=== PATIENT | female | born 1975 | race Caucasian/White ===

== ENCOUNTER 2016-09-08 18:29 | Emergency (ER) | payer OTHER ==
[2016-09-08] MEDS ORDERED: SODIUM CHLORIDE 0.9% 1,000 ML IV ONE (18:48)
[2016-09-08] MEDS ORDERED: NALOXONE 0.4 MG/ML 1 ML VIAL IV STA (18:48)
--- NOTE | 2016-09-08 19:02 | ED ---
Altered Mental Status HPI <Canelo Lincoln - Last Filed: 09/08/16 20:25> - General Source: EMS, RN notes reviewed Mode of arrival: EMS Limitations: no limitations <Luana Gloria - Last Filed: 09/08/16 20:42> - General Chief Complaint: Altered Mental Status Stated Complaint: Fever Time Seen by Provider: 09/08/16 18:33 - History of Present Illness Initial Comments: Patient is a 41-year-old female coming to emergency Department via EMS with chief complaint altered mental status. Patient's boyfriend reports that yesterday she threw up around 5:00 in the morning. She states that since then she's been more confused and off balance. The report that she's had a fever off and on. He states that she just been acting abnormally. They report that they're currently on methadone and received her methadone at 9:00 this morning. They state that she is receiving 90 mg doses at this time. Patient denies any history of IV drug use, or other drug use at this time. Patient's boyfriend states that today she lost her balance and fell and hit her head on the kitchen floor. Patient states that she is in no pain at this time. She denies any abdominal pain, chest pain, shortness of breath. (Luana Gloria) - Related Data Home Medications Medication Instructions Recorded Confirmed Citalopram Hydrobromide [CeleXA] 40 mg PO DAILY 09/08/16 09/08/16 Methadone HCl [Methadone Intensol] 85 mg PO DAILY 09/08/16 09/08/16 Allergies Allergy/AdvReac Type Severity Reaction Status Date / Time No Known Allergies Allergy Verified 09/08/16 19:15 Review of Systems ROS Other: All systems not noted in ROS Statement are negative. <Canelo Lincoln - Last Filed: 09/08/16 20:25> ROS Other: All systems not noted in ROS Statement are negative. <Luana Gloria - Last Filed: 09/08/16 20:42> ROS Statement: Those systems with pertinent positive or pertinent negative responses have been documented in the HPI. Past Medical History Past Medical History: No Reported History Additional Past Medical History / Comment(s): heroin use, uti History of Any Multi-Drug Resistant Organisms: None Reported Past Surgical History: Section, Cholecystectomy Additional Past Surgical History / Comment(s): 2 sections Past Psychological History: No Psychological Hx Reported Smoking Status: Former smoker Past Alcohol Use History: None Reported Past Drug Use History: Heroin, IV Drug Use Additional Drug Use History / Comment(s): last time used 12-19-2013 <Luana Gloria - Last Filed: 09/08/16 20:42> General Exam <Canelo Lincoln - Last Filed: 09/08/16 20:25> Limitations: no limitations General appearance: alert, in no apparent distress Head exam: Present: atraumatic, normocephalic, normal inspection Eye exam: Present: normal appearance, PERRL, EOMI. Absent: scleral icterus, conjunctival injection, periorbital swelling ENT exam: Present: normal exam, mucous membranes moist Neck exam: Present: normal inspection. Absent: tenderness, meningismus, lymphadenopathy Respiratory exam: Present: normal lung sounds bilaterally. Absent: respiratory distress, wheezes, rales, rhonchi, stridor Cardiovascular Exam: Present: regular rate, normal rhythm, normal heart sounds. Absent: systolic murmur, diastolic murmur, rubs, gallop, clicks GI/Abdominal exam: Present: soft, normal bowel sounds. Absent: distended, tenderness, guarding, rebound, rigid Extremities exam: Present: normal inspection, full ROM, normal capillary refill , other (Patient has swollen bilateral hands.). Absent: tenderness, pedal edema , joint swelling, calf tenderness Back exam: Present: normal inspection Neurological exam: Present: alert, oriented X3, CN II-XII intact, abnormal gait. Absent: normal gait Psychiatric exam: Present: normal affect, normal mood Skin exam: Present: warm, dry, intact, normal color. Absent: rash <Luana Gloria - Last Filed: 09/08/16 20:42> - General Exam Comments Initial Comments: 41-year-old female. Patient is alert and oriented 3. (Luana Gloria) Medical Decision Making - Lab Data Result diagrams: 09/08/16 18:55 09/08/16 18:55 <Canelo Lincoln - Last Filed: 09/08/16 20:25> - Lab Data Result diagrams: 09/08/16 18:55 09/08/16 18:55 - Radiology Data Radiology results: report reviewed <Luana Gloria - Last Filed: 09/08/16 20:42> - Medical Decision Making The patient was seen and examined. All diagnostics were reviewed. She did wake up significantly with Narcan. She refuses taking anything other than her normal methadone dose. She was questioned multiple times and still refuses that she took any other narcotics or hair when. She states that she gets drug tested twice a week when she picks up her methadone. She is offered admission to the hospital but refuses. She is alert and oriented and lucid upon discussion. She was instructed to communicate with [facility] in regard to decreasing her methadone dose. She denies any recent increases in the dose. It is felt as though her symptoms are likely related to her narcotic overdose she is counseled regarding this in detail and leaves in no distress. The case is discussed with the PA and I agree with the findings as documented. (Canelo Lincoln) Patient is 41-year-old female presenting to emergency Department with altered mental status. Patient given IV fluids. All labs are reviewed and were negative. EKG was normal. Chest x-ray CT brain and hand. She does have some swelling over her with this could be attributed to discussed taking Benadryl keeping the hand elevated. Patient was evaluated by Dr. Garcia. Patient is alert and oriented after 0. 2,000,000 g of Narcan. Patient refuses to state that she's taken any opiates. That does test positive in her urine as well as methadone. Patient was questioned multiple times and continues to refuse. Patient reports that she wants to go home at this time. Patient was offered admission but declines. Patient states that she will follow-up with [facility]. Patient presents the treatment plan will comply. Return parameters were discussed. (Luana Gloria) - Lab Data Lab Results 09/08/16 09/08/16 09/08/16 Range/Units 18:55 18:55 18:55 WBC 5.6 (3.8-10.6) k/uL RBC 3.78 L (3.80-5.40) m/uL Hgb 11.5 (11.4-16.0) gm/dL Hct 33.9 L (34.0-46.0) % MCV 89.6 (80.0-100.0) fL MCH 30.5 (25.0-35.0) pg MCHC 34.1 (31.0-37.0) g/dL RDW 14.2 (11.5-15.5) % Plt Count 177 (150-450) k/uL Neutrophils % 50 % Lymphocytes % 41 % Monocytes % 4 % Eosinophils % 2 % Basophils % 1 % Neutrophils # 2.8 (1.3-7.7) k/uL Lymphocytes # 2.3 (1.0-4.8) k/uL Monocytes # 0.3 (0-1.0) k/uL Eosinophils # 0.1 (0-0.7) k/uL Basophils # 0.1 (0-0.2) k/uL PT (9.0-12.0) sec INR (<1.1) APTT (22.0-30.0) sec Sodium 141 (137-145) mmol/L Potassium 3.6 (3.5-5.1) mmol/L Chloride 106 (98-107) mmol/L Carbon Dioxide 26 (22-30) mmol/L Anion Gap 9 mmol/L BUN 9 (7-17) mg/dL Creatinine 0.89 (0.52-1.04) mg/dL Est GFR (MDRD) Af Amer >60 (>60 ml/min/1.73 sqM) Est GFR (MDRD) Non-Af >60 (>60 ml/min/1.73 sqM) Glucose 105 H (74-99) mg/dL POC Glucose (mg/dL) (75-99) mg/dL POC Glu Contact Lens Curve Grinder ID Plasma Lactic Acid Adolph (0.7-2.0) mmol/L Calcium 8.9 (8.4-10.2) mg/dL Total Bilirubin 0.5 (0.2-1.3) mg/dL AST 20 (14-36) U/L ALT 23 (9-52) U/L Alkaline Phosphatase 91 (38-126) U/L Ammonia (<30) umol/L Total Creatine Kinase 61 (30-135) U/L CK-MB (CK-2) 0.4 (0.0-2.4) ng/mL CK-MB (CK-2) Rel Index 0.7 Total Protein 7.1 (6.3-8.2) g/dL Albumin 3.7 (3.5-5.0) g/dL Urine Color Urine Appearance (Clear) Urine pH (5.0-8.0) Ur Specific [place] (1.001-1.035) Urine Protein (Negative) Urine Glucose (UA) (Negative) Urine Ketones (Negative) Urine Blood (Negative) Urine Nitrite (Negative) Urine Bilirubin (Negative) Urine Urobilinogen (<2.0) mg/dL Ur Leukocyte Esterase (Negative) Urine Opiates Screen (NotDetected) Ur Oxycodone Screen (NotDetected) Urine Methadone Screen (NotDetected) Ur Propoxyphene Screen (NotDetected) Ur Barbiturates Screen (NotDetected) U Tricyclic Antidepress (NotDetected) Ur Phencyclidine Scrn (NotDetected) Ur Amphetamines Screen (NotDetected) U Methamphetamines Scrn (NotDetected) U Benzodiazepines Scrn (NotDetected) Urine Cocaine Screen (NotDetected) U Marijuana (THC) Screen (NotDetected) 09/08/16 09/08/16 09/08/16 Range/Units 18:55 18:55 19:09 WBC (3.8-10.6) k/uL RBC (3.80-5.40) m/uL Hgb (11.4-16.0) gm/dL Hct (34.0-46.0) % MCV (80.0-100.0) fL MCH (25.0-35.0) pg MCHC (31.0-37.0) g/dL RDW (11.5-15.5) % Plt Count (150-450) k/uL Neutrophils % % Lymphocytes % % Monocytes % % Eosinophils % % Basophils % % Neutrophils # (1.3-7.7) k/uL Lymphocytes # (1.0-4.8) k/uL Monocytes # (0-1.0) k/uL Eosinophils # (0-0.7) k/uL Basophils # (0-0.2) k/uL PT 10.3 (9.0-12.0) sec INR 1.0 (<1.1) APTT 24.8 (22.0-30.0) sec Sodium (137-145) mmol/L Potassium (3.5-5.1) mmol/L Chloride (98-107) mmol/L Carbon Dioxide (22-30) mmol/L Anion Gap mmol/L BUN (7-17) mg/dL Creatinine (0.52-1.04) mg/dL Est GFR (MDRD) Af Amer (>60 ml/min/1.73 sqM) Est GFR (MDRD) Non-Af (>60 ml/min/1.73 sqM) Glucose (74-99) mg/dL POC Glucose (mg/dL) 115 H (75-99) mg/dL POC Glu Contact Lens Curve Grinder ID Abigail Gutierrez Plasma Lactic Acid Adolph 1.1 (0.7-2.0) mmol/L Calcium (8.4-10.2) mg/dL Total Bilirubin (0.2-1.3) mg/dL AST (14-36) U/L ALT (9-52) U/L Alkaline Phosphatase (38-126) U/L Ammonia 12 (<30) umol/L Total Creatine Kinase (30-135) U/L CK-MB (CK-2) (0.0-2.4) ng/mL CK-MB (CK-2) Rel Index Total Protein (6.3-8.2) g/dL Albumin (3.5-5.0) g/dL Urine Color Urine Appearance (Clear) Urine pH (5.0-8.0) Ur Specific [place] (1.001-1.035) Urine Protein (Negative) Urine Glucose (UA) (Negative) Urine Ketones (Negative) Urine Blood (Negative) Urine Nitrite (Negative) Urine Bilirubin (Negative) Urine Urobilinogen (<2.0) mg/dL Ur Leukocyte Esterase (Negative) Urine Opiates Screen (NotDetected) Ur Oxycodone Screen (NotDetected) Urine Methadone Screen (NotDetected) Ur Propoxyphene Screen (NotDetected) Ur Barbiturates Screen (NotDetected) U Tricyclic Antidepress (NotDetected) Ur Phencyclidine Scrn (NotDetected) Ur Amphetamines Screen (NotDetected) U Methamphetamines Scrn (NotDetected) U Benzodiazepines Scrn (NotDetected) Urine Cocaine Screen (NotDetected) U Marijuana (THC) Screen (NotDetected) 09/08/16 Range/Units 19:21 WBC (3.8-10.6) k/uL RBC (3.80-5.40) m/uL Hgb (11.4-16.0) gm/dL Hct (34.0-46.0) % MCV (80.0-100.0) fL MCH (25.0-35.0) pg MCHC (31.0-37.0) g/dL RDW (11.5-15.5) % Plt Count (150-450) k/uL Neutrophils % % Lymphocytes % % Monocytes % % Eosinophils % % Basophils % % Neutrophils # (1.3-7.7) k/uL Lymphocytes # (1.0-4.8) k/uL Monocytes # (0-1.0) k/uL Eosinophils # (0-0.7) k/uL Basophils # (0-0.2) k/uL PT (9.0-12.0) sec INR (<1.1) APTT (22.0-30.0) sec Sodium (137-145) mmol/L Potassium (3.5-5.1) mmol/L Chloride (98-107) mmol/L Carbon Dioxide (22-30) mmol/L Anion Gap mmol/L BUN (7-17) mg/dL Creatinine (0.52-1.04) mg/dL Est GFR (MDRD) Af Amer (>60 ml/min/1.73 sqM) Est GFR (MDRD) Non-Af (>60 ml/min/1.73 sqM) Glucose (74-99) mg/dL POC Glucose (mg/dL) (75-99) mg/dL POC Glu Contact Lens Curve Grinder ID Plasma Lactic Acid Adolph (0.7-2.0) mmol/L Calcium (8.4-10.2) mg/dL Total Bilirubin (0.2-1.3) mg/dL AST (14-36) U/L ALT (9-52) U/L Alkaline Phosphatase (38-126) U/L Ammonia (<30) umol/L Total Creatine Kinase (30-135) U/L CK-MB (CK-2) (0.0-2.4) ng/mL CK-MB (CK-2) Rel Index Total Protein (6.3-8.2) g/dL Albumin (3.5-5.0) g/dL Urine Color Yellow Urine Appearance Clear (Clear) Urine pH 5.5 (5.0-8.0) Ur Specific [place] 1.022 (1.001-1.035) Urine Protein Negative (Negative) Urine Glucose (UA) Negative (Negative) Urine Ketones Trace H (Negative) Urine Blood Negative (Negative) Urine Nitrite Negative (Negative) Urine Bilirubin Negative (Negative) Urine Urobilinogen <2.0 (<2.0) mg/dL Ur Leukocyte Esterase Negative (Negative) Urine Opiates Screen Detected H (NotDetected) Ur Oxycodone Screen Not Detected (NotDetected) Urine Methadone Screen Detected H (NotDetected) Ur Propoxyphene Screen Not Detected (NotDetected) Ur Barbiturates Screen Not Detected (NotDetected) U Tricyclic Antidepress Not Detected (NotDetected) Ur Phencyclidine Scrn Not Detected (NotDetected) Ur Amphetamines Screen Detected H (NotDetected) U Methamphetamines Scrn Not Detected (NotDetected) U Benzodiazepines Scrn Not Detected (NotDetected) Urine Cocaine Screen Not Detected (NotDetected) U Marijuana (THC) Screen Not Detected (NotDetected) 09/08/16 19:17 EKG shows normal sinus rhythm. Ventricular rate of 94 bpm. MD interval 140 ms. QRS duration 82 ms. QT is QTC 360/450 ms. No evidence of ST elevation or T-wave inversion. No evidence of atrial or ventricular arrhythmias. (Luana Gloria) - Radiology Data No acute intracranial hemorrhage, mass effect or midline shift seen. Correlate for maxillary sinusitis. Patient did not cooperate with the exam. Chest x-ray shows no acute cardiopulmonary process. Hand x-ray No fracture dislocation. Soft tissue swelling. (Luana Gloria) Disposition <Canelo Lincoln - Last Filed: 09/08/16 20:25> Time of Disposition: 20:28 <Luana Gloria - Last Filed: 09/08/16 20:42> Clinical Impression: Altered mental state, Opiate abuse, episodic, Methadone use Disposition: HOME SELF-CARE Condition: Good Instructions: Narcotic Abuse (ED), Altered Mental Status (ED) Additional Instructions: Patient advised follow-up with [facility]. Return to the emergency department if any alarming signs or symptoms occur. Referrals: Gregoria Almanza MD [Primary Care Provider] - 1-2 days
[2016-09-08 19:10] LABS: Glucose,Whole Blood 115 mg/dL (75-99)
[2016-09-08 19:17] LABS: Basophils # (A) 0.1 k/uL (0-0.2); Basophils % (A) 1 %; CH 30.7; CHCM 34.4; Eosinophils # (A) 0.1 k/uL (0-0.7); Eosinophils % (A) 2 %; HCT 33.9 % (34.0-46.0); HDW 3.08; HGB 11.5 gm/dL (11.4-16.0); Luc # (Auto) 0.09; Luc % (Auto) 2; Lymphocytes # (A) 2.3 k/uL (1.0-4.8); Lymphocytes % (A) 41 %; MCH 30.5 pg (25.0-35.0); MCHC 34.1 g/dL (31.0-37.0); MCV 89.6 fL (80.0-100.0); Mean Platelet Volume 7.1; Monocytes # (A) 0.3 k/uL (0-1.0); Monocytes % (A) 4 %; Neutrophils # (A) 2.8 k/uL (1.3-7.7); Neutrophils % (A) 50 %; RBC 3.78 m/uL (3.80-5.40); RDW 14.2 % (11.5-15.5); WBC 5.6 k/uL (3.8-10.6); WBC (Perox) 5.79
[2016-09-08 19:22] LABS: ALT 23 U/L (9-52); AST 20 U/L (14-36); Alkaline Phosphatase 91 U/L (38-126); Anion Gap 9 mmol/L; Blood Urea Nitrogen 9 mg/dL (7-17); Calcium 8.9 mg/dL (8.4-10.2); Carbon Dioxide 26 mmol/L (22-30); Chloride 106 mmol/L (98-107); Glucose 105 mg/dL (74-99); Non-African American GFR(MDRD) >60 (>60 ml/min/1.73 sqM); Potassium 3.6 mmol/L (3.5-5.1); Sodium 141 mmol/L (137-145); Total Bilirubin 0.5 mg/dL (0.2-1.3); Total Protein 7.1 g/dL (6.3-8.2)
[2016-09-08 19:36] LABS: Appearance,Urine Clear (Clear); Bilirubin,Urine Negative (Negative); Glucose,Urine (UA) Negative (Negative); Ketones,Urine Trace (Negative); Leukocyte Esterase,Urine Negative (Negative); Nitrite,Urine Negative (Negative); PH, Urine 5.5 (5.0-8.0); Protein,Urine Negative (Negative); Specific Gravity,Urine 1.022 (1.001-1.035); UA Billing (MACRO vs. MICRO) CHEM; Urobilinogen,Urine <2.0 mg/dL (<2.0)
[2016-09-08 19:40] LABS: Partial Thromboplastin Time 24.8 sec (22.0-30.0); Prothrombin Time 10.3 sec (9.0-12.0)
[2016-09-08 19:47] LABS: Creatine Kinase MB 0.4 ng/mL (0.0-2.4)
--- NOTE | 2016-09-08 19:55 | CT ---
EXAMINATION TYPE: CT brain wo con DATE OF EXAM: 09/08/2016 7:45 PM COMPARISON: NONE HISTORY: Patient altered mental status. Patient agitated during scan and would not hold still. CT DLP: 1619.3 mGycm Automated exposure control for dose reduction was used. FINDINGS: There is no acute intracranial hemorrhage, mass effect, or midline shift identified. The ventricles and sulci are within normal limits in size. Exam is somewhat limited by patient's lack of cooperation . The globes are intact and the visualized sinuses are remarkable for inflammatory change in the bila teral maxillary sinuses, there are air-fluid levels left greater than right. IMPRESSION: No acute intracranial hemorrhage, mass effect, or midline shift is seen. Correlate for maxillary sinu sitis. Patient did not cooperate with the exam.
--- NOTE | 2016-09-08 19:55 | XR ---
EXAMINATION TYPE: XR chest 2V DATE OF EXAM: 09/08/2016 7:52 PM COMPARISON: NONE HISTORY: Altered mental status TECHNIQUE: Frontal and lateral views of the chest are obtained. FINDINGS: There is no focal air space opacity, pleural effusion, or pneumothorax seen. The cardiac silhouette size is within normal limits. The osseous structures are intact. IMPRESSION: No acute cardiopulmonary process.
--- NOTE | 2016-09-08 19:56 | XR ---
Right hand HISTORY: Pain 3 views the right hand Bone mineralization, joint spaces and alignment are maintained. Soft tissue swelling noted. IMPRESSION: No fracture or dislocation. There is soft tissue swelling.
[2016-09-08 20:11] VITALS: RESP 18
[2016-09-08 20:47] VITALS: BP 107/58; PULSE 88; TEMP 98.6
== END 2016-09-08 20:47 | disposition home or self-care (01) ==
LOC: EC 18:29
DX: R41.82 Altered mental status, unspecified (principal); F11.10 Opioid abuse, uncomplicated; F11.90 Opioid use, unspecified, uncomplicated; Z87.891 Personal history of nicotine dependence; Z79.899 Other long term (current) drug therapy
CPT/HCPCS: 36415; 93005; 80053; 82140; 82550; 82553; 83605; 85025; 85610; 85730; 81003; 80306; 71020; 73130; 70450; 99285; 96374; 96361; J2310

== ENCOUNTER → 2017-10-31 | Outpatient (CLI) | payer OTHER ==
--- NOTE | 2017-10-31 09:22 | CT ---
EXAMINATION TYPE: CT abdomen pelvis w con DATE OF EXAM: 10/31/2017 COMPARISON: NONE HISTORY: LUQ pain CT DLP: 1115.1 mGycm CONTRAST: CT scan of the abdomen and pelvis is performed with Oral Contrast and with IV Contrast, patient injec mony with 100 mL of Isovue 300. FINDINGS: LUNG BASES-: No visible nodule. No infiltrate. LIVER/GB: The gallbladder surgically absent. Hepatic steatosis noted. No space occupying hepatic l esion. Biliary tree is of normal caliber. PANCREAS: No inflammation. No distinct mass. SPLEEN: No splenic enlargement. No lesion seen. ADRENALS: No nodule. No thickening. KIDNEYS/BLADDER: No hydronephrosis. Several nonobstructing calculi left kidney measuring up to 4 mm. No right-sided nephrolithiasis appreciated. No distinct renal mass. Urinary bladder grossly unremar kable. BOWEL: Normal appendix. Normal bowel caliber. No inflammation. GENITAL ORGANS: Heterogeneity of the uterus may reflect underlying leiomyomatous change. No adnexal masses are identified this time. LYMPH NODES: No greater than 1cm abdominal or pelvic lymph nodes are appreciated. AORTA: No significant abnormality. OSSEOUS STRUCTURES: Severe degenerative change L5-S1 with grade 1 anterolisthesis.. OTHER: No significant additional abnormality is seen. IMPRESSION: 1. Nonobstructing left-sided nephrolithiasis. 2. Hepatic steatosis. 3. Heterogeneity of the uterus may reflect underlying leiomyomatous change.
== END | disposition home or self-care (01) ==
LOC: RADCTMAIN 06:55
PROVIDERS: ATTEND Surgery
DX: N20.0 Calculus of kidney (principal); K76.0 Fatty (change of) liver, not elsewhere classified
CPT/HCPCS: 74177; Q9967

== ENCOUNTER → 2020-02-17 | Outpatient (CLI) | payer OTHER ==
--- NOTE | 2020-02-17 13:36 | MM ---
Reason for exam: screening (asymptomatic). Baseline mammogram. Physical Findings: Nurse did not find any significant physical abnormalities on exam. MG Screening Mammo w CAD Bilateral CC and MLO view(s) were taken. The breast tissue is heterogeneously dense. This may lower the sensitivity of mammography. There is no discrete abnormality. These results were verbally communicated with the patient and result sheet given to the patient on 02/17/20. ASSESSMENT: Negative, BI-RAD 1 RECOMMENDATION: Routine screening mammogram of both breasts in 1 year.
== END | disposition home or self-care (01) ==
LOC: RADMAMWWP 12:46
PROVIDERS: ATTEND Internal Medicine
DX: Z12.31 Encounter for screening mammogram for malignant neoplasm of breast (principal); Z80.3 Family history of malignant neoplasm of breast
CPT/HCPCS: 77067

== ENCOUNTER → 2021-02-16 | Outpatient (CLI) | payer OTHER ==
--- NOTE | 2021-02-17 07:23 | MR ---
EXAMINATION TYPE: MR brain wo con DATE OF EXAM: 02/16/2021 COMPARISON: CT brain September 08, 2016 HISTORY: Hyperprolactinemia TECHNIQUE: Multiplanar, multisequence imaging of the brain and brainstem is performed without IV cont rast. FINDINGS: Diffusion weighted images demonstrate no evidence of a recent infarct or other diffusion abnormality. There is no extraaxial fluid collection or significant white matter signal abnormality. The ventricu lar system and cisternal spaces are normal in size and appearance. The brain volume is age appropria te. Midline structures demonstrate normal morphology. The pituitary gland is stable and within normal li mits in size. Suprasellar cistern is maintained. Optic chiasm is not effaced. The craniocervical junc tion remains within normal limits. Normal vascular flow voids are present. [id number] mucosal t hickening in left maxillary sinus with dependent fluid. Remainder of the paranasal sinuses are clear. Artifact distortion at level of the globes is noted. IMPRESSION: Normal size pituitary gland. Acute on chronic left maxillary sinus disease.
== END | disposition home or self-care (01) ==
LOC: RADMRIMAIN 16:09
PROVIDERS: ATTEND Obstetrics & Gynecology
DX: E22.1 Hyperprolactinemia (principal); J32.0 Chronic maxillary sinusitis
CPT/HCPCS: 70551

== ENCOUNTER 2021-10-21 10:35 | Observation (INO) | payer OTHER ==
[2021-10-21] MEDS ORDERED: SODIUM CHLORIDE 0.9% 1,000 ML IV STA ×2 (11:22→12:37)
--- NOTE | 2021-10-21 11:26 | ED ---
General Adult HPI - General Chief complaint: Altered Mental Status Stated complaint: Altered Mental Status Time Seen by Provider: 10/21/21 11:12 Source: patient, RN notes reviewed Mode of arrival: EMS Limitations: no limitations - History of Present Illness Initial comments: Patient is a pleasant 46-year-old female presenting to the emergency department with family with concerns for possible overdose. Patient states she took 2 somas. Patient does have a history of overdosing with Soma 3 times in the past year. states patient is presenting similar to that. Patient states she feels a little bit drowsy otherwise has no complaints. Patient denies suicidal or homicidal thoughts. No headache. Patient does not feel confused. - Related Data Home Medications Medication Instructions Recorded Confirmed Methadone HCl [Methadone Intensol] 1 dose PO DIRECTED 09/08/16 06/08/21 Previous Rx's Medication Instructions Recorded Ibuprofen [Motrin] 600 mg PO Q8HR PRN #30 tab 06/08/21 Tamsulosin [Flomax] 0.4 mg PO DAILY #7 cap 06/08/21 Allergies Allergy/AdvReac Type Severity Reaction Status Date / Time No Known Allergies Allergy Verified 10/21/21 10:43 Review of Systems ROS Statement: Those systems with pertinent positive or pertinent negative responses have been documented in the HPI. ROS Other: All systems not noted in ROS Statement are negative. Constitutional: Denies: fever Eyes: Denies: eye pain ENT: Denies: ear pain Respiratory: Denies: cough Cardiovascular: Denies: chest pain Endocrine: Denies: fatigue Gastrointestinal: Denies: abdominal pain Genitourinary: Denies: dysuria Musculoskeletal: Denies: back pain Skin: Denies: rash Neurological: Denies: weakness Psychiatric: Denies: homicidal thoughts, suicidal thoughts Past Medical History Past Medical History: No Reported History Additional Past Medical History / Comment(s): heroin use, uti History of Any Multi-Drug Resistant Organisms: None Reported Past Surgical History: Section, Cholecystectomy Additional Past Surgical History / Comment(s): 2 sections Past Psychological History: No Psychological Hx Reported Smoking Status: Vaper Past Alcohol Use History: None Reported Past Drug Use History: Heroin, IV Drug Use General Exam Limitations: no limitations General appearance: alert, other (Patient is slow to respond to questioning.) Head exam: Present: atraumatic Eye exam: Present: normal appearance, PERRL, EOMI, nystagmus ENT exam: Present: normal oropharynx Neck exam: Present: normal inspection Respiratory exam: Present: normal lung sounds bilaterally Cardiovascular Exam: Present: regular rate, normal rhythm GI/Abdominal exam: Present: soft. Absent: tenderness Extremities exam: Present: normal inspection Neurological exam: Present: alert, CN II-XII intact. Absent: motor sensory deficit Expanded Neurological exam: Present: other (Patient unable to cooperate to do finger-nose testing) Patient oriented to: Absent: time Motor strength exam: RUE: 5, LUE: 5, RLE: 5, LLE: 5 Eye Response: (4) open spontaneously Motor Response: (6) obeys commands Verbal Response: (4) confused conversation Psychiatric exam: Present: normal affect, normal mood Skin exam: Present: normal color Course Vital Signs 10/21/21 10:43 Temperature 98.4 F Pulse Rate 68 Respiratory 16 Rate Blood Pressure 99/66 O2 Sat by Pulse 98 Oximetry EKG Findings - EKG Comments: EKG Findings:: Sinus tachycardia 103. CT 152. QRS 77. QT 320. QTC 379. Normal axis. Normal QRS. Artifact is present. No acute ST change. Medical Decision Making - Medical Decision Making Patient reexamined and not quite as restless at this time. Patient is drowsy. Patient and family updated on results and plan. [facility] [place] physician group has been paged for admission covering hospital observation call - Lab Data Result diagrams: 10/21/21 11:39 10/21/21 11:39 Lab Results 10/21/21 10/21/21 10/21/21 Range/Units 11:39 11:39 11:39 WBC 6.5 (3.8-10.6) k/uL RBC 4.07 (3.80-5.40) m/uL Hgb 12.1 (11.4-16.0) gm/dL Hct 36.7 (34.0-46.0) % MCV 90.3 (80.0-100.0) fL MCH 29.8 (25.0-35.0) pg MCHC 33.0 (31.0-37.0) g/dL RDW 14.1 (11.5-15.5) % Plt Count 218 (150-450) k/uL MPV 7.8 Neutrophils % 46 % Lymphocytes % 44 % Monocytes % 4 % Eosinophils % 4 % Basophils % 1 % Neutrophils # 3.0 (1.3-7.7) k/uL Lymphocytes # 2.9 (1.0-4.8) k/uL Monocytes # 0.3 (0-1.0) k/uL Eosinophils # 0.2 (0-0.7) k/uL Basophils # 0.1 (0-0.2) k/uL PT 10.0 (9.0-12.0) sec INR 0.9 (<1.2) APTT 25.6 (22.0-30.0) sec Sodium 140 (137-145) mmol/L Potassium 4.0 (3.5-5.1) mmol/L Chloride 106 (98-107) mmol/L Carbon Dioxide 26 (22-30) mmol/L Anion Gap 8 mmol/L BUN 10 (7-17) mg/dL Creatinine 1.01 (0.52-1.04) mg/dL Est GFR (CKD-EPI)AfAm 78 (>60 ml/min/1.73 sqM) Est GFR (CKD-EPI)NonAf 68 (>60 ml/min/1.73 sqM) Glucose 79 (74-99) mg/dL Calcium 9.0 (8.4-10.2) mg/dL Total Bilirubin 0.3 (0.2-1.3) mg/dL AST 25 (14-36) U/L ALT 15 (4-34) U/L Alkaline Phosphatase 84 (38-126) U/L Total Protein 7.4 (6.3-8.2) g/dL Albumin 4.2 (3.5-5.0) g/dL Urine Color Urine Appearance (Clear) Urine pH (5.0-8.0) Ur Specific [place] (1.001-1.035) Urine Protein (Negative) Urine Glucose (UA) (Negative) Urine Ketones (Negative) Urine Blood (Negative) Urine Nitrite (Negative) Urine Bilirubin (Negative) Urine Urobilinogen (<2.0) mg/dL Ur Leukocyte Esterase (Negative) Urine RBC (0-5) /hpf Urine WBC (0-5) /hpf Ur Squamous Epith Cells (0-4) /hpf Hyaline Casts (0-2) /lpf Urine Mucus (None) /hpf Salicylates <1.0 mg/dL Urine Opiates Screen (NotDetected) Ur Oxycodone Screen (NotDetected) Urine Methadone Screen (NotDetected) Ur Propoxyphene Screen (NotDetected) Acetaminophen <10.0 ug/mL Ur Barbiturates Screen (NotDetected) U Tricyclic Antidepress (NotDetected) Ur Phencyclidine Scrn (NotDetected) Ur Amphetamines Screen (NotDetected) U Methamphetamines Scrn (NotDetected) U Benzodiazepines Scrn (NotDetected) Urine Cocaine Screen (NotDetected) U Marijuana (THC) Screen (NotDetected) Serum Alcohol <10 mg/dL 10/21/21 Range/Units 12:42 WBC (3.8-10.6) k/uL RBC (3.80-5.40) m/uL Hgb (11.4-16.0) gm/dL Hct (34.0-46.0) % MCV (80.0-100.0) fL MCH (25.0-35.0) pg MCHC (31.0-37.0) g/dL RDW (11.5-15.5) % Plt Count (150-450) k/uL MPV Neutrophils % % Lymphocytes % % Monocytes % % Eosinophils % % Basophils % % Neutrophils # (1.3-7.7) k/uL Lymphocytes # (1.0-4.8) k/uL Monocytes # (0-1.0) k/uL Eosinophils # (0-0.7) k/uL Basophils # (0-0.2) k/uL PT (9.0-12.0) sec INR (<1.2) APTT (22.0-30.0) sec Sodium (137-145) mmol/L Potassium (3.5-5.1) mmol/L Chloride (98-107) mmol/L Carbon Dioxide (22-30) mmol/L Anion Gap mmol/L BUN (7-17) mg/dL Creatinine (0.52-1.04) mg/dL Est GFR (CKD-EPI)AfAm (>60 ml/min/1.73 sqM) Est GFR (CKD-EPI)NonAf (>60 ml/min/1.73 sqM) Glucose (74-99) mg/dL Calcium (8.4-10.2) mg/dL Total Bilirubin (0.2-1.3) mg/dL AST (14-36) U/L ALT (4-34) U/L Alkaline Phosphatase (38-126) U/L Total Protein (6.3-8.2) g/dL Albumin (3.5-5.0) g/dL Urine Color Yellow Urine Appearance Cloudy H (Clear) Urine pH 5.5 (5.0-8.0) Ur Specific [place] 1.032 (1.001-1.035) Urine Protein Negative (Negative) Urine Glucose (UA) Negative (Negative) Urine Ketones Trace H (Negative) Urine Blood Negative (Negative) Urine Nitrite Negative (Negative) Urine Bilirubin Negative (Negative) Urine Urobilinogen 2.0 (<2.0) mg/dL Ur Leukocyte Esterase Trace H (Negative) Urine RBC 1 (0-5) /hpf Urine WBC 2 (0-5) /hpf Ur Squamous Epith Cells 4 (0-4) /hpf Hyaline Casts 1 (0-2) /lpf Urine Mucus Occasional H (None) /hpf Salicylates mg/dL Urine Opiates Screen Not Detected (NotDetected) Ur Oxycodone Screen Not Detected (NotDetected) Urine Methadone Screen Detected H (NotDetected) Ur Propoxyphene Screen Not Detected (NotDetected) Acetaminophen ug/mL Ur Barbiturates Screen Not Detected (NotDetected) U Tricyclic Antidepress Not Detected (NotDetected) Ur Phencyclidine Scrn Not Detected (NotDetected) Ur Amphetamines Screen Not Detected (NotDetected) U Methamphetamines Scrn Not Detected (NotDetected) U Benzodiazepines Scrn Not Detected (NotDetected) Urine Cocaine Screen Not Detected (NotDetected) U Marijuana (THC) Screen Not Detected (NotDetected) Serum Alcohol mg/dL Disposition Clinical Impression: Carisoprodol adverse reaction Disposition: ADMITTED IP TO THIS HOSP Is patient prescribed a controlled substance at d/c from ED?: No Referrals: Gregoria Almanza MD [Primary Care Provider] - 1-2 days Time of Disposition: 13:01
[2021-10-21 11:55] LABS: Basophils # (A) 0.1 k/uL (0-0.2); Basophils % (A) 1 %; Eosinophils # (A) 0.2 k/uL (0-0.7); Eosinophils % (A) 4 %; HCT 36.7 % (34.0-46.0); HGB 12.1 gm/dL (11.4-16.0); Lymphocytes # (A) 2.9 k/uL (1.0-4.8); Lymphocytes % (A) 44 %; MCH 29.8 pg (25.0-35.0); MCV 90.3 fL (80.0-100.0); Mean Platelet Volume 7.8; Monocytes # (A) 0.3 k/uL (0-1.0); Monocytes % (A) 4 %; Neutrophils % (A) 46 %; Platelet Count 218 k/uL (150-450); RBC 4.07 m/uL (3.80-5.40); RDW 14.1 % (11.5-15.5); WBC 6.5 k/uL (3.8-10.6)
[2021-10-21 11:59] LABS: ALT 15 U/L (4-34); AST 25 U/L (14-36); Acetaminophen <10.0 ug/mL; African American GFR (CKD) 78 (>60 ml/min/1.73 sqM); Albumin 4.2 g/dL (3.5-5.0); Alcohol <10 mg/dL; Alkaline Phosphatase 84 U/L (38-126); Anion Gap 8 mmol/L; Blood Urea Nitrogen 10 mg/dL (7-17); Carbon Dioxide 26 mmol/L (22-30); Chloride 106 mmol/L (98-107); Glucose 79 mg/dL (74-99); Non-African American GFR(CKD) 68 (>60 ml/min/1.73 sqM); Salicylate <1.0 mg/dL; Sodium 140 mmol/L (137-145); Total Bilirubin 0.3 mg/dL (0.2-1.3); Total Protein 7.4 g/dL (6.3-8.2)
[2021-10-21 12:14] LABS: INR 0.9 (<1.2); Partial Thromboplastin Time 25.6 sec (22.0-30.0)
--- NOTE | 2021-10-21 12:34 | CT ---
EXAMINATION TYPE: CT brain wo con DATE OF EXAM: 10/21/2021 COMPARISON: 09/08/2016 INDICATION: altered mental status DLP: 1099.4 mGycm, Automated exposure control for dose reduction was used. CONTRAST: None CT of the brain is performed utilizing 3 mm thick sections through the posterior fossa and 3 mm thick sections through the remaining calvarium. Study is performed within 24 hours of arrival to the hosp [facility]. No abnormal hyperdensity is present to suggest an acute intracranial hemorrhage. No mass lesion is evident. No acute infarcts are evident. Ventricles and sulci are appropriate for the patient age. Paranasal sinuses and mastoid air cells within the [id number] are clear. IMPRESSIONS: 1. No acute intracranial process. MRI is available if additional evaluation would be of benefit.
--- NOTE | 2021-10-21 12:35 | XR ---
EXAMINATION TYPE: XR chest 2V DATE OF EXAM: 10/21/2021 COMPARISON: 09/08/2016 INDICATION: Altered mental status TECHNIQUE: Frontal and lateral views of the chest are obtained. FINDINGS: The heart size is normal. The pulmonary vasculature is normal. The lungs are clear. IMPRESSION: 1. No acute pulmonary process.
[2021-10-21 13:03] LABS: Appearance,Urine Cloudy (Clear); Bilirubin,Urine Negative (Negative); Blood,Urine Negative (Negative); Color,Urine Yellow; Glucose,Urine (UA) Negative (Negative); Hyaline Casts,Urine 1 /lpf (0-2); Ketones,Urine Trace (Negative); Leukocyte Esterase,Urine Trace (Negative); Mucus,Urine Occasional /hpf; Nitrite,Urine Negative (Negative); PH, Urine 5.5 (5.0-8.0); Protein,Urine Negative (Negative); RBC,Urine 1 /hpf (0-5); Specific Gravity,Urine 1.032 (1.001-1.035); Squamous Epithelial Cell,Urine 4 /hpf (0-4); WBC,Urine 2 /hpf (0-5)
[2021-10-21 13:23] LABS: Amphetamine Screen,Urine Not Detected (NotDetected); Barbiturate Screen,Urine Not Detected (NotDetected); Benzodiazepines Screen,Urine Not Detected (NotDetected); Cocaine Screen,Urine Not Detected (NotDetected); Methadone Screen, Urine Detected (NotDetected); Opiate Screen,Urine Not Detected (NotDetected); Oxycodone Screen, Urine Not Detected (NotDetected); Phencyclidine Screen,Urine Not Detected (NotDetected); Tricyclic Antidepressant,Urine Not Detected (NotDetected); Urn Cannabinoid Scrn Not Detected (NotDetected)
[2021-10-21] MEDS ORDERED: NALOXONE 0.4 MG/ML 1 ML VIAL IV PRN (13:33)
[2021-10-21] MEDS: METHADONE 10 MG TAB PO SCH (16:52)
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
[2021-10-21 20:44] VITALS: RESP 16
[2021-10-22 04:54] VITALS: BP 104/68; PULSE 65; TEMP 97.9
[2021-10-22] MEDS: METHADONE 10 MG TAB PO SCH (07:37)
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
== END 2021-10-22 14:38 | disposition home or self-care (01) ==
LOC: EC 10:35 → 6NMEDSUR 13:35 → 5NMEDONC 17:44
PROVIDERS: ADMIT Internal Medicine; ATTEND Internal Medicine
DX: T42.8X2A Poisoning by antiparkinsonism drugs and other central muscle-tone depressants, intentional self-harm, initial encounter (principal); G89.29 Other chronic pain; R25.2 Cramp and spasm; R00.0 Tachycardia, unspecified; F11.21 Opioid dependence, in remission; Z71.9 Counseling, unspecified; Z71.51 Drug abuse counseling and surveillance of drug abuser; Z63.4 Disappearance and death of family member; Z87.828 Personal history of other (healed) physical injury and trauma; Z87.440 Personal history of urinary (tract) infections; Z90.49 Acquired absence of other specified parts of digestive tract
CPT/HCPCS: 96361 ×3; 96360; 99285; 36415; 93005; 80053; 85025; 85610; 85730; 81001; 80306; 80143; 80179; 71046; 70450; G0378 ×3; G0480; S0109 ×2; 80320

== ENCOUNTER 2021-12-21 00:22 | Inpatient (IN) | payer OTHER ==
[2021-12-21] MEDS ORDERED: SODIUM CHLORIDE 0.9% 500 ML 500 ML IV STA (00:31)
[2021-12-21] MEDS ORDERED: ETOMIDATE 2 MG/ML 10 ML VIAL IVP STA (00:37)
[2021-12-21] MEDS ORDERED: SUCCINYLCHOLINE CHLORIDE 200 MG/10 ML VIAL IV STA (00:38)
--- NOTE | 2021-12-21 00:51 | ED ---
Altered Mental Status HPI - General Stated Complaint: Overdose Time Seen by Provider: 12/21/21 00:26 Source: EMS Mode of arrival: EMS Limitations: altered mental status - History of Present Illness Initial Comments: This patient is a 46-year-old woman brought by ambulance to be evaluated after suspected overdose. The patient reportedly had taken some muscle relaxants at home that may not necessarily been prescribed for today. She then become more somnolent. On EMS arrival, patient was somewhat confused and disoriented. She had decreased level of consciousness and for that reason sounds like EMS had given dose of Narcan after which, the patient reportedly had episode of vomiting and then became more altered. On arrival, patient is not able to provide any history. MD Complaint: altered mental status -: unknown Severity: severe Context: drug abuse Treatments Prior to Arrival: oxygen, other pre-hospital medication (Narcan) - Related Data Home Medications Medication Instructions Recorded Confirmed Methadone HCl [Methadone Intensol] 170 dose PO DAILY 09/08/16 10/24/21 Allergies Allergy/AdvReac Type Severity Reaction Status Date / Time No Known Allergies Allergy Verified 12/21/21 00:32 Review of Systems ROS Statement: Those systems with pertinent positive or pertinent negative responses have been documented in the HPI. ROS Other: All systems not noted in ROS Statement are negative. Limitations: ROS unobtainable due to patients medical condition Past Medical History Past Medical History: No Reported History Additional Past Medical History / Comment(s): heroin use, uti, used to have seizures when younger History of Any Multi-Drug Resistant Organisms: None Reported Past Surgical History: Section, Cholecystectomy Additional Past Surgical History / Comment(s): 2 sections Past Anesthesia/Blood Transfusion Reactions: No Reported Reaction Past Psychological History: No Psychological Hx Reported Smoking Status: Vaper Past Alcohol Use History: None Reported Past Drug Use History: Heroin, IV Drug Use General Exam Limitations: altered mental status General appearance: obtunded, in distress Head exam: Present: atraumatic, normocephalic Eye exam: Present: normal appearance. Absent: scleral icterus, conjunctival injection Neck exam: Present: normal inspection, full ROM. Absent: tenderness, meningismus Respiratory exam: Present: respiratory distress, rhonchi. Absent: wheezes, rales Cardiovascular Exam: Present: tachycardia, normal heart sounds. Absent: systolic murmur, diastolic murmur, rubs, gallop GI/Abdominal exam: Present: soft. Absent: distended, tenderness, guarding, rebound, rigid Extremities exam: Present: normal inspection, normal capillary refill. Absent: pedal edema, calf tenderness Back exam: Present: normal inspection Neurological exam: Present: altered Skin exam: Present: warm, dry, intact, normal color. Absent: rash Course Vital Signs 12/21/21 12/21/21 12/21/21 00:25 00:41 00:45 Temperature 98.8 F Pulse Rate 105 H 108 H 104 H Respiratory 16 50 H 47 H Rate Blood Pressure 129/80 152/92 149/88 O2 Sat by Pulse 95 97 97 Oximetry Fraction of Inspired Oxygen (FIO2) 12/21/21 12/21/21 12/21/21 00:50 00:55 00:58 Temperature Pulse Rate 108 H 102 H Respiratory 40 H 40 H Rate Blood Pressure 141/112 118/80 O2 Sat by Pulse 98 98 Oximetry Fraction of 100 Inspired Oxygen (FIO2) 12/21/21 12/21/21 12/21/21 00:59 01:00 01:05 Temperature Pulse Rate 92 98 Respiratory 45 H 45 H Rate Blood Pressure 120/107 130/91 O2 Sat by Pulse 98 98 Oximetry Fraction of 100 Inspired Oxygen (FIO2) 12/21/21 12/21/21 12/21/21 01:20 01:30 01:40 Temperature Pulse Rate 96 90 96 Respiratory 42 H 40 H 34 H Rate Blood Pressure 155/91 126/83 133/92 O2 Sat by Pulse 98 96 96 Oximetry Fraction of Inspired Oxygen (FIO2) 12/21/21 12/21/21 12/21/21 01:50 02:00 02:10 Temperature Pulse Rate 88 92 93 Respiratory 40 H 36 H 35 H Rate Blood Pressure 134/89 122/84 116/75 O2 Sat by Pulse 94 L 93 L 93 L Oximetry Fraction of Inspired Oxygen (FIO2) 12/21/21 12/21/21 12/21/21 02:20 02:30 02:40 Temperature Pulse Rate 89 91 90 Respiratory 38 H 40 H 39 H Rate Blood Pressure 115/81 123/78 115/99 O2 Sat by Pulse 93 L 94 L 94 L Oximetry Fraction of Inspired Oxygen (FIO2) 12/21/21 12/21/21 12/21/21 02:50 03:00 03:10 Temperature Pulse Rate 91 95 96 Respiratory 44 H 44 H 41 H Rate Blood Pressure 125/84 125/84 119/75 O2 Sat by Pulse 94 L 94 L 93 L Oximetry Fraction of Inspired Oxygen (FIO2) 12/21/21 12/21/21 12/21/21 03:20 03:54 04:00 Temperature Pulse Rate 93 83 94 Respiratory 39 H 28 H 37 H Rate Blood Pressure 121/77 95/61 95/61 O2 Sat by Pulse 96 99 96 Oximetry Fraction of Inspired Oxygen (FIO2) 12/21/21 12/21/21 12/21/21 04:10 04:25 04:30 Temperature Pulse Rate 93 101 H Respiratory 33 H 30 H Rate Blood Pressure 102/58 93/66 O2 Sat by Pulse 96 93 L Oximetry Fraction of 100 Inspired Oxygen (FIO2) 12/21/21 12/21/21 04:40 04:50 Temperature Pulse Rate 89 91 Respiratory 30 H 27 H Rate Blood Pressure 109/56 96/55 O2 Sat by Pulse 99 99 Oximetry Fraction of Inspired Oxygen (FIO2) Procedures - Intubation Sedative: Etomidate Mg Given: 20 Paralytic: Succinylcholine Mg Given: 100 Laryngoscope: Adrian Size: 3 ET Tube Size: 8 ET Tube Uncuffed: No Tube Secured Depth (cm): 22 Tube Secured Location: lips Tube Placement Confirmation: visualized tube passing through cords, equal breath sounds bilaterally, no breath sounds over epigastrium, confirmation by capnometry Patient Tolerated Procedure: well, no complications Intubation Complications: none - Restraint - Face to Face Restraint Occurrence 1 Patient's Immediate Situation: Endangers staff safety Patient's Reaction to the Intervention: Restless, Resistive to care Patient's Medical & Behavioral Condition: Confused Need to Continue or Terminate Restraint or Seclusion: Continue Face to Face Eval of Restraint Date: 12/21/21 Face to Face Eval of Restraint Time: 01:15 Medical Decision Making - Lab Data Result diagrams: 12/21/21 01:02 12/21/21 10:13 Lab Results 12/21/21 12/21/21 12/21/21 Range/Units 01:02 01:02 01:02 WBC 7.4 (3.8-10.6) k/uL RBC 3.83 (3.80-5.40) m/uL Hgb 11.6 (11.4-16.0) gm/dL Hct 34.6 (34.0-46.0) % MCV 90.3 (80.0-100.0) fL MCH 30.3 (25.0-35.0) pg MCHC 33.6 (31.0-37.0) g/dL RDW 14.7 (11.5-15.5) % Plt Count 194 (150-450) k/uL MPV 8.0 Neutrophils % 49 % Lymphocytes % 41 % Monocytes % 5 % Eosinophils % 2 % Basophils % 1 % Neutrophils # 3.6 (1.3-7.7) k/uL Lymphocytes # 3.1 (1.0-4.8) k/uL Monocytes # 0.4 (0-1.0) k/uL Eosinophils # 0.2 (0-0.7) k/uL Basophils # 0.1 (0-0.2) k/uL Sample Site ABG pH (7.35-7.45) ABG pCO2 (35-45) mmHg ABG pO2 (83-108) mmHg ABG HCO3 (21-25) mmol/L ABG Total CO2 (19-24) mmol/L ABG O2 Saturation (94-97) % ABG Base Excess mmol/L Deon Test FiO2 % Sodium (137-145) mmol/L Potassium (3.5-5.1) mmol/L Chloride (98-107) mmol/L Carbon Dioxide (22-30) mmol/L Anion Gap mmol/L BUN (7-17) mg/dL Creatinine (0.52-1.04) mg/dL Est GFR (CKD-EPI)AfAm (>60 ml/min/1.73 sqM) Est GFR (CKD-EPI)NonAf (>60 ml/min/1.73 sqM) Glucose (74-99) mg/dL Calcium (8.4-10.2) mg/dL Total Bilirubin (0.2-1.3) mg/dL AST (14-36) U/L ALT (4-34) U/L Alkaline Phosphatase (38-126) U/L Troponin I (0.000-0.034) ng/mL Total Protein (6.3-8.2) g/dL Albumin (3.5-5.0) g/dL Urine HCG, Qual Not Detected (Not Detectd) Salicylates mg/dL Urine Opiates Screen Not Detected (NotDetected) Ur Oxycodone Screen Not Detected (NotDetected) Urine Methadone Screen Detected H (NotDetected) Ur Propoxyphene Screen Not Detected (NotDetected) Acetaminophen ug/mL Ur Barbiturates Screen Not Detected (NotDetected) U Tricyclic Antidepress Not Detected (NotDetected) Ur Phencyclidine Scrn Not Detected (NotDetected) Ur Amphetamines Screen Not Detected (NotDetected) U Methamphetamines Scrn Not Detected (NotDetected) U Benzodiazepines Scrn Not Detected (NotDetected) Urine Cocaine Screen Not Detected (NotDetected) U Marijuana (THC) Screen Not Detected (NotDetected) Serum Alcohol mg/dL 12/21/21 12/21/21 12/21/21 Range/Units 01:02 01:02 01:35 WBC (3.8-10.6) k/uL RBC (3.80-5.40) m/uL Hgb (11.4-16.0) gm/dL Hct (34.0-46.0) % MCV (80.0-100.0) fL MCH (25.0-35.0) pg MCHC (31.0-37.0) g/dL RDW (11.5-15.5) % Plt Count (150-450) k/uL MPV Neutrophils % % Lymphocytes % % Monocytes % % Eosinophils % % Basophils % % Neutrophils # (1.3-7.7) k/uL Lymphocytes # (1.0-4.8) k/uL Monocytes # (0-1.0) k/uL Eosinophils # (0-0.7) k/uL Basophils # (0-0.2) k/uL Sample Site L radial ABG pH 7.41 (7.35-7.45) ABG pCO2 37 (35-45) mmHg ABG pO2 112 H (83-108) mmHg ABG HCO3 24 (21-25) mmol/L ABG Total CO2 25 H (19-24) mmol/L ABG O2 Saturation 98.9 H (94-97) % ABG Base Excess -1.0 mmol/L Deon Test Yes FiO2 100 % Sodium 138 (137-145) mmol/L Potassium 3.1 L (3.5-5.1) mmol/L Chloride 105 (98-107) mmol/L Carbon Dioxide 23 (22-30) mmol/L Anion Gap 10 mmol/L BUN 10 (7-17) mg/dL Creatinine 0.82 (0.52-1.04) mg/dL Est GFR (CKD-EPI)AfAm >90 (>60 ml/min/1.73 sqM) Est GFR (CKD-EPI)NonAf 87 (>60 ml/min/1.73 sqM) Glucose 154 H (74-99) mg/dL Calcium 8.8 (8.4-10.2) mg/dL Total Bilirubin 0.5 (0.2-1.3) mg/dL AST 25 (14-36) U/L ALT 16 (4-34) U/L Alkaline Phosphatase 88 (38-126) U/L Troponin I <0.012 (0.000-0.034) ng/mL Total Protein 7.1 (6.3-8.2) g/dL Albumin 4.0 (3.5-5.0) g/dL Urine HCG, Qual (Not Detectd) Salicylates <1.0 mg/dL Urine Opiates Screen (NotDetected) Ur Oxycodone Screen (NotDetected) Urine Methadone Screen (NotDetected) Ur Propoxyphene Screen (NotDetected) Acetaminophen <10.0 ug/mL Ur Barbiturates Screen (NotDetected) U Tricyclic Antidepress (NotDetected) Ur Phencyclidine Scrn (NotDetected) Ur Amphetamines Screen (NotDetected) U Methamphetamines Scrn (NotDetected) U Benzodiazepines Scrn (NotDetected) Urine Cocaine Screen (NotDetected) U Marijuana (THC) Screen (NotDetected) Serum Alcohol <10 mg/dL - EKG Data -: EKG Interpreted by Me EKG shows normal: sinus rhythm (With PVC), axis (Normal), intervals (Normal), QRS complexes (Normal) Rate: normal (Rate 95 bpm) Interpretation: nonspecific ST-T wave changes Critical Care Time Critical Care Time: Yes (35 minutes) Disposition Clinical Impression: Overdose, Altered mental status, Aspiration pneumonitis, Hypokalemia Disposition: [facility]MITT[facility] Condition: Critical Is patient prescribed a controlled substance at d/c from ED?: No
[2021-12-21] MEDS ORDERED: LORazepam 2 MG/ML INJ IV STA ×2 (00:57→01:37)
--- NOTE | 2021-12-21 01:20 | XR ---
EXAMINATION TYPE: XR chest 1V portable DATE OF EXAM: 12/21/2021 COMPARISON: 10/21/2021 HISTORY: Cough TECHNIQUE: Single view FINDINGS: There are some coarse interstitial density in the lung acevedo bilaterally. Heart size is no rmal. There is endotracheal tube 5 mm from the kandis. There are chest leads. No pleural effusion. Th ere is nasogastric tube with the tip in the gastric antrum region. IMPRESSION: There is some mild pulmonary interstitial edema that appears new compared to old exam. En dotracheal tube is low and should be pulled back 3 cm.
[2021-12-21 01:24] LABS: Allen Test Performed? Yes
[2021-12-21 01:28] LABS: Basophils # (A) 0.1 k/uL (0-0.2); Basophils % (A) 1 %; Eosinophils # (A) 0.2 k/uL (0-0.7); Eosinophils % (A) 2 %; HCT 34.6 % (34.0-46.0); HGB 11.6 gm/dL (11.4-16.0); Lymphocytes # (A) 3.1 k/uL (1.0-4.8); Lymphocytes % (A) 41 %; MCH 30.3 pg (25.0-35.0); MCHC 33.6 g/dL (31.0-37.0); MCV 90.3 fL (80.0-100.0); Monocytes # (A) 0.4 k/uL (0-1.0); Monocytes % (A) 5 %; Neutrophils # (A) 3.6 k/uL (1.3-7.7); Neutrophils % (A) 49 %; Platelet Count 194 k/uL (150-450); RBC 3.83 m/uL (3.80-5.40); RDW 14.7 % (11.5-15.5); WBC 7.4 k/uL (3.8-10.6)
[2021-12-21 01:35] LABS: Amphetamine Screen,Urine Not Detected (NotDetected); Barbiturate Screen,Urine Not Detected (NotDetected); Benzodiazepines Screen,Urine Not Detected (NotDetected); Cocaine Screen,Urine Not Detected (NotDetected); Methadone Screen, Urine Detected (NotDetected); Opiate Screen,Urine Not Detected (NotDetected); Oxycodone Screen, Urine Not Detected (NotDetected); Phencyclidine Screen,Urine Not Detected (NotDetected); Tricyclic Antidepressant,Urine Not Detected (NotDetected); Urn Cannabinoid Scrn Not Detected (NotDetected)
[2021-12-21 01:37] LABS: ALT 16 U/L (4-34); AST 25 U/L (14-36); Acetaminophen <10.0 ug/mL; African American GFR (CKD) >90 (>60 ml/min/1.73 sqM); Alcohol <10 mg/dL; Alkaline Phosphatase 88 U/L (38-126); Anion Gap 10 mmol/L; Blood Urea Nitrogen 10 mg/dL (7-17); Calcium 8.8 mg/dL (8.4-10.2); Carbon Dioxide 23 mmol/L (22-30); Chloride 105 mmol/L (98-107); Glucose 154 mg/dL (74-99); Non-African American GFR(CKD) 87 (>60 ml/min/1.73 sqM); Potassium 3.1 mmol/L (3.5-5.1); Salicylate <1.0 mg/dL; Sodium 138 mmol/L (137-145); Total Bilirubin 0.5 mg/dL (0.2-1.3); Total Protein 7.1 g/dL (6.3-8.2)
[2021-12-21 01:40] LABS: ABG HCO3 24 mmol/L (21-25); ABG Oxygen Saturation 98.9 % (94-97); ABG PCO2 37 mmHg (35-45); ABG PH 7.41 (7.35-7.45); ABG PO2 112 mmHg (83-108); ABG TCO2 25 mmol/L (19-24)
--- NOTE | 2021-12-21 02:46 | XR ---
EXAMINATION TYPE: XR chest 1V portable DATE OF EXAM: 12/21/2021 COMPARISON: Today HISTORY: Tube placement TECHNIQUE: Single view FINDINGS: Heart is enlarged. There is some diffuse airspace infiltrate in the right lower lung field. The endotracheal tube is 4.5 cm from the kandis. There is nasogastric tube in the stomach. There are chest leads. IMPRESSION: There is some diffuse airspace infiltrate in the right lung which is significantly increa sed compared to exam one hour ago. No change in mild left sided pulmonary interstitial edema.
[2021-12-21] MEDS ORDERED: NALOXONE 0.4 MG/ML 1 ML VIAL IV PRN (03:26)
--- NOTE | 2021-12-21 04:40 | CT ---
EXAMINATION TYPE: CT brain wo con DATE OF EXAM: 12/21/2021 COMPARISON: 10/21/2021 HISTORY: Overdose AMS CT DLP: 1182.4 mGycm Automated exposure control for dose reduction was used. Images of the brain obtained with no contrast. Ventricles have normal size. There is no mass effect or midline shift. No sign of intracranial hemorr edith. The calvarium is intact. The skull base is intact. There is normal aeration of the mastoid sinu ses. IMPRESSION: Normal unenhanced head CT scan. No change.
[2021-12-21] MEDS ORDERED: AZITHROMYCIN 500 MG in SODIUM CHLORIDE 0.9% 250 ML IVPB STA ×2 (04:49→06:58)
[2021-12-21 05:04] LABS: Glucose,Whole Blood 117 mg/dL (70-110)
[2021-12-21] MEDS ORDERED: Potassium Replacement Protocol 1 EACH MISC MISCELLANE PRN (05:24)
[2021-12-21 06:03] LABS: ABG Base Excess -1.6 mmol/L; ABG HCO3 24 mmol/L (21-25); ABG Oxygen Saturation 97.4 % (94-97); ABG PCO2 40 mmHg (35-45); ABG PH 7.38 (7.35-7.45); ABG PO2 87 mmHg (83-108); ABG TCO2 25 mmol/L (19-24); Allen Test Performed? Yes
[2021-12-21] MEDS: POTASSIUM CHLORIDE 10 MEQ in WATER FOR INJECTION 1 100ML.BAG IVPB SCH ×4 (06:56→12:20)
[2021-12-21] MEDS ORDERED: AZITHROMYCIN 500 MG in SODIUM CHLORIDE 0.9% 250 ML IVPB ONE (08:00)
[2021-12-21] MEDS ORDERED: SODIUM CHLORIDE 0.9% 500 ML 500 ML IV ONE (08:14)
[2021-12-21] MEDS: ACETAMINOPHEN TAB 325 MG TAB PO PRN (08:24)
[2021-12-21] MEDS: HEPARIN SODIUM,PORCINE/PF 5,000 UNIT/0.5 ML SYRINGE SQ SCH ×2 (08:24→20:27)
[2021-12-21] MEDS: FAMOTIDINE 20 MG/2 ML VIAL IV SCH ×2 (08:24→20:28)
[2021-12-21] MEDS ORDERED: SODIUM CHLORIDE 0.9% 1,000 ML IV ONE ×2 (09:01→13:50)
--- NOTE | 2021-12-21 09:38 | P.HPIM ---
History of Present Illness This is a pleasant 46 years old female with past medical history of chronic hepatitis C, drug abuse. Presents because of altered mental status and she got intubated in the emergency room . Patient suspected to overdose with muscle relaxant that don't belong to her as per documentation. patient was confused on arrival, embolus was called because she was not acting right. She was awake and alert but not appropriate and not steady. she had decreased level of consciousness and she received a dose of Narcan in the ambulance with no benefit. In the emergency room she hasn't episodes of vomiting and then become more altered and then she got intubated Vitals are stable.she had a fever of 100 Labs showing unremarkable CBC, BMP and liver enzymes. Potassium was low at 3.1. Glucose 154 and 117. Urine drug screen is positive for methadone.; Less than 10 and salicylate less than 1. CT of the brain showing no acute process. Chest x-ray showing some diffuse airspace infiltrate in the right lung which is significantly increased compared to exam 1 hour ago. No change in the mild left sided pulmonary interstitial edema , per radiology Review of Systems ROS unobtainable: due to endotracheal tube Past Medical History Past Medical History: No Reported History Additional Past Medical History / Comment(s): heroin use, uti, used to have seizures when younger History of Any Multi-Drug Resistant Organisms: None Reported Past Surgical History: Section, Cholecystectomy Additional Past Surgical History / Comment(s): 2 sections Past Anesthesia/Blood Transfusion Reactions: No Reported Reaction Past Psychological History: No Psychological Hx Reported Smoking Status: Vaper Past Alcohol Use History: None Reported Past Drug Use History: Heroin, IV Drug Use Medications and Allergies Home Medications Medication Instructions Recorded Confirmed Type Methadone HCl [Methadone Intensol] 170 dose PO DAILY 09/08/16 10/24/21 History Allergies Allergy/AdvReac Type Severity Reaction Status Date / Time No Known Allergies Allergy Verified 12/21/21 00:32 Physical Exam Vitals: Vital Signs Temp Pulse Resp BP Pulse Ox FiO2 12/21/21 07:00 84 23 101/54 100 70 12/21/21 06:00 98 23 91/65 98 12/21/21 05:30 98 16 104/94 99 80 12/21/21 05:20 100 F H 100 12 98 80 12/21/21 05:17 70 12/21/21 05:06 80 12/21/21 04:50 91 27 H 96/55 99 12/21/21 04:40 89 30 H 109/56 99 12/21/21 04:30 101 H 30 H 93/66 93 L 12/21/21 04:25 100 12/21/21 04:10 93 33 H 102/58 96 12/21/21 04:00 94 37 H 95/61 96 12/21/21 03:54 83 28 H 95/61 99 12/21/21 03:20 93 39 H 121/77 96 12/21/21 03:10 96 41 H 119/75 93 L 12/21/21 03:00 95 44 H 125/84 94 L 12/21/21 02:50 91 44 H 125/84 94 L 12/21/21 02:40 90 39 H 115/99 94 L 12/21/21 02:30 91 40 H 123/78 94 L 12/21/21 02:20 89 38 H 115/81 93 L 12/21/21 02:10 93 35 H 116/75 93 L 12/21/21 02:00 92 36 H 122/84 93 L 12/21/21 01:50 88 40 H 134/89 94 L 12/21/21 01:40 96 34 H 133/92 96 12/21/21 01:30 90 40 H 126/83 96 12/21/21 01:20 96 42 H 155/91 98 12/21/21 01:05 98 45 H 130/91 98 12/21/21 01:00 92 45 H 120/107 98 12/21/21 00:59 100 12/21/21 00:58 100 12/21/21 00:55 102 H 40 H 118/80 98 12/21/21 00:50 108 H 40 H 141/112 98 12/21/21 00:45 104 H 47 H 149/88 97 12/21/21 00:41 108 H 50 H 152/92 97 12/21/21 00:25 98.8 F 105 H 16 129/80 95 Intake and Output 12/20/21 12/21/21 12/21/21 22:59 06:59 14:59 Intake Total 196.502 Output Total 45 20 Balance 151.502 -20 Intake: Intake, IV Titration 196.502 Amount propofoL 1,000 mg In 196.502 Empty Bag 1 bag @ 5 MCG/ KG/MIN 3.13 mls/hr IV . Q[facility]H [facility] Rx#:[id number] Output: Urine 45 20 Other: Voiding Method Indwelling Catheter Weight 104.326 kg -GENERAL: The patient is sedated and intubated, HEENT: Pupils are round and equally reacting to light. EOMI. No scleral icterus. No conjunctival pallor. Normocephalic, atraumatic. No pharyngeal erythema. No thyromegaly. CARDIOVASCULAR: S1 and S2 present. No murmurs, rubs, or gallops. PULMONARY: Chest is clear to auscultation, no wheezing or crackles. ABDOMEN: Soft, nontender, nondistended, normoactive bowel sounds. No palpable organomegaly. MUSCULOSKELETAL: No joint swelling or deformity. EXTREMITIES: No cyanosis, clubbing, or pedal edema. NEUROLOGICAL: Gross neurological examination did not reveal any focal deficits. SKIN: No rashes. no petechiae. Results CBC & Chem 7: 12/21/21 01:02 12/21/21 01:02 Labs: Abnormal Lab Results - Last 24 Hours (Table) 12/21/21 12/21/21 12/21/21 Range/Units 01:02 01:02 01:35 ABG pO2 112 H (83-108) mmHg ABG Total CO2 25 H (19-24) mmol/L ABG O2 Saturation 98.9 H (94-97) % Potassium 3.1 L (3.5-5.1) mmol/L Glucose 154 H (74-99) mg/dL POC Glucose (mg/dL) (70-110) mg/dL Urine Methadone Screen Detected H (NotDetected) 12/21/21 12/21/21 Range/Units 05:02 05:56 ABG pO2 (83-108) mmHg ABG Total CO2 25 H (19-24) mmol/L ABG O2 Saturation 97.4 H (94-97) % Potassium (3.5-5.1) mmol/L Glucose (74-99) mg/dL POC Glucose (mg/dL) 117 H (70-110) mg/dL Urine Methadone Screen (NotDetected) Assessment and Plan Assessment: acute hypoxic respiratory failure Possible drug overdose, muscle relaxant is suspected Possible severe depression and suicidal ideation Obesity with BMI of 36 Plan: This is a pleasant 46 years old female who presents with possible drug overdose and she got intubated Continue with mechanical ventilation for pulmonary/critical care team. Once patient got extubated she will need to be evaluated by psychiatrist Labs and medication were reviewed.. Continue same treatment. Continue with symptomatic treatment. Resume home medication. Monitor lytes and vitals. DVT and GI prophylaxis. Further recommendationsas per clinical course of the patient DVT prophylaxis: Subcutaneous heparin GI Prophylaxis: Pepcid Prognosis is guarded
[2021-12-21] MEDS: PIPERACILLIN-TAZOBACTAM 3.375 GM in SODIUM CHLORIDE 0.9% 100 ML IVPB SCH ×3 (09:49→23:58)
[2021-12-21] MEDS: SODIUM CHLORIDE 0.9% 1,000 ML IV SCH ×2 (09:56→20:28)
[2021-12-21] MEDS: methylPREDNISolone SOD SUCCI 40 MG/ML 1 ML VIAL IV SCH ×3 (10:01→23:59)
[2021-12-21 11:01] LABS: Potassium 3.9 mmol/L (3.5-5.1)
[2021-12-21 11:10] LABS: HCG,Qualitative Serum Not Detected
--- NOTE | 2021-12-21 11:29 | P.CNPUL ---
History of Present Illness Consult date: 12/21/21 Requesting physician: Larry E Sayda Reason for consult: other (Acute hypoxic respiratory failure, drug overdose.) Chief complaint: Altered mental status History of present illness: This is a 46-year-old female with history of multiple medical problems including history of heroin abuse, history of drug overdose secondary to muscle relaxant/carisoprodol/soma. Patient is also known to have history of hepatitis C she was brought into the ER yesterday by EMS, patient apparently overdosed on her muscle relaxant according to . When EMS arrived, patient was given Narcan, however the patient had a sudden episode of vomiting after Narcan was given, and she had witnessed aspiration. When she arrived to the ER, patient was confused, and apparently could not protect her airways, hence the patient was intubated. And placed on mechanical ventilation. Her drug screen came back positive for methadone. Otherwise the rest of the drug screen was unremarkable. Chest x-ray showed evidence of bilateral pneumonia/aspiration pneumonia. Patient was admitted to the ICU, and this consult was initiated. Patient is now on assist control rate of 18 tidal volume 400 FiO2 was 70% and PEEP of 5. ABG showed a pO2 of 87 pCO2 40 pH of 7.38, FiO2 was cut down to 50%. Her O2 sats is 98% at present. Labs on admission showed relatively normal CBC. And the drug screen as noted above. Patient is now on IV fluid at 1 25 mL per hour in the form of 0.9 normal saline, she is also on Zosyn, and on enteral feeding. She is on propofol at 50 mcg/kg/m. Review of Systems ROS unobtainable: due to endotracheal tube Past Medical History Past Medical History: No Reported History Additional Past Medical History / Comment(s): heroin use, uti, used to have seizures when younger History of Any Multi-Drug Resistant Organisms: None Reported Past Surgical History: Section, Cholecystectomy Additional Past Surgical History / Comment(s): 2 sections Past Anesthesia/Blood Transfusion Reactions: No Reported Reaction Past Psychological History: No Psychological Hx Reported Smoking Status: Vaper Past Alcohol Use History: None Reported Past Drug Use History: Heroin, IV Drug Use Medications and Allergies Home Medications Medication Instructions Recorded Confirmed Type Methadone HCl [Methadone Intensol] 170 dose PO DAILY 09/08/16 10/24/21 History Allergies Allergy/AdvReac Type Severity Reaction Status Date / Time No Known Allergies Allergy Verified 12/21/21 00:32 Physical Exam Vitals: Vital Signs Temp Pulse Resp BP Pulse Ox FiO2 12/21/21 11:10 50 12/21/21 11:00 90 22 92/55 95 50 12/21/21 10:30 92 22 92/74 93 L 12/21/21 10:00 93 21 80/55 97 50 12/21/21 09:30 92 22 92/60 95 12/21/21 09:00 102 F H 92 21 92/60 98 50 12/21/21 08:52 50 12/21/21 08:30 93 20 80/49 100 12/21/21 08:20 60 12/21/21 08:00 101.2 F H 90 22 101/54 97 70 12/21/21 07:30 70 12/21/21 07:00 84 23 101/54 100 70 12/21/21 06:00 98 23 91/65 98 12/21/21 05:30 98 16 104/94 99 80 12/21/21 05:20 100 F H 100 12 98 80 12/21/21 05:17 70 12/21/21 05:06 80 12/21/21 04:50 91 27 H 96/55 99 12/21/21 04:40 89 30 H 109/56 99 12/21/21 04:30 101 H 30 H 93/66 93 L 12/21/21 04:25 100 12/21/21 04:10 93 33 H 102/58 96 12/21/21 04:00 94 37 H 95/61 96 12/21/21 03:54 83 28 H 95/61 99 12/21/21 03:20 93 39 H 121/77 96 12/21/21 03:10 96 41 H 119/75 93 L 12/21/21 03:00 95 44 H 125/84 94 L 12/21/21 02:50 91 44 H 125/84 94 L 12/21/21 02:40 90 39 H 115/99 94 L 12/21/21 02:30 91 40 H 123/78 94 L 12/21/21 02:20 89 38 H 115/81 93 L 12/21/21 02:10 93 35 H 116/75 93 L 12/21/21 02:00 92 36 H 122/84 93 L 12/21/21 01:50 88 40 H 134/89 94 L 12/21/21 01:40 96 34 H 133/92 96 12/21/21 01:30 90 40 H 126/83 96 12/21/21 01:20 96 42 H 155/91 98 12/21/21 01:05 98 45 H 130/91 98 12/21/21 01:00 92 45 H 120/107 98 12/21/21 00:59 100 12/21/21 00:58 100 12/21/21 00:55 102 H 40 H 118/80 98 12/21/21 00:50 108 H 40 H 141/112 98 12/21/21 00:45 104 H 47 H 149/88 97 12/21/21 00:41 108 H 50 H 152/92 97 12/21/21 00:25 98.8 F 105 H 16 129/80 95 Intake and Output 12/20/21 12/21/21 12/21/21 22:59 06:59 14:59 Intake Total 975.838 9508 Output Total 45 195 Balance 542.636 2917 Intake: IV 1475 Potassium Chloride 10 meq 300 In Water For Injection 1 100ml.bag @ 100 mls/hr IVPB Q1HR [facility] Rx#: [id number] Sodium Chloride 0.9% 500 1125 ml 500 ml @ 999 mls/hr IV .Q31M [facility] Rx#:[id number] cefTRIAXone 2 gm In 50 Sodium Chloride 0.9% 50 ml @ 100 mls/hr IVPB ONCE [facility] Rx#:[id number] Intake, IV Titration 196.502 100 Amount propofoL 1,000 mg In 196.502 100 Empty Bag 1 bag @ 5 MCG/ KG/MIN 3.13 mls/hr IV . Q24H [facility] Rx#:[id number] Output: Gastric Drainage 100 Urine 45 95 Other: Voiding Method Indwelling Catheter Indwelling Catheter Weight 104.326 kg 88.3 kg Physical Exam: Revealed 46-year-old female on mechanical ventilation, sedated, in no distress. Head: Atraumatic, normocephalic. Endotracheal tube and orogastric tube are intact. HEENT:[Neck is supple.] [No neck masses.] [No thyromegaly.] [No JVD.] PERRLA, EOMI, nonicteric, no neck masses, no JVD, moist mucous membranes. Chest: [Symmetrical chest expansion, scattered rhonchi bilaterally. Scattered wheezing noted bilaterally Cardiac Exam: [Normal S1 and S2, no S3 gallop, no murmur.] Abdomen: [Soft, nontender, no megaly, no rebound, no guarding, normal bowel sounds.] Extremities: [No clubbing, no edema, no cyanosis.] Neurological Exam: [Cannot assess, patient is sedated and on propofol. Psychiatric: Could not assess. Skin: No rashes Results - Laboratory Findings CBC and BMP: 12/21/21 01:02 12/21/21 10:13 ABG ABG pH 7.38 (7.35-7.45) 12/21/21 05:56 ABG pCO2 40 mmHg (35-45) 12/21/21 05:56 ABG pO2 87 mmHg (83-108) 12/21/21 05:56 ABG O2 Saturation 97.4 % (94-97) H 12/21/21 05:56 Abnormal lab findings: Abnormal Labs 12/21/21 12/21/21 12/21/21 01:02 01:02 01:35 ABG pO2 112 H ABG Total CO2 25 H ABG O2 Saturation 98.9 H Potassium 3.1 L Glucose 154 H POC Glucose (mg/dL) Plasma Lactic Acid Adolph Urine Methadone Screen Detected H 12/21/21 12/21/21 12/21/21 05:02 05:56 10:17 ABG pO2 ABG Total CO2 25 H ABG O2 Saturation 97.4 H Potassium Glucose POC Glucose (mg/dL) 117 H Plasma Lactic Acid Adolph 2.2 H* Urine Methadone Screen - Diagnostic Findings Chest x-ray: image reviewed (Chest x-ray is suggestive of bibasilar infiltrates, aspiration pneumonia.) Additional studies: CT of the brain showed no active disease. Assessment and Plan Assessment: Impression: Acute hypoxic respiratory failure secondary to Soma overdose. Aspiration pneumonia History of depression and suicidal ideations Obesity with BMI of 36. History of heroin abuse. History of chronic hepatitis C. Recommendation: Continue ventilatory support. Start patient on antibiotics in the form of Zosyn empirically. Start bronchodilators and steroids Start enteral feeding GI and DVT prophylaxis Monitor daily labs and x-rays. Consider trials of weaning in the next 24 hours. Prognosis is definitely guarded. Patient is critically ill. Critical care time is over 30 minutes. Time with Patient: Greater than 30
[2021-12-21 12:21] LABS: Amorphous Sediment,Urine Occasional /hpf; Appearance,Urine Turbid (Clear); Bilirubin,Urine Negative (Negative); Blood,Urine Negative (Negative); Color,Urine Yellow; Glucose,Urine (UA) Negative (Negative); Ketones,Urine Negative (Negative); Leukocyte Esterase,Urine Small (Negative); Nitrite,Urine Negative (Negative); PH, Urine 5.5 (5.0-8.0); Protein,Urine Trace (Negative); RBC,Urine 15 /hpf (0-5); Specific Gravity,Urine 1.032 (1.001-1.035); Urobilinogen,Urine <2.0 mg/dL (<2.0)
[2021-12-21] MEDS: IPRATROPIUM-ALBUTEROL 3 ML NEB INHALATION PRN ×3 (15:42→23:19)
[2021-12-21 17:58] LABS: Glucose,Whole Blood 163 mg/dL (70-110)
[2021-12-21] MEDS ORDERED: DEXTROSE 50% SYRINGE 50 ML IVP PRN ×2 (18:37)
[2021-12-21] MEDS: INSULIN ASPART (NovoLOG) 100 UNIT/ML VIAL SQ SCH ×2 (18:43→23:59)
[2021-12-21] MEDS: CHLORHEXIDINE GLUCONATE 15 ML CUP MUCOUS MEM SCH (21:11)
[2021-12-21 23:56] LABS: Glucose,Whole Blood 189 mg/dL (70-110)
[2021-12-22] MEDS: SODIUM CHLORIDE 0.9% 1,000 ML IV SCH ×2 (01:16→10:16)
[2021-12-22] MEDS: IPRATROPIUM-ALBUTEROL 3 ML NEB INHALATION PRN ×5 (03:31→20:09)
[2021-12-22 05:40] LABS: Basophils % (A) 0 %; Eosinophils % (A) 0 %; HCT 32.3 % (34.0-46.0); HGB 10.3 gm/dL (11.4-16.0); Hypochromasia Moderate; Lymphocytes # (A) 0.6 k/uL (1.0-4.8); Lymphocytes % (A) 7 %; MCH 31.1 pg (25.0-35.0); Monocytes # (A) 0.2 k/uL (0-1.0); Monocytes % (A) 2 %; Neutrophils # (A) 6.9 k/uL (1.3-7.7); Neutrophils % (A) 90 %; Platelet Count 152 k/uL (150-450); RBC 3.32 m/uL (3.80-5.40); RDW 15.3 % (11.5-15.5); WBC 7.6 k/uL (3.8-10.6)
[2021-12-22 05:43] LABS: MCV 97.3 fL (80.0-100.0)
[2021-12-22] MEDS ORDERED: SODIUM CHLORIDE 0.9% 1,000 ML IV ONE (05:55)
[2021-12-22 06:02] LABS: ALT 14 U/L (4-34); AST 20 U/L (14-36); African American GFR (CKD) >90 (>60 ml/min/1.73 sqM); Albumin 2.6 g/dL (3.5-5.0); Alkaline Phosphatase 61 U/L (38-126); Anion Gap 10 mmol/L; Blood Urea Nitrogen 10 mg/dL (7-17); Calcium 7.6 mg/dL (8.4-10.2); Carbon Dioxide 15 mmol/L (22-30); Chloride 113 mmol/L (98-107); Glucose 213 mg/dL (74-99); Magnesium 1.4 mg/dL (1.6-2.3); Non-African American GFR(CKD) >90 (>60 ml/min/1.73 sqM); Phosphorus 1.7 mg/dL (2.5-4.5); Sodium 138 mmol/L (137-145); Total Bilirubin 0.2 mg/dL (0.2-1.3); Total Protein 5.3 g/dL (6.3-8.2)
[2021-12-22 06:02] LABS: Glucose,Whole Blood 181 mg/dL (70-110)
[2021-12-22] MEDS: INSULIN ASPART (NovoLOG) 100 UNIT/ML VIAL SQ SCH ×3 (06:03→17:42)
[2021-12-22 06:07] LABS: ABG HCO3 18 mmol/L (21-25); ABG Oxygen Saturation 94.4 % (94-97); ABG PCO2 36 mmHg (35-45); ABG PO2 68 mmHg (83-108); ABG TCO2 19 mmol/L (19-24); Allen Test Performed? Yes
[2021-12-22] MEDS ORDERED: Magnesium Replacement Protocol 1 EACH MISC MISCELLANE PRN (06:09)
[2021-12-22] MEDS: MAGNESIUM SULFATE-D5W PMX 1 GM in DEXTROSE/WATER 1 100ML.BAG IVPB SCH ×3 (06:16→09:40)
[2021-12-22] MEDS: POTASSIUM BICARBONATE/CIT AC 20 MEQ TABLET.EFF NG-TUBE SCH ×4 (06:16→20:31)
--- NOTE | 2021-12-22 07:32 | XR ---
EXAMINATION TYPE: XR chest 1V portable DATE OF EXAM: 12/22/2021 COMPARISON: 12/13/2021 INDICATION: Tube placement TECHNIQUE: Single frontal view of the chest is obtained. FINDINGS: The heart size is normal. The pulmonary vasculature is normal. Right lower lobe consolidation is evident. Mild right perihilar infiltrate is present. Some left lowe r lobe infiltrate silhouetting the diaphragm is present. Endotracheal tube has the tip above the kandis. Nasogastric tube transverses the thorax. IMPRESSION: 1. Worsening right lower lobe consolidation. Correlate for pneumonia. 2. Retrocardiac infiltrate is likely present. 3. Lines and catheters as discussed above.
[2021-12-22] MEDS ORDERED: Phosphorus Replacement Protoco 1 EACH MISC MISCELLANE PRN (07:57)
[2021-12-22] MEDS ORDERED: FUROSEMIDE 10 MG/ML 4 ML VIAL IV STA (08:36)
[2021-12-22] MEDS ORDERED: CISATRACURIUM 2 MG/ML 5 ML VIAL IV ONE (08:37)
[2021-12-22] MEDS ORDERED: LORazepam 2 MG/ML INJ ONE (08:53)
[2021-12-22] MEDS: NOREPINEPHRINE 4 MG in SODIUM CHLORIDE 0.9% 250 ML IV SCH (09:00)
[2021-12-22 09:15] LABS: ABG Base Excess -7.1 mmol/L; ABG HCO3 19 mmol/L (21-25); ABG Oxygen Saturation 99.8 % (94-97); ABG PCO2 38 mmHg (35-45); ABG PH 7.31 (7.35-7.45); ABG PO2 211 mmHg (83-108); ABG TCO2 20 mmol/L (19-24); Allen Test Performed? Yes
[2021-12-22] MEDS: CHLORHEXIDINE GLUCONATE 15 ML CUP MUCOUS MEM SCH ×2 (09:38→21:00)
[2021-12-22] MEDS: HEPARIN SODIUM,PORCINE/PF 5,000 UNIT/0.5 ML SYRINGE SQ SCH ×2 (09:38→21:00)
[2021-12-22] MEDS: PIPERACILLIN-TAZOBACTAM 3.375 GM in SODIUM CHLORIDE 0.9% 100 ML IVPB SCH ×2 (09:38→16:25)
[2021-12-22] MEDS: methylPREDNISolone SOD SUCCI 40 MG/ML 1 ML VIAL IV SCH ×2 (09:40→16:27)
[2021-12-22] MEDS: FAMOTIDINE 20 MG/2 ML VIAL IV SCH ×2 (09:41→21:00)
[2021-12-22] MEDS: SODIUM PHOSPHATE 10 MMOL in SODIUM CHLORIDE 0.9% 250 ML IVPB SCH ×2 (10:14→12:36)
--- NOTE | 2021-12-22 10:59 | CA ---
Transthoracic Echo Report Name: Lianne Montes Age: 46 Gender: F : 1975 Exam Date: 12/22/2021 10:10 Exam Location: [facility] Ht (in): 67 Wt (lb): 210 Ordering Physician: Keturah Sales MD Attending/Referring Phys: Photo Cartographer Dianelys Alvarez RDCS Procedure CPT: Indications: chf Cardiac Hx: Technical Quality: Fair Contrast 1: Total Dose (mL): Contrast 2: Total Dose (mL): MEASUREMENTS (Male / Female) Normal Values 2D ECHO LV Diastolic Diameter PLAX 3.0 cm 4.2 - 5.9 / 3.9 - 5.3 cm LV Systolic Diameter PLAX 1.3 cm IVS Diastolic Thickness 1.2 cm 0.6 - 1.0 / 0.6 - 0.9 cm LVPW Diastolic Thickness 1.1 cm 0.6 - 1.0 / 0.6 - 0.9 cm LV Relative Wall Thickness 0.8 M-MODE Aortic Root Diameter MM 3.2 cm LA Systolic Diameter MM 2.4 cm LA Ao Ratio MM 0.8 MV E Point Septal Separation 0.8 cm AV Cusp Separation MM 1.9 cm DOPPLER AV Peak Velocity 145.4 cm/s AV Peak Gradient 8.5 mmHg MV Area PHT 3.5 cm??? MR Peak Velocity 131.8 cm/s MR Peak Gradient 7.0 mmHg Mitral E Point Velocity 104.3 cm/s Mitral A Point Velocity 76.7 cm/s Mitral E to A Ratio 1.4 MV Deceleration Time 215.2 ms TR Peak Velocity 147.8 cm/s TR Peak Gradient 8.7 mmHg Right Ventricular Systolic Press 13.5 mmHg FINDINGS Left Ventricle Mildly increased septal wall thickness. Mildly increased posterior wall thickness. Left ventricular ejection fraction is estimated at 55-60 %. Left ventricular cavity size normal. Right Ventricle The right ventricle is normal in size and function. Right Atrium The right atrium is normal in size. Left Atrium The left atrium is normal in size. Mitral Valve Structurally normal mitral valve without significant stenosis or prolapse. There is trace mitral regurgitation. Aortic Valve Structurally normal aortic valve without significant sclerosis or stenosis. There is no aortic regurgitation. Tricuspid Valve Structurally normal tricuspid valve without significant stenosis. Pulmonary artery systolic pressure is normal. Trace tricuspid regurgitation. Pulmonic Valve Structurally normal pulmonic valve without significant stenosis. There is no pulmonic regurgitation. Pericardium Normal pericardium without effusion. Aorta Normal aortic root dimension. CONCLUSIONS Normal LV size and systolic function. No significant abnormality on the Doppler exam. There is no pericardial effusion Previewed by: Dr. Janae Erazo MD (Electronically Signed) Final Date: 22 December 2021 10:58
[2021-12-22 11:48] LABS: Glucose,Whole Blood 245 mg/dL (70-110)
--- NOTE | 2021-12-22 12:00 | P.PN ---
Subjective Progress Note Date: 12/22/21 Principal diagnosis: Acute hypoxic failure secondary to drug overdose This is a 46-year-old female with history of multiple medical problems including history of heroin abuse, history of drug overdose secondary to muscle relaxant/carisoprodol/soma. Patient is also known to have history of hepatitis C she was brought into the ER yesterday by EMS, patient apparently overdosed on her muscle relaxant according to . When EMS arrived, patient was given Narcan, however the patient had a sudden episode of vomiting after Narcan was given, and she had witnessed aspiration. When she arrived to the ER, patient was confused, and apparently could not protect her airways, hence the patient was intubated. And placed on mechanical ventilation. Her drug screen came back positive for methadone. Otherwise the rest of the drug screen was unremarkable. Chest x-ray showed evidence of bilateral pneumonia/aspiration pneumonia. Patient was admitted to the ICU, and this consult was initiated. Patient is now on assist control rate of 18 tidal volume 400 FiO2 was 70% and PEEP of 5. ABG showed a pO2 of 87 pCO2 40 pH of 7.38, FiO2 was cut down to 50%. Her O2 sats is 98% at present. Labs on admission showed relatively normal CBC. And the drug screen as noted above. Patient is now on IV fluid at 1 25 mL per hour in the form of 0.9 normal saline, she is also on Zosyn, and on enteral feeding. She is on propofol at 50 mcg/kg/m. Patient was reevaluated today on 12/22/21, patient is doing poorly and seems to be worsening in the last 24 hours. Her chest x-ray is worsening, ABG is worsening and her hemodynamic status is also worsening requiring norepinephrine at 0.03 mcg/kg/m. Patient had to be placed on higher PEEP, vent settings are 18/400/70/5 and a increased the PEEP from 5-10. Also increase the rate to 22. And patient was given Lasix 40 mg IV push and I cut down her IV fluid to KVO. Patient had fairly good urine output overnight, she is still on propofol at 75 mcg/kg/m, she is on IV fluid at 1 25 mL per hour. Vital HP at 3 0 mL per hour. Norepinephrine at 0.03 mcg/kg/m. Considering the patient had to be placed on norepinephrine this morning, I went ahead and placed a right femoral triple- lumen catheter and I also recommended a left radial arterial line. This was done. ABG after the patient was placed on the percent FiO2 and PEEP of 10 showe d a pO2 of 211 pCO2 37 pH of 7.31, then I brought her back down to 50% and The PEEP the same at them. I also recommended an echocardiogram which is pending. And recommended neurological consultation mostly because as I was evaluated the patient and in the process of placing a central line, patient developed seizure-like activity which lasted less than 20 seconds, she had symmetrical bilateral muscle contractions, twitching, resolved on its own, but shortly after the patient was given Ativan 2 mg IV push. Patient will have an EEG and would have neurology evaluation. Apparently in the history the patient does have history of seizures. Objective - Vital Signs Vital signs: Vital Signs Temp 98.2 F 12/22/21 08:00 Pulse 81 12/22/21 11:16 Resp 21 12/22/21 10:00 BP 86/61 12/22/21 08:00 Pulse Ox 92 L 12/22/21 10:00 FiO2 50 12/22/21 11:02 Intake & Output 12/21/21 12/22/21 12/22/21 18:59 06:59 18:59 Intake Total 3980 3044.326 1124.950 Output Total 1455 740 875 Balance 2525 2304.326 249.950 Weight 88.3 kg 95.4 kg Intake: IV 3650 2500 908 Magnesium Sulfate-D5w Pmx 100 1 gm In Dextrose/Water 1 100ml.bag @ 100 mls/hr IVPB Q1H [facility] Rx#: [id number] Piperacillin-Tazobactam 3 200 100 .375 gm In Sodium Chloride 0.9% 100 ml @ 25 mls/hr IVPB Q8HR [facility] Rx# :[id number] Potassium Chloride 10 meq 400 In Water For Injection 1 100ml.bag @ 100 mls/hr IVPB Q1HR [facility] Rx#: [id number] Sodium Chloride 0.9% 1, 1750 1500 375 000 ml @ 125 mls/hr IV . Q8H [facility] Rx#:[id number] Sodium Chloride 0.9% 1, 1000 000 ml @ 999 mls/hr IV . Q1H1M [facility] Rx#:[id number] Sodium Chloride 0.9% 500 1250 ml 500 ml @ 999 mls/hr IV .Q31M [facility] Rx#:[id number] cefTRIAXone 2 gm In 50 Sodium Chloride 0.9% 50 ml @ 100 mls/hr IVPB ONCE [facility] Rx#:[id number] sodium phosphate 333 Intake, IV Titration 200 284.326 104.950 Amount Norepinephrine 4 mg In 18.416 Sodium Chloride 0.9% 250 ml @ 0.05 MCG/KG/MIN 18. 174 mls/hr IV .[id number] [facility] Rx#:[id number] propofoL 1,000 mg In 284.326 86.534 Empty Bag 1 bag @ 5 MCG/ KG/MIN 2.649 mls/hr IV . Q24H [facility] Rx#:[id number] propofoL 1,000 mg In 200 Empty Bag 1 bag @ 5 MCG/ KG/MIN 3.13 mls/hr IV . Q24H [facility] Rx#:[id number] Tube Feeding 70 260 112 Other 60 Output: Gastric Drainage 100 Urine 1355 740 875 Other: Voiding Method Indwelling Catheter Indwelling Catheter ABP, PAP, CO, CI - Last Documented Arterial Blood Pressure 110/58 - Exam Physical Exam: Revealed 46-year-old female on mechanical ventilation, sedated, in no distress. Head: Atraumatic, normocephalic. Endotracheal tube and orogastric tube are intact. HEENT:[Neck is supple.] [No neck masses.] [No thyromegaly.] [No JVD.] PERRLA, EOMI, nonicteric, no neck masses, no JVD, moist mucous membranes. Chest: [Symmetrical chest expansion, fine crackles at the bases. Cardiac Exam: [Normal S1 and S2, no S3 gallop, no murmur.] Abdomen: [Soft, nontender, no megaly, no rebound, no guarding, normal bowel sounds.] Extremities: [No clubbing, no edema, no cyanosis.] Neurological Exam: [Cannot assess, patient is sedated and on propofol. Psychiatric: Could not assess. Skin: No rashes - Labs CBC & Chem 7: 12/22/21 05:13 12/22/21 05:13 Labs: Abnormal Lab Results - Last 24 Hours (Table) 12/21/21 12/21/21 12/21/21 Range/Units 11:25 17:56 23:55 RBC (3.80-5.40) m/uL Hgb (11.4-16.0) gm/dL Hct (34.0-46.0) % Lymphocytes # (1.0-4.8) k/uL ABG pH (7.35-7.45) ABG pO2 (83-108) mmHg ABG HCO3 (21-25) mmol/L ABG O2 Saturation (94-97) % Potassium (3.5-5.1) mmol/L Chloride (98-107) mmol/L Carbon Dioxide (22-30) mmol/L Glucose (74-99) mg/dL POC Glucose (mg/dL) 163 H 189 H (70-110) mg/dL Calcium (8.4-10.2) mg/dL Phosphorus (2.5-4.5) mg/dL Magnesium (1.6-2.3) mg/dL Total Protein (6.3-8.2) g/dL Albumin (3.5-5.0) g/dL Procalcitonin (0.02-0.09) ng/mL Urine Appearance Turbid H (Clear) Urine Protein Trace H (Negative) Ur Leukocyte Esterase Small H (Negative) Urine RBC 15 H (0-5) /hpf Amorphous Sediment Occasional H (None) /hpf 12/22/21 12/22/21 12/22/21 Range/Units 05:13 05:13 05:13 RBC 3.32 L (3.80-5.40) m/uL Hgb 10.3 L (11.4-16.0) gm/dL Hct 32.3 L (34.0-46.0) % Lymphocytes # 0.6 L (1.0-4.8) k/uL ABG pH (7.35-7.45) ABG pO2 (83-108) mmHg ABG HCO3 (21-25) mmol/L ABG O2 Saturation (94-97) % Potassium 3.0 L (3.5-5.1) mmol/L Chloride 113 H (98-107) mmol/L Carbon Dioxide 15 L (22-30) mmol/L Glucose 213 H (74-99) mg/dL POC Glucose (mg/dL) (70-110) mg/dL Calcium 7.6 L (8.4-10.2) mg/dL Phosphorus 1.7 L (2.5-4.5) mg/dL Magnesium 1.4 L (1.6-2.3) mg/dL Total Protein 5.3 L (6.3-8.2) g/dL Albumin 2.6 L (3.5-5.0) g/dL Procalcitonin 5.10 H (0.02-0.09) ng/mL Urine Appearance (Clear) Urine Protein (Negative) Ur Leukocyte Esterase (Negative) Urine RBC (0-5) /hpf Amorphous Sediment (None) /hpf 12/22/21 12/22/21 12/22/21 Range/Units 06:00 06:02 09:09 RBC (3.80-5.40) m/uL Hgb (11.4-16.0) gm/dL Hct (34.0-46.0) % Lymphocytes # (1.0-4.8) k/uL ABG pH 7.30 L 7.31 L (7.35-7.45) ABG pO2 68 L 211 H (83-108) mmHg ABG HCO3 18 L 19 L (21-25) mmol/L ABG O2 Saturation 99.8 H (94-97) % Potassium (3.5-5.1) mmol/L Chloride (98-107) mmol/L Carbon Dioxide (22-30) mmol/L Glucose (74-99) mg/dL POC Glucose (mg/dL) 181 H (70-110) mg/dL Calcium (8.4-10.2) mg/dL Phosphorus (2.5-4.5) mg/dL Magnesium (1.6-2.3) mg/dL Total Protein (6.3-8.2) g/dL Albumin (3.5-5.0) g/dL Procalcitonin (0.02-0.09) ng/mL Urine Appearance (Clear) Urine Protein (Negative) Ur Leukocyte Esterase (Negative) Urine RBC (0-5) /hpf Amorphous Sediment (None) /hpf 12/22/21 Range/Units 11:46 RBC (3.80-5.40) m/uL Hgb (11.4-16.0) gm/dL Hct (34.0-46.0) % Lymphocytes # (1.0-4.8) k/uL ABG pH (7.35-7.45) ABG pO2 (83-108) mmHg ABG HCO3 (21-25) mmol/L ABG O2 Saturation (94-97) % Potassium (3.5-5.1) mmol/L Chloride (98-107) mmol/L Carbon Dioxide (22-30) mmol/L Glucose (74-99) mg/dL POC Glucose (mg/dL) 245 H (70-110) mg/dL Calcium (8.4-10.2) mg/dL Phosphorus (2.5-4.5) mg/dL Magnesium (1.6-2.3) mg/dL Total Protein (6.3-8.2) g/dL Albumin (3.5-5.0) g/dL Procalcitonin (0.02-0.09) ng/mL Urine Appearance (Clear) Urine Protein (Negative) Ur Leukocyte Esterase (Negative) Urine RBC (0-5) /hpf Amorphous Sediment (None) /hpf Microbiology - Last 24 Hours (Table) 12/21/21 01:09 Gram Stain - Preliminary Sputum Sputum Culture - Preliminary Assessment and Plan Assessment: Impression: Acute hypoxic respiratory failure secondary to Soma overdose. Aspiration pneumonia History of depression and suicidal ideations Obesity with BMI of 36. History of heroin abuse. History of chronic hepatitis C. Possible seizures. Hypertension secondary to hypovolemia sepsis, and possible septic shock Possibility ARDS secondary to aspiration pneumonia. Recommendation: Continue ventilatory support. Continue Zosyn. Continue hemodynamic support/norepinephrine and titrate accordingly Continue bronchodilators and steroids. Continue enteral feeding/nutritional support Continue GI and DVT prophylaxis Echocardiogram to evaluate LV function as the chest x-ray today is suspicious for possible pulmonary edema although could be a worsening aspiration pneumonia/ARDS. Resume patient back on her methadone. Neurology to evaluate on consultation for possible seizure activity. And EEG was ordered. Continue to monitor daily labs and x-rays and ABGs. Not ready for any weaning at this point. We'll continue to follow. Critical care time is over 30 minutes not including the time spent on procedures. Time with Patient: Greater than 30
[2021-12-22] MEDS: METHADONE 10 MG TAB PO SCH (12:13)
--- NOTE | 2021-12-22 12:24 | OP ---
OPERATIVE REPORT OPERATIVE REPORT: Placement of a left radial arterial line. PREOPERATIVE DIAGNOSIS: Acute hypoxic respiratory failure and hypotension. POSTOPERATIVE DIAGNOSIS: Acute hypoxic respiratory failure and hypotension. ANESTHESIA USED: None deployed. PROCEDURE DESCRIPTION: Left wrist was prepared in a sterile fashion. Drapes were applied. Left radial artery was palpated, cannulated easily, and a guidewire was placed. A Cook's catheter was inserted over the guidewire and the guidewire was removed. Good blood flow, good waveform. No complications. Line was secured using 3.0 silk sutures. MMODL / IJN: [id number] /
--- NOTE | 2021-12-22 12:24 | OP ---
OPERATIVE REPORT OPERATIVE REPORT: Placement of right triple-lumen catheter/right femoral vein triple-lumen catheter. PREOPERATIVE DIAGNOSIS: Acute hypoxic respiratory failure, hypotension. POSTOPERATIVE DIAGNOSIS: Acute hypoxic respiratory failure, hypotension. ANESTHESIA USED: Three mL of 1% lidocaine. PROCEDURE DESCRIPTION: The patient was placed in supine position. Right groin was prepared in a sterile fashion and drapes were applied. The area was locally anesthetized. Then the right femoral vein was easily cannulated in the right groin, and a guidewire was placed. The area around the guidewire was dilated. A triple-lumen catheter was inserted over the guidewire, and the guidewire was removed. Good blood flow was noted in the 3 different ports of the triple-lumen catheter. The line was secured using 3.0 silk sutures. No complications. MMODL / IJN: [id number] /
--- NOTE | 2021-12-22 13:47 | EEG ---
ELECTROENCEPHALOGRAM REPORT DATE OF SERVICE: 12/22/2021 PREAMBLE: This is a 46-year-old female with suspected overdose. Patient is currently on propofol. This study is performed to evaluate for any epileptiform activity. EEG FINDINGS: This is a 21-channel digital EEG recorded with video component, utilizing 10/20 international system with referential and bipolar montages. The recording consists of presence of diffuse moderate voltage activity in 1 to 2 hertz delta range slowing, mixed with periods of suppression lasting for 1 to 4 or 5 seconds. The background does not seem to be reactive to any activation procedures like eye opening or closing, or to photic stimulation. Different stages of sleep were not seen. No focal or generalized epileptiform activity was seen. EKG channel showed no obvious arrhythmia. IMPRESSION: This is an abnormal EEG due to presence of background slowing of severe degree, with intermittent periods of generalized suppression. This is suggestive of generalized cerebral dysfunction as can be seen with toxic metabolic encephalopathy, due to diffuse structural brain abnormality or medication effect. Clinical correlation is recommended. Follow-up EEG recommended if clinically indicated. No epileptiform activity was seen. MMODL / IJN: [id number] / MTDD
--- NOTE | 2021-12-22 15:52 | XR ---
EXAMINATION TYPE: XR chest 1V portable DATE OF EXAM: 12/22/2021 COMPARISON: [id number] INDICATION: Line placement TECHNIQUE: Single frontal view of the chest is obtained. FINDINGS: The heart size is normal. The pulmonary vasculature is normal. There is consolidation in the right lower lobe. There is silhouetting the left diaphragm. Pleural eff usion or left lower lobe atelectasis may be present. Findings are similar to comparison. Endotracheal tube tip is above kandis. Nasogastric tube transverses the thorax. IMPRESSION: 1. Bibasilar infiltrates. Follow-up is recommended. 2. Lines and catheters discussed above.
[2021-12-22 17:40] LABS: Glucose,Whole Blood 204 mg/dL (70-110)
--- NOTE | 2021-12-22 20:16 | P.PN ---
Subjective This is a pleasant 46 years old female with past medical history of chronic hepatitis C, drug abuse. Presents because of altered mental status and she got intubated in the emergency room . Patient suspected to overdose with muscle relaxant that don't belong to her as per documentation. patient was confused on arrival, embolus was called because she was not acting right. She was awake and alert but not appropriate and not steady. she had decreased level of consciousness and she received a dose of Narcan in the ambulance with no benefit. In the emergency room she hasn't episodes of vomiting and then become more altered and then she got intubated Vitals are stable.she had a fever of 100 Labs showing unremarkable CBC, BMP and liver enzymes. Potassium was low at 3.1. Glucose 154 and 117. Urine drug screen is positive for methadone.; Less than 10 and salicylate less than 1. CT of the brain showing no acute process. Chest x-ray showing some diffuse airspace infiltrate in the right lung which is significantly increased compared to exam 1 hour ago. No change in the mild left sided pulmonary interstitial edema , per radiology 12/22/2021 Procedure Mr. York sedated and intubated as well as she is hypertensive Patient is followed closely by pulmonary/critical care team. She received 1 L of normal saline and she is on pressors of levophed Also she is on Zosyn with sputum culture: Gram-negative bacilli and just x-ray showing evidence of bibasilar infiltrates Neurologist has been consulted for possible seizure EEG is negative for epileptiform discharge and showed severe cerebral dysfunction that goes with toxic Metabolic encephalopathy Echocardiogram showed ejection fraction of 55-60% She remains on Solu-Medrol 40 mg, Zosyn and normal saline. Methadone was added today. Objective - Vital Signs Vital signs: Vital Signs Temp 98.2 F 12/22/21 08:00 Pulse 81 12/22/21 11:16 Resp 21 12/22/21 10:00 BP 86/61 12/22/21 08:00 Pulse Ox 92 L 12/22/21 10:00 FiO2 50 12/22/21 11:02 Intake & Output 12/21/21 12/22/21 12/22/21 18:59 06:59 18:59 Intake Total 3980 3044.326 1124.950 Output Total 1455 740 875 Balance 2525 2304.326 249.950 Weight 88.3 kg 95.4 kg Intake: IV 3650 2500 908 Magnesium Sulfate-D5w Pmx 100 1 gm In Dextrose/Water 1 100ml.bag @ 100 mls/hr IVPB Q1H [facility] Rx#: [id number] Piperacillin-Tazobactam 3 200 100 .375 gm In Sodium Chloride 0.9% 100 ml @ 25 mls/hr IVPB Q8HR [facility] Rx# :[id number] Potassium Chloride 10 meq 400 In Water For Injection 1 100ml.bag @ 100 mls/hr IVPB Q1HR [facility] Rx#: [id number] Sodium Chloride 0.9% 1, 1750 1500 375 000 ml @ 125 mls/hr IV . Q8H [facility] Rx#:[id number] Sodium Chloride 0.9% 1, 1000 000 ml @ 999 mls/hr IV . Q1H1M [facility] Rx#:[id number] Sodium Chloride 0.9% 500 1250 ml 500 ml @ 999 mls/hr IV .Q31M [facility] Rx#:[id number] cefTRIAXone 2 gm In 50 Sodium Chloride 0.9% 50 ml @ 100 mls/hr IVPB ONCE [facility] Rx#:[id number] sodium phosphate 333 Intake, IV Titration 200 284.326 104.950 Amount Norepinephrine 4 mg In 18.416 Sodium Chloride 0.9% 250 ml @ 0.05 MCG/KG/MIN 18. 174 mls/hr IV .[id number] [facility] Rx#:[id number] propofoL 1,000 mg In 284.326 86.534 Empty Bag 1 bag @ 5 MCG/ KG/MIN 2.649 mls/hr IV . Q24H [facility] Rx#:[id number] propofoL 1,000 mg In 200 Empty Bag 1 bag @ 5 MCG/ KG/MIN 3.13 mls/hr IV . Q24H [facility] Rx#:[id number] Tube Feeding 70 260 112 Other 60 Output: Gastric Drainage 100 Urine 1355 740 875 Other: Voiding Method Indwelling Catheter Indwelling Catheter ABP, PAP, CO, CI - Last Documented Arterial Blood Pressure 110/58 - Exam -GENERAL: The patient is is sedated and intubated HEENT: Pupils are round and equally reacting to light. EOMI. No scleral icterus. No conjunctival pallor. Normocephalic, atraumatic. No pharyngeal erythema. No thyromegaly. CARDIOVASCULAR: S1 and S2 present. No murmurs, rubs, or gallops. -PULMONARY: Chest is clear to auscultation, no wheezing . Bilateral crepitating ABDOMEN: Soft, nontender, nondistended, normoactive bowel sounds. No palpable organomegaly. MUSCULOSKELETAL: No joint swelling or deformity. EXTREMITIES: No cyanosis, clubbing, or pedal edema. NEUROLOGICAL: Gross neurological examination did not reveal any focal deficits. SKIN: No rashes. no petechiae. - Labs CBC & Chem 7: 12/22/21 05:13 12/22/21 12:31 Labs: Abnormal Lab Results - Last 24 Hours (Table) 12/21/21 12/21/21 12/21/21 Range/Units 11:25 17:56 23:55 RBC (3.80-5.40) m/uL Hgb (11.4-16.0) gm/dL Hct (34.0-46.0) % Lymphocytes # (1.0-4.8) k/uL ABG pH (7.35-7.45) ABG pO2 (83-108) mmHg ABG HCO3 (21-25) mmol/L ABG O2 Saturation (94-97) % Potassium (3.5-5.1) mmol/L Chloride (98-107) mmol/L Carbon Dioxide (22-30) mmol/L Glucose (74-99) mg/dL POC Glucose (mg/dL) 163 H 189 H (70-110) mg/dL Calcium (8.4-10.2) mg/dL Phosphorus (2.5-4.5) mg/dL Magnesium (1.6-2.3) mg/dL Total Protein (6.3-8.2) g/dL Albumin (3.5-5.0) g/dL Urine Appearance Turbid H (Clear) Urine Protein Trace H (Negative) Ur Leukocyte Esterase Small H (Negative) Urine RBC 15 H (0-5) /hpf Amorphous Sediment Occasional H (None) /hpf 12/22/21 12/22/21 12/22/21 Range/Units 05:13 05:13 06:00 RBC 3.32 L (3.80-5.40) m/uL Hgb 10.3 L (11.4-16.0) gm/dL Hct 32.3 L (34.0-46.0) % Lymphocytes # 0.6 L (1.0-4.8) k/uL ABG pH (7.35-7.45) ABG pO2 (83-108) mmHg ABG HCO3 (21-25) mmol/L ABG O2 Saturation (94-97) % Potassium 3.0 L (3.5-5.1) mmol/L Chloride 113 H (98-107) mmol/L Carbon Dioxide 15 L (22-30) mmol/L Glucose 213 H (74-99) mg/dL POC Glucose (mg/dL) 181 H (70-110) mg/dL Calcium 7.6 L (8.4-10.2) mg/dL Phosphorus 1.7 L (2.5-4.5) mg/dL Magnesium 1.4 L (1.6-2.3) mg/dL Total Protein 5.3 L (6.3-8.2) g/dL Albumin 2.6 L (3.5-5.0) g/dL Urine Appearance (Clear) Urine Protein (Negative) Ur Leukocyte Esterase (Negative) Urine RBC (0-5) /hpf Amorphous Sediment (None) /hpf 12/22/21 12/22/21 Range/Units 06:02 09:09 RBC (3.80-5.40) m/uL Hgb (11.4-16.0) gm/dL Hct (34.0-46.0) % Lymphocytes # (1.0-4.8) k/uL ABG pH 7.30 L 7.31 L (7.35-7.45) ABG pO2 68 L 211 H (83-108) mmHg ABG HCO3 18 L 19 L (21-25) mmol/L ABG O2 Saturation 99.8 H (94-97) % Potassium (3.5-5.1) mmol/L Chloride (98-107) mmol/L Carbon Dioxide (22-30) mmol/L Glucose (74-99) mg/dL POC Glucose (mg/dL) (70-110) mg/dL Calcium (8.4-10.2) mg/dL Phosphorus (2.5-4.5) mg/dL Magnesium (1.6-2.3) mg/dL Total Protein (6.3-8.2) g/dL Albumin (3.5-5.0) g/dL Urine Appearance (Clear) Urine Protein (Negative) Ur Leukocyte Esterase (Negative) Urine RBC (0-5) /hpf Amorphous Sediment (None) /hpf Microbiology - Last 24 Hours (Table) 12/21/21 01:09 Gram Stain - Preliminary Sputum Sputum Culture - Preliminary Assessment and Plan Assessment: acute hypoxic respiratory failure Toxic/metabolic encephalopathy Bilateral pneumonia, more on the right side. Sputum is growing gram-negative bacilli Mild septic shock secondary to blood Possible drug overdose, muscle relaxant is suspected Possible severe depression and suicidal ideation Obesity with BMI of 36 Plan: This is a pleasant 46 years old female who presents with possible drug overdose and she got intubated Continue with mechanical ventilation for pulmonary/critical care team. Continue with Zosyn and follow-up culture Neurology consult Once patient got extubated she will need to be evaluated by psychiatrist Labs and medication were reviewed.. Continue same treatment. Continue with symptomatic treatment. Resume home medication. Monitor lytes and vitals. DVT and GI prophylaxis. Further recommendations as per clinical course of the patient DVT prophylaxis: Subcutaneous heparin GI Prophylaxis: Pepcid Prognosis is guarded
[2021-12-22 22:03] LABS: Glucose,Whole Blood 192 mg/dL (70-110)
[2021-12-23] MEDS: methylPREDNISolone SOD SUCCI 40 MG/ML 1 ML VIAL IV SCH ×4 (00:01→23:29)
[2021-12-23] MEDS: PIPERACILLIN-TAZOBACTAM 3.375 GM in SODIUM CHLORIDE 0.9% 100 ML IVPB SCH ×4 (00:03→23:30)
[2021-12-23] MEDS ORDERED: Potassium Replacement Protocol 1 EACH MISC MISCELLANE PRN (01:24)
[2021-12-23 01:33] LABS: Glucose,Whole Blood 189 mg/dL (70-110)
[2021-12-23] MEDS: INSULIN ASPART (NovoLOG) 100 UNIT/ML VIAL SQ SCH ×5 (02:02→23:30)
[2021-12-23] MEDS: POTASSIUM CHLORIDE ER 20 MEQ TAB.ER PO SCH ×2 (02:02→04:10)
[2021-12-23] MEDS: HEPARIN SODIUM,PORCINE/PF 5,000 UNIT/0.5 ML SYRINGE SQ SCH ×2 (04:06→20:40)
[2021-12-23 05:37] LABS: Basophils % (A) 0 %; Eosinophils % (A) 0 %; HCT 28.6 % (34.0-46.0); HGB 9.6 gm/dL (11.4-16.0); Lymphocytes # (A) 0.6 k/uL (1.0-4.8); Lymphocytes % (A) 5 %; MCH 31.3 pg (25.0-35.0); MCHC 33.5 g/dL (31.0-37.0); MCV 93.6 fL (80.0-100.0); Monocytes # (A) 0.3 k/uL (0-1.0); Monocytes % (A) 3 %; Neutrophils # (A) 10.8 k/uL (1.3-7.7); Neutrophils % (A) 92 %; Platelet Count 209 k/uL (150-450); RBC 3.06 m/uL (3.80-5.40); RDW 15.7 % (11.5-15.5); WBC 11.8 k/uL (3.8-10.6)
[2021-12-23 05:50] LABS: Glucose,Whole Blood 211 mg/dL (70-110)
[2021-12-23 05:55] LABS: ABG HCO3 25 mmol/L (21-25); ABG Oxygen Saturation 97.4 % (94-97); ABG PCO2 42 mmHg (35-45); ABG PH 7.39 (7.35-7.45); ABG PO2 80 mmHg (83-108); ABG TCO2 26 mmol/L (19-24); Allen Test Performed? Yes
[2021-12-23 05:57] LABS: African American GFR (CKD) >90 (>60 ml/min/1.73 sqM); Anion Gap 6 mmol/L; Blood Urea Nitrogen 12 mg/dL (7-17); Calcium 7.7 mg/dL (8.4-10.2); Carbon Dioxide 23 mmol/L (22-30); Chloride 113 mmol/L (98-107); Glucose 198 mg/dL (74-99); Non-African American GFR(CKD) >90 (>60 ml/min/1.73 sqM); Phosphorus 2.3 mg/dL (2.5-4.5); Potassium 4.3 mmol/L (3.5-5.1); Sodium 142 mmol/L (137-145)
--- NOTE | 2021-12-23 06:11 | P.CNNES ---
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 As per EMS flow sheet, it was reported that patient has taken medication that did not belong to her. Patient's stated that patient had taken between 2-4 Soma about 90 minutes prior. Patient stated that she only took 2 and denied taking anything else. Patient was alert and answering questions but very lethargic. Pupils were pinpoint and nonreactive to light. Patient was able to move all extremities although not able to hold herself up. Patient does have history of heroin use in the past but has been clean and taking methadone. stated that he does not believe she took anything else, but has done Soma in the past and has had extreme effects on her. While in route to the hospital, patient began to become more lethargic and the BP came down along with O2 saturations. 0.5 mg of Narcan was given and about 90 seconds later patient woke up, but was very agitated, trying to take her seatbel ts off, stated she wanted to sit up. EMS sat patient up, which was followed by patient vomiting for about 2 minutes, able to keep patient sitting up and then was able to give Zofran. Patient became more unresponsive, upgraded to emergency, suctioned some vomit out of mouth and throat are patient had a gag reflex. Patient's blood pressure the scene was 122/80 pulse at 130, respirations 16, saturation 97%. In the ER patient became less responsive, could not maintain airway, therefore was intubated and placed on mechanical ventilation. At present patient is on propofol 65 mcg/kg/m. Patient has developed aspiration pneumonia. Earlier patient was on maximal propofol of 75 g/kg/min. at a lower dose, patient becomes more agitated, started bucking the ventilator. Patient is also on methadone 170 mg per day. Patient while undergoing central line placement, has a seizure-like activity, in which her right facial muscles were twitching and right side of the chest. This was witnessed by the nurse. EEG was performed. There is some concern if patient has history of seizures. Patient also on Levophed 0.02. Patient's blood test shows normal CBC, pH of 7.41, pCO2 37 and O2 112, satu ration 98.9%. Sodium normal, potassium 3.1, normal renal and hepatic panel and negative troponin. HCG is negative. Urine drug screen only positive for methadone. Blood alcohol level negative. Salicylate and acetaminophen negative. Patient's lactate was 2.2. UA negative. Chest x-ray showed some mild pulmonary interstitial edema that appears new compared to old exam. Endotracheal tube is now present. CT head is normal, with no acute process. I personally reviewed CT had come agree with the findings. EKG shows sinus rhythm with occasional PVCs. Nonspecific T-wave abnormality. Review of Systems ROS unobtainable: due to mental status Past Medical History Past Medical History: No Reported History Additional Past Medical History / Comment(s): heroin use, uti, used to have seizures when younger History of Any Multi-Drug Resistant Organisms: None Reported Past Surgical History: Section, Cholecystectomy Additional Past Surgical History / Comment(s): 2 sections Past Anesthesia/Blood Transfusion Reactions: No Reported Reaction Past Psychological History: No Psychological Hx Reported Smoking Status: Vaper Past Alcohol Use History: None Reported Past Drug Use History: Heroin, IV Drug Use Medications and Allergies Home Medications Medication Instructions Recorded Confirmed Type Methadone HCl [Methadone Intensol] 170 mg PO DAILY 09/08/16 12/21/21 History Allergies Allergy/AdvReac Type Severity Reaction Status Date / Time No Known Allergies Allergy Verified 12/21/21 00:32 Physical Examination - Vital Signs Vital Signs: Vital Signs Temp Pulse Resp BP Pulse Ox FiO2 12/22/21 11:16 81 12/22/21 11:06 80 12/22/21 11:02 50 12/22/21 11:00 79 22 91 L 12/22/21 10:00 83 21 92 L 12/22/21 09:22 50 12/22/21 09:00 71 20 99 12/22/21 08:41 100 12/22/21 08:21 92 12/22/21 08:05 98 12/22/21 08:00 98.2 F 102 H 15 86/61 95 70 12/22/21 07:52 70 12/22/21 07:00 96 15 85/46 93 L 12/22/21 06:30 97 15 94/47 93 L 12/22/21 06:00 102 H 15 89/51 12/22/21 05:30 103 H 16 85/45 94 L 12/22/21 05:00 99 14 89/48 92 L 12/22/21 04:30 98 14 91 L 12/22/21 04:00 98.3 F 101 H 15 90/46 93 L 70 12/22/21 03:45 101 H 12/22/21 03:31 83 12/22/21 03:30 84 18 91/48 91 L 70 12/22/21 03:00 86 17 91/50 91 L 12/22/21 02:30 87 16 94/50 91 L 12/22/21 02:00 87 17 87/47 92 L 12/22/21 01:30 89 17 87/43 91 L 12/22/21 01:00 89 16 84/45 90 L 12/22/21 00:30 82 24 92/49 91 L 12/22/21 00:06 92 18 90 L 12/22/21 00:00 98.4 F 93 19 92/48 97 70 12/21/21 23:30 86 18 90/47 92 L 12/21/21 23:19 82 12/21/21 23:17 70 12/21/21 23:00 84 16 89/47 91 L 12/21/21 22:30 87 20 91/49 91 L 12/21/21 22:00 87 17 87/45 91 L 12/21/21 21:30 84 18 87/44 91 L 12/21/21 21:00 85 19 81/54 91 L 12/21/21 20:46 70 12/21/21 20:37 60 12/21/21 20:30 90 19 91/53 87 L 12/21/21 20:00 98.4 F 94 21 89/53 89 L 70 12/21/21 19:30 98.4 F 93 20 92/58 90 L 50 12/21/21 19:24 87 12/21/21 19:13 84 12/21/21 19:08 50 12/21/21 19:00 80 20 94/60 89 L 50 12/21/21 18:30 85 25 H 92/61 91 L 50 12/21/21 18:00 85 19 90/52 91 L 12/21/21 17:30 78 19 86/52 91 L 12/21/21 17:00 79 18 85/57 92 L 50 12/21/21 16:30 81 20 82/53 92 L 12/21/21 16:15 70 12/21/21 16:00 79 21 85/50 93 L 50 12/21/21 15:59 79 12/21/21 15:46 66 12/21/21 15:42 50 12/21/21 15:30 66 21 86/55 96 12/21/21 15:00 66 20 84/52 96 50 12/21/21 14:30 67 21 82/53 96 Intake and Output 12/21/21 12/22/21 12/22/21 22:59 06:59 14:59 Intake Total 0980.553 0539.000 1219.519 Output Total 1170 490 875 Balance 610.270 3430.000 344.519 Intake: IV 1100 2000 908 Magnesium Sulfate-D5w Pmx 100 1 gm In Dextrose/Water 1 100ml.bag @ 100 mls/hr IVPB Q1H [facility] Rx#: [id number] Piperacillin-Tazobactam 3 100 100 .375 gm In Sodium Chloride 0.9% 100 ml @ 25 mls/hr IVPB Q8HR [facility] Rx# :[id number] Sodium Chloride 0.9% 1, 1000 1000 375 000 ml @ 125 mls/hr IV . Q8H [facility] Rx#:[id number] Sodium Chloride 0.9% 1, 1000 000 ml @ 999 mls/hr IV . Q1H1M [facility] Rx#:[id number] sodium phosphate 333 Intake, IV Titration 84.326 200.000 199.519 Amount Norepinephrine 4 mg In 18.416 Sodium Chloride 0.9% 250 ml @ 0.05 MCG/KG/MIN 18. 174 mls/hr IV .[id number] [facility] Rx#:[id number] propofoL 1,000 mg In 84.326 200.000 181.103 Empty Bag 1 bag @ 5 MCG/ KG/MIN 2.649 mls/hr IV . Q24H [facility] Rx#:[id number] Tube Feeding 120 180 112 Other 30 Output: Urine 1170 490 875 Other: Voiding Method Indwelling Catheter Indwelling Catheter Weight 95.4 kg 95.4 kg ABP, PAP, CO, CI - Last 8 Hours Arterial Blood Pressure 105/53 Arterial Blood Pressure 110/58 Arterial Blood Pressure 145/74 Patient is a middle aged female, who is sedated, intubated. Patient is intubated, sedated, mental status cannot be assessed. On cranial examination, pupils are small, 3 mm, reacting to 2 mm bilaterally, oculocephalics are absent, visual acevedo cannot be tested. Lower cranial nerves cannot be tested. No obvious seizure-like activity noticed. On muscle strength testing, her tone is equal bilaterally. Muscle strength cannot be tested. Deep tendon reflexes are 1 at the biceps and brachioradialis, 2 at the knees, plantars are flat bilaterally. No clonus. [place]: Patient sedated, does not respond to painful stimuli. Cerebellar functions and gait cannot be tested. On general examination, there is no carotid bruit or murmur, S1-S2 audible. Abdomen is soft, bowel sounds present. Chest is clear. Peripheral pulses are present. No edema. Results - Laboratory Findings CBC and BMP: 12/23/21 05:20 12/23/21 05:20 Abnormal Lab Findings: Abnormal Labs 12/21/21 12/21/21 12/21/21 01:02 01:02 01:35 RBC Hgb Hct Lymphocytes # ABG pH ABG pO2 112 H ABG HCO3 ABG Total CO2 25 H ABG O2 Saturation 98.9 H Potassium 3.1 L Chloride Carbon Dioxide Glucose 154 H POC Glucose (mg/dL) Plasma Lactic Acid Adolph Calcium Phosphorus Magnesium Total Protein Albumin Procalcitonin Urine Appearance Urine Protein Ur Leukocyte Esterase Urine RBC Amorphous Sediment Urine Methadone Screen Detected H 12/21/21 12/21/21 12/21/21 05:02 05:56 10:17 RBC Hgb Hct Lymphocytes # ABG pH ABG pO2 ABG HCO3 ABG Total CO2 25 H ABG O2 Saturation 97.4 H Potassium Chloride Carbon Dioxide Glucose POC Glucose (mg/dL) 117 H Plasma Lactic Acid Adolph 2.2 H* Calcium Phosphorus Magnesium Total Protein Albumin Procalcitonin Urine Appearance Urine Protein Ur Leukocyte Esterase Urine RBC Amorphous Sediment Urine Methadone Screen 12/21/21 12/21/21 12/21/21 11:25 17:56 23:55 RBC Hgb Hct Lymphocytes # ABG pH ABG pO2 ABG HCO3 ABG Total CO2 ABG O2 Saturation Potassium Chloride Carbon Dioxide Glucose POC Glucose (mg/dL) 163 H 189 H Plasma Lactic Acid Adolph Calcium Phosphorus Magnesium Total Protein Albumin Procalcitonin Urine Appearance Turbid H Urine Protein Trace H Ur Leukocyte Esterase Small H Urine RBC 15 H Amorphous Sediment Occasional H Urine Methadone Screen 12/22/21 12/22/21 12/22/21 05:13 05:13 05:13 RBC 3.32 L Hgb 10.3 L Hct 32.3 L Lymphocytes # 0.6 L ABG pH ABG pO2 ABG HCO3 ABG Total CO2 ABG O2 Saturation Potassium 3.0 L Chloride 113 H Carbon Dioxide 15 L Glucose 213 H POC Glucose (mg/dL) Plasma Lactic Acid Adolph Calcium 7.6 L Phosphorus 1.7 L Magnesium 1.4 L Total Protein 5.3 L Albumin 2.6 L Procalcitonin 5.10 H Urine Appearance Urine Protein Ur Leukocyte Esterase Urine RBC Amorphous Sediment Urine Methadone Screen 12/22/21 12/22/21 12/22/21 06:00 06:02 09:09 RBC Hgb Hct Lymphocytes # ABG pH 7.30 L 7.31 L ABG pO2 68 L 211 H ABG HCO3 18 L 19 L ABG Total CO2 ABG O2 Saturation 99.8 H Potassium Chloride Carbon Dioxide Glucose POC Glucose (mg/dL) 181 H Plasma Lactic Acid Adolph Calcium Phosphorus Magnesium Total Protein Albumin Procalcitonin Urine Appearance Urine Protein Ur Leukocyte Esterase Urine RBC Amorphous Sediment Urine Methadone Screen 12/22/21 12/22/21 11:46 12:31 RBC Hgb Hct Lymphocytes # ABG pH ABG pO2 ABG HCO3 ABG Total CO2 ABG O2 Saturation Potassium 3.3 L Chloride Carbon Dioxide Glucose POC Glucose (mg/dL) 245 H Plasma Lactic Acid Adolph Calcium Phosphorus Magnesium Total Protein Albumin Procalcitonin Urine Appearance Urine Protein Ur Leukocyte Esterase Urine RBC Amorphous Sediment Urine Methadone Screen Assessment and Plan Assessment: * Altered mental status, likely due to drug overdose. Patient has ingested 2 tablets of Soma. Also on high dose methadone 170 mg daily. Uncertain if she has taken anything else. * History of overdose in the past * Ventilator-dependent respiratory failure, on mechanical ventilation * Possible aspiration pneumonia * History of depression and suicidal ideations * Previous history of heroin abuse * History of hepatitis C * Hypotension, possible septic shock Plan: * EEG was performed, which revealed background slowing of severe degree, with i ntermittent periods of generalized suppression. This suggestive of generalized cerebral dysfunction as can be seen with toxic metabolic encephalopathy, or due to diffuse structural brain abnormality, or medication effect. Clinical correlation is recommended. Follow-up EEG recommended if clinically indicated. No epileptiform activity was seen. * 2-D echo revealed normal left ventricle size and systolic function. EF is 55- 60%. * Hold off on antiepileptic medication, as EEG did not reveal any epileptiform activity. * Neurology will follow clinically. * Medical management as per critical care/IM. * Thank you for the consult.
[2021-12-23] MEDS: SODIUM CHLORIDE 0.9% 1,000 ML IV SCH ×2 (08:00→11:21)
[2021-12-23] MEDS: NOREPINEPHRINE 4 MG in SODIUM CHLORIDE 0.9% 250 ML IV SCH ×2 (08:16→17:01)
[2021-12-23] MEDS ORDERED: FUROSEMIDE 10 MG/ML 4 ML VIAL IV STA (09:20)
[2021-12-23] MEDS: METHADONE 10 MG TAB PO SCH (11:08)
[2021-12-23] MEDS: CHLORHEXIDINE GLUCONATE 15 ML CUP MUCOUS MEM SCH ×2 (11:08→20:40)
[2021-12-23] MEDS: FAMOTIDINE 20 MG/2 ML VIAL IV SCH ×2 (11:08→20:40)
[2021-12-23 11:36] LABS: Glucose,Whole Blood 151 mg/dL (70-110)
--- NOTE | 2021-12-23 12:22 | P.PN ---
Subjective Progress Note Date: 12/23/21 Principal diagnosis: Acute hypoxic failure secondary to drug overdose This is a 46-year-old female with history of multiple medical problems including history of heroin abuse, history of drug overdose secondary to muscle relaxant/carisoprodol/soma. Patient is also known to have history of hepatitis C she was brought into the ER yesterday by EMS, patient apparently overdosed on her muscle relaxant according to . When EMS arrived, patient was given Narcan, however the patient had a sudden episode of vomiting after Narcan was given, and she had witnessed aspiration. When she arrived to the ER, patient was confused, and apparently could not protect her airways, hence the patient was intubated. And placed on mechanical ventilation. Her drug screen came back positive for methadone. Otherwise the rest of the drug screen was unremarkable. Chest x-ray showed evidence of bilateral pneumonia/aspiration pneumonia. Patient was admitted to the ICU, and this consult was initiated. Patient is now on assist control rate of 18 tidal volume 400 FiO2 was 70% and PEEP of 5. ABG showed a pO2 of 87 pCO2 40 pH of 7.38, FiO2 was cut down to 50%. Her O2 sats is 98% at present. Labs on admission showed relatively normal CBC. And the drug screen as noted above. Patient is now on IV fluid at 1 25 mL per hour in the form of 0.9 normal saline, she is also on Zosyn, and on enteral feeding. She is on propofol at 50 mcg/kg/m. Patient was reevaluated today on 12/22/21, patient is doing poorly and seems to be worsening in the last 24 hours. Her chest x-ray is worsening, ABG is worsening and her hemodynamic status is also worsening requiring norepinephrine at 0.03 mcg/kg/m. Patient had to be placed on higher PEEP, vent settings are 18/400/70/5 and a increased the PEEP from 5-10. Also increase the rate to 22. And patient was given Lasix 40 mg IV push and I cut down her IV fluid to KVO. Patient had fairly good urine output overnight, she is still on propofol at 75 mcg/kg/m, she is on IV fluid at 1 25 mL per hour. Vital HP at 3 0 mL per hour. Norepinephrine at 0.03 mcg/kg/m. Considering the patient had to be placed on norepinephrine this morning, I went ahead and placed a right femoral triple- lumen catheter and I also recommended a left radial arterial line. This was done. ABG after the patient was placed on the percent FiO2 and PEEP of 10 showe d a pO2 of 211 pCO2 37 pH of 7.31, then I brought her back down to 50% and The PEEP the same at them. I also recommended an echocardiogram which is pending. And recommended neurological consultation mostly because as I was evaluated the patient and in the process of placing a central line, patient developed seizure-like activity which lasted less than 20 seconds, she had symmetrical bilateral muscle contractions, twitching, resolved on its own, but shortly after the patient was given Ativan 2 mg IV push. Patient will have an EEG and would have neurology evaluation. Apparently in the history the patient does have history of seizures. Reevaluated today on 12/23/21, patient remains in the ICU, intubated and mechanically ventilated. She is on assist control rate of 22, volume 400 FiO2 50% PEEP of 10 ABG showed a pO2 of 80 pCO2 42 pH of 7.39 hence the patient was kept on the same vent settings chest x-ray is showing slight improvement in her bilateral infiltrates/ARDS/pneumonia patient remains on propofol at 55 mcg/kg/m and her IV fluid at 25 mL per hour cut it down to 75, and the patient will receive 40 mg of Lasix IV push, urine output is roughly about 50 mL per hour. Patient remains on vital HP at 22 mL per hour. WBC count is 11.8 hemoglobin is 9.6 electrolytes are normal renal profile is normal Objective - Vital Signs Vital signs: Vital Signs Temp 97.4 F L 12/23/21 12:00 Pulse 58 L 12/23/21 12:00 Resp 22 12/23/21 12:00 BP 125/72 12/23/21 07:00 Pulse Ox 92 L 12/23/21 12:00 FiO2 50 12/23/21 12:00 Intake & Output 12/22/21 12/23/21 12/23/21 18:59 06:59 18:59 Intake Total 2125.693 1876.22 695.696 Output Total 3740 710 200 Balance -5831.325 9615.22 495.696 Weight 95.4 kg 95.7 kg Intake: IV 1526 600 400 Magnesium Sulfate-D5w Pmx 100 1 gm In Dextrose/Water 1 100ml.bag @ 100 mls/hr IVPB Q1H [facility] Rx#: [id number] Piperacillin-Tazobactam 3 200 .375 gm In Sodium Chloride 0.9% 100 ml @ 25 mls/hr IVPB Q8HR [facility] Rx# :[id number] Sodium Chloride 0.9% 1, 560 600 400 000 ml @ 50 mls/hr IV . Q20H [facility] Rx#:[id number] sodium phosphate 666 Intake, IV Titration 321.693 750.22 155.696 Amount Norepinephrine 4 mg In 40.590 55.676 Sodium Chloride 0.9% 250 ml @ 0.05 MCG/KG/MIN 18. 174 mls/hr IV .[id number] [facility] Rx#:[id number] Sodium Chloride 0.9% 1, 550 000 ml @ 999 mls/hr IV . Q1H1M [facility] Rx#:[id number] Sodium Phosphate 10 mmol 0.22 0.02 In Sodium Chloride 0.9% 250 ml @ 125 mls/hr IVPB Q2H [facility] Rx#:[id number] propofoL 1,000 mg In 281.103 200 100 Empty Bag 1 bag @ 5 MCG/ KG/MIN 2.649 mls/hr IV . Q24H [facility] Rx#:[id number] Tube Feeding 178 286 110 Other 100 240 30 Output: Urine 3740 710 200 Other: Voiding Method Indwelling Catheter Indwelling Catheter ABP, PAP, CO, CI - Last Documented Arterial Blood Pressure 117/59 - Exam Physical Exam: Revealed 46-year-old female on mechanical ventilation, sedated, in no distress. Head: Atraumatic, normocephalic. Endotracheal tube and orogastric tube are intact. HEENT:[Neck is supple.] [No neck masses.] [No thyromegaly.] [No JVD.] PERRLA, EOMI, nonicteric, no neck masses, no JVD, moist mucous membranes. Chest: [Symmetrical chest expansion, fine crackles at the bases. Cardiac Exam: [Normal S1 and S2, no S3 gallop, no murmur.] Abdomen: [Soft, nontender, no megaly, no rebound, no guarding, normal bowel sounds.] Extremities: [No clubbing, no edema, no cyanosis.] Neurological Exam: [Cannot assess, patient is sedated and on propofol. Psychiatric: Could not assess. Skin: No rashes - Labs CBC & Chem 7: 12/23/21 05:20 12/23/21 05:20 Labs: Abnormal Lab Results - Last 24 Hours (Table) 12/22/21 12/22/21 12/22/21 Range/Units 12:31 17:38 22:01 WBC (3.8-10.6) k/uL RBC (3.80-5.40) m/uL Hgb (11.4-16.0) gm/dL Hct (34.0-46.0) % RDW (11.5-15.5) % Neutrophils # (1.3-7.7) k/uL Lymphocytes # (1.0-4.8) k/uL ABG pO2 (83-108) mmHg ABG Total CO2 (19-24) mmol/L ABG O2 Saturation (94-97) % Potassium 3.3 L (3.5-5.1) mmol/L Chloride (98-107) mmol/L Glucose (74-99) mg/dL POC Glucose (mg/dL) 204 H 192 H (70-110) mg/dL Calcium (8.4-10.2) mg/dL Phosphorus (2.5-4.5) mg/dL 12/23/21 12/23/21 12/23/21 Range/Units 00:05 01:31 05:20 WBC (3.8-10.6) k/uL RBC (3.80-5.40) m/uL Hgb (11.4-16.0) gm/dL Hct (34.0-46.0) % RDW (11.5-15.5) % Neutrophils # (1.3-7.7) k/uL Lymphocytes # (1.0-4.8) k/uL ABG pO2 (83-108) mmHg ABG Total CO2 (19-24) mmol/L ABG O2 Saturation (94-97) % Potassium 3.3 L (3.5-5.1) mmol/L Chloride 113 H (98-107) mmol/L Glucose 198 H (74-99) mg/dL POC Glucose (mg/dL) 189 H (70-110) mg/dL Calcium 7.7 L (8.4-10.2) mg/dL Phosphorus 2.3 L (2.5-4.5) mg/dL 12/23/21 12/23/21 12/23/21 Range/Units 05:20 05:49 05:50 WBC 11.8 H (3.8-10.6) k/uL RBC 3.06 L (3.80-5.40) m/uL Hgb 9.6 L (11.4-16.0) gm/dL Hct 28.6 L (34.0-46.0) % RDW 15.7 H (11.5-15.5) % Neutrophils # 10.8 H (1.3-7.7) k/uL Lymphocytes # 0.6 L (1.0-4.8) k/uL ABG pO2 80 L (83-108) mmHg ABG Total CO2 26 H (19-24) mmol/L ABG O2 Saturation 97.4 H (94-97) % Potassium (3.5-5.1) mmol/L Chloride (98-107) mmol/L Glucose (74-99) mg/dL POC Glucose (mg/dL) 211 H (70-110) mg/dL Calcium (8.4-10.2) mg/dL Phosphorus (2.5-4.5) mg/dL 12/23/21 Range/Units 11:34 WBC (3.8-10.6) k/uL RBC (3.80-5.40) m/uL Hgb (11.4-16.0) gm/dL Hct (34.0-46.0) % RDW (11.5-15.5) % Neutrophils # (1.3-7.7) k/uL Lymphocytes # (1.0-4.8) k/uL ABG pO2 (83-108) mmHg ABG Total CO2 (19-24) mmol/L ABG O2 Saturation (94-97) % Potassium (3.5-5.1) mmol/L Chloride (98-107) mmol/L Glucose (74-99) mg/dL POC Glucose (mg/dL) 151 H (70-110) mg/dL Calcium (8.4-10.2) mg/dL Phosphorus (2.5-4.5) mg/dL Microbiology - Last 24 Hours (Table) 12/21/21 01:09 Gram Stain - Final Sputum Sputum Culture - Final Serratia marcescens Escherichia coli Assessment and Plan Assessment: Impression: Acute hypoxic respiratory failure secondary to Soma overdose. Aspiration pneumonia History of depression and suicidal ideations Obesity with BMI of 36. History of heroin abuse. History of chronic hepatitis C. Possible seizures. Hypertension secondary to hypovolemia sepsis, and possible septic shock Possibility ARDS secondary to aspiration pneumonia. Recommendation: Continue ventilatory support. Not quite ready for weaning, however the patient will be given a sedation holiday today, and at least addressed mental status if possible. Continue Zosyn. Continue hemodynamic support/today the patient is off norepinephrine. Continue bronchodilators and steroids. Continue enteral feeding/nutritional support Continue GI and DVT prophylaxis Resume patient back on her methadone. Neurology is following, no evidence of seizure on EEG according to neurology. Continue to monitor daily labs and x-rays and ABGs. Not ready for any weaning at this point. May consider assessment of mental status off sedation today but again not ready for weaning We'll continue to follow. Critical care time is over 30 minutes not including the time spent on pro cedures. Time with Patient: Greater than 30
--- NOTE | 2021-12-23 12:33 | XR ---
EXAMINATION TYPE: XR chest 1V portable DATE OF EXAM: 12/23/2021 COMPARISON: 12/23/2021 INDICATION: Confirm nasogastric tube placement TECHNIQUE: Single frontal view of the chest is obtained. FINDINGS: The heart size is normal. The pulmonary vasculature is normal. Right lower lobe infiltrate is present. This appears to be increasing over the interval. Small left pleural effusion is likely present. Nasogastric tube has been adjusted, the tip remains within the left upper quadrant of the abdomen. En dotracheal tube tip is above the kandis. IMPRESSION: 1. Right lower lobe infiltrate, worsening. 2. Small stable left pleural effusion. 3. Lines and catheters discussed above. Nasogastric tube tip is within the left abdomen.
--- NOTE | 2021-12-23 13:42 | XR ---
EXAMINATION TYPE: XR chest 1V portable DATE OF EXAM: 12/23/2021 COMPARISON: 06/24/2021 INDICATION: Pneumonia TECHNIQUE: Single frontal view of the chest is obtained. FINDINGS: The heart size is normal. The pulmonary vasculature is normal. Bibasilar infiltrates are present similar comparison Endotracheal tube tip is above kandis. Nasogastric tube transverses the thorax IMPRESSION: 1. Bibasilar infiltrates, similar to comparison.
[2021-12-23] MEDS: IPRATROPIUM-ALBUTEROL 3 ML NEB INHALATION PRN (16:07)
[2021-12-23 18:11] LABS: Glucose,Whole Blood 154 mg/dL (70-110)
--- NOTE | 2021-12-23 22:00 | P.PN ---
Subjective This is a pleasant 46 years old female with past medical history of chronic hepatitis C, drug abuse. Presents because of altered mental status and she got intubated in the emergency room . Patient suspected to overdose with muscle relaxant that don't belong to her as per documentation. patient was confused on arrival, embolus was called because she was not acting right. She was awake and alert but not appropriate and not steady. she had decreased level of consciousness and she received a dose of Narcan in the ambulance with no benefit. In the emergency room she hasn't episodes of vomiting and then become more altered and then she got intubated Vitals are stable.she had a fever of 100 Labs showing unremarkable CBC, BMP and liver enzymes. Potassium was low at 3.1. Glucose 154 and 117. Urine drug screen is positive for methadone.; Less than 10 and salicylate less than 1. CT of the brain showing no acute process. Chest x-ray showing some diffuse airspace infiltrate in the right lung which is significantly increased compared to exam 1 hour ago. No change in the mild left sided pulmonary interstitial edema , per radiology 12/22/2021 Procedure Mr. York sedated and intubated as well as she is hypertensive Patient is followed closely by pulmonary/critical care team. She received 1 L of normal saline and she is on pressors of levophed Also she is on Zosyn with sputum culture: Gram-negative bacilli and just x-ray showing evidence of bibasilar infiltrates Neurologist has been consulted for possible seizure EEG is negative for epileptiform discharge and showed severe cerebral dysfunction that goes with toxic Metabolic encephalopathy Echocardiogram showed ejection fraction of 55-60% She remains on Solu-Medrol 40 mg, Zosyn and normal saline. Methadone was added today. 12/23/2021 Patient still sedated and intubated and required mechanical ventilation with pulmonary/critical care team following and help with that management and others. Chest x-ray showing stable bibasilar infiltrate. Hemoglobin 9.6. Blood pressure is improving. She remains on Solu-Medrol 40 mg, Zosyn and normal saline. Methadone 170 milligrams also added. Her sputum culture is growing E. coli and Serratia both are sensitive to Zosyn which the patient received Objective - Vital Signs Vital signs: Vital Signs Temp 97.8 F 12/23/21 02:00 Pulse 60 12/23/21 07:00 Resp 22 12/23/21 07:00 BP 125/72 12/23/21 07:00 Pulse Ox 96 12/23/21 07:00 FiO2 50 12/23/21 07:25 Intake & Output 12/22/21 12/23/21 12/23/21 18:59 06:59 18:59 Intake Total 2125.693 1876.22 127.696 Output Total 3740 710 50 Balance -5856.410 3736.22 77.696 Weight 95.4 kg 95.7 kg Intake: IV 1526 600 50 Magnesium Sulfate-D5w Pmx 100 1 gm In Dextrose/Water 1 100ml.bag @ 100 mls/hr IVPB Q1H [facility] Rx#: [id number] Piperacillin-Tazobactam 3 200 .375 gm In Sodium Chloride 0.9% 100 ml @ 25 mls/hr IVPB Q8HR [facility] Rx# :[id number] Sodium Chloride 0.9% 1, 560 600 50 000 ml @ 125 mls/hr IV . Q8H [facility] Rx#:[id number] sodium phosphate 666 Intake, IV Titration 321.693 750.22 55.696 Amount Norepinephrine 4 mg In 40.590 55.676 Sodium Chloride 0.9% 250 ml @ 0.05 MCG/KG/MIN 18. 174 mls/hr IV .[id number] [facility] Rx#:[id number] Sodium Chloride 0.9% 1, 550 000 ml @ 999 mls/hr IV . Q1H1M [facility] Rx#:[id number] Sodium Phosphate 10 mmol 0.22 0.02 In Sodium Chloride 0.9% 250 ml @ 125 mls/hr IVPB Q2H [facility] Rx#:[id number] propofoL 1,000 mg In 281.103 200 Empty Bag 1 bag @ 5 MCG/ KG/MIN 2.649 mls/hr IV . Q24H [facility] Rx#:[id number] Tube Feeding 178 286 22 Other 100 240 Output: Urine 3740 710 50 Other: Voiding Method Indwelling Catheter Indwelling Catheter ABP, PAP, CO, CI - Last Documented Arterial Blood Pressure 136/67 - Exam -GENERAL: The patient is is sedated and intubated HEENT: Pupils are round and equally reacting to light. EOMI. No scleral icterus. No conjunctival pallor. Normocephalic, atraumatic. No pharyngeal erythema. No thyromegaly. CARDIOVASCULAR: S1 and S2 present. No murmurs, rubs, or gallops. -PULMONARY: Chest is clear to auscultation, no wheezing . Bilateral crepitating ABDOMEN: Soft, nontender, nondistended, normoactive bowel sounds. No palpable organomegaly. MUSCULOSKELETAL: No joint swelling or deformity. EXTREMITIES: No cyanosis, clubbing, or pedal edema. NEUROLOGICAL: Gross neurological examination did not reveal any focal deficits. SKIN: No rashes. no petechiae. - Labs CBC & Chem 7: 12/23/21 05:20 12/23/21 05:20 Labs: Abnormal Lab Results - Last 24 Hours (Table) 12/22/21 12/22/21 12/22/21 Range/Units 05:13 09:09 11:46 WBC (3.8-10.6) k/uL RBC (3.80-5.40) m/uL Hgb (11.4-16.0) gm/dL Hct (34.0-46.0) % RDW (11.5-15.5) % Neutrophils # (1.3-7.7) k/uL Lymphocytes # (1.0-4.8) k/uL ABG pH 7.31 L (7.35-7.45) ABG pO2 211 H (83-108) mmHg ABG HCO3 19 L (21-25) mmol/L ABG Total CO2 (19-24) mmol/L ABG O2 Saturation 99.8 H (94-97) % Potassium (3.5-5.1) mmol/L Chloride (98-107) mmol/L Glucose (74-99) mg/dL POC Glucose (mg/dL) 245 H (70-110) mg/dL Calcium (8.4-10.2) mg/dL Phosphorus (2.5-4.5) mg/dL Procalcitonin 5.10 H (0.02-0.09) ng/mL 12/22/21 12/22/21 12/22/21 Range/Units 12:31 17:38 22:01 WBC (3.8-10.6) k/uL RBC (3.80-5.40) m/uL Hgb (11.4-16.0) gm/dL Hct (34.0-46.0) % RDW (11.5-15.5) % Neutrophils # (1.3-7.7) k/uL Lymphocytes # (1.0-4.8) k/uL ABG pH (7.35-7.45) ABG pO2 (83-108) mmHg ABG HCO3 (21-25) mmol/L ABG Total CO2 (19-24) mmol/L ABG O2 Saturation (94-97) % Potassium 3.3 L (3.5-5.1) mmol/L Chloride (98-107) mmol/L Glucose (74-99) mg/dL POC Glucose (mg/dL) 204 H 192 H (70-110) mg/dL Calcium (8.4-10.2) mg/dL Phosphorus (2.5-4.5) mg/dL Procalcitonin (0.02-0.09) ng/mL 12/23/21 12/23/21 12/23/21 Range/Units 00:05 01:31 05:20 WBC (3.8-10.6) k/uL RBC (3.80-5.40) m/uL Hgb (11.4-16.0) gm/dL Hct (34.0-46.0) % RDW (11.5-15.5) % Neutrophils # (1.3-7.7) k/uL Lymphocytes # (1.0-4.8) k/uL ABG pH (7.35-7.45) ABG pO2 (83-108) mmHg ABG HCO3 (21-25) mmol/L ABG Total CO2 (19-24) mmol/L ABG O2 Saturation (94-97) % Potassium 3.3 L (3.5-5.1) mmol/L Chloride 113 H (98-107) mmol/L Glucose 198 H (74-99) mg/dL POC Glucose (mg/dL) 189 H (70-110) mg/dL Calcium 7.7 L (8.4-10.2) mg/dL Phosphorus 2.3 L (2.5-4.5) mg/dL Procalcitonin (0.02-0.09) ng/mL 12/23/21 12/23/21 12/23/21 Range/Units 05:20 05:49 05:50 WBC 11.8 H (3.8-10.6) k/uL RBC 3.06 L (3.80-5.40) m/uL Hgb 9.6 L (11.4-16.0) gm/dL Hct 28.6 L (34.0-46.0) % RDW 15.7 H (11.5-15.5) % Neutrophils # 10.8 H (1.3-7.7) k/uL Lymphocytes # 0.6 L (1.0-4.8) k/uL ABG pH (7.35-7.45) ABG pO2 80 L (83-108) mmHg ABG HCO3 (21-25) mmol/L ABG Total CO2 26 H (19-24) mmol/L ABG O2 Saturation 97.4 H (94-97) % Potassium (3.5-5.1) mmol/L Chloride (98-107) mmol/L Glucose (74-99) mg/dL POC Glucose (mg/dL) 211 H (70-110) mg/dL Calcium (8.4-10.2) mg/dL Phosphorus (2.5-4.5) mg/dL Procalcitonin (0.02-0.09) ng/mL Microbiology - Last 24 Hours (Table) 12/21/21 01:09 Gram Stain - Preliminary Sputum Sputum Culture - Preliminary Gram Neg Bacilli Assessment and Plan Assessment: acute hypoxic respiratory failure Toxic/metabolic encephalopathy Bilateral pneumonia, more on the right side. Sputum is growing gram-negative bacilli Mild septic shock secondary to blood Possible drug overdose, muscle relaxant is suspected Possible severe depression and suicidal ideation Obesity with BMI of 36 Plan: This is a pleasant 46 years old female who presents with possible drug overdose and she got intubated Continue with mechanical ventilation for pulmonary/critical care team. Continue with Zosyn and follow-up culture Neurology consult Once patient got extubated she will need to be evaluated by psychiatrist Labs and medication were reviewed.. Continue same treatment. Continue with symptomatic treatment. Resume home medication. Monitor lytes and vitals. DVT and GI prophylaxis. Further recommendations as per clinical course of the patient DVT prophylaxis: Subcutaneous heparin GI Prophylaxis: Pepcid Prognosis is guarded
[2021-12-23 23:23] LABS: Glucose,Whole Blood 175 mg/dL (70-110)
[2021-12-24] MEDS: NOREPINEPHRINE 4 MG in SODIUM CHLORIDE 0.9% 250 ML IV SCH ×2 (00:50→16:46)
[2021-12-24] MEDS: SODIUM CHLORIDE 0.9% 1,000 ML IV SCH (04:29)
[2021-12-24 04:49] LABS: Basophils % (A) 0 %; Eosinophils % (A) 0 %; HCT 29.9 % (34.0-46.0); HGB 9.9 gm/dL (11.4-16.0); Lymphocytes # (A) 1.1 k/uL (1.0-4.8); Lymphocytes % (A) 13 %; MCH 30.5 pg (25.0-35.0); MCHC 32.9 g/dL (31.0-37.0); MCV 92.8 fL (80.0-100.0); Mean Platelet Volume 8.4; Monocytes # (A) 0.2 k/uL (0-1.0); Monocytes % (A) 2 %; Neutrophils # (A) 7.4 k/uL (1.3-7.7); Neutrophils % (A) 85 %; Platelet Count 184 k/uL (150-450); RBC 3.23 m/uL (3.80-5.40); WBC 8.7 k/uL (3.8-10.6)
[2021-12-24 05:03] LABS: ALT 10 U/L (4-34); AST 13 U/L (14-36); African American GFR (CKD) >90 (>60 ml/min/1.73 sqM); Alkaline Phosphatase 60 U/L (38-126); Anion Gap 4 mmol/L; Blood Urea Nitrogen 20 mg/dL (7-17); Calcium 8.2 mg/dL (8.4-10.2); Carbon Dioxide 25 mmol/L (22-30); Chloride 109 mmol/L (98-107); Glucose 190 mg/dL (74-99); Non-African American GFR(CKD) >90 (>60 ml/min/1.73 sqM); Potassium 4.4 mmol/L (3.5-5.1); Sodium 138 mmol/L (137-145); Total Bilirubin 0.2 mg/dL (0.2-1.3); Total Protein 5.7 g/dL (6.3-8.2)
[2021-12-24 05:29] LABS: Glucose,Whole Blood 191 mg/dL (70-110)
[2021-12-24] MEDS: INSULIN ASPART (NovoLOG) 100 UNIT/ML VIAL SQ SCH ×3 (05:33→20:06)
[2021-12-24 06:15] LABS: ABG Base Excess 1.3 mmol/L; ABG HCO3 26 mmol/L (21-25); ABG Oxygen Saturation 94.8 % (94-97); ABG PCO2 40 mmHg (35-45); ABG PH 7.42 (7.35-7.45); ABG PO2 70 mmHg (83-108); ABG TCO2 27 mmol/L (19-24); Allen Test Performed? Yes
[2021-12-24] MEDS: IPRATROPIUM-ALBUTEROL 3 ML NEB INHALATION PRN ×3 (07:36→20:01)
--- NOTE | 2021-12-24 08:32 | XR ---
EXAMINATION TYPE: XR chest 1V portable DATE OF EXAM: 12/24/2021 COMPARISON: 12/23/2021 INDICATION: Pneumonia TECHNIQUE: Single frontal view of the chest is obtained. FINDINGS: The heart size is normal. The pulmonary vasculature is normal. Worsening right lower lobe infiltrate is present. Developing left lower lobe infiltrate is present. Endotracheal tube tip is above the kandis. Nasogastric tube transverses the thorax. IMPRESSION: 1. Worsening bibasilar infiltrates greater on the right. Continued follow-up is recommended. 2. Lines and catheters discussed above.
[2021-12-24] MEDS ORDERED: FUROSEMIDE 10 MG/ML 4 ML VIAL IV STA (09:00)
[2021-12-24] MEDS: PIPERACILLIN-TAZOBACTAM 3.375 GM in SODIUM CHLORIDE 0.9% 100 ML IVPB SCH ×2 (09:36→16:46)
[2021-12-24] MEDS: methylPREDNISolone SOD SUCCI 40 MG/ML 1 ML VIAL IV SCH ×2 (09:36→16:47)
[2021-12-24] MEDS: FAMOTIDINE 20 MG/2 ML VIAL IV SCH ×2 (09:36→20:38)
[2021-12-24] MEDS: CHLORHEXIDINE GLUCONATE 15 ML CUP MUCOUS MEM SCH ×2 (09:36→20:38)
[2021-12-24] MEDS: HEPARIN SODIUM,PORCINE/PF 5,000 UNIT/0.5 ML SYRINGE SQ SCH ×2 (09:36→20:38)
[2021-12-24] MEDS: METHADONE 10 MG TAB PO SCH (11:08)
[2021-12-24 11:39] LABS: Glucose,Whole Blood 146 mg/dL (70-110)
--- NOTE | 2021-12-24 11:45 | P.PN ---
Subjective Progress Note Date: 12/24/21 Principal diagnosis: Acute hypoxic failure secondary to drug overdose This is a 46-year-old female with history of multiple medical problems including history of heroin abuse, history of drug overdose secondary to muscle relaxant/carisoprodol/soma. Patient is also known to have history of hepatitis C she was brought into the ER yesterday by EMS, patient apparently overdosed on her muscle relaxant according to . When EMS arrived, patient was given Narcan, however the patient had a sudden episode of vomiting after Narcan was given, and she had witnessed aspiration. When she arrived to the ER, patient was confused, and apparently could not protect her airways, hence the patient was intubated. And placed on mechanical ventilation. Her drug screen came back positive for methadone. Otherwise the rest of the drug screen was unremarkable. Chest x-ray showed evidence of bilateral pneumonia/aspiration pneumonia. Patient was admitted to the ICU, and this consult was initiated. Patient is now on assist control rate of 18 tidal volume 400 FiO2 was 70% and PEEP of 5. ABG showed a pO2 of 87 pCO2 40 pH of 7.38, FiO2 was cut down to 50%. Her O2 sats is 98% at present. Labs on admission showed relatively normal CBC. And the drug screen as noted above. Patient is now on IV fluid at 1 25 mL per hour in the form of 0.9 normal saline, she is also on Zosyn, and on enteral feeding. She is on propofol at 50 mcg/kg/m. Patient was reevaluated today on 12/22/21, patient is doing poorly and seems to be worsening in the last 24 hours. Her chest x-ray is worsening, ABG is worsening and her hemodynamic status is also worsening requiring norepinephrine at 0.03 mcg/kg/m. Patient had to be placed on higher PEEP, vent settings are 18/400/70/5 and a increased the PEEP from 5-10. Also increase the rate to 22. And patient was given Lasix 40 mg IV push and I cut down her IV fluid to KVO. Patient had fairly good urine output overnight, she is still on propofol at 75 mcg/kg/m, she is on IV fluid at 1 25 mL per hour. Vital HP at 3 0 mL per hour. Norepinephrine at 0.03 mcg/kg/m. Considering the patient had to be placed on norepinephrine this morning, I went ahead and placed a right femoral triple- lumen catheter and I also recommended a left radial arterial line. This was done. ABG after the patient was placed on the percent FiO2 and PEEP of 10 showe d a pO2 of 211 pCO2 37 pH of 7.31, then I brought her back down to 50% and The PEEP the same at them. I also recommended an echocardiogram which is pending. And recommended neurological consultation mostly because as I was evaluated the patient and in the process of placing a central line, patient developed seizure-like activity which lasted less than 20 seconds, she had symmetrical bilateral muscle contractions, twitching, resolved on its own, but shortly after the patient was given Ativan 2 mg IV push. Patient will have an EEG and would have neurology evaluation. Apparently in the history the patient does have history of seizures. Reevaluated today on 12/23/21, patient remains in the ICU, intubated and mechanically ventilated. She is on assist control rate of 22, volume 400 FiO2 50% PEEP of 10 ABG showed a pO2 of 80 pCO2 42 pH of 7.39 hence the patient was kept on the same vent settings chest x-ray is showing slight improvement in her bilateral infiltrates/ARDS/pneumonia patient remains on propofol at 55 mcg/kg/m and her IV fluid at 25 mL per hour cut it down to 75, and the patient will receive 40 mg of Lasix IV push, urine output is roughly about 50 mL per hour. Patient remains on vital HP at 22 mL per hour. WBC count is 11.8 hemoglobin is 9.6 electrolytes are normal renal profile is normal Reevaluated today on 12/24/21, patient remains in the ICU, intubated and mech anically ventilated. Her ventilator settings are assist-control rate 22 tidal volume 400 FiO2 60% and PEEP of 10, ABG showed a pO2 of 70 pCO2 40 pH of 7.42. Patient remains on propofol at 55 mcg/kg/m, she is also on vital HP at 22 mL per hour. Not requiring any pressors or any inotropes. Her sputum cultures are positive for Serratia marcescens and for E. coli. Both are sensitive to Zosyn and the patient has been on Zosyn all along. Chest x-ray continues to show bilateral infiltrates, ration did have witnessed aspiration pneumonia, and she may have developed ARDS. Nonetheless I will go ahead and recommended dose of Lasix to be given today 40 mg IV push 1, her urine output seems to be reasonable all along, but the patient received significant amount of fluids upon her initial presentation with hypotension. Today the patient is awake, she gets extremely agitated on lower dose of propofol, she is not quite ready to be weaned, but she is getting close. Again she still requiring high PEEP and high FiO2. Plan to titrate her FiO2 down to 50% likely today. And maintain O2 sats above 92%. Her mental status is improving, patient is following instructions once she is on a lower dose of propofol, however she gets extremely agitated, and restlessness. Patient is back on her methadone CBC showed evidence of 8.7 hemoglobin 9.9 last lites are normal renal profile is normal Objective - Vital Signs Vital signs: Vital Signs Temp 99.2 F 12/24/21 08:00 Pulse 63 12/24/21 11:00 Resp 22 12/24/21 11:00 BP 136/76 12/24/21 11:00 Pulse Ox 95 12/24/21 11:00 FiO2 60 12/24/21 11:25 Intake & Output 12/23/21 12/24/21 12/24/21 18:59 06:59 18:59 Intake Total 5573.431 2188.586 170 Output Total 1505 510 125 Balance -987.933 0637.586 45 Weight 95.5 kg Intake: IV 750 1050 70 Piperacillin-Tazobactam 3 400 .375 gm In Sodium Chloride 0.9% 100 ml @ 25 mls/hr IVPB Q8HR [facility] Rx# :[id number] Sodium Chloride 0.9% 1, 750 650 70 000 ml @ 50 mls/hr IV . Q20H [facility] Rx#:[id number] Intake, IV Titration 255.696 318.586 100 Amount Norepinephrine 4 mg In 55.676 Sodium Chloride 0.9% 250 ml @ 0.05 MCG/KG/MIN 18. 174 mls/hr IV .[id number] [facility] Rx#:[id number] Sodium Phosphate 10 mmol 0.02 In Sodium Chloride 0.9% 250 ml @ 125 mls/hr IVPB Q2H [facility] Rx#:[id number] propofoL 1,000 mg In 200.000 318.586 100 Empty Bag 1 bag @ 5 MCG/ KG/MIN 2.649 mls/hr IV . Q24H [facility] Rx#:[id number] Tube Feeding 242 286 Other 90 90 Output: Urine 1505 510 125 Other: Voiding Method Indwelling Catheter Indwelling Catheter Indwelling Catheter ABP, PAP, CO, CI - Last Documented Arterial Blood Pressure 140/74 - Exam Physical Exam: Revealed 46-year-old female on mechanical ventilation, arousable, follows simple instructions but could not get her off propofol fully as she gets extremely agitated. Head: Atraumatic, normocephalic. Endotracheal tube and orogastric tube are intact. HEENT:[Neck is supple.] [No neck masses.] [No thyromegaly.] [No JVD.] PERRLA, EOMI, nonicteric, no neck masses, no JVD, moist mucous membranes. Chest: [Symmetrical chest expansion, fine crackles at the bases. Cardiac Exam: [Normal S1 and S2, no S3 gallop, no murmur.] Abdomen: [Soft, nontender, no megaly, no rebound, no guarding, normal bowel sounds.] Extremities: [No clubbing, no edema, no cyanosis.] Neurological Exam: [Extreme agitation on lower dose of propofol but following instructions/simple instructions on 20 mcg/kg/m of propofol Psychiatric: Intermittent agitation on a lower dose of propofol Skin: No rashes - Labs CBC & Chem 7: 12/24/21 04:30 12/24/21 04:30 Labs: Abnormal Lab Results - Last 24 Hours (Table) 12/23/21 12/23/21 12/24/21 Range/Units 18:10 23:21 04:30 RBC (3.80-5.40) m/uL Hgb (11.4-16.0) gm/dL Hct (34.0-46.0) % ABG pO2 (83-108) mmHg ABG HCO3 (21-25) mmol/L ABG Total CO2 (19-24) mmol/L Chloride 109 H (98-107) mmol/L BUN 20 H (7-17) mg/dL Glucose 190 H (74-99) mg/dL POC Glucose (mg/dL) 154 H 175 H (70-110) mg/dL Calcium 8.2 L (8.4-10.2) mg/dL AST 13 L (14-36) U/L Total Protein 5.7 L (6.3-8.2) g/dL Albumin 3.0 L (3.5-5.0) g/dL 12/24/21 12/24/21 12/24/21 Range/Units 04:30 05:28 06:11 RBC 3.23 L (3.80-5.40) m/uL Hgb 9.9 L (11.4-16.0) gm/dL Hct 29.9 L (34.0-46.0) % ABG pO2 70 L (83-108) mmHg ABG HCO3 26 H (21-25) mmol/L ABG Total CO2 27 H (19-24) mmol/L Chloride (98-107) mmol/L BUN (7-17) mg/dL Glucose (74-99) mg/dL POC Glucose (mg/dL) 191 H (70-110) mg/dL Calcium (8.4-10.2) mg/dL AST (14-36) U/L Total Protein (6.3-8.2) g/dL Albumin (3.5-5.0) g/dL Microbiology - Last 24 Hours (Table) 12/21/21 01:09 Gram Stain - Final Sputum Sputum Culture - Final Serratia marcescens Escherichia coli Assessment and Plan Assessment: Impression: Acute hypoxic respiratory failure secondary to Soma overdose. Aspiration pneumonia, ARDS History of depression and suicidal ideations Obesity with BMI of 36. History of heroin abuse. History of chronic hepatitis C. Possible seizures. Hypertension secondary to hypovolemia sepsis, and possible septic shock Recommendation: Continue ventilatory support. Not quite ready to wean however may have to consider trials of Precedex in the next 24 hours once the patient is on lower dose of FiO2 and lower PEEP Continue Zosyn. Patient has positive sputum for Serratia marcescens and E. coli Continue hemodynamic support/however patient is off norepinephrine today. Gentle diuresis Continue bronchodilators and steroids. Continue enteral feeding/nutritional support Continue GI and DVT prophylaxis Neurology is following, no evidence of seizure on EEG according to neurology. Continue to monitor daily labs and x-rays and ABGs. Consider weaning trials on Precedex off propofol since the patient gets agitated easily on a lower dose of propofol Critical care time is over 30 minutes We'll continue to follow. Time with Patient: Greater than 30
--- NOTE | 2021-12-24 12:42 | P.PN ---
Subjective Progress Note Date: 12/23/21 Patient was seen for a follow-up. Patient is currently on propofol 45 mcg/kg gram per minute. Per nursing report, she is off Levothroid. These are better. Sedation holiday was attempted, with decreasing propofol to 25 mcg/mg/m for 2 hours. Patient followed, wants by squeezing hands, but did not open her eyes. She then became agitated, trying to sit up and she would freely move her arms and legs. She did not nod her head to any commands or wiggled toes. No seizure-like activity noted. Objective - Vital Signs Vital signs: Vital Signs Temp 99.2 F 12/24/21 08:00 Pulse 63 12/24/21 11:00 Resp 22 12/24/21 11:00 BP 136/76 12/24/21 11:00 Pulse Ox 95 12/24/21 11:00 FiO2 60 12/24/21 11:25 Intake & Output 12/23/21 12/24/21 12/24/21 18:59 06:59 18:59 Intake Total 3721.350 6797.586 400 Output Total 6338 629 5987 Balance -486.288 1221.586 -1825 Weight 95.5 kg Intake: IV 750 1050 130 Piperacillin-Tazobactam 3 400 .375 gm In Sodium Chloride 0.9% 100 ml @ 25 mls/hr IVPB Q8HR [facility] Rx# :[id number] Sodium Chloride 0.9% 1, 750 650 130 000 ml @ 50 mls/hr IV . Q20H [facility] Rx#:[id number] Intake, IV Titration 255.696 318.586 100 Amount Norepinephrine 4 mg In 55.676 Sodium Chloride 0.9% 250 ml @ 0.05 MCG/KG/MIN 18. 174 mls/hr IV .[id number] [facility] Rx#:[id number] Sodium Phosphate 10 mmol 0.02 In Sodium Chloride 0.9% 250 ml @ 125 mls/hr IVPB Q2H [facility] Rx#:[id number] propofoL 1,000 mg In 200.000 318.586 100 Empty Bag 1 bag @ 5 MCG/ KG/MIN 2.649 mls/hr IV . Q24H [facility] Rx#:[id number] Tube Feeding 242 286 110 Other 90 90 60 Output: Urine 4063 518 7341 Other: Voiding Method Indwelling Catheter Indwelling Catheter Indwelling Catheter ABP, PAP, CO, CI - Last Documented Arterial Blood Pressure 140/74 - Exam Patient sedated. Patient's pupils are equal, round and reacting to light. Oculocephalics are present. Detailed testing deferred because of patient being on sedation. - Labs CBC & Chem 7: 12/24/21 04:30 12/24/21 04:30 Labs: Abnormal Lab Results - Last 24 Hours (Table) 12/23/21 12/23/21 12/24/21 Range/Units 18:10 23:21 04:30 RBC (3.80-5.40) m/uL Hgb (11.4-16.0) gm/dL Hct (34.0-46.0) % ABG pO2 (83-108) mmHg ABG HCO3 (21-25) mmol/L ABG Total CO2 (19-24) mmol/L Chloride 109 H (98-107) mmol/L BUN 20 H (7-17) mg/dL Glucose 190 H (74-99) mg/dL POC Glucose (mg/dL) 154 H 175 H (70-110) mg/dL Calcium 8.2 L (8.4-10.2) mg/dL AST 13 L (14-36) U/L Total Protein 5.7 L (6.3-8.2) g/dL Albumin 3.0 L (3.5-5.0) g/dL 12/24/21 12/24/21 12/24/21 Range/Units 04:30 05:28 06:11 RBC 3.23 L (3.80-5.40) m/uL Hgb 9.9 L (11.4-16.0) gm/dL Hct 29.9 L (34.0-46.0) % ABG pO2 70 L (83-108) mmHg ABG HCO3 26 H (21-25) mmol/L ABG Total CO2 27 H (19-24) mmol/L Chloride (98-107) mmol/L BUN (7-17) mg/dL Glucose (74-99) mg/dL POC Glucose (mg/dL) 191 H (70-110) mg/dL Calcium (8.4-10.2) mg/dL AST (14-36) U/L Total Protein (6.3-8.2) g/dL Albumin (3.5-5.0) g/dL 12/24/21 Range/Units 11:38 RBC (3.80-5.40) m/uL Hgb (11.4-16.0) gm/dL Hct (34.0-46.0) % ABG pO2 (83-108) mmHg ABG HCO3 (21-25) mmol/L ABG Total CO2 (19-24) mmol/L Chloride (98-107) mmol/L BUN (7-17) mg/dL Glucose (74-99) mg/dL POC Glucose (mg/dL) 146 H (70-110) mg/dL Calcium (8.4-10.2) mg/dL AST (14-36) U/L Total Protein (6.3-8.2) g/dL Albumin (3.5-5.0) g/dL Microbiology - Last 24 Hours (Table) 12/21/21 01:09 Gram Stain - Final Sputum Sputum Culture - Final Serratia marcescens Escherichia coli Assessment and Plan Assessment: * Altered mental status, likely due to drug overdose. Patient has ingested 2 tablets of Soma. Also on high dose methadone 170 mg daily. Uncertain if she has taken anything else. * History of overdose in the past * Ventilator-dependent respiratory failure, on mechanical ventilation * Possible aspiration pneumonia * History of depression and suicidal ideations * Previous history of heroin abuse * History of hepatitis C * Hypotension, possible septic shock Plan: * Patient's mentation is improving. With sedation holiday, patient did squeeze hands per nursing report. * EEG was performed, which revealed background slowing of severe degree, with intermittent periods of generalized suppression. This suggestive of generalized cerebral dysfunction as can be seen with toxic metabolic encephalopathy, or due to diffuse structural brain abnormality, or medication effect. Clinical correlation is recommended. Follow-up EEG recommended if clinically indicated. No epileptiform activity was seen. * 2-D echo revealed normal left ventricle size and systolic function. EF is 55- 60%. * Hold off on antiepileptic medication, as EEG did not reveal any epileptiform activity. * Neurology will continue to follow clinically. * Medical management as per critical care/IM. * Discussed with nursing staff in detail.
[2021-12-24] MEDS: DOPamine DRIP 800 MG in DEXTROSE/WATER 1 250ML.BAG IV SCH (13:58)
--- NOTE | 2021-12-24 16:54 | XR ---
EXAMINATION TYPE: XR chest 1V portable DATE OF EXAM: 12/24/2021 COMPARISON: Today HISTORY: Hypoxemia TECHNIQUE: FINDINGS: The endotracheal tube is 2.3 cm from the kandis. There is nasogastric tube in the stomach. There is bilateral lower lobe patchy airspace infiltrate and atelectasis. No heart failure. Pulmonary vascularity is normal. There are chest leads. IMPRESSION: There is significant improvement in the pulmonary edema compared to exam this morning.
[2021-12-24] MEDS ORDERED: CISATRACURIUM 2 MG/ML 5 ML VIAL IV ONE (18:11)
[2021-12-24 18:32] LABS: Glucose,Whole Blood 147 mg/dL (70-110)
[2021-12-24 18:58] LABS: ABG Base Excess 4.5 mmol/L; ABG HCO3 29 mmol/L (21-25); ABG Oxygen Saturation 94.9 % (94-97); ABG PCO2 45 mmHg (35-45); ABG PH 7.42 (7.35-7.45); ABG PO2 74 mmHg (83-108); ABG TCO2 30 mmol/L (19-24); Allen Test Performed? Yes
--- NOTE | 2021-12-24 20:14 | CT ---
EXAMINATION TYPE: CT chest angio for PE DATE OF EXAM: 12/24/2021 COMPARISON: HISTORY: low O2 CT DLP: 464.4 mGycm Automated exposure control for dose reduction was used. CONTRAST: Performed with IV Contrast, patient injected with 100 mL of Isovue 370. There is some patchy consolidation and atelectasis at the posterior lung bases. Heart size is fairly normal. No pericardial effusion. There is no evidence of filling defect in the pulmonary arteries. There is no mediastinal adenopathy. There are no hilar masses. The thoracic aorta is intact. No aneur ysm. Bony thorax is intact. There are small bilateral pleural effusions. IMPRESSION: Bilateral lower lobe pneumonia and atelectasis. Small pleural effusions. No evidence of pulmonary embolism.
--- NOTE | 2021-12-24 20:52 | P.PN ---
Subjective This is a pleasant 46 years old female with past medical history of chronic hepatitis C, drug abuse. Presents because of altered mental status and she got intubated in the emergency room . Patient suspected to overdose with muscle relaxant that don't belong to her as per documentation. patient was confused on arrival, embolus was called because she was not acting right. She was awake and alert but not appropriate and not steady. she had decreased level of consciousness and she received a dose of Narcan in the ambulance with no benefit. In the emergency room she hasn't episodes of vomiting and then become more altered and then she got intubated Vitals are stable.she had a fever of 100 Labs showing unremarkable CBC, BMP and liver enzymes. Potassium was low at 3.1. Glucose 154 and 117. Urine drug screen is positive for methadone.; Less than 10 and salicylate less than 1. CT of the brain showing no acute process. Chest x-ray showing some diffuse airspace infiltrate in the right lung which is significantly increased compared to exam 1 hour ago. No change in the mild left sided pulmonary interstitial edema , per radiology 12/22/2021 Procedure Mr. York sedated and intubated as well as she is hypertensive Patient is followed closely by pulmonary/critical care team. She received 1 L of normal saline and she is on pressors of levophed Also she is on Zosyn with sputum culture: Gram-negative bacilli and just x-ray showing evidence of bibasilar infiltrates Neurologist has been consulted for possible seizure EEG is negative for epileptiform discharge and showed severe cerebral dysfunction that goes with toxic Metabolic encephalopathy Echocardiogram showed ejection fraction of 55-60% She remains on Solu-Medrol 40 mg, Zosyn and normal saline. Methadone was added today. 12/23/2021 Patient still sedated and intubated and required mechanical ventilation with pulmonary/critical care team following and help with that management and others. Chest x-ray showing stable bibasilar infiltrate. Hemoglobin 9.6. Blood pressure is improving. She remains on Solu-Medrol 40 mg, Zosyn and normal saline. Methadone 170 milligrams also added. Her sputum culture is growing E. coli and Serratia both are sensitive to Zosyn which the patient received 12/24/2021 Patient remains sedated and intubated. With pulmonary/critical care team following her closely. She has CAT scan of the chest with contrast showing negative pulmonary e mbolism're infiltrate for pneumonia. Sputum culture is growing some pressure and E. coli and patient is currently alert Zosyn which bacteria are sensitive. Also she is kept on Solu-Medrol 40 mg and normal saline as well as EEG is negative for epileptiform discharge. No antiepileptic medication per neurologist Objective - Vital Signs Vital signs: Vital Signs Temp 98.2 F 12/24/21 16:00 Pulse 71 12/24/21 20:12 Resp 22 12/24/21 19:15 BP 132/83 12/24/21 19:45 Pulse Ox 98 12/24/21 19:15 FiO2 100 12/24/21 19:57 Intake & Output 12/24/21 12/24/21 12/25/21 06:59 18:59 06:59 Intake Total 1744.586 863.710 78.057 Output Total 510 3125 Balance 1234.586 -2261.290 78.057 Weight 95.5 kg Intake: IV 1050 250 Piperacillin-Tazobactam 3 400 .375 gm In Sodium Chloride 0.9% 100 ml @ 25 mls/hr IVPB Q8HR [facility] Rx# :[id number] Sodium Chloride 0.9% 1, 650 250 000 ml @ 20 mls/hr IV . Q24H [facility] Rx#:[id number] Intake, IV Titration 318.586 281.710 78.057 Amount DOPamine DRIP 800 mg In 3.432 Dextrose/Water 1 250ml. bag @ 2.5 MCG/KG/MIN 4. 477 mls/hr IV .Q24H [facility] Rx#:[id number] propofoL 1,000 mg In 318.586 278.278 78.057 Empty Bag 1 bag @ 5 MCG/ KG/MIN 2.649 mls/hr IV . Q24H [facility] Rx#:[id number] Tube Feeding 286 242 Other 90 90 Output: Urine 510 3125 Other: Voiding Method Indwelling Catheter Indwelling Catheter # Bowel Movements 2 ABP, PAP, CO, CI - Last Documented Arterial Blood Pressure 160/80 - Exam -GENERAL: The patient is is sedated and intubated HEENT: Pupils are round and equally reacting to light. EOMI. No scleral icterus. No conjunctival pallor. Normocephalic, atraumatic. No pharyngeal erythema. No thyromegaly. CARDIOVASCULAR: S1 and S2 present. No murmurs, rubs, or gallops. -PULMONARY: Chest is clear to auscultation, no wheezing . Bilateral crepitating ABDOMEN: Soft, nontender, nondistended, normoactive bowel sounds. No palpable organomegaly. MUSCULOSKELETAL: No joint swelling or deformity. EXTREMITIES: No cyanosis, clubbing, or pedal edema. NEUROLOGICAL: Gross neurological examination did not reveal any focal deficits. SKIN: No rashes. no petechiae. - Labs CBC & Chem 7: 12/24/21 04:30 12/24/21 04:30 Labs: Abnormal Lab Results - Last 24 Hours (Table) 12/23/21 12/24/21 12/24/21 Range/Units 23:21 04:30 04:30 RBC 3.23 L (3.80-5.40) m/uL Hgb 9.9 L (11.4-16.0) gm/dL Hct 29.9 L (34.0-46.0) % ABG pO2 (83-108) mmHg ABG HCO3 (21-25) mmol/L ABG Total CO2 (19-24) mmol/L Chloride 109 H (98-107) mmol/L BUN 20 H (7-17) mg/dL Glucose 190 H (74-99) mg/dL POC Glucose (mg/dL) 175 H (70-110) mg/dL Calcium 8.2 L (8.4-10.2) mg/dL AST 13 L (14-36) U/L Total Protein 5.7 L (6.3-8.2) g/dL Albumin 3.0 L (3.5-5.0) g/dL 12/24/21 12/24/21 12/24/21 Range/Units 05:28 06:11 11:38 RBC (3.80-5.40) m/uL Hgb (11.4-16.0) gm/dL Hct (34.0-46.0) % ABG pO2 70 L (83-108) mmHg ABG HCO3 26 H (21-25) mmol/L ABG Total CO2 27 H (19-24) mmol/L Chloride (98-107) mmol/L BUN (7-17) mg/dL Glucose (74-99) mg/dL POC Glucose (mg/dL) 191 H 146 H (70-110) mg/dL Calcium (8.4-10.2) mg/dL AST (14-36) U/L Total Protein (6.3-8.2) g/dL Albumin (3.5-5.0) g/dL 12/24/21 12/24/21 Range/Units 18:21 18:31 RBC (3.80-5.40) m/uL Hgb (11.4-16.0) gm/dL Hct (34.0-46.0) % ABG pO2 74 L (83-108) mmHg ABG HCO3 29 H (21-25) mmol/L ABG Total CO2 30 H (19-24) mmol/L Chloride (98-107) mmol/L BUN (7-17) mg/dL Glucose (74-99) mg/dL POC Glucose (mg/dL) 147 H (70-110) mg/dL Calcium (8.4-10.2) mg/dL AST (14-36) U/L Total Protein (6.3-8.2) g/dL Albumin (3.5-5.0) g/dL Assessment and Plan Assessment: acute hypoxic respiratory failure Toxic/metabolic encephalopathy Bilateral pneumonia, more on the right side. Sputum is growing gram-negative bacilli Mild septic shock secondary to blood Possible drug overdose, muscle relaxant is suspected Possible severe depression and suicidal ideation Obesity with BMI of 36 Plan: This is a pleasant 46 years old female who presents with possible drug overdose and she got intubated Continue with mechanical ventilation for pulmonary/critical care team. Continue with Zosyn and follow-up culture Neurology consult Once patient got extubated she will need to be evaluated by psychiatrist Labs and medication were reviewed.. Continue same treatment. Continue with symptomatic treatment. Resume home medication. Monitor lytes and vitals. DVT and GI prophylaxis. Further recommendations as per clinical course of the patient DVT prophylaxis: Subcutaneous heparin GI Prophylaxis: Pepcid Prognosis is guarded
[2021-12-24] MEDS: ACETAMINOPHEN TAB 325 MG TAB PO PRN (23:02)
[2021-12-25 00:03] LABS: Glucose,Whole Blood 189 mg/dL (70-110)
[2021-12-25] MEDS: methylPREDNISolone SOD SUCCI 40 MG/ML 1 ML VIAL IV SCH ×3 (00:08→15:26)
[2021-12-25] MEDS: PIPERACILLIN-TAZOBACTAM 3.375 GM in SODIUM CHLORIDE 0.9% 100 ML IVPB SCH ×3 (00:08→16:25)
[2021-12-25] MEDS: INSULIN ASPART (NovoLOG) 100 UNIT/ML VIAL SQ SCH ×4 (00:09→19:24)
--- NOTE | 2021-12-25 02:43 | P.PN ---
Subjective Progress Note Date: 12/24/21 Patient was seen for a follow-up. The nurse had turned off sedation 10 minutes prior to my examination. Patient is awake, making eye contact, following directions. Please refer to examination below. Patient not extubated today because of persistent pneumonia. Per nurse report, when she is off sedation, when she becomes alert, she becomes agitated, tries to sit up and becomes rigid. No seizure-like activity noted in the last 24 hours. Objective - Vital Signs Vital signs: Vital Signs Temp 98.2 F 12/24/21 12:00 Pulse 85 12/24/21 15:00 Resp 20 12/24/21 15:00 BP 136/76 12/24/21 11:00 Pulse Ox 92 L 12/24/21 15:00 FiO2 60 12/24/21 12:00 Intake & Output 12/23/21 12/24/21 12/24/21 18:59 06:59 18:59 Intake Total 0269.855 8476.586 631.551 Output Total 7195 517 1827 Balance -393.893 4306.586 -2193.449 Weight 95.5 kg Intake: IV 750 1050 190 Piperacillin-Tazobactam 3 400 .375 gm In Sodium Chloride 0.9% 100 ml @ 25 mls/hr IVPB Q8HR [facility] Rx# :[id number] Sodium Chloride 0.9% 1, 750 650 190 000 ml @ 20 mls/hr IV . Q24H [facility] Rx#:[id number] Intake, IV Titration 255.696 318.586 205.551 Amount DOPamine DRIP 800 mg In 3.432 Dextrose/Water 1 250ml. bag @ 2.5 MCG/KG/MIN 4. 477 mls/hr IV .Q24H [facility] Rx#:[id number] Norepinephrine 4 mg In 55.676 Sodium Chloride 0.9% 250 ml @ 0.05 MCG/KG/MIN 18. 174 mls/hr IV .[id number] [facility] Rx#:[id number] Sodium Phosphate 10 mmol 0.02 In Sodium Chloride 0.9% 250 ml @ 125 mls/hr IVPB Q2H [facility] Rx#:[id number] propofoL 1,000 mg In 200.000 318.586 202.119 Empty Bag 1 bag @ 5 MCG/ KG/MIN 2.649 mls/hr IV . Q24H [facility] Rx#:[id number] Tube Feeding 242 286 176 Other 90 90 60 Output: Urine 6589 010 3245 Other: Voiding Method Indwelling Catheter Indwelling Catheter Indwelling Catheter # Bowel Movements 2 ABP, PAP, CO, CI - Last Documented Arterial Blood Pressure 146/79 - Exam Patient is off sedation for the last 10 minutes. Patient is intubated on mechanical ventilation. She is awake, eyes are open. She has slow mentation, but she does turn towards the examiner, makes eye contact, nods appropriately. Patient has very good oil well driller bilaterally. Patient wiggled her toes. Reflexes are brisk and plantars are downgoing. No clonus. No seizure-like activity. Patient trying to communicate occasionally. - Labs CBC & Chem 7: 12/24/21 04:30 12/24/21 04:30 Labs: Abnormal Lab Results - Last 24 Hours (Table) 12/23/21 12/23/21 12/24/21 Range/Units 18:10 23:21 04:30 RBC (3.80-5.40) m/uL Hgb (11.4-16.0) gm/dL Hct (34.0-46.0) % ABG pO2 (83-108) mmHg ABG HCO3 (21-25) mmol/L ABG Total CO2 (19-24) mmol/L Chloride 109 H (98-107) mmol/L BUN 20 H (7-17) mg/dL Glucose 190 H (74-99) mg/dL POC Glucose (mg/dL) 154 H 175 H (70-110) mg/dL Calcium 8.2 L (8.4-10.2) mg/dL AST 13 L (14-36) U/L Total Protein 5.7 L (6.3-8.2) g/dL Albumin 3.0 L (3.5-5.0) g/dL 12/24/21 12/24/21 12/24/21 Range/Units 04:30 05:28 06:11 RBC 3.23 L (3.80-5.40) m/uL Hgb 9.9 L (11.4-16.0) gm/dL Hct 29.9 L (34.0-46.0) % ABG pO2 70 L (83-108) mmHg ABG HCO3 26 H (21-25) mmol/L ABG Total CO2 27 H (19-24) mmol/L Chloride (98-107) mmol/L BUN (7-17) mg/dL Glucose (74-99) mg/dL POC Glucose (mg/dL) 191 H (70-110) mg/dL Calcium (8.4-10.2) mg/dL AST (14-36) U/L Total Protein (6.3-8.2) g/dL Albumin (3.5-5.0) g/dL 12/24/21 Range/Units 11:38 RBC (3.80-5.40) m/uL Hgb (11.4-16.0) gm/dL Hct (34.0-46.0) % ABG pO2 (83-108) mmHg ABG HCO3 (21-25) mmol/L ABG Total CO2 (19-24) mmol/L Chloride (98-107) mmol/L BUN (7-17) mg/dL Glucose (74-99) mg/dL POC Glucose (mg/dL) 146 H (70-110) mg/dL Calcium (8.4-10.2) mg/dL AST (14-36) U/L Total Protein (6.3-8.2) g/dL Albumin (3.5-5.0) g/dL Assessment and Plan Assessment: * Altered mental status, likely due to drug overdose. Patient has ingested 2 tablets of Soma. Also on high dose methadone 170 mg daily. Uncertain if she has taken anything else. * Toxic metabolic encephalopathy due to above, much improved. Patient is showing meaningful response, following directions, as per examination. * History of overdose in the past * Ventilator-dependent respiratory failure, on mechanical ventilation * Possible aspiration pneumonia * History of depression and suicidal ideations * Previous history of heroin abuse * History of hepatitis C * Hypotension, possible septic shock Plan: * Patient's mentation is improving. With sedation holiday, patient became quite alert and awake, but still slow mentation. Patient is following directions. * EEG 12/23/2021 revealed background slowing of severe degree, with intermittent periods of generalized suppression. This suggestive of generalized cerebral dysfunction as can be seen with toxic metabolic encephalopathy, or due to diffuse structural brain abnormality, or medication effect. Clinical correlation is recommended. Follow-up EEG recommended if clinically indicated. No epileptiform activity was seen. * 2-D echo revealed normal left ventricle size and systolic function. EF is 55- 60%. * Hold off on antiepileptic medication, as EEG did not reveal any epileptiform activity. * Neurology will continue to follow clinically. * Medical management as per critical care/IM. * Discussed with nursing staff in detail. Dr. Juan José Casey Will resume neurology service in the morning.
[2021-12-25] MEDS: SODIUM CHLORIDE 0.9% 1,000 ML IV SCH (04:11)
[2021-12-25 04:34] LABS: Basophils % (A) 0 %; Eosinophils % (A) 0 %; HCT 32.2 % (34.0-46.0); HGB 10.3 gm/dL (11.4-16.0); Lymphocytes # (A) 1.3 k/uL (1.0-4.8); Lymphocytes % (A) 13 %; MCH 29.6 pg (25.0-35.0); MCHC 32.1 g/dL (31.0-37.0); MCV 92.3 fL (80.0-100.0); Mean Platelet Volume 7.8; Monocytes # (A) 0.3 k/uL (0-1.0); Monocytes % (A) 3 %; Neutrophils # (A) 8.5 k/uL (1.3-7.7); Neutrophils % (A) 83 %; Platelet Count 233 k/uL (150-450); RBC 3.49 m/uL (3.80-5.40); RDW 14.6 % (11.5-15.5); WBC 10.2 k/uL (3.8-10.6)
[2021-12-25 04:43] LABS: ALT 21 U/L (4-34); AST 24 U/L (14-36); African American GFR (CKD) >90 (>60 ml/min/1.73 sqM); Albumin 3.4 g/dL (3.5-5.0); Alkaline Phosphatase 65 U/L (38-126); Anion Gap 5 mmol/L; Blood Urea Nitrogen 24 mg/dL (7-17); Calcium 8.3 mg/dL (8.4-10.2); Carbon Dioxide 27 mmol/L (22-30); Chloride 105 mmol/L (98-107); Glucose 194 mg/dL (74-99); Non-African American GFR(CKD) >90 (>60 ml/min/1.73 sqM); Potassium 4.3 mmol/L (3.5-5.1); Sodium 137 mmol/L (137-145); Total Bilirubin 0.3 mg/dL (0.2-1.3); Total Protein 6.3 g/dL (6.3-8.2)
[2021-12-25] MEDS: ACETAMINOPHEN TAB 325 MG TAB PO PRN (04:52)
[2021-12-25 05:06] LABS: Glucose,Whole Blood 197 mg/dL (70-110)
[2021-12-25] MEDS: NOREPINEPHRINE 4 MG in SODIUM CHLORIDE 0.9% 250 ML IV SCH ×2 (05:06→20:11)
[2021-12-25 05:59] LABS: ABG Base Excess 3.3 mmol/L; ABG HCO3 28 mmol/L (21-25); ABG Oxygen Saturation 97.9 % (94-97); ABG PCO2 42 mmHg (35-45); ABG PH 7.43 (7.35-7.45); ABG PO2 96 mmHg (83-108); ABG TCO2 29 mmol/L (19-24); Allen Test Performed? Yes
--- NOTE | 2021-12-25 07:13 | XR ---
EXAMINATION TYPE: XR chest 1V portable DATE OF EXAM: 12/25/2021 Comparison: 12/24/2021 Clinical History: 46-year-old female Pneumonia; Tube placement Findings: ET tube located 2.2 cm from the kandis. Heart normal size. Patchy bibasilar opacities remain with sandip e improvement in aeration at the medial right base. Slight worsening at the left base. Possible trace left effusion. Impression: Patchy bibasilar airspace disease persists, slight improvement on the right and slight worsening on t he left. And possible trace left effusion.
[2021-12-25] MEDS: IPRATROPIUM-ALBUTEROL 3 ML NEB INHALATION PRN ×3 (08:00→15:40)
[2021-12-25] MEDS: HEPARIN SODIUM,PORCINE/PF 5,000 UNIT/0.5 ML SYRINGE SQ SCH ×2 (08:16→20:12)
[2021-12-25] MEDS: FAMOTIDINE 20 MG/2 ML VIAL IV SCH ×2 (08:16→20:12)
[2021-12-25] MEDS: CHLORHEXIDINE GLUCONATE 15 ML CUP MUCOUS MEM SCH ×2 (08:16→20:12)
[2021-12-25] MEDS ORDERED: FUROSEMIDE 10 MG/ML 4 ML VIAL IV STA (09:04)
[2021-12-25] MEDS: METHADONE 10 MG TAB PO SCH (09:21)
--- NOTE | 2021-12-25 10:54 | P.PN ---
Subjective Progress Note Date: 12/25/21 Principal diagnosis: Overdose. Reevaluated today on 12/23/21, patient remains in the ICU, intubated and mechanically ventilated. She is on assist control rate of 22, volume 400 FiO2 50% PEEP of 10 ABG showed a pO2 of 80 pCO2 42 pH of 7.39 hence the patient was kept on the same vent settings chest x-ray is showing slight improvement in her bilateral infiltrates/ARDS/pneumonia patient remains on propofol at 55 mcg/kg/m and her IV fluid at 25 mL per hour cut it down to 75, and the patient will receive 40 mg of Lasix IV push, urine output is roughly about 50 mL per hour. Patient remains on vital HP at 22 mL per hour. WBC count is 11.8 hemoglobin is 9.6 electrolytes are normal renal profile is normal Reevaluated today on 12/24/21, patient remains in the ICU, intubated and mechanically ventilated. Her ventilator settings are assist-control rate 22 tidal volume 400 FiO2 60% and PEEP of 10, ABG showed a pO2 of 70 pCO2 40 pH of 7.42. Patient remains on propofol at 55 mcg/kg/m, she is also on vital HP at 22 mL per hour. Not requiring any pressors or any inotropes. Her sputum cultures are positive for Serratia marcescens and for E. coli. Both are sensitive to Zosyn and the patient has been on Zosyn all along. Chest x-ray continues to show bilateral infiltrates, ration did have witnessed aspiration pneumonia, and she may have developed ARDS. Nonetheless I will go ahead and recommended dose of Lasix to be given today 40 mg IV push 1, her urine output seems to be reasonable all along, but the patient received significant amount of fluids upon her initial presentation with hypotension. Today the patient is awake, she gets extremely agitated on lower dose of propofol, she is not quite ready to be weaned, but she is getting close. Again she still requiring high PEEP and high FiO2. Plan to titrate her FiO2 down to 50% likely today. And maintain O2 sats above 92%. Her mental status is improving, patient is following instructions once she is on a lower dose of propofol, however she gets extremely agitated, and restlessness. Patient is back on her methadone CBC showed evidence of 8.7 hemoglobin 9.9 last lites are normal renal profile is normal Progress note dated 12/25/2021. 46-year-old female admitted on December 21, and intubated on the same day, for an overdose of SOMA. The patient remains on the mechanical ventilator. She is on volume assist control, rate 22, tidal volume 400, FiO2 60%, PEEP of 14. Blood gases show pO2 of 96, pCO2 42, and a pH is 7.42. These blood gases were done on 80%. She remains on propofol at 65 mcg/kg/m, saline at 20 mL an hour, and vital high protein at 22 mL an hour. Her sputum sample so both Serratia an Escherichia coli. For that, she is on Zosyn. White count 10.2, hemoglobin 10.3, hematocrit 32.2, and platelet count 233,000. Sodium 137 potassium 4.3 chlorides 105, CO2 27, BUN 24, creatinine 0.7. Albumin is 3.4. Chest x-ray shows patchy bibasilar airspace disease, improved on the right and slightly worse on the left. Objective - Vital Signs Vital signs: Vital Signs Temp 97.7 F 12/25/21 08:00 Pulse 83 12/25/21 09:30 Resp 22 12/25/21 09:30 BP 132/79 12/25/21 09:30 Pulse Ox 94 L 12/25/21 09:30 FiO2 60 12/25/21 09:00 Intake & Output 12/24/21 12/25/21 12/25/21 18:59 06:59 18:59 Intake Total 861.827 2947.133 259.265 Output Total 3125 560 225 Balance -2261.290 539.133 34.265 Weight 92 kg Intake: IV 250 260 65 Piperacillin-Tazobactam 3 25 .375 gm In Sodium Chloride 0.9% 100 ml @ 25 mls/hr IVPB Q8HR [facility] Rx# :[id number] Sodium Chloride 0.9% 1, 250 260 40 000 ml @ 20 mls/hr IV . Q24H [facility] Rx#:[id number] Intake, IV Titration 281.710 463.133 60.265 Amount DOPamine DRIP 800 mg In 3.432 Dextrose/Water 1 250ml. bag @ 2.5 MCG/KG/MIN 4. 477 mls/hr IV .Q24H [facility] Rx#:[id number] propofoL 1,000 mg In 278.278 463.133 60.265 Empty Bag 1 bag @ 5 MCG/ KG/MIN 2.649 mls/hr IV . Q24H [facility] Rx#:[id number] Tube Feeding 242 286 44 Other 90 90 90 Output: Urine 3125 560 225 Other: Voiding Method Indwelling Catheter Indwelling Catheter Indwelling Catheter # Bowel Movements 2 ABP, PAP, CO, CI - Last Documented Arterial Blood Pressure 172/82 - Exam No acute distress, sedated, orally placed endotracheal tube and NG tube. HEENT examination is grossly unremarkable. Neck supple. Full range of motion. No adenopathy thyromegaly or neck vein distention. Cardiovascular examination reveals regular rhythm rate. S1-S2 normal. No S3 or S4. No discernible murmur noted. Heart rate 83 bpm. Lungs reveal scattered bilateral rhonchi. No crackles or wheezes. Saturations are 94%. Breath sounds equal bilaterally. Abdomen soft, without masses. Bowel sounds are noted. Extremities are intact. No cyanosis clubbing or edema. Skin is without rash or lesion. Neurologic examination cannot be adequately assessed. - Labs CBC & Chem 7: 12/25/21 04:15 12/25/21 04:15 Labs: Abnormal Lab Results - Last 24 Hours (Table) 12/24/21 12/24/21 12/24/21 Range/Units 11:38 18:21 18:31 RBC (3.80-5.40) m/uL Hgb (11.4-16.0) gm/dL Hct (34.0-46.0) % Neutrophils # (1.3-7.7) k/uL ABG pO2 74 L (83-108) mmHg ABG HCO3 29 H (21-25) mmol/L ABG Total CO2 30 H (19-24) mmol/L ABG O2 Saturation (94-97) % BUN (7-17) mg/dL Glucose (74-99) mg/dL POC Glucose (mg/dL) 146 H 147 H (70-110) mg/dL Calcium (8.4-10.2) mg/dL Albumin (3.5-5.0) g/dL 12/25/21 12/25/21 12/25/21 Range/Units 00:01 04:15 04:15 RBC 3.49 L (3.80-5.40) m/uL Hgb 10.3 L (11.4-16.0) gm/dL Hct 32.2 L (34.0-46.0) % Neutrophils # 8.5 H (1.3-7.7) k/uL ABG pO2 (83-108) mmHg ABG HCO3 (21-25) mmol/L ABG Total CO2 (19-24) mmol/L ABG O2 Saturation (94-97) % BUN 24 H (7-17) mg/dL Glucose 194 H (74-99) mg/dL POC Glucose (mg/dL) 189 H (70-110) mg/dL Calcium 8.3 L (8.4-10.2) mg/dL Albumin 3.4 L (3.5-5.0) g/dL 12/25/21 12/25/21 Range/Units 05:04 05:55 RBC (3.80-5.40) m/uL Hgb (11.4-16.0) gm/dL Hct (34.0-46.0) % Neutrophils # (1.3-7.7) k/uL ABG pO2 (83-108) mmHg ABG HCO3 28 H (21-25) mmol/L ABG Total CO2 29 H (19-24) mmol/L ABG O2 Saturation 97.9 H (94-97) % BUN (7-17) mg/dL Glucose (74-99) mg/dL POC Glucose (mg/dL) 197 H (70-110) mg/dL Calcium (8.4-10.2) mg/dL Albumin (3.5-5.0) g/dL Assessment and Plan Assessment: Acute hypoxemic respiratory failure secondary to overdose of SOMA, status post intubation and mechanical ventilation on December 21. Aspiration pneumonia. Rule out acute respiratory distress syndrome. History of depression and suicidal ideations. Obesity, with a BMI of 32. History of heroin abuse. History of chronic hepatitis C. History of possible seizures. Hypotension, secondary to hypovolemia and possible septic shock. Plan: Plan dated 12/25/2021. The patient remains on mechanical ventilation, and still on 14 cm water PEEP. The patient will continue with GI and DVT prophylaxis. The patient continues on Zosyn, for sputum showing evidence of both Serratia and Escherichia coli. Labs, x-rays, medications are all reviewed. The patient remains on tube feedings at goal. Overall prognosis remains guarded. We will continue to follow and make recommendations where appropriate. Time with Patient: Greater than 30
[2021-12-25 12:13] LABS: Glucose,Whole Blood 173 mg/dL (70-110)
--- NOTE | 2021-12-25 18:02 | P.PN ---
Subjective Progress Note Date: 12/25/21 I am seeing the patient for the first time during this admission. Please refer to Dr. Zhou for further details. It seems the patient has altered mental status due to drug overdose. Per the nurse she is on IV Propofol 65mcg/kg/min but once on lower dose she is following some commands. Objective - Vital Signs Vital signs: Vital Signs Temp 97.3 F L 12/25/21 12:00 Pulse 87 12/25/21 15:50 Resp 23 12/25/21 15:00 BP 136/80 12/25/21 15:00 Pulse Ox 92 L 12/25/21 15:00 FiO2 60 12/25/21 15:34 Intake & Output 12/24/21 12/25/21 12/25/21 18:59 06:59 18:59 Intake Total 541.767 1540.133 581.000 Output Total 3125 560 2975 Balance -2261.290 539.133 -2394.000 Weight 92 kg 92 kg Intake: IV 250 260 185 Piperacillin-Tazobactam 3 25 .375 gm In Sodium Chloride 0.9% 100 ml @ 25 mls/hr IVPB Q8HR [facility] Rx# :[id number] Sodium Chloride 0.9% 1, 250 260 160 000 ml @ 20 mls/hr IV . Q24H [facility] Rx#:[id number] Intake, IV Titration 281.710 463.133 100.000 Amount DOPamine DRIP 800 mg In 3.432 Dextrose/Water 1 250ml. bag @ 2.5 MCG/KG/MIN 4. 477 mls/hr IV .Q24H [facility] Rx#:[id number] propofoL 1,000 mg In 278.278 463.133 100.000 Empty Bag 1 bag @ 5 MCG/ KG/MIN 2.649 mls/hr IV . Q24H [facility] Rx#:[id number] Tube Feeding 242 286 176 Other 90 90 120 Output: Urine 3125 560 2975 Other: Voiding Method Indwelling Catheter Indwelling Catheter Indwelling Catheter # Bowel Movements 2 ABP, PAP, CO, CI - Last Documented Arterial Blood Pressure 144/76 - Exam Physical exam is limited. General: Does not appear in acute distress. Lung: Intubated on vent Neurological exam: Is on IV Propofol 65mcg/kg/min Higher mental function: Severe drowsy and open eyes. Not following commands. Cranial Nerves: Primary gaze is midline. Pupils are round, reactive to light and symmetrically. No facial weakness. Is breathing over the vent. Motor: Strength: Unable to assess because of her condition. - Labs CBC & Chem 7: 12/25/21 04:15 12/25/21 04:15 Labs: Abnormal Lab Results - Last 24 Hours (Table) 12/24/21 12/24/21 12/25/21 Range/Units 18:21 18:31 00:01 RBC (3.80-5.40) m/uL Hgb (11.4-16.0) gm/dL Hct (34.0-46.0) % Neutrophils # (1.3-7.7) k/uL ABG pO2 74 L (83-108) mmHg ABG HCO3 29 H (21-25) mmol/L ABG Total CO2 30 H (19-24) mmol/L ABG O2 Saturation (94-97) % BUN (7-17) mg/dL Glucose (74-99) mg/dL POC Glucose (mg/dL) 147 H 189 H (70-110) mg/dL Calcium (8.4-10.2) mg/dL Albumin (3.5-5.0) g/dL 12/25/21 12/25/21 12/25/21 Range/Units 04:15 04:15 05:04 RBC 3.49 L (3.80-5.40) m/uL Hgb 10.3 L (11.4-16.0) gm/dL Hct 32.2 L (34.0-46.0) % Neutrophils # 8.5 H (1.3-7.7) k/uL ABG pO2 (83-108) mmHg ABG HCO3 (21-25) mmol/L ABG Total CO2 (19-24) mmol/L ABG O2 Saturation (94-97) % BUN 24 H (7-17) mg/dL Glucose 194 H (74-99) mg/dL POC Glucose (mg/dL) 197 H (70-110) mg/dL Calcium 8.3 L (8.4-10.2) mg/dL Albumin 3.4 L (3.5-5.0) g/dL 12/25/21 12/25/21 Range/Units 05:55 12:12 RBC (3.80-5.40) m/uL Hgb (11.4-16.0) gm/dL Hct (34.0-46.0) % Neutrophils # (1.3-7.7) k/uL ABG pO2 (83-108) mmHg ABG HCO3 28 H (21-25) mmol/L ABG Total CO2 29 H (19-24) mmol/L ABG O2 Saturation 97.9 H (94-97) % BUN (7-17) mg/dL Glucose (74-99) mg/dL POC Glucose (mg/dL) 173 H (70-110) mg/dL Calcium (8.4-10.2) mg/dL Albumin (3.5-5.0) g/dL Assessment and Plan Assessment: * Altered mental status, likely due to drug overdose. Patient has ingested 2 tablets of Soma. Also on high dose methadone 170 mg daily. Uncertain if she has taken anything else. * Toxic metabolic encephalopathy due to above, much improved. Patient is showing meaningful response, following directions, as per examination. * History of overdose in the past * Ventilator-dependent respiratory failure, on mechanical ventilation * Possible aspiration pneumonia * History of depression and suicidal ideations * Previous history of heroin abuse * History of hepatitis C * Hypotension---resolved Plan: * Per Dr. Zhou and nurse with sedation holdiay is improving and following direction but still slow. Currently is on IV Propofol 65mcg/kg/min. * EEG 12/23/2021 revealed background slowing of severe degree, with intermittent periods of generalized suppression. This suggestive of generalized cerebral dysfunction as can be seen with toxic metabolic encephalopathy, or due to diffuse structural brain abnormality, or medication effect. Clinical correlation is recommended. Follow-up EEG recommended if clinically indicated. No epileptiform activity was seen. * 2-D echo revealed normal left ventricle size and systolic function. EF is 55- 60%. * Hold off on antiepileptic medication, as EEG did not reveal any epileptiform activity. * Medical management as per critical care/IM. The plan is discussed with the patient's nurse. Juan José Casey M.D. Neuro-Hospitalist. Time with Patient: Less than 30
[2021-12-25 18:07] LABS: Glucose,Whole Blood 138 mg/dL (70-110)
[2021-12-25] MEDS: IPRATROPIUM-ALBUTEROL 3 ML NEB INHALATION SCH ×2 (19:53→23:25)
[2021-12-25] MEDS: DOPamine DRIP 800 MG in DEXTROSE/WATER 1 250ML.BAG IV SCH (20:10)
[2021-12-25] MEDS: CLEVIDIPINE BUTYRATE 25 MG in EMPTY BAG 1 BAG IV SCH (20:10)
[2021-12-25] MEDS: fentaNYL (PF). 1,000 MCG in SODIUM CHLORIDE 0.9% 80 ML IV SCH (21:03)
[2021-12-25 23:53] LABS: Glucose,Whole Blood 102 mg/dL (70-110)
[2021-12-26] MEDS: methylPREDNISolone SOD SUCCI 40 MG/ML 1 ML VIAL IV SCH ×4 (00:20→23:56)
[2021-12-26] MEDS: PIPERACILLIN-TAZOBACTAM 3.375 GM in SODIUM CHLORIDE 0.9% 100 ML IVPB SCH ×4 (00:20→23:57)
[2021-12-26] MEDS: INSULIN ASPART (NovoLOG) 100 UNIT/ML VIAL SQ SCH ×5 (00:20→23:51)
[2021-12-26] MEDS: IPRATROPIUM-ALBUTEROL 3 ML NEB INHALATION SCH ×6 (03:21→23:45)
[2021-12-26] MEDS: fentaNYL (PF). 1,000 MCG in SODIUM CHLORIDE 0.9% 80 ML IV SCH ×4 (04:24→19:45)
[2021-12-26 05:18] LABS: Basophils % (A) 0 %; Eosinophils % (A) 0 %; HCT 32.7 % (34.0-46.0); HGB 10.7 gm/dL (11.4-16.0); Lymphocytes # (A) 1.3 k/uL (1.0-4.8); Lymphocytes % (A) 16 %; MCH 30.1 pg (25.0-35.0); MCHC 32.7 g/dL (31.0-37.0); MCV 92.3 fL (80.0-100.0); Mean Platelet Volume 8.6; Monocytes # (A) 0.5 k/uL (0-1.0); Monocytes % (A) 6 %; Neutrophils # (A) 6.6 k/uL (1.3-7.7); Neutrophils % (A) 78 %; Platelet Count 230 k/uL (150-450); RBC 3.54 m/uL (3.80-5.40); RDW 14.5 % (11.5-15.5); WBC 8.5 k/uL (3.8-10.6)
[2021-12-26 05:27] LABS: ALT 35 U/L (4-34); AST 33 U/L (14-36); African American GFR (CKD) >90 (>60 ml/min/1.73 sqM); Albumin 3.5 g/dL (3.5-5.0); Alkaline Phosphatase 70 U/L (38-126); Anion Gap 6 mmol/L; Blood Urea Nitrogen 26 mg/dL (7-17); Calcium 8.1 mg/dL (8.4-10.2); Carbon Dioxide 27 mmol/L (22-30); Chloride 104 mmol/L (98-107); Glucose 180 mg/dL (74-99); Non-African American GFR(CKD) >90 (>60 ml/min/1.73 sqM); Potassium 3.7 mmol/L (3.5-5.1); Sodium 137 mmol/L (137-145); Total Bilirubin 0.5 mg/dL (0.2-1.3); Total Protein 6.4 g/dL (6.3-8.2)
[2021-12-26 05:35] LABS: Glucose,Whole Blood 176 mg/dL (70-110)
[2021-12-26 05:43] LABS: ABG Base Excess 5.1 mmol/L; ABG HCO3 29 mmol/L (21-25); ABG PCO2 42 mmHg (35-45); ABG PH 7.45 (7.35-7.45); ABG PO2 86 mmHg (83-108); ABG TCO2 30 mmol/L (19-24); Allen Test Performed? Yes
[2021-12-26] MEDS: SODIUM CHLORIDE 0.9% 1,000 ML IV SCH (05:50)
[2021-12-26] MEDS: HEPARIN SODIUM,PORCINE/PF 5,000 UNIT/0.5 ML SYRINGE SQ SCH ×2 (08:15→20:05)
[2021-12-26] MEDS: CHLORHEXIDINE GLUCONATE 15 ML CUP MUCOUS MEM SCH ×2 (08:20→20:05)
[2021-12-26] MEDS: FAMOTIDINE 20 MG/2 ML VIAL IV SCH ×2 (08:20→20:05)
--- NOTE | 2021-12-26 08:55 | XR ---
EXAMINATION TYPE: XR chest 1V portable DATE OF EXAM: 12/26/2021 COMPARISON: Chest x-ray 12/25/2021 HISTORY: Pneumonia, intubated TECHNIQUE: Single frontal view of the chest is obtained. FINDINGS: Endotracheal tube and NG tube are again noted, endotracheal tube is overlying the similar position, NG tube has been withdrawn in the interval, distal tip is within the thoracic esophagus. No evident pneumothorax or pleural effusion. Perihilar vascular indistinctness is noted, patchy bibasil ar densities present. Cardiomediastinal silhouette is stable. Exam is expiratory and rotated. Surgica l clips are present in left upper quadrant. IMPRESSION: NG tube tip is at the level of the thoracic esophagus. Correlate for interstitial edema, pneumonia not excluded. Expiratory rotated exam.
--- NOTE | 2021-12-26 09:42 | P.PN ---
Subjective Progress Note Date: 12/26/21 Principal diagnosis: Overdose. Reevaluated today on 12/23/21, patient remains in the ICU, intubated and mechanically ventilated. She is on assist control rate of 22, volume 400 FiO2 50% PEEP of 10 ABG showed a pO2 of 80 pCO2 42 pH of 7.39 hence the patient was kept on the same vent settings chest x-ray is showing slight improvement in her bilateral infiltrates/ARDS/pneumonia patient remains on propofol at 55 mcg/kg/m and her IV fluid at 25 mL per hour cut it down to 75, and the patient will receive 40 mg of Lasix IV push, urine output is roughly about 50 mL per hour. Patient remains on vital HP at 22 mL per hour. WBC count is 11.8 hemoglobin is 9.6 electrolytes are normal renal profile is normal Reevaluated today on 12/24/21, patient remains in the ICU, intubated and mechanically ventilated. Her ventilator settings are assist-control rate 22 tidal volume 400 FiO2 60% and PEEP of 10, ABG showed a pO2 of 70 pCO2 40 pH of 7.42. Patient remains on propofol at 55 mcg/kg/m, she is also on vital HP at 22 mL per hour. Not requiring any pressors or any inotropes. Her sputum cultures are positive for Serratia marcescens and for E. coli. Both are sensitive to Zosyn and the patient has been on Zosyn all along. Chest x-ray continues to show bilateral infiltrates, ration did have witnessed aspiration pneumonia, and she may have developed ARDS. Nonetheless I will go ahead and recommended dose of Lasix to be given today 40 mg IV push 1, her urine output seems to be reasonable all along, but the patient received significant amount of fluids upon her initial presentation with hypotension. Today the patient is awake, she gets extremely agitated on lower dose of propofol, she is not quite ready to be weaned, but she is getting close. Again she still requiring high PEEP and high FiO2. Plan to titrate her FiO2 down to 50% likely today. And maintain O2 sats above 92%. Her mental status is improving, patient is following instructions once she is on a lower dose of propofol, however she gets extremely agitated, and restlessness. Patient is back on her methadone CBC showed evidence of 8.7 hemoglobin 9.9 last lites are normal renal profile is normal Progress note dated 12/25/2021. 46-year-old female admitted on December 21, and intubated on the same day, for an overdose of SOMA. The patient remains on the mechanical ventilator. She is on volume assist control, rate 22, tidal volume 400, FiO2 60%, PEEP of 14. Blood gases show pO2 of 96, pCO2 42, and a pH is 7.42. These blood gases were done on 80%. She remains on propofol at 65 mcg/kg/m, saline at 20 mL an hour, and vital high protein at 22 mL an hour. Her sputum sample so both Serratia an Escherichia coli. For that, she is on Zosyn. White count 10.2, hemoglobin 10.3, hematocrit 32.2, and platelet count 233,000. Sodium 137 potassium 4.3 chlorides 105, CO2 27, BUN 24, creatinine 0.7. Albumin is 3.4. Chest x-ray shows patchy bibasilar airspace disease, improved on the right and slightly worse on the left. Progress note dated 12/26/2021. 46-year-old female admitted on December 21, and intubated on the same day, respiratory failure, secondary to an overdose of SOMA. The patient remains on mechanical ventilator, and is not yet ready for weaning. She is on volume assist control, rate 22, tidal volume 400, FiO2 60%, and PEEP of 14. Arterial blood gases show pO2 of 86, pCO2 42, and a pH of 7.45. The patient is on saline at 20 mL an hour, propofol at 75 mcg/kg/m, fentanyl at 2 mcg/kg/h, and vital AF at 10 mL an hour. The patient has both Serratia an Escherichia coli in the sputum, and his on Zosyn for that. The patient can get either labetalol IV when necessary, or Cleveprex, for blood pressure control. The FiO2 was reduced to 50%. White count 8.5, hemoglobin 10.7, hematocrit 32.7, platelet count 230,000. Sodium, potassium, chloride, CO2, are all normal. BUN 26 with a creatinine of 0.67. Anion gap is normal. Calcium 8.1. Chest x-ray shows the NG tube tip to be in the thoracic esophagus. There is some mild interstitial edema present. Objective - Vital Signs Vital signs: Vital Signs Temp 98.2 F 12/26/21 04:00 Pulse 64 12/26/21 09:00 Resp 22 12/26/21 09:00 BP 150/96 12/26/21 03:00 Pulse Ox 96 12/26/21 09:00 FiO2 50 12/26/21 09:00 Intake & Output 12/25/21 12/26/21 12/26/21 18:59 06:59 18:59 Intake Total 807.000 937.37 219 Output Total 3095 415 165 Balance -2288.000 522.37 54 Weight 92 kg 91.5 kg Intake: IV 245 373 169 Piperacillin-Tazobactam 3 25 100 100 .375 gm In Sodium Chloride 0.9% 100 ml @ 25 mls/hr IVPB Q8HR [facility] Rx# :[id number] Pressure Bag 33 9 Sodium Chloride 0.9% 1, 220 240 60 000 ml @ 20 mls/hr IV . Q24H [facility] Rx#:[id number] Intake, IV Titration 200.000 396.37 Amount fentaNYL (PF). 1,000 mcg 96.37 In Sodium Chloride 0.9% 80 ml @ 0.5 MCG/KG/HR 4.6 mls/hr IV .[id number] [facility] Rx#:[id number] propofoL 1,000 mg In 200.000 300 Empty Bag 1 bag @ 5 MCG/ KG/MIN 2.649 mls/hr IV . Q24H [facility] Rx#:[id number] Tube Feeding 242 138 20 Other 120 30 30 Output: Urine 3095 415 165 Other: Voiding Method Indwelling Catheter Indwelling Catheter # Bowel Movements 1 ABP, PAP, CO, CI - Last Documented Arterial Blood Pressure 147/72 - Exam No acute distress, sedated, orally placed endotracheal tube and NG tube. HEENT examination is grossly unremarkable. Neck supple. Full range of motion. No adenopathy thyromegaly or neck vein distention. Cardiovascular examination reveals regular rhythm rate. S1-S2 normal. No S3 or S4. No discernible murmur noted. Heart rate 64 bpm. Lungs reveal scattered bilateral rhonchi. No crackles or wheezes. Saturations are 96%. Breath sounds equal bilaterally. Abdomen soft, without masses. Bowel sounds are noted. Extremities are intact. No cyanosis clubbing or edema. Skin is without rash or lesion. Neurologic examination cannot be adequately assessed. - Labs CBC & Chem 7: 12/26/21 05:00 12/26/21 05:00 Labs: Abnormal Lab Results - Last 24 Hours (Table) 12/25/21 12/25/21 12/26/21 Range/Units 12:12 18:05 05:00 RBC 3.54 L (3.80-5.40) m/uL Hgb 10.7 L (11.4-16.0) gm/dL Hct 32.7 L (34.0-46.0) % ABG HCO3 (21-25) mmol/L ABG Total CO2 (19-24) mmol/L BUN (7-17) mg/dL Glucose (74-99) mg/dL POC Glucose (mg/dL) 173 H 138 H (70-110) mg/dL Calcium (8.4-10.2) mg/dL Magnesium (1.6-2.3) mg/dL ALT (4-34) U/L 12/26/21 12/26/21 12/26/21 Range/Units 05:00 05:00 05:33 RBC (3.80-5.40) m/uL Hgb (11.4-16.0) gm/dL Hct (34.0-46.0) % ABG HCO3 (21-25) mmol/L ABG Total CO2 (19-24) mmol/L BUN 26 H (7-17) mg/dL Glucose 180 H (74-99) mg/dL POC Glucose (mg/dL) 176 H (70-110) mg/dL Calcium 8.1 L (8.4-10.2) mg/dL Magnesium 2.4 H (1.6-2.3) mg/dL ALT 35 H (4-34) U/L 12/26/21 Range/Units 05:40 RBC (3.80-5.40) m/uL Hgb (11.4-16.0) gm/dL Hct (34.0-46.0) % ABG HCO3 29 H (21-25) mmol/L ABG Total CO2 30 H (19-24) mmol/L BUN (7-17) mg/dL Glucose (74-99) mg/dL POC Glucose (mg/dL) (70-110) mg/dL Calcium (8.4-10.2) mg/dL Magnesium (1.6-2.3) mg/dL ALT (4-34) U/L Assessment and Plan Assessment: Acute hypoxemic respiratory failure secondary to overdose of SOMA, status post intubation and mechanical ventilation on December 21. Aspiration pneumonia. Rule out acute respiratory distress syndrome. History of depression and suicidal ideations. Obesity, with a BMI of 32. History of heroin abuse. History of chronic hepatitis C. History of possible seizures. Hypotension, secondary to hypovolemia and possible septic shock, resolved. Plan: Plan dated 12/25/2021. The patient remains on mechanical ventilation, and still on 14 cm water PEEP. The patient will continue with GI and DVT prophylaxis. The patient continues on Zosyn, for sputum showing evidence of both Serratia and Escherichia coli. Labs, x-rays, medications are all reviewed. The patient remains on tube feedings at goal. Overall prognosis remains guarded. We will continue to follow and make recommendations where appropriate. Plan dated 12/26/2021. The patient remains on mechanical ventilator, is likely not yet ready to wean as she is currently on a PEEP of 14. The FiO2 is reduced down to 50%. The patient remains on Zosyn for both Serratia, and Escherichia coli in the sputum. I told the nurse that she could use either IV labetalol, or Cleveprex, to control the elevated blood pressure. Labs, x-rays, and medications are reviewed. Overall prognosis remains very guarded. We will continue to follow the patient make rec ommendations along the way. Time with Patient: Greater than 30
[2021-12-26] MEDS: CLEVIDIPINE BUTYRATE 25 MG in EMPTY BAG 1 BAG IV SCH ×3 (10:30→22:02)
--- NOTE | 2021-12-26 11:32 | XR ---
EXAMINATION TYPE: XR chest 1V portable DATE OF EXAM: 12/26/2021 COMPARISON: 12/26/2021 INDICATION: NG tube placement TECHNIQUE: Single frontal view of the chest is obtained. FINDINGS: The heart size is normal. The pulmonary vasculature is normal. Mild right lower lobe infiltrate is present. Nasogastric tube is present with tip in the proximal left upper quadrant of the abdomen. This could b e advanced slightly for better positioning. Endotracheal tube tip is above the kandis. IMPRESSION: 1. Mild right lower lobe infiltrate. 2. Endotracheal tube has been advanced with the tip in the left upper quadrant of the abdomen. This c ould be advanced slightly for better positioning.
[2021-12-26 11:46] LABS: Glucose,Whole Blood 141 mg/dL (70-110)
[2021-12-26] MEDS ORDERED: Potassium Replacement Protocol 1 EACH MISC MISCELLANE PRN (12:50)
[2021-12-26] MEDS: NOREPINEPHRINE 4 MG in SODIUM CHLORIDE 0.9% 250 ML IV SCH ×2 (12:55→23:49)
[2021-12-26] MEDS: DOPamine DRIP 800 MG in DEXTROSE/WATER 1 250ML.BAG IV SCH (12:56)
[2021-12-26] MEDS ORDERED: POTASSIUM BICARBONATE/CIT AC 20 MEQ TABLET.EFF NG-TUBE SCH (13:00)
--- NOTE | 2021-12-26 16:28 | P.PN ---
Subjective Progress Note Date: 12/26/21 This 46 year female who was admitted for altered mental status and overdose was suspected taking 2 Soma in addition to her daily methadone and was intubated on 12/21/2021. Patient continues to be monitored in the intensive care unit on mechanical ventilator with an FiO2 of 50%. Chest x-ray today shows mild right lower lobe infiltrate with advancement of NG tube. She continues cleviprex gtt which was titrated as patient was tachycardic 130s today. She is also continued on fentanyl gtt which we will hold methadone for now. She continues on enteral tube feedings. Sputum culture positive for serratia and E.Coli. She is on propofol for sedation and continues on IV Zosyn, IV steroids. She is afebrile, heart rate 112, blood pressure 130/63, oxygenation 94%. Labs today showing white count 8.5, hemoglobin 10.7, sodium 137, potassium 3.7, BUN 26, creatinine 0.67, blood glucose in the 140s. unable to completely review of system as patient is intubated PHYSICAL EXAMINATION: GENERAL: The patient is intubated she is spontaneously opening her eyes. HEENT: Pupils are round and equally reacting to light. EOMI. No scleral icterus. No conjunctival pallor. Normocephalic, atraumatic. No pharyngeal erythema. No thyromegaly. CARDIOVASCULAR: S1 and S2 present. No murmurs, rubs, or gallops. PULMONARY: Chest is clear to auscultation, no wheezing or crackles. ABDOMEN: Soft, nontender, nondistended, Hypoactive bowel sounds. No palpable organomegaly. MUSCULOSKELETAL: No joint swelling or deformity. EXTREMITIES: No cyanosis, clubbing, or pedal edema. NEUROLOGICAL: Patient is intubated and sedated. SKIN: No rashes. Assessment and Plan Assessment Acute hypoxic respiratory failure secondary to overdose patient is continued on mechanical ventilator with FiO2 of 50% Toxic metabolic encephalopathy Aspiration pneumonia and continues IV Zosyn Mild septic shock with hypotension secondary to hypovolemia, resolved off Levophed History of depression and suicidal ideations History of heroin abuse History of chronic hepatitis C History of questionable seizure activity Obesity with BMI of 31.6 GI prophylaxis DVT prophylaxis Full code Plan Continue with close monitoring in the intensive care unit on mechanical ventilator with FiO2 50% Continue on IV zosyn, IV steroids She has been weaned off levophed, continues on cleviprex gtt Continues on IV fentanyl which we will hold methadone Patient is being followed closely by pulmonary hog cutter, neurology Continue blood glucose monitoring No plans for extubation today Repeat Labs in AM The impression and plan of care has been dictated by Ricarda Perdoza, Nurse Practitioner as directed. Dr. Carlyn MD I have performed a history and physical examination and medical decision making of this patient, discussed the same with the dictator, and agree with the dictators assessment and plan as written, documented as a scribe. Based on total visit time, I have performed more than 50% of this visit. Objective - Vital Signs Vital signs: Vital Signs Temp 98.2 F 12/26/21 04:00 Pulse 64 12/26/21 09:00 Resp 22 12/26/21 09:00 BP 150/96 12/26/21 03:00 Pulse Ox 96 12/26/21 09:00 FiO2 50 12/26/21 09:00 Intake & Output 12/25/21 12/26/21 12/26/21 18:59 06:59 18:59 Intake Total 807.000 937.37 219 Output Total 3095 415 165 Balance -2288.000 522.37 54 Weight 92 kg 91.5 kg Intake: IV 245 373 169 Piperacillin-Tazobactam 3 25 100 100 .375 gm In Sodium Chloride 0.9% 100 ml @ 25 mls/hr IVPB Q8HR [facility] Rx# :[id number] Pressure Bag 33 9 Sodium Chloride 0.9% 1, 220 240 60 000 ml @ 20 mls/hr IV . Q24H [facility] Rx#:[id number] Intake, IV Titration 200.000 396.37 Amount fentaNYL (PF). 1,000 mcg 96.37 In Sodium Chloride 0.9% 80 ml @ 0.5 MCG/KG/HR 4.6 mls/hr IV .[id number] [facility] Rx#:[id number] propofoL 1,000 mg In 200.000 300 Empty Bag 1 bag @ 5 MCG/ KG/MIN 2.649 mls/hr IV . Q24H [facility] Rx#:[id number] Tube Feeding 242 138 20 Other 120 30 30 Output: Urine 3095 415 165 Other: Voiding Method Indwelling Catheter Indwelling Catheter # Bowel Movements 1 ABP, PAP, CO, CI - Last Documented Arterial Blood Pressure 147/72 - Labs CBC & Chem 7: 12/26/21 05:00 12/26/21 05:00 Labs: Abnormal Lab Results - Last 24 Hours (Table) 12/25/21 12/25/21 12/26/21 Range/Units 12:12 18:05 05:00 RBC 3.54 L (3.80-5.40) m/uL Hgb 10.7 L (11.4-16.0) gm/dL Hct 32.7 L (34.0-46.0) % ABG HCO3 (21-25) mmol/L ABG Total CO2 (19-24) mmol/L BUN (7-17) mg/dL Glucose (74-99) mg/dL POC Glucose (mg/dL) 173 H 138 H (70-110) mg/dL Calcium (8.4-10.2) mg/dL Magnesium (1.6-2.3) mg/dL ALT (4-34) U/L 12/26/21 12/26/21 12/26/21 Range/Units 05:00 05:00 05:33 RBC (3.80-5.40) m/uL Hgb (11.4-16.0) gm/dL Hct (34.0-46.0) % ABG HCO3 (21-25) mmol/L ABG Total CO2 (19-24) mmol/L BUN 26 H (7-17) mg/dL Glucose 180 H (74-99) mg/dL POC Glucose (mg/dL) 176 H (70-110) mg/dL Calcium 8.1 L (8.4-10.2) mg/dL Magnesium 2.4 H (1.6-2.3) mg/dL ALT 35 H (4-34) U/L 12/26/21 Range/Units 05:40 RBC (3.80-5.40) m/uL Hgb (11.4-16.0) gm/dL Hct (34.0-46.0) % ABG HCO3 29 H (21-25) mmol/L ABG Total CO2 30 H (19-24) mmol/L BUN (7-17) mg/dL Glucose (74-99) mg/dL POC Glucose (mg/dL) (70-110) mg/dL Calcium (8.4-10.2) mg/dL Magnesium (1.6-2.3) mg/dL ALT (4-34) U/L Assessment and Plan Time with Patient: Less than 30
[2021-12-26] MEDS ORDERED: ONDANSETRON 4 MG/2 ML VIAL ONE (17:49)
[2021-12-26] MEDS: ONDANSETRON 4 MG/2 ML VIAL IVP PRN (18:00)
[2021-12-26 18:15] LABS: Glucose,Whole Blood 150 mg/dL (70-110)
[2021-12-26 23:43] LABS: Glucose,Whole Blood 130 mg/dL (70-110)
[2021-12-27] MEDS: fentaNYL (PF). 1,000 MCG in SODIUM CHLORIDE 0.9% 80 ML IV SCH ×4 (01:27→21:50)
[2021-12-27] MEDS: SODIUM CHLORIDE 0.9% 1,000 ML IV SCH (02:31)
[2021-12-27] MEDS: IPRATROPIUM-ALBUTEROL 3 ML NEB INHALATION SCH ×6 (03:37→23:56)
[2021-12-27 04:14] LABS: Basophils % (A) 0 %; Eosinophils % (A) 0 %; HCT 33.4 % (34.0-46.0); HGB 11.1 gm/dL (11.4-16.0); Lymphocytes # (A) 1.1 k/uL (1.0-4.8); Lymphocytes % (A) 11 %; MCH 30.6 pg (25.0-35.0); MCHC 33.3 g/dL (31.0-37.0); MCV 91.8 fL (80.0-100.0); Mean Platelet Volume 7.6; Monocytes # (A) 0.4 k/uL (0-1.0); Monocytes % (A) 4 %; Neutrophils # (A) 8.6 k/uL (1.3-7.7); Neutrophils % (A) 84 %; Platelet Count 247 k/uL (150-450); RBC 3.64 m/uL (3.80-5.40); RDW 14.2 % (11.5-15.5); WBC 10.3 k/uL (3.8-10.6)
[2021-12-27 04:38] LABS: African American GFR (CKD) >90 (>60 ml/min/1.73 sqM); Anion Gap 4 mmol/L; Blood Urea Nitrogen 20 mg/dL (7-17); Calcium 8.4 mg/dL (8.4-10.2); Carbon Dioxide 26 mmol/L (22-30); Chloride 106 mmol/L (98-107); Glucose 162 mg/dL (74-99); Non-African American GFR(CKD) >90 (>60 ml/min/1.73 sqM); Potassium 3.9 mmol/L (3.5-5.1); Sodium 136 mmol/L (137-145)
[2021-12-27 05:42] LABS: Glucose,Whole Blood 162 mg/dL (70-110)
[2021-12-27] MEDS: INSULIN ASPART (NovoLOG) 100 UNIT/ML VIAL SQ SCH ×3 (05:45→18:08)
[2021-12-27 06:00] LABS: ABG Base Excess 2.1 mmol/L; ABG HCO3 27 mmol/L (21-25); ABG Oxygen Saturation 94.3 % (94-97); ABG PCO2 42 mmHg (35-45); ABG PH 7.42 (7.35-7.45); ABG PO2 70 mmHg (83-108); ABG TCO2 28 mmol/L (19-24); Allen Test Performed? Yes
[2021-12-27] MEDS ORDERED: POTASSIUM BICARBONATE/CIT AC 20 MEQ TABLET.EFF NG-TUBE SCH (06:00)
[2021-12-27] MEDS: ONDANSETRON 4 MG/2 ML VIAL IVP PRN ×2 (06:29→20:11)
[2021-12-27] MEDS: POTASSIUM CHLORIDE 10 MEQ in WATER FOR INJECTION 1 100ML.BAG IVPB SCH ×2 (06:49→08:05)
--- NOTE | 2021-12-27 07:25 | XR ---
EXAMINATION TYPE: XR chest 1V portable DATE OF EXAM: 12/27/2021 Comparison: 12/26/2021 Clinical History: 46-year-old female Pneumonia; Tube placement Findings: The ET and NG tubes are satisfactory. Increasing left basilar opacity. Similar patchy right basilar d ensity. Heart upper limits of normal in size. Impression: Increasing left lower lung opacity and similar patchy right basilar opacity.
[2021-12-27] MEDS: methylPREDNISolone SOD SUCCI 40 MG/ML 1 ML VIAL IV SCH ×3 (08:04→23:16)
[2021-12-27] MEDS: CHLORHEXIDINE GLUCONATE 15 ML CUP MUCOUS MEM SCH ×2 (08:04→20:07)
[2021-12-27] MEDS: FAMOTIDINE 20 MG/2 ML VIAL IV SCH ×2 (08:04→20:07)
[2021-12-27] MEDS: METOCLOPRAMIDE 5 MG/ML 2 ML VIAL IVP SCH ×4 (08:04→23:16)
[2021-12-27] MEDS: HEPARIN SODIUM,PORCINE/PF 5,000 UNIT/0.5 ML SYRINGE SQ SCH ×2 (08:04→20:07)
[2021-12-27] MEDS: PIPERACILLIN-TAZOBACTAM 3.375 GM in SODIUM CHLORIDE 0.9% 100 ML IVPB SCH ×3 (08:04→23:16)
--- NOTE | 2021-12-27 08:51 | P.PN ---
Subjective Progress Note Date: 12/27/21 Principal diagnosis: Overdose. Reevaluated today on 12/23/21, patient remains in the ICU, intubated and mechanically ventilated. She is on assist control rate of 22, volume 400 FiO2 50% PEEP of 10 ABG showed a pO2 of 80 pCO2 42 pH of 7.39 hence the patient was kept on the same vent settings chest x-ray is showing slight improvement in her bilateral infiltrates/ARDS/pneumonia patient remains on propofol at 55 mcg/kg/m and her IV fluid at 25 mL per hour cut it down to 75, and the patient will receive 40 mg of Lasix IV push, urine output is roughly about 50 mL per hour. Patient remains on vital HP at 22 mL per hour. WBC count is 11.8 hemoglobin is 9.6 electrolytes are normal renal profile is normal Reevaluated today on 12/24/21, patient remains in the ICU, intubated and mechanically ventilated. Her ventilator settings are assist-control rate 22 tidal volume 400 FiO2 60% and PEEP of 10, ABG showed a pO2 of 70 pCO2 40 pH of 7.42. Patient remains on propofol at 55 mcg/kg/m, she is also on vital HP at 22 mL per hour. Not requiring any pressors or any inotropes. Her sputum cultures are positive for Serratia marcescens and for E. coli. Both are sensitive to Zosyn and the patient has been on Zosyn all along. Chest x-ray continues to show bilateral infiltrates, ration did have witnessed aspiration pneumonia, and she may have developed ARDS. Nonetheless I will go ahead and recommended dose of Lasix to be given today 40 mg IV push 1, her urine output seems to be reasonable all along, but the patient received significant amount of fluids upon her initial presentation with hypotension. Today the patient is awake, she gets extremely agitated on lower dose of propofol, she is not quite ready to be weaned, but she is getting close. Again she still requiring high PEEP and high FiO2. Plan to titrate her FiO2 down to 50% likely today. And maintain O2 sats above 92%. Her mental status is improving, patient is following instructions once she is on a lower dose of propofol, however she gets extremely agitated, and restlessness. Patient is back on her methadone CBC showed evidence of 8.7 hemoglobin 9.9 last lites are normal renal profile is normal Progress note dated 12/25/2021. 46-year-old female admitted on December 21, and intubated on the same day, for an overdose of SOMA. The patient remains on the mechanical ventilator. She is on volume assist control, rate 22, tidal volume 400, FiO2 60%, PEEP of 14. Blood gases show pO2 of 96, pCO2 42, and a pH is 7.42. These blood gases were done on 80%. She remains on propofol at 65 mcg/kg/m, saline at 20 mL an hour, and vital high protein at 22 mL an hour. Her sputum sample so both Serratia an Escherichia coli. For that, she is on Zosyn. White count 10.2, hemoglobin 10.3, hematocrit 32.2, and platelet count 233,000. Sodium 137 potassium 4.3 chlorides 105, CO2 27, BUN 24, creatinine 0.7. Albumin is 3.4. Chest x-ray shows patchy bibasilar airspace disease, improved on the right and slightly worse on the left. Progress note dated 12/26/2021. 46-year-old female admitted on December 21, and intubated on the same day, respiratory failure, secondary to an overdose of SOMA. The patient remains on mechanical ventilator, and is not yet ready for weaning. She is on volume assist control, rate 22, tidal volume 400, FiO2 60%, and PEEP of 14. Arterial blood gases show pO2 of 86, pCO2 42, and a pH of 7.45. The patient is on saline at 20 mL an hour, propofol at 75 mcg/kg/m, fentanyl at 2 mcg/kg/h, and vital AF at 10 mL an hour. The patient has both Serratia an Escherichia coli in the sputum, and his on Zosyn for that. The patient can get either labetalol IV when necessary, or Cleveprex, for blood pressure control. The FiO2 was reduced to 50%. White count 8.5, hemoglobin 10.7, hematocrit 32.7, platelet count 230,000. Sodium, potassium, chloride, CO2, are all normal. BUN 26 with a creatinine of 0.67. Anion gap is normal. Calcium 8.1. Chest x-ray shows the NG tube tip to be in the thoracic esophagus. There is some mild interstitial edema present. Progress note dated 12/27/2021. 46-year-old female admitted on December 21, and intubated on the same day, respiratory failure, secondary to an overdose of SOMA. The patient remains on mechanical ventilator, and unfortunately, has not made much progress. The patient is on the volume assist control, rate 22, tidal volume 400, FiO2 40%, and PEEP of 14. Blood gases show by mouth 270, pCO2 42, and a pH is 7.42. The patient is currently going to be started on Reglan at 10 mg IV push every 6 hours, for gastroparesis, and also receive Zofran for nausea and vomiting. The patient is currently on fentanyl at 1 mcg/kg/h, propofol at 75 mcg/kg/m, and saline at 30 mL an hour. Tube feedings on hold because of high residuals. The patient is off Cleveprex. Blood pressure is been very labile. White count 10.3, hemoglobin 11.1, hematocrit 33.4, with a normal platelet count. Sodium 136, potassium 3.9, chlorides 106, CO2 26, BUN 20, with a creatinine of 0.58. Sputum is showing evidence of both Serratia an Escherichia coli. For that she is on Zosyn. Chest x-ray shows increasing left lower lobe opacity. Objective - Vital Signs Vital signs: Vital Signs Temp 98.8 F 12/27/21 08:00 Pulse 89 12/27/21 08:42 Resp 22 12/27/21 08:00 BP 120/72 12/27/21 08:00 Pulse Ox 96 12/27/21 08:00 FiO2 50 12/27/21 08:24 Intake & Output 12/26/21 12/27/21 12/27/21 18:59 06:59 18:59 Intake Total 926.379 996.679 263.633 Output Total 1390 1160 90 Balance -463.621 -163.321 173.633 Weight 92.5 kg Intake: IV 376 276 146 Piperacillin-Tazobactam 3 100 100 .375 gm In Sodium Chloride 0.9% 100 ml @ 25 mls/hr IVPB Q8HR [facility] Rx# :[id number] Pressure Bag 36 36 6 Sodium Chloride 0.9% 1, 240 240 40 000 ml @ 20 mls/hr IV . Q24H [facility] Rx#:[id number] Intake, IV Titration 400.379 720.679 117.633 Amount Clevidipine Butyrate 25 36.899 48.566 mg In Empty Bag 1 bag @ 1 MG/HR 2 mls/hr IV .Q24H [facility] Rx#:[id number] Potassium Chloride 10 meq 100 In Water For Injection 1 100ml.bag @ 100 mls/hr IVPB Q1H [facility] Rx#: [id number] fentaNYL (PF). 1,000 mcg 163.48 256.220 17.633 In Sodium Chloride 0.9% 80 ml @ 0.5 MCG/KG/HR 4.6 mls/hr IV .[id number] [facility] Rx#:[id number] propofoL 1,000 mg In 200 415.893 Empty Bag 1 bag @ 5 MCG/ KG/MIN 2.649 mls/hr IV . Q24H [facility] Rx#:[id number] Tube Feeding 90 Other 60 Output: Gastric Drainage 300 Urine 1240 860 90 Emesis 150 Other: Voiding Method Indwelling Catheter Indwelling Catheter Indwelling Catheter # Bowel Movements 1 ABP, PAP, CO, CI - Last Documented Arterial Blood Pressure 123/58 - Exam No acute distress, sedated, orally placed endotracheal tube and NG tube. HEENT examination is grossly unremarkable. Neck supple. Full range of motion. No adenopathy thyromegaly or neck vein distention. Cardiovascular examination reveals regular rhythm rate. S1-S2 normal. No S3 or S4. No discernible murmur noted. Heart rate 89 bpm. Lungs reveal scattered bilateral rhonchi. No crackles or wheezes. Saturations are 96%. Breath sounds equal bilaterally. Abdomen soft, without masses. Bowel sounds are noted. Extremities are intact. No cyanosis clubbing or edema. Skin is without rash or lesion. Neurologic examination cannot be adequately assessed. - Labs CBC & Chem 7: 12/27/21 04:06 12/27/21 04:06 Labs: Abnormal Lab Results - Last 24 Hours (Table) 12/26/21 12/26/21 12/26/21 Range/Units 11:44 18:14 23:37 RBC (3.80-5.40) m/uL Hgb (11.4-16.0) gm/dL Hct (34.0-46.0) % Neutrophils # (1.3-7.7) k/uL ABG pO2 (83-108) mmHg ABG HCO3 (21-25) mmol/L ABG Total CO2 (19-24) mmol/L Sodium (137-145) mmol/L BUN (7-17) mg/dL Glucose (74-99) mg/dL POC Glucose (mg/dL) 141 H 150 H 130 H (70-110) mg/dL 12/27/21 12/27/21 12/27/21 Range/Units 04:06 04:06 05:40 RBC 3.64 L (3.80-5.40) m/uL Hgb 11.1 L (11.4-16.0) gm/dL Hct 33.4 L (34.0-46.0) % Neutrophils # 8.6 H (1.3-7.7) k/uL ABG pO2 (83-108) mmHg ABG HCO3 (21-25) mmol/L ABG Total CO2 (19-24) mmol/L Sodium 136 L (137-145) mmol/L BUN 20 H (7-17) mg/dL Glucose 162 H (74-99) mg/dL POC Glucose (mg/dL) 162 H (70-110) mg/dL 12/27/21 Range/Units 05:56 RBC (3.80-5.40) m/uL Hgb (11.4-16.0) gm/dL Hct (34.0-46.0) % Neutrophils # (1.3-7.7) k/uL ABG pO2 70 L (83-108) mmHg ABG HCO3 27 H (21-25) mmol/L ABG Total CO2 28 H (19-24) mmol/L Sodium (137-145) mmol/L BUN (7-17) mg/dL Glucose (74-99) mg/dL POC Glucose (mg/dL) (70-110) mg/dL Assessment and Plan Assessment: Acute hypoxemic respiratory failure secondary to overdose of SOMA, status post intubation and mechanical ventilation on December 21, with failure to wean from mechanical ventilation. Aspiration pneumonia. Rule out acute respiratory distress syndrome, with a P/F ratio of 140/moderate disease. History of depression and suicidal ideations. Obesity, with a BMI of 32. History of heroin abuse. History of chronic hepatitis C. History of possible seizures. Hypotension, secondary to hypovolemia and possible septic shock, resolved. Plan: Plan dated 12/25/2021. The patient remains on mechanical ventilation, and still on 14 cm water PEEP. The patient will continue with GI and DVT prophylaxis. The patient continues on Zosyn, for sputum showing evidence of both Serratia and Escherichia coli. Labs, x-rays, medications are all reviewed. The patient remains on tube feedings at goal. Overall prognosis remains guarded. We will continue to follow and make recommendations where appropriate. Plan dated 12/26/2021. The patient remains on mechanical ventilator, is likely not yet ready to wean as she is currently on a PEEP of 14. The FiO2 is reduced down to 50%. The patient remains on Zosyn for both Serratia, and Escherichia coli in the sputum. I told the nurse that she could use either IV labetalol, or Cleveprex, to control the elevated blood pressure. Labs, x-rays, and medications are reviewed. Overall prognosis remains very guarded. We will continue to follow the patient make recommendations along the way. Plan dated 12/27/2021. The patient remains on mechanical ventilator. Vent settings are unchanged. The patient really has not made much in the way of progress. She remains on propofol and fentanyl. Tube feedings on hold because of high residuals. We added Reglan 10 mg IV push every 6 hours. She is also getting Zofran as necessary. Labs, x-rays, and medications are reviewed. Prognosis is very guarded. Today, I did speak to the for about 15 minutes. I gave him an update. His name is Mir. I told Mir that she was critically ill but stable. She's not getting any worse, but not progressing either. Time with Patient: Greater than 30
[2021-12-27 11:10] VITALS: BMI 31.9
[2021-12-27 11:55] LABS: Glucose,Whole Blood 117 mg/dL (70-110)
[2021-12-27] MEDS: NOREPINEPHRINE 4 MG in SODIUM CHLORIDE 0.9% 250 ML IV SCH (11:55)
--- NOTE | 2021-12-27 13:51 | P.PN ---
Subjective Progress Note Date: 12/27/21 The patient is seen at bedside and per ICU nurse, patient is about the same. She had some episode of vomiting but is doing better. She is on IV Propofol and Fentanyl. Objective - Vital Signs Vital signs: Vital Signs Temp 98.5 F 12/27/21 12:00 Pulse 67 12/27/21 12:24 Resp 22 12/27/21 12:00 BP 114/64 12/27/21 10:00 Pulse Ox 95 12/27/21 12:00 FiO2 50 12/27/21 12:09 Intake & Output 12/26/21 12/27/21 12/27/21 18:59 06:59 18:59 Intake Total 926.379 996.679 640.874 Output Total 1390 1160 240 Balance -463.621 -163.321 400.874 Weight 92.5 kg 92.5 kg Intake: IV 376 276 238 Piperacillin-Tazobactam 3 100 100 .375 gm In Sodium Chloride 0.9% 100 ml @ 25 mls/hr IVPB Q8HR [facility] Rx# :[id number] Pressure Bag 36 36 18 Sodium Chloride 0.9% 1, 240 240 120 000 ml @ 20 mls/hr IV . Q24H [facility] Rx#:[id number] Intake, IV Titration 400.379 720.679 402.874 Amount Clevidipine Butyrate 25 36.899 48.566 mg In Empty Bag 1 bag @ 1 MG/HR 2 mls/hr IV .Q24H [facility] Rx#:[id number] Potassium Chloride 10 meq 100 In Water For Injection 1 100ml.bag @ 100 mls/hr IVPB Q1H [facility] Rx#: [id number] fentaNYL (PF). 1,000 mcg 163.48 256.220 78.813 In Sodium Chloride 0.9% 80 ml @ 0.5 MCG/KG/HR 4.6 mls/hr IV .[id number] [facility] Rx#:[id number] propofoL 1,000 mg In 200 415.893 224.061 Empty Bag 1 bag @ 5 MCG/ KG/MIN 2.649 mls/hr IV . Q24H [facility] Rx#:[id number] Tube Feeding 90 Other 60 Output: Gastric Drainage 300 Urine 1240 860 240 Emesis 150 Other: Voiding Method Indwelling Catheter Indwelling Catheter Indwelling Catheter # Bowel Movements 1 ABP, PAP, CO, CI - Last Documented Arterial Blood Pressure 113/56 - Exam Physical exam is limited. General: Does not appear in acute distress. Lung: Intubated on vent Neurological exam: Is on IV Propofol 70mcg/kg/min. Fentanyl 1mcg/kg/hr. Higher mental function: Severe drowsy and open eyes. Not following commands. Cranial Nerves: Primary gaze is midline. Pupils are round, reactive to light and symmetrically. No facial weakness. Is breathing over the vent. Motor: Strength: Unable to assess because of her condition. - Labs CBC & Chem 7: 12/27/21 04:06 12/27/21 04:06 Labs: Abnormal Lab Results - Last 24 Hours (Table) 12/26/21 12/26/21 12/27/21 Range/Units 18:14 23:37 04:06 RBC 3.64 L (3.80-5.40) m/uL Hgb 11.1 L (11.4-16.0) gm/dL Hct 33.4 L (34.0-46.0) % Neutrophils # 8.6 H (1.3-7.7) k/uL ABG pO2 (83-108) mmHg ABG HCO3 (21-25) mmol/L ABG Total CO2 (19-24) mmol/L Sodium (137-145) mmol/L BUN (7-17) mg/dL Glucose (74-99) mg/dL POC Glucose (mg/dL) 150 H 130 H (70-110) mg/dL 12/27/21 12/27/21 12/27/21 Range/Units 04:06 05:40 05:56 RBC (3.80-5.40) m/uL Hgb (11.4-16.0) gm/dL Hct (34.0-46.0) % Neutrophils # (1.3-7.7) k/uL ABG pO2 70 L (83-108) mmHg ABG HCO3 27 H (21-25) mmol/L ABG Total CO2 28 H (19-24) mmol/L Sodium 136 L (137-145) mmol/L BUN 20 H (7-17) mg/dL Glucose 162 H (74-99) mg/dL POC Glucose (mg/dL) 162 H (70-110) mg/dL 12/27/21 Range/Units 11:53 RBC (3.80-5.40) m/uL Hgb (11.4-16.0) gm/dL Hct (34.0-46.0) % Neutrophils # (1.3-7.7) k/uL ABG pO2 (83-108) mmHg ABG HCO3 (21-25) mmol/L ABG Total CO2 (19-24) mmol/L Sodium (137-145) mmol/L BUN (7-17) mg/dL Glucose (74-99) mg/dL POC Glucose (mg/dL) 117 H (70-110) mg/dL Assessment and Plan Assessment: * Altered mental status, likely due to drug overdose. Patient has ingested 2 tablets of Soma. Also on high dose methadone 170 mg daily. Uncertain if she has taken anything else. * Toxic metabolic encephalopathy due to above, much improved. And medication effect: IV Propofol and IV Fentanyl. * History of overdose in the past * Ventilator-dependent respiratory failure, on mechanical ventilation * Possible aspiration pneumonia * History of depression and suicidal ideations * Previous history of heroin abuse * History of hepatitis C * Hypotension---resolved Plan: * Per Dr. Zhou and nurse with sedation holdiay is improving and following direction but still slow. Currently is on IV Propofol 65mcg/kg/min. * EEG 12/23/2021 revealed background slowing of severe degree, with intermittent periods of generalized suppression. This suggestive of generalized cerebral dysfunction as can be seen with toxic metabolic encephalopathy, or due to diffuse structural brain abnormality, or medication effect. Clinical correlation is recommended. Follow-up EEG recommended if clinically indicated. No epileptiform activity was seen. * 2-D echo revealed normal left ventricle size and systolic function. EF is 55- 60%. * Hold off on antiepileptic medication, as EEG did not reveal any epileptiform activity. * Medical management as per critical care/IM. The plan is discussed with the patient's nurse. Will follow-up sporadically. Juan José Casey M.D. Neuro-Hospitalist.
--- NOTE | 2021-12-27 14:10 | P.PN ---
Subjective Progress Note Date: 12/27/21 This 46 year female who was admitted for altered mental status and overdose was suspected taking 2 Soma in addition to her daily methadone and was intubated on 12/21/2021. Patient continues to be monitored in the intensive care unit on mechanical ventilator with an FiO2 of 50%. Chest x-ray today shows mild right lower lobe infiltrate with advancement of NG tube. She continues cleviprex gtt which was titrated as patient was tachycardic 130s today. She is also continued on fentanyl gtt which we will hold methadone for now. She continues on enteral tube feedings. Sputum culture positive for serratia and E.Coli. She is on propofol for sedation and continues on IV Zosyn, IV steroids. She is afebrile, heart rate 112, blood pressure 130/63, oxygenation 94%. Labs today showing white count 8.5, hemoglobin 10.7, sodium 137, potassium 3.7, BUN 26, creatinine 0.67, blood glucose in the 140s. 12/27/2021 Patient evaluated in the intensive care unit continues on mechanical ventilator with PEEP of 15, FiO2 50%. She remains on fentanyl gtt, propofol, IV steroids. She is off cleviprex infusion and heart rate has improved now in the 70s. She does open eyes and tracks during assessment. Repeat chest xray today showing increasing left lower lung opacity and similar patchy right basilar opacity. Tube feedings are currently on hold and she is started on reglan. Sodium today 136, potassium 3.9, glucose 117, calcium 8.4, white count 10.3, hgb 11.1. Continues on IV Zosyn for sputum culture. Neuro is also following patient closely. unable to completely review of system as patient is intubated PHYSICAL EXAMINATION: GENERAL: The patient is intubated she is spontaneously opening her eyes. HEENT: Pupils are round and equally reacting to light. EOMI. No scleral icterus. No conjunctival pallor. Normocephalic, atraumatic. No pharyngeal erythema. No thyromegaly. CARDIOVASCULAR: S1 and S2 present. No murmurs, rubs, or gallops. PULMONARY: Chest is clear to auscultation, no wheezing or crackles. ABDOMEN: Soft, nontender, nondistended, Hypoactive bowel sounds. No palpable organomegaly. MUSCULOSKELETAL: No joint swelling or deformity. EXTREMITIES: No cyanosis, clubbing, or pedal edema. NEUROLOGICAL: Patient is intubated and sedated. SKIN: No rashes. Assessment and Plan Assessment Acute hypoxic respiratory failure secondary to overdose patient is continued on mechanical ventilator with FiO2 of 50% Toxic metabolic encephalopathy Aspiration pneumonia and continues IV Zosyn Mild septic shock with hypotension secondary to hypovolemia, resolved off Levophed History of depression and suicidal ideations History of heroin abuse History of chronic hepatitis C History of questionable seizure activity Obesity with BMI of 31.6 GI prophylaxis DVT prophylaxis Full code Plan Continue with close monitoring in the intensive care unit on mechanical ventilator with FiO2 50% Continue on IV zosyn, IV steroids She has been weaned off levophed, cleviprex gtt is off Continues on IV fentanyl which we will hold methadone Patient is being followed closely by pulmonary costume mistress, neurology Continue blood glucose monitoring No plans for extubation today Tube feeds are on hold and she is receiving IV reglan. Repeat Labs in AM The impression and plan of care has been dictated by Ricarda Pedroza, Nurse Practitioner as directed. Dr. Carlyn MD I have performed a history and physical examination and medical decision making of this patient, discussed the same with the dictator, and agree with the dictators assessment and plan as written, documented as a scribe. Based on total visit time, I have performed more than 50% of this visit. Objective - Vital Signs Vital signs: Vital Signs Temp 98.5 F 12/27/21 12:00 Pulse 67 12/27/21 12:24 Resp 22 12/27/21 12:00 BP 114/64 12/27/21 10:00 Pulse Ox 95 12/27/21 12:00 FiO2 50 12/27/21 12:09 Intake & Output 12/26/21 12/27/21 12/27/21 18:59 06:59 18:59 Intake Total 926.379 996.679 640.874 Output Total 1390 1160 240 Balance -463.621 -163.321 400.874 Weight 92.5 kg 92.5 kg Intake: IV 376 276 238 Piperacillin-Tazobactam 3 100 100 .375 gm In Sodium Chloride 0.9% 100 ml @ 25 mls/hr IVPB Q8HR [facility] Rx# :[id number] Pressure Bag 36 36 18 Sodium Chloride 0.9% 1, 240 240 120 000 ml @ 20 mls/hr IV . Q24H [facility] Rx#:[id number] Intake, IV Titration 400.379 720.679 402.874 Amount Clevidipine Butyrate 25 36.899 48.566 mg In Empty Bag 1 bag @ 1 MG/HR 2 mls/hr IV .Q24H [facility] Rx#:[id number] Potassium Chloride 10 meq 100 In Water For Injection 1 100ml.bag @ 100 mls/hr IVPB Q1H [facility] Rx#: [id number] fentaNYL (PF). 1,000 mcg 163.48 256.220 78.813 In Sodium Chloride 0.9% 80 ml @ 0.5 MCG/KG/HR 4.6 mls/hr IV .[id number] [facility] Rx#:[id number] propofoL 1,000 mg In 200 415.893 224.061 Empty Bag 1 bag @ 5 MCG/ KG/MIN 2.649 mls/hr IV . Q24H [facility] Rx#:[id number] Tube Feeding 90 Other 60 Output: Gastric Drainage 300 Urine 1240 860 240 Emesis 150 Other: Voiding Method Indwelling Catheter Indwelling Catheter Indwelling Catheter # Bowel Movements 1 ABP, PAP, CO, CI - Last Documented Arterial Blood Pressure 113/56 - Labs CBC & Chem 7: 12/27/21 04:06 12/27/21 04:06 Labs: Abnormal Lab Results - Last 24 Hours (Table) 12/26/21 12/26/21 12/27/21 Range/Units 18:14 23:37 04:06 RBC 3.64 L (3.80-5.40) m/uL Hgb 11.1 L (11.4-16.0) gm/dL Hct 33.4 L (34.0-46.0) % Neutrophils # 8.6 H (1.3-7.7) k/uL ABG pO2 (83-108) mmHg ABG HCO3 (21-25) mmol/L ABG Total CO2 (19-24) mmol/L Sodium (137-145) mmol/L BUN (7-17) mg/dL Glucose (74-99) mg/dL POC Glucose (mg/dL) 150 H 130 H (70-110) mg/dL 12/27/21 12/27/21 12/27/21 Range/Units 04:06 05:40 05:56 RBC (3.80-5.40) m/uL Hgb (11.4-16.0) gm/dL Hct (34.0-46.0) % Neutrophils # (1.3-7.7) k/uL ABG pO2 70 L (83-108) mmHg ABG HCO3 27 H (21-25) mmol/L ABG Total CO2 28 H (19-24) mmol/L Sodium 136 L (137-145) mmol/L BUN 20 H (7-17) mg/dL Glucose 162 H (74-99) mg/dL POC Glucose (mg/dL) 162 H (70-110) mg/dL 12/27/21 Range/Units 11:53 RBC (3.80-5.40) m/uL Hgb (11.4-16.0) gm/dL Hct (34.0-46.0) % Neutrophils # (1.3-7.7) k/uL ABG pO2 (83-108) mmHg ABG HCO3 (21-25) mmol/L ABG Total CO2 (19-24) mmol/L Sodium (137-145) mmol/L BUN (7-17) mg/dL Glucose (74-99) mg/dL POC Glucose (mg/dL) 117 H (70-110) mg/dL Assessment and Plan Time with Patient: Less than 30
[2021-12-27 18:08] LABS: Glucose,Whole Blood 117 mg/dL (70-110)
[2021-12-28] MEDS: INSULIN ASPART (NovoLOG) 100 UNIT/ML VIAL SQ SCH ×4 (00:12→18:47)
[2021-12-28 00:13] LABS: Glucose,Whole Blood 109 mg/dL (70-110)
[2021-12-28] MEDS: fentaNYL (PF). 1,000 MCG in SODIUM CHLORIDE 0.9% 80 ML IV SCH (03:16)
[2021-12-28] MEDS: NOREPINEPHRINE 4 MG in SODIUM CHLORIDE 0.9% 250 ML IV SCH ×2 (03:16→15:20)
[2021-12-28] MEDS: IPRATROPIUM-ALBUTEROL 3 ML NEB INHALATION SCH ×5 (03:53→20:10)
[2021-12-28 05:20] LABS: Basophils % (A) 0 %; Eosinophils # (A) 0.1 k/uL (0-0.7); Eosinophils % (A) 1 %; HCT 34.7 % (34.0-46.0); HGB 11.3 gm/dL (11.4-16.0); Lymphocytes # (A) 1.4 k/uL (1.0-4.8); Lymphocytes % (A) 16 %; MCH 30.3 pg (25.0-35.0); MCHC 32.6 g/dL (31.0-37.0); MCV 92.9 fL (80.0-100.0); Mean Platelet Volume 7.8; Monocytes # (A) 0.4 k/uL (0-1.0); Monocytes % (A) 5 %; Neutrophils # (A) 7.2 k/uL (1.3-7.7); Neutrophils % (A) 78 %; Platelet Count 240 k/uL (150-450); RBC 3.74 m/uL (3.80-5.40); RDW 14.4 % (11.5-15.5); WBC 9.2 k/uL (3.8-10.6)
[2021-12-28] MEDS: METOCLOPRAMIDE 5 MG/ML 2 ML VIAL IVP SCH ×4 (05:24→23:05)
[2021-12-28 05:31] LABS: Glucose,Whole Blood 115 mg/dL (70-110)
[2021-12-28 05:33] LABS: African American GFR (CKD) >90 (>60 ml/min/1.73 sqM); Anion Gap 7 mmol/L; Blood Urea Nitrogen 22 mg/dL (7-17); Calcium 8.6 mg/dL (8.4-10.2); Carbon Dioxide 22 mmol/L (22-30); Chloride 108 mmol/L (98-107); Glucose 135 mg/dL (74-99); Non-African American GFR(CKD) >90 (>60 ml/min/1.73 sqM); Potassium 3.7 mmol/L (3.5-5.1); Sodium 137 mmol/L (137-145)
[2021-12-28 05:40] LABS: ABG Base Excess -0.7 mmol/L; ABG HCO3 24 mmol/L (21-25); ABG Oxygen Saturation 98.7 % (94-97); ABG PCO2 39 mmHg (35-45); ABG PO2 104 mmHg (83-108); ABG TCO2 25 mmol/L (19-24); Allen Test Performed? Yes
[2021-12-28] MEDS: SODIUM CHLORIDE 0.9% 1,000 ML IV SCH ×2 (06:11→14:01)
[2021-12-28] MEDS: POTASSIUM CHLORIDE 10 MEQ in WATER FOR INJECTION 1 100ML.BAG IVPB SCH ×2 (06:38→07:38)
[2021-12-28] MEDS: ONDANSETRON 4 MG/2 ML VIAL IVP PRN ×3 (06:41→21:05)
[2021-12-28] MEDS: CHLORHEXIDINE GLUCONATE 15 ML CUP MUCOUS MEM SCH ×2 (07:30→20:00)
[2021-12-28] MEDS: HEPARIN SODIUM,PORCINE/PF 5,000 UNIT/0.5 ML SYRINGE SQ SCH ×2 (07:30→20:00)
[2021-12-28] MEDS: PIPERACILLIN-TAZOBACTAM 3.375 GM in SODIUM CHLORIDE 0.9% 100 ML IVPB SCH ×3 (07:31→23:04)
[2021-12-28] MEDS: methylPREDNISolone SOD SUCCI 40 MG/ML 1 ML VIAL IV SCH ×3 (07:31→23:04)
[2021-12-28] MEDS: FAMOTIDINE 20 MG/2 ML VIAL IV SCH ×2 (07:31→20:00)
--- NOTE | 2021-12-28 08:44 | XR ---
EXAMINATION TYPE: XR abdomen 1V DATE OF EXAM: 12/28/2021 Comparison: 06/08/2021 Clinical History: 46-year-old female vomiting Findings: A ring at the umbilicus. Right-sided femoral line noted. Supine imaging limited for assessment of jeronimo e air. A G-tube is short. The tip is at the GE junction level. Patchy retrocardiac opacity. 5 mm calc ification left midabdomen. Cholecystectomy clips. No dilated small bowel seen. Scattered air within t he colon. No significant stool burden. Impression: 1. Patchy retrocardiac atelectasis versus infiltrate. Correlate to exclude pneumonia. 2. The NG tube is short. The tip is at the GE junction level. Recommend further advancement by at [address] st 9 cm so that the sidehole enters the stomach. 3. A 5 mm calcification left mid abdomen, likely renal calculus. 4. Overall nonobstructive bowel gas pattern. No significant stool burden.
--- NOTE | 2021-12-28 09:46 | P.PN ---
Subjective Progress Note Date: 12/28/21 Principal diagnosis: Overdose. Reevaluated today on 12/23/21, patient remains in the ICU, intubated and mechanically ventilated. She is on assist control rate of 22, volume 400 FiO2 50% PEEP of 10 ABG showed a pO2 of 80 pCO2 42 pH of 7.39 hence the patient was kept on the same vent settings chest x-ray is showing slight improvement in her bilateral infiltrates/ARDS/pneumonia patient remains on propofol at 55 mcg/kg/m and her IV fluid at 25 mL per hour cut it down to 75, and the patient will receive 40 mg of Lasix IV push, urine output is roughly about 50 mL per hour. Patient remains on vital HP at 22 mL per hour. WBC count is 11.8 hemoglobin is 9.6 electrolytes are normal renal profile is normal Reevaluated today on 12/24/21, patient remains in the ICU, intubated and mechanically ventilated. Her ventilator settings are assist-control rate 22 tidal volume 400 FiO2 60% and PEEP of 10, ABG showed a pO2 of 70 pCO2 40 pH of 7.42. Patient remains on propofol at 55 mcg/kg/m, she is also on vital HP at 22 mL per hour. Not requiring any pressors or any inotropes. Her sputum cultures are positive for Serratia marcescens and for E. coli. Both are sensitive to Zosyn and the patient has been on Zosyn all along. Chest x-ray continues to show bilateral infiltrates, ration did have witnessed aspiration pneumonia, and she may have developed ARDS. Nonetheless I will go ahead and recommended dose of Lasix to be given today 40 mg IV push 1, her urine output seems to be reasonable all along, but the patient received significant amount of fluids upon her initial presentation with hypotension. Today the patient is awake, she gets extremely agitated on lower dose of propofol, she is not quite ready to be weaned, but she is getting close. Again she still requiring high PEEP and high FiO2. Plan to titrate her FiO2 down to 50% likely today. And maintain O2 sats above 92%. Her mental status is improving, patient is following instructions once she is on a lower dose of propofol, however she gets extremely agitated, and restlessness. Patient is back on her methadone CBC showed evidence of 8.7 hemoglobin 9.9 last lites are normal renal profile is normal Progress note dated 12/25/2021. 46-year-old female admitted on December 21, and intubated on the same day, for an overdose of SOMA. The patient remains on the mechanical ventilator. She is on volume assist control, rate 22, tidal volume 400, FiO2 60%, PEEP of 14. Blood gases show pO2 of 96, pCO2 42, and a pH is 7.42. These blood gases were done on 80%. She remains on propofol at 65 mcg/kg/m, saline at 20 mL an hour, and vital high protein at 22 mL an hour. Her sputum sample so both Serratia an Escherichia coli. For that, she is on Zosyn. White count 10.2, hemoglobin 10.3, hematocrit 32.2, and platelet count 233,000. Sodium 137 potassium 4.3 chlorides 105, CO2 27, BUN 24, creatinine 0.7. Albumin is 3.4. Chest x-ray shows patchy bibasilar airspace disease, improved on the right and slightly worse on the left. Progress note dated 12/26/2021. 46-year-old female admitted on December 21, and intubated on the same day, respiratory failure, secondary to an overdose of SOMA. The patient remains on mechanical ventilator, and is not yet ready for weaning. She is on volume assist control, rate 22, tidal volume 400, FiO2 60%, and PEEP of 14. Arterial blood gases show pO2 of 86, pCO2 42, and a pH of 7.45. The patient is on saline at 20 mL an hour, propofol at 75 mcg/kg/m, fentanyl at 2 mcg/kg/h, and vital AF at 10 mL an hour. The patient has both Serratia an Escherichia coli in the sputum, and his on Zosyn for that. The patient can get either labetalol IV when necessary, or Cleveprex, for blood pressure control. The FiO2 was reduced to 50%. White count 8.5, hemoglobin 10.7, hematocrit 32.7, platelet count 230,000. Sodium, potassium, chloride, CO2, are all normal. BUN 26 with a creatinine of 0.67. Anion gap is normal. Calcium 8.1. Chest x-ray shows the NG tube tip to be in the thoracic esophagus. There is some mild interstitial edema present. Progress note dated 12/27/2021. 46-year-old female admitted on December 21, and intubated on the same day, respiratory failure, secondary to an overdose of SOMA. The patient remains on mechanical ventilator, and unfortunately, has not made much progress. The patient is on the volume assist control, rate 22, tidal volume 400, FiO2 40%, and PEEP of 14. Blood gases show by mouth 270, pCO2 42, and a pH is 7.42. The patient is currently going to be started on Reglan at 10 mg IV push every 6 hours, for gastroparesis, and also receive Zofran for nausea and vomiting. The patient is currently on fentanyl at 1 mcg/kg/h, propofol at 75 mcg/kg/m, and saline at 30 mL an hour. Tube feedings on hold because of high residuals. The patient is off Cleveprex. Blood pressure is been very labile. White count 10.3, hemoglobin 11.1, hematocrit 33.4, with a normal platelet count. Sodium 136, potassium 3.9, chlorides 106, CO2 26, BUN 20, with a creatinine of 0.58. Sputum is showing evidence of both Serratia an Escherichia coli. For that she is on Zosyn. Chest x-ray shows increasing left lower lobe opacity. Progress note dated 12/28/2021. 46-year-old female admitted on December 21, and intubated on the same day, for re spiratory failure secondary to an overdose of SOMA. The patient remains on the mechanical ventilator, and is not really making much progress. She still on 50% FiO2, and a PEEP of 14. I had a long conversation with the patient's yesterday. The patient's on fentanyl drip at 2 mcg/kg/h, propofol at 75 mcg/kg/m, saline at 20 mL an hour,, and vomiting. She remains on volume assist control, rate 22, tidal volume 400, FiO2 50%, and PEEP of 14. Blood gases show pO2 104, pCO2 39, and a pH is 7.40. I've asked the nurses to resume the tube feeds at 5 mL an hour. In addition, I've asked for a flat plate of the abdomen. The tube feeding should not be increased. White count 9.2, hemoglobin 11.3, hematocrit 34.7, and platelet count 240,000. Sodium 137, potassium 3.7, chlorides 108, CO2 22, BUN 22, with a creatinine of 0.54. The sputum sample show evidence of both Serratia an Escherichia coli. She is on antibiotics for that. Flat plate of the abdomen shows patchy retrocardiac atelectasis versus infiltrate, an NG tube that is short, with the tip at the GE junction, and a nonobstructive bowel gas pattern. Objective - Vital Signs Vital signs: Vital Signs Temp 98.1 F 12/28/21 08:00 Pulse 69 12/28/21 08:00 Resp 17 12/28/21 08:00 BP 114/64 12/27/21 10:00 Pulse Ox 97 12/28/21 08:00 FiO2 50 12/28/21 08:00 Intake & Output 12/27/21 12/28/21 12/28/21 18:59 06:59 18:59 Intake Total 864.332 892.646 346 Output Total 595 730 75 Balance 269.332 162.646 271 Weight 92.5 kg Intake: IV 376 276 146 Piperacillin-Tazobactam 3 100 100 .375 gm In Sodium Chloride 0.9% 100 ml @ 25 mls/hr IVPB Q8HR [facility] Rx# :[id number] Pressure Bag 36 36 6 Sodium Chloride 0.9% 1, 240 240 40 000 ml @ 20 mls/hr IV . Q24H [facility] Rx#:[id number] Intake, IV Titration 488.332 616.646 200 Amount Potassium Chloride 10 meq 100 In Water For Injection 1 100ml.bag @ 100 mls/hr IVPB Q1H [facility] Rx#: [id number] Potassium Chloride 10 meq 200 In Water For Injection 1 100ml.bag @ 100 mls/hr IVPB Q1H [facility] Rx#: [id number] fentaNYL (PF). 1,000 mcg 92.306 192.893 In Sodium Chloride 0.9% 80 ml @ 0.5 MCG/KG/HR 4.6 mls/hr IV .[id number] [facility] Rx#:[id number] propofoL 1,000 mg In 296.026 423.753 Empty Bag 1 bag @ 5 MCG/ KG/MIN 2.649 mls/hr IV . Q24H [facility] Rx#:[id number] Tube Feeding 0 0 Output: Gastric Drainage 200 Urine 595 530 75 Other: Voiding Method Indwelling Catheter Indwelling Catheter Indwelling Catheter # Bowel Movements 1 # Emeses 1 ABP, PAP, CO, CI - Last Documented Arterial Blood Pressure 139/65 - Exam No acute distress, sedated, orally placed endotracheal tube and NG tube. HEENT examination is grossly unremarkable. Neck supple. Full range of motion. No adenopathy thyromegaly or neck vein di stention. Cardiovascular examination reveals regular rhythm rate. S1-S2 normal. No S3 or S4. No discernible murmur noted. Heart rate 69 bpm. Lungs reveal scattered bilateral rhonchi. No crackles or wheezes. Saturations are 97 %. Breath sounds equal bilaterally. Abdomen soft, without masses. Bowel sounds are noted. Extremities are intact. No cyanosis clubbing or edema. Skin is without rash or lesion. Neurologic examination cannot be adequately assessed. - Labs CBC & Chem 7: 12/28/21 04:50 12/28/21 04:50 Labs: Abnormal Lab Results - Last 24 Hours (Table) 12/27/21 12/27/21 12/28/21 Range/Units 11:53 18:07 04:50 RBC 3.74 L (3.80-5.40) m/uL Hgb 11.3 L (11.4-16.0) gm/dL ABG Total CO2 (19-24) mmol/L ABG O2 Saturation (94-97) % Chloride (98-107) mmol/L BUN (7-17) mg/dL Glucose (74-99) mg/dL POC Glucose (mg/dL) 117 H 117 H (70-110) mg/dL 12/28/21 12/28/21 12/28/21 Range/Units 04:50 05:28 05:37 RBC (3.80-5.40) m/uL Hgb (11.4-16.0) gm/dL ABG Total CO2 25 H (19-24) mmol/L ABG O2 Saturation 98.7 H (94-97) % Chloride 108 H (98-107) mmol/L BUN 22 H (7-17) mg/dL Glucose 135 H (74-99) mg/dL POC Glucose (mg/dL) 115 H (70-110) mg/dL Assessment and Plan Assessment: Acute hypoxemic respiratory failure secondary to overdose of SOMA, status post intubation and mechanical ventilation on December 21, with failure to wean from mechanical ventilation. Aspiration pneumonia. Rule out acute respiratory distress syndrome, with a P/F ratio of 140/moderate disease. History of depression and suicidal ideations. Obesity, with a BMI of 32. History of heroin abuse. History of chronic hepatitis C. History of possible seizures. Hypotension, secondary to hypovolemia and possible septic shock, resolved. Plan: Plan dated 12/25/2021. The patient remains on mechanical ventilation, and still on 14 cm water PEEP. The patient will continue with GI and DVT prophylaxis. The patient continues on Zosyn, for sputum showing evidence of both Serratia and Escherichia coli. Labs, x-rays, medications are all reviewed. The patient remains on tube feedings at goal. Overall prognosis remains guarded. We will continue to follow and make recommendations where appropriate. Plan dated 12/26/2021. The patient remains on mechanical ventilator, is likely not yet ready to wean as she is currently on a PEEP of 14. The FiO2 is reduced down to 50%. The patient remains on Zosyn for both Serratia, and Escherichia coli in the sputum. I told the nurse that she could use either IV labetalol, or Cleveprex, to control the elevated blood pressure. Labs, x-rays, and medications are reviewed. Overall prognosis remains very guarded. We will continue to follow the patient make recommendations along the way. Plan dated 12/27/2021. The patient remains on mechanical ventilator. Vent settings are unchanged. The patient really has not made much in the way of progress. She remains on propofol and fentanyl. Tube feedings on hold because of high residuals. We added Reglan 10 mg IV push every 6 hours. She is also getting Zofran as necessary. Labs, x-rays, and medications are reviewed. Prognosis is very gua rded. Today, I did speak to the for about 15 minutes. I gave him an update. His name is Mir. I told Mir that she was critically ill but stable. She's not getting any worse, but not progressing either. Plan dated 12/28/2021. The patient remains on mechanical ventilator. The patient is both on fentanyl and propofol. 2 feedings on hold because of high residuals and recurrent vomi ting. The patient is on Reglan 10 mg every 6 hours IV push. We will resume tube feedings at 5 mL an hour. The patient will have a flat plate of the abdomen. Labs, x-rays, and medications are reviewed. Prognosis is guarded. I did have a long conversation with the Mir yesterday. I explained to him that his is very critically ill. Overall prognosis remains very guarded. Time with Patient: Greater than 30
[2021-12-28] MEDS: fentaNYL (PF) 2,500 MCG in SODIUM CHLORIDE 0.9% 200 ML IV SCH (10:01)
[2021-12-28 11:51] LABS: Glucose,Whole Blood 115 mg/dL (70-110)
--- NOTE | 2021-12-28 13:44 | P.PN ---
Subjective Progress Note Date: 12/28/21 This 46 year female who was admitted for altered mental status and overdose was suspected taking 2 Soma in addition to her daily methadone and was intubated on 12/21/2021. Patient continues to be monitored in the intensive care unit on mechanical ventilator with an FiO2 of 50%. Chest x-ray today shows mild right lower lobe infiltrate with advancement of NG tube. She continues cleviprex gtt which was titrated as patient was tachycardic 130s today. She is also continued on fentanyl gtt which we will hold methadone for now. She continues on enteral tube feedings. Sputum culture positive for serratia and E.Coli. She is on propofol for sedation and continues on IV Zosyn, IV steroids. She is afebrile, heart rate 112, blood pressure 130/63, oxygenation 94%. Labs today showing white count 8.5, hemoglobin 10.7, sodium 137, potassium 3.7, BUN 26, creatinine 0.67, blood glucose in the 140s. 12/27/2021 Patient evaluated in the intensive care unit continues on mechanical ventilator with PEEP of 15, FiO2 50%. She remains on fentanyl gtt, propofol, IV steroids. She is off cleviprex infusion and heart rate has improved now in the 70s. She does open eyes and tracks during assessment. Repeat chest xray today showing increasing left lower lung opacity and similar patchy right basilar opacity. Tube feedings are currently on hold and she is started on reglan. Sodium today 136, potassium 3.9, glucose 117, calcium 8.4, white count 10.3, hgb 11.1. Continues on IV Zosyn for sputum culture. Neuro is also following patient closely. 12/28/2021 Patient is evaluated today continues in the intensive care unit on mechanical ventilator with PEEP of 16, FiO2 of 50%. She had an episode of emesis last ni ght, NG tube was advanced. She continues on IV zosyn for suspected aspiration pneumonia. Enteral feedings were held and she was started on IVP reglan, which she is having 2 to 3 BMs per shift. She is now started back on enteral feedings at a slower rate. Abdominal xray completed this morning shows possible 5 mm calcification let mid abdomen, likely renal calculus, overall nonobstructive bowel gas pattern. No significant stool burden. Patient continues on fentanyl gtt, propofol, IV zosyn. Off Cleviprex and levophed. She remains afebrile, heart rate 80s, blood pressure 136/62. Labs reviewed today are essentially stable, sodium 137, potassium 3.7, chloride 108, BUN 22, creatinine 0.54, blood glucose 110s, calcium 8.6. She has spontaneous eye opening. Unable to completely review of system as patient is intubated PHYSICAL EXAMINATION: GENERAL: The patient is intubated she is spontaneously opening her eyes. HEENT: Pupils are round and equally reacting to light. EOMI. No scleral icterus. No conjunctival pallor. Normocephalic, atraumatic. No pharyngeal erythema. No thyromegaly. CARDIOVASCULAR: S1 and S2 present. No murmurs, rubs, or gallops. PULMONARY: Chest is clear to auscultation, no wheezing or crackles. ABDOMEN: Soft, nontender, nondistended, normoactive bowel sounds. No palpable organomegaly. MUSCULOSKELETAL: No joint swelling or deformity. EXTREMITIES: No cyanosis, clubbing, or pedal edema. NEUROLOGICAL: Patient is intubated and sedated. SKIN: No rashes. Assessment and Plan Assessment Acute hypoxic respiratory failure secondary to overdose patient is continued on mechanical ventilator with FiO2 of 50% Toxic metabolic encephalopathy Aspiration pneumonia and continues IV Zosyn Gastroparesis on reglan Mild septic shock with hypotension secondary to hypovolemia, resolved off Levophed History of depression and suicidal ideations History of heroin abuse History of chronic hepatitis C History of questionable seizure activity Obesity with BMI of 31.6 GI prophylaxis DVT prophylaxis Full code Plan Continue with close monitoring in the intensive care unit on mechanical ventilator with FiO2 50% Continue on IV zosyn, IV steroids She has been weaned off levophed, cleviprex gtt is off Continues on IV fentanyl which we will hold methadone Patient is being followed closely by pulmonary ham pumper, neurology Continue blood glucose monitoring No plans for extubation today Tube feedings resolved at slower rate Repeat Labs in AM Prognosis remains guarded. The impression and plan of care has been dictated by Ricarda Pedroza Nurse Practitioner as directed. Dr. Carlyn MD I have performed a history and physical examination and medical decision making of this patient, discussed the same with the dictator, and agree with the dictators assessment and plan as written, documented as a scribe. Based on total visit time, I have performed more than 50% of this visit. Objective - Vital Signs Vital signs: Vital Signs Temp 98.2 F 12/28/21 12:00 Pulse 80 12/28/21 12:00 Resp 27 H 12/28/21 12:00 BP 101/56 12/28/21 11:00 Pulse Ox 95 12/28/21 12:00 FiO2 50 12/28/21 12:00 Intake & Output 12/27/21 12/28/21 12/28/21 18:59 06:59 18:59 Intake Total 864.332 892.646 438 Output Total 595 730 250 Balance 269.332 162.646 188 Weight 92.5 kg Intake: IV 376 276 238 Piperacillin-Tazobactam 3 100 100 .375 gm In Sodium Chloride 0.9% 100 ml @ 25 mls/hr IVPB Q8HR [facility] Rx# :[id number] Pressure Bag 36 36 18 Sodium Chloride 0.9% 1, 240 240 120 000 ml @ 20 mls/hr IV . Q24H [facility] Rx#:[id number] Intake, IV Titration 488.332 616.646 200 Amount Potassium Chloride 10 meq 100 In Water For Injection 1 100ml.bag @ 100 mls/hr IVPB Q1H [facility] Rx#: [id number] Potassium Chloride 10 meq 200 In Water For Injection 1 100ml.bag @ 100 mls/hr IVPB Q1H [facility] Rx#: [id number] fentaNYL (PF). 1,000 mcg 92.306 192.893 In Sodium Chloride 0.9% 80 ml @ 0.5 MCG/KG/HR 4.6 mls/hr IV .[id number] [facility] Rx#:[id number] propofoL 1,000 mg In 296.026 423.753 Empty Bag 1 bag @ 5 MCG/ KG/MIN 2.649 mls/hr IV . Q24H [facility] Rx#:[id number] Tube Feeding 0 0 Output: Gastric Drainage 200 Urine 595 530 250 Other: Voiding Method Indwelling Catheter Indwelling Catheter Indwelling Catheter # Bowel Movements 1 # Emeses 1 ABP, PAP, CO, CI - Last Documented Arterial Blood Pressure 136/62 - Labs CBC & Chem 7: 12/28/21 04:50 12/28/21 04:50 Labs: Abnormal Lab Results - Last 24 Hours (Table) 12/27/21 12/28/21 12/28/21 Range/Units 18:07 04:50 04:50 RBC 3.74 L (3.80-5.40) m/uL Hgb 11.3 L (11.4-16.0) gm/dL ABG Total CO2 (19-24) mmol/L ABG O2 Saturation (94-97) % Chloride 108 H (98-107) mmol/L BUN 22 H (7-17) mg/dL Glucose 135 H (74-99) mg/dL POC Glucose (mg/dL) 117 H (70-110) mg/dL 12/28/21 12/28/21 12/28/21 Range/Units 05:28 05:37 11:49 RBC (3.80-5.40) m/uL Hgb (11.4-16.0) gm/dL ABG Total CO2 25 H (19-24) mmol/L ABG O2 Saturation 98.7 H (94-97) % Chloride (98-107) mmol/L BUN (7-17) mg/dL Glucose (74-99) mg/dL POC Glucose (mg/dL) 115 H 115 H (70-110) mg/dL Assessment and Plan Time with Patient: Less than 30
--- NOTE | 2021-12-28 14:28 | P.PN ---
Subjective Progress Note Date: 12/28/21 The patient is seen at bedside and per nurse, she continues to have nausea, vomiting and per nurse she is following some commands when sedation is low. She is currently on Is on IV Propofol 705cg/kg/min. Fentanyl 2mcg/kg/hr. Objective - Vital Signs Vital signs: Vital Signs Temp 98.2 F 12/28/21 12:00 Pulse 69 12/28/21 14:00 Resp 22 12/28/21 14:00 BP 101/56 12/28/21 13:00 Pulse Ox 98 12/28/21 14:00 FiO2 50 12/28/21 12:00 Intake & Output 12/27/21 12/28/21 12/28/21 18:59 06:59 18:59 Intake Total 864.332 892.646 539 Output Total 595 730 315 Balance 269.332 162.646 224 Weight 92.5 kg Intake: IV 376 276 314 Piperacillin-Tazobactam 3 100 100 .375 gm In Sodium Chloride 0.9% 100 ml @ 25 mls/hr IVPB Q8HR [facility] Rx# :[id number] Pressure Bag 36 36 24 Sodium Chloride 0.9% 1, 240 240 190 000 ml @ 20 mls/hr IV . Q24H [facility] Rx#:[id number] Intake, IV Titration 488.332 616.646 200 Amount Potassium Chloride 10 meq 100 In Water For Injection 1 100ml.bag @ 100 mls/hr IVPB Q1H [facility] Rx#: [id number] Potassium Chloride 10 meq 200 In Water For Injection 1 100ml.bag @ 100 mls/hr IVPB Q1H [facility] Rx#: [id number] fentaNYL (PF). 1,000 mcg 92.306 192.893 In Sodium Chloride 0.9% 80 ml @ 0.5 MCG/KG/HR 4.6 mls/hr IV .[id number] [facility] Rx#:[id number] propofoL 1,000 mg In 296.026 423.753 Empty Bag 1 bag @ 5 MCG/ KG/MIN 2.649 mls/hr IV . Q24H [facility] Rx#:[id number] Tube Feeding 0 25 Output: Gastric Drainage 200 Urine 595 530 315 Other: Voiding Method Indwelling Catheter Indwelling Catheter Indwelling Catheter # Bowel Movements 1 # Emeses 1 ABP, PAP, CO, CI - Last Documented Arterial Blood Pressure 133/65 - Exam Physical exam is limited. General: Does not appear in acute distress. Lung: Intubated on vent Neurological exam: Is on IV Propofol 75mcg/kg/min. Fentanyl 2mcg/kg/hr. Higher mental function: Comatose. Not following commands. Cranial Nerves: I had to manually open her eye. Primary gaze is midline. Pupils are round, reactive to light and symmetrically. No facial weakness. Is breathing at vent. Motor: Strength: Unable to assess because of her condition. - Labs CBC & Chem 7: 12/28/21 04:50 12/28/21 04:50 Labs: Abnormal Lab Results - Last 24 Hours (Table) 12/27/21 12/28/21 12/28/21 Range/Units 18:07 04:50 04:50 RBC 3.74 L (3.80-5.40) m/uL Hgb 11.3 L (11.4-16.0) gm/dL ABG Total CO2 (19-24) mmol/L ABG O2 Saturation (94-97) % Chloride 108 H (98-107) mmol/L BUN 22 H (7-17) mg/dL Glucose 135 H (74-99) mg/dL POC Glucose (mg/dL) 117 H (70-110) mg/dL 12/28/21 12/28/21 12/28/21 Range/Units 05:28 05:37 11:49 RBC (3.80-5.40) m/uL Hgb (11.4-16.0) gm/dL ABG Total CO2 25 H (19-24) mmol/L ABG O2 Saturation 98.7 H (94-97) % Chloride (98-107) mmol/L BUN (7-17) mg/dL Glucose (74-99) mg/dL POC Glucose (mg/dL) 115 H 115 H (70-110) mg/dL Assessment and Plan Assessment: * Altered mental status, likely due to drug overdose. Patient has ingested 2 tablets of Soma. Also on high dose methadone 170 mg daily. Uncertain if she has taken anything else. * Toxic metabolic encephalopathy due to above, much improved. And medication effect: IV Propofol and IV Fentanyl. * History of overdose in the past * Ventilator-dependent respiratory failure, on mechanical ventilation * Possible aspiration pneumonia * History of depression and suicidal ideations * Previous history of heroin abuse * History of hepatitis C * Hypotension---resolved Plan: * Per Dr. Zhou and nurse with sedation kostas is improving and following direction but still slow. Currently is on IV Propofol and Fentanyl. * EEG 12/23/2021 revealed background slowing of severe degree, with intermittent periods of generalized suppression. This suggestive of generalized cerebral dysfunction as can be seen with toxic metabolic encephalopathy, or due to diffuse structural brain abnormality, or medication effect. Clinical correlation is recommended. Follow-up EEG recommended if clinically ind icated. No epileptiform activity was seen. * 2-D echo revealed normal left ventricle size and systolic function. EF is 55- 60%. * Hold off on antiepileptic medication, as EEG did not reveal any epileptiform activity. * Will get repeat CT head to assess if new intracranial process. Per nurse she is following commands when on lower sedation. * Medical management as per critical care/IM. The plan is discussed with the patient's nurse. Juan José Casey M.D. Neuro-Hospitalist. Time with Patient: Less than 30
--- NOTE | 2021-12-28 17:04 | CT ---
EXAMINATION TYPE: CT brain wo con DATE OF EXAM: 12/28/2021 COMPARISON: None available HISTORY: AMS CT DLP: 1202.4 mGycm. Automated Exposure Control for Dose Reduction was Utilized. TECHNIQUE: CT scan of the head is performed without contrast. FINDINGS: There is no acute intracranial hemorrhage, mass effect, or midline shift identified. The ventricles and sulci are within normal limits in size. The white matter is grossly preserved. The gl obes are intact. The visualized sinuses demonstrate mild disease. IMPRESSION: No acute intracranial abnormality.
[2021-12-28 17:22] LABS: Glucose,Whole Blood 97 mg/dL (70-110)
[2021-12-28 23:32] LABS: Glucose,Whole Blood 102 mg/dL (70-110)
[2021-12-29] MEDS: INSULIN ASPART (NovoLOG) 100 UNIT/ML VIAL SQ SCH ×4 (00:21→18:38)
[2021-12-29] MEDS: fentaNYL (PF) 2,500 MCG in SODIUM CHLORIDE 0.9% 200 ML IV SCH ×3 (00:21→18:29)
[2021-12-29] MEDS: IPRATROPIUM-ALBUTEROL 3 ML NEB INHALATION SCH ×7 (01:05→23:52)
[2021-12-29 05:40] LABS: ABG Base Excess -2.1 mmol/L; ABG HCO3 23 mmol/L (21-25); ABG Oxygen Saturation 97.8 % (94-97); ABG PCO2 37 mmHg (35-45); ABG PO2 108 mmHg (83-108); ABG TCO2 24 mmol/L (19-24); Allen Test Performed? Yes
--- NOTE | 2021-12-29 05:51 | XR ---
EXAMINATION TYPE: XR chest 1V DATE OF EXAM: 12/29/2021 CLINICAL HISTORY: Difficulty breathing progress study. TECHNIQUE: Single AP portable semiupright view of the chest is obtained. COMPARISON: Chest x-ray from 2 days earlier and older studies. FINDINGS: Stable endotracheal and orogastric tubes. Persistent left greater than right bibasilar op[place] slightly elevated left hemidiaphragm. Upper lungs remain clear without pneumothorax. Cardiac [place] size stable and within normal limits. Osseous structures are intact. IMPRESSION: Persistent left greater than right bibasilar acute infiltrate and/or atelectasis. No sign ificant change from most recent x-ray.
[2021-12-29 06:06] LABS: Basophils % (A) 0 %; Eosinophils # (A) 0.1 k/uL (0-0.7); Eosinophils % (A) 1 %; HCT 35.9 % (34.0-46.0); HGB 11.8 gm/dL (11.4-16.0); Lymphocytes # (A) 1.8 k/uL (1.0-4.8); Lymphocytes % (A) 17 %; MCH 30.3 pg (25.0-35.0); MCV 91.8 fL (80.0-100.0); Mean Platelet Volume 7.4; Monocytes # (A) 0.5 k/uL (0-1.0); Monocytes % (A) 4 %; Neutrophils # (A) 8.6 k/uL (1.3-7.7); Neutrophils % (A) 77 %; Platelet Count 280 k/uL (150-450); RBC 3.91 m/uL (3.80-5.40); RDW 14.1 % (11.5-15.5); WBC 11.1 k/uL (3.8-10.6)
[2021-12-29 06:24] LABS: African American GFR (CKD) >90 (>60 ml/min/1.73 sqM); Anion Gap 7 mmol/L; Blood Urea Nitrogen 20 mg/dL (7-17); Calcium 8.6 mg/dL (8.4-10.2); Carbon Dioxide 22 mmol/L (22-30); Chloride 111 mmol/L (98-107); Glucose 111 mg/dL (74-99); Non-African American GFR(CKD) >90 (>60 ml/min/1.73 sqM); Potassium 3.5 mmol/L (3.5-5.1); Sodium 140 mmol/L (137-145)
[2021-12-29] MEDS: METOCLOPRAMIDE 5 MG/ML 2 ML VIAL IVP SCH (06:48)
[2021-12-29] MEDS: NOREPINEPHRINE 4 MG in SODIUM CHLORIDE 0.9% 250 ML IV SCH (06:49)
[2021-12-29] MEDS: POTASSIUM CHLORIDE 10 MEQ in WATER FOR INJECTION 1 100ML.BAG IVPB SCH ×4 (06:49→13:29)
[2021-12-29] MEDS: CHLORHEXIDINE GLUCONATE 15 ML CUP MUCOUS MEM SCH (09:22)
[2021-12-29] MEDS: HEPARIN SODIUM,PORCINE/PF 5,000 UNIT/0.5 ML SYRINGE SQ SCH ×2 (09:22→20:39)
[2021-12-29] MEDS: FAMOTIDINE 20 MG/2 ML VIAL IV SCH ×2 (09:23→20:39)
[2021-12-29] MEDS: methylPREDNISolone SOD SUCCI 40 MG/ML 1 ML VIAL IV SCH (09:23)
[2021-12-29] MEDS: CLEVIDIPINE BUTYRATE 25 MG in EMPTY BAG 1 BAG IV SCH (09:38)
[2021-12-29] MEDS: DEXMEDETOMIDINE/0.9% NACL(PMX) 400 MCG in EMPTY BAG 1 BAG IV SCH ×2 (09:44→21:36)
[2021-12-29] MEDS: PIPERACILLIN-TAZOBACTAM 3.375 GM in SODIUM CHLORIDE 0.9% 100 ML IVPB SCH ×2 (09:53→18:38)
--- NOTE | 2021-12-29 10:02 | P.PN ---
Subjective Progress Note Date: 12/29/21 Principal diagnosis: Overdose. Reevaluated today on 12/23/21, patient remains in the ICU, intubated and mechanically ventilated. She is on assist control rate of 22, volume 400 FiO2 50% PEEP of 10 ABG showed a pO2 of 80 pCO2 42 pH of 7.39 hence the patient was kept on the same vent settings chest x-ray is showing slight improvement in her bilateral infiltrates/ARDS/pneumonia patient remains on propofol at 55 mcg/kg/m and her IV fluid at 25 mL per hour cut it down to 75, and the patient will receive 40 mg of Lasix IV push, urine output is roughly about 50 mL per hour. Patient remains on vital HP at 22 mL per hour. WBC count is 11.8 hemoglobin is 9.6 electrolytes are normal renal profile is normal Reevaluated today on 12/24/21, patient remains in the ICU, intubated and mechanically ventilated. Her ventilator settings are assist-control rate 22 tidal volume 400 FiO2 60% and PEEP of 10, ABG showed a pO2 of 70 pCO2 40 pH of 7.42. Patient remains on propofol at 55 mcg/kg/m, she is also on vital HP at 22 mL per hour. Not requiring any pressors or any inotropes. Her sputum cultures are positive for Serratia marcescens and for E. coli. Both are sensitive to Zosyn and the patient has been on Zosyn all along. Chest x-ray continues to show bilateral infiltrates, ration did have witnessed aspiration pneumonia, and she may have developed ARDS. Nonetheless I will go ahead and recommended dose of Lasix to be given today 40 mg IV push 1, her urine output seems to be reasonable all along, but the patient received significant amount of fluids upon her initial presentation with hypotension. Today the patient is awake, she gets extremely agitated on lower dose of propofol, she is not quite ready to be weaned, but she is getting close. Again she still requiring high PEEP and high FiO2. Plan to titrate her FiO2 down to 50% likely today. And maintain O2 sats above 92%. Her mental status is improving, patient is following instructions once she is on a lower dose of propofol, however she gets extremely agitated, and restlessness. Patient is back on her methadone CBC showed evidence of 8.7 hemoglobin 9.9 last lites are normal renal profile is normal Progress note dated 12/25/2021. 46-year-old female admitted on December 21, and intubated on the same day, for an overdose of SOMA. The patient remains on the mechanical ventilator. She is on volume assist control, rate 22, tidal volume 400, FiO2 60%, PEEP of 14. Blood gases show pO2 of 96, pCO2 42, and a pH is 7.42. These blood gases were done on 80%. She remains on propofol at 65 mcg/kg/m, saline at 20 mL an hour, and vital high protein at 22 mL an hour. Her sputum sample so both Serratia an Escherichia coli. For that, she is on Zosyn. White count 10.2, hemoglobin 10.3, hematocrit 32.2, and platelet count 233,000. Sodium 137 potassium 4.3 chlorides 105, CO2 27, BUN 24, creatinine 0.7. Albumin is 3.4. Chest x-ray shows patchy bibasilar airspace disease, improved on the right and slightly worse on the left. Progress note dated 12/26/2021. 46-year-old female admitted on December 21, and intubated on the same day, respiratory failure, secondary to an overdose of SOMA. The patient remains on mechanical ventilator, and is not yet ready for weaning. She is on volume assist control, rate 22, tidal volume 400, FiO2 60%, and PEEP of 14. Arterial blood gases show pO2 of 86, pCO2 42, and a pH of 7.45. The patient is on saline at 20 mL an hour, propofol at 75 mcg/kg/m, fentanyl at 2 mcg/kg/h, and vital AF at 10 mL an hour. The patient has both Serratia an Escherichia coli in the sputum, and his on Zosyn for that. The patient can get either labetalol IV when necessary, or Cleveprex, for blood pressure control. The FiO2 was reduced to 50%. White count 8.5, hemoglobin 10.7, hematocrit 32.7, platelet count 230,000. Sodium, potassium, chloride, CO2, are all normal. BUN 26 with a creatinine of 0.67. Anion gap is normal. Calcium 8.1. Chest x-ray shows the NG tube tip to be in the thoracic esophagus. There is some mild interstitial edema present. Progress note dated 12/27/2021. 46-year-old female admitted on December 21, and intubated on the same day, respiratory failure, secondary to an overdose of SOMA. The patient remains on mechanical ventilator, and unfortunately, has not made much progress. The patient is on the volume assist control, rate 22, tidal volume 400, FiO2 40%, and PEEP of 14. Blood gases show by mouth 270, pCO2 42, and a pH is 7.42. The patient is currently going to be started on Reglan at 10 mg IV push every 6 hours, for gastroparesis, and also receive Zofran for nausea and vomiting. The patient is currently on fentanyl at 1 mcg/kg/h, propofol at 75 mcg/kg/m, and saline at 30 mL an hour. Tube feedings on hold because of high residuals. The patient is off Cleveprex. Blood pressure is been very labile. White count 10.3, hemoglobin 11.1, hematocrit 33.4, with a normal platelet count. Sodium 136, potassium 3.9, chlorides 106, CO2 26, BUN 20, with a creatinine of 0.58. Sputum is showing evidence of both Serratia an Escherichia coli. For that she is on Zosyn. Chest x-ray shows increasing left lower lobe opacity. Progress note dated 12/28/2021. 46-year-old female admitted on December 21, and intubated on the same day, for re spiratory failure secondary to an overdose of SOMA. The patient remains on the mechanical ventilator, and is not really making much progress. She still on 50% FiO2, and a PEEP of 14. I had a long conversation with the patient's yesterday. The patient's on fentanyl drip at 2 mcg/kg/h, propofol at 75 mcg/kg/m, saline at 20 mL an hour,, and vomiting. She remains on volume assist control, rate 22, tidal volume 400, FiO2 50%, and PEEP of 14. Blood gases show pO2 104, pCO2 39, and a pH is 7.40. I've asked the nurses to resume the tube feeds at 5 mL an hour. In addition, I've asked for a flat plate of the abdomen. The tube feeding should not be increased. White count 9.2, hemoglobin 11.3, hematocrit 34.7, and platelet count 240,000. Sodium 137, potassium 3.7, chlorides 108, CO2 22, BUN 22, with a creatinine of 0.54. The sputum sample show evidence of both Serratia an Escherichia coli. She is on antibiotics for that. Flat plate of the abdomen shows patchy retrocardiac atelectasis versus infiltrate, an NG tube that is short, with the tip at the GE junction, and a nonobstructive bowel gas pattern. Progress note dated 12/29/2021. 46-year-old female admitted on December 21, and intubated on the same day, for respiratory failure, secondary to an overdose of SOMA. The patient remains on mechanical ventilator. He is on volume assist control, rate 22, tidal volume 400, FiO2 50%, and a PEEP of 14, which is reduced down to 10. Arterial blood gases show pO2 108, pCO2 37, and a pH is 7.4. Currently, she is on fentanyl at 2 mcg/kg/h, propofol at 75 mcg/kg/m, saline at 50 mL an hour, and tube feedings are currently on hold, for recurrent emesis. Today, we will do a daily interruption of sedation. The patient remains on Zosyn. Labs include a white count 11.9, hemoglobin 11.8, hematocrit 35.9, and a normal platelet count. Sodium 140, potassium 3.5, chlorides 1, CO2 22, BUN 20, creatinine 0.52. Glucose 111. Calcium is 8.6. Sputum from December 21, was positive for Serratia and Escherichia coli. Brain CAT scan, does not show anything acute. Chest x- ray shows persistent left greater than right basilar infiltrates or atelectasis. Chest x-ray is unchanged. Objective - Vital Signs Vital signs: Vital Signs Temp 99.1 F 12/29/21 04:00 Pulse 66 12/29/21 07:59 Resp 22 12/29/21 07:00 BP 152/82 12/29/21 07:00 Pulse Ox 96 12/29/21 05:00 FiO2 50 12/29/21 08:00 Intake & Output 12/28/21 12/29/21 12/29/21 18:59 06:59 18:59 Intake Total 1029 1222.437 58 Output Total 595 645 50 Balance 434 577.437 8 Intake: IV 579 583 53 Piperacillin-Tazobactam 3 100 .375 gm In Sodium Chloride 0.9% 100 ml @ 25 mls/hr IVPB Q8HR [facility] Rx# :[id number] Pressure Bag 39 33 3 Sodium Chloride 0.9% 1, 440 550 50 000 ml @ 20 mls/hr IV . Q24H [facility] Rx#:[id number] Intake, IV Titration 400 584.437 0 Amount Clevidipine Butyrate 25 0 mg In Empty Bag 1 bag @ 1 MG/HR 2 mls/hr IV .Q24H [facility] Rx#:[id number] Potassium Chloride 10 meq 200 In Water For Injection 1 100ml.bag @ 100 mls/hr IVPB Q1H [facility] Rx#: [id number] fentaNYL (PF) 2,500 mcg 250 In Sodium Chloride 0.9% 200 ml @ 2 MCG/KG/HR 18.5 mls/hr IV .[id number] [facility] Rx#:[id number] propofoL 1,000 mg In 200 334.437 Empty Bag 1 bag @ 5 MCG/ KG/MIN 2.649 mls/hr IV . Q24H [facility] Rx#:[id number] Tube Feeding 50 55 5 Output: Urine 595 645 50 Other: Voiding Method Indwelling Catheter Indwelling Catheter ABP, PAP, CO, CI - Last Documented Arterial Blood Pressure 178/86 - Exam No acute distress, sedated, orally placed endotracheal tube and NG tube. HEENT examination is grossly unremarkable. Neck supple. Full range of motion. No adenopathy thyromegaly or neck vein distention. Cardiovascular examination reveals regular rhythm rate. S1-S2 normal. No S3 or S4. No discernible murmur noted. Heart rate 66 bpm. Lungs reveal scattered bilateral rhonchi. No crackles or wheezes. Saturations are 96 %. Breath sounds equal bilaterally. Abdomen soft, without masses. Bowel sounds are noted. Extremities are intact. No cyanosis clubbing or edema. Skin is without rash or lesion. Neurologic examination cannot be adequately assessed. - Labs CBC & Chem 7: 12/29/21 05:55 12/29/21 05:55 Labs: Abnormal Lab Results - Last 24 Hours (Table) 12/28/21 12/29/21 12/29/21 Range/Units 11:49 05:37 05:55 WBC 11.1 H (3.8-10.6) k/uL Neutrophils # 8.6 H (1.3-7.7) k/uL ABG O2 Saturation 97.8 H (94-97) % Chloride (98-107) mmol/L BUN (7-17) mg/dL Glucose (74-99) mg/dL POC Glucose (mg/dL) 115 H (70-110) mg/dL 12/29/21 Range/Units 05:55 WBC (3.8-10.6) k/uL Neutrophils # (1.3-7.7) k/uL ABG O2 Saturation (94-97) % Chloride 111 H (98-107) mmol/L BUN 20 H (7-17) mg/dL Glucose 111 H (74-99) mg/dL POC Glucose (mg/dL) (70-110) mg/dL Assessment and Plan Assessment: Acute hypoxemic respiratory failure secondary to overdose of SOMA, status post intubation and mechanical ventilation on December 21, with failure to wean from mechanical ventilation. Aspiration pneumonia. Acute respiratory distress syndrome, moderate in severity. History of depression and suicidal ideations. Obesity, with a BMI of 32. History of heroin abuse. History of chronic hepatitis C. History of possible seizures. Hypotension, secondary to hypovolemia and possible septic shock, resolved. Plan: Plan dated 12/25/2021. The patient remains on mechanical ventilation, and still on 14 cm water PEEP. The patient will continue with GI and DVT prophylaxis. The patient continues on Zosyn, for sputum showing evidence of both Serratia and Escherichia coli. Labs, x-rays, medications are all reviewed. The patient remains on tube feedings at goal. Overall prognosis remains guarded. We will continue to follow and make recommendations where appropriate. Plan dated 12/26/2021. The patient remains on mechanical ventilator, is likely not yet ready to wean as she is currently on a PEEP of 14. The FiO2 is reduced down to 50%. The patient remains on Zosyn for both Serratia, and Escherichia coli in the sputum. I told the nurse that she could use either IV labetalol, or Cleveprex, to control the elevated blood pressure. Labs, x-rays, and medications are reviewed. Overall prognosis remains very guarded. We will continue to follow the patient make recommendations along the way. Plan dated 12/27/2021. The patient remains on mechanical ventilator. Vent settings are unchanged. The patient really has not made much in the way of progress. She remains on propofol and fentanyl. Tube feedings on hold because of high residuals. We added Reglan 10 mg IV push every 6 hours. She is also getting Zofran as necessary. Labs, x-rays, and medications are reviewed. Prognosis is very guarded. Today, I did speak to the for about 15 minutes. I gave him an update. His name is Mir. I told Mir that she was critically ill but stable. She's not getting any worse, but not progressing either. Plan dated 12/28/2021. The patient remains on mechanical ventilator. The patient is both on fentanyl and propofol. 2 feedings on hold because of high residuals and recurrent vomiting. The patient is on Reglan 10 mg every 6 hours IV push. We will resume tube feedings at 5 mL an hour. The patient will have a flat plate of the abdomen. Labs, x-rays, and medications are reviewed. Prognosis is guarded. I did have a long conversation with the Mir yesterday. I explained to him that his is very critically ill. Overall prognosis remains very guarded. Plan dated 12/29/2021. The patient remains on the mechanical ventilator. Today, we reduced the PEEP from 14, down to 10. The patient remains on Zosyn for her current lung infection. The patient will have a daily interruption of sedation. She might be ready for extubation. I did talk to the a couple days ago. Labs, x- rays, medications are reviewed. Prognosis is guarded. She remains critically ill. Medications are reviewed. Time with Patient: Greater than 30
[2021-12-29] MEDS: SODIUM CHLORIDE 0.9% 1,000 ML IV SCH (10:18)
[2021-12-29 11:23] LABS: ABG Base Excess -2.9 mmol/L; ABG HCO3 22 mmol/L (21-25); ABG Oxygen Saturation 97.8 % (94-97); ABG PCO2 38 mmHg (35-45); ABG PH 7.37 (7.35-7.45); ABG PO2 94 mmHg (83-108); ABG TCO2 24 mmol/L (19-24)
[2021-12-29 11:51] LABS: Glucose,Whole Blood 101 mg/dL (70-110)
[2021-12-29] MEDS ORDERED: HYDROmorphone 1 MG/ML 1 ML SYRINGE IVP PRN (13:48)
--- NOTE | 2021-12-29 13:56 | P.PN ---
Subjective Progress Note Date: 12/29/21 This 46 year female who was admitted for altered mental status and overdose was suspected taking 2 Soma in addition to her daily methadone and was intubated on 12/21/2021. Patient continues to be monitored in the intensive care unit on mechanical ventilator with an FiO2 of 50%. Chest x-ray today shows mild right lower lobe infiltrate with advancement of NG tube. She continues cleviprex gtt which was titrated as patient was tachycardic 130s today. She is also continued on fentanyl gtt which we will hold methadone for now. She continues on enteral tube feedings. Sputum culture positive for serratia and E.Coli. She is on propofol for sedation and continues on IV Zosyn, IV steroids. She is afebrile, heart rate 112, blood pressure 130/63, oxygenation 94%. Labs today showing white count 8.5, hemoglobin 10.7, sodium 137, potassium 3.7, BUN 26, creatinine 0.67, blood glucose in the 140s. 12/27/2021 Patient evaluated in the intensive care unit continues on mechanical ventilator with PEEP of 15, FiO2 50%. She remains on fentanyl gtt, propofol, IV steroids. She is off cleviprex infusion and heart rate has improved now in the 70s. She does open eyes and tracks during assessment. Repeat chest xray today showing increasing left lower lung opacity and similar patchy right basilar opacity. Tube feedings are currently on hold and she is started on reglan. Sodium today 136, potassium 3.9, glucose 117, calcium 8.4, white count 10.3, hgb 11.1. Continues on IV Zosyn for sputum culture. Neuro is also following patient closely. 12/28/2021 Patient is evaluated today continues in the intensive care unit on mechanical ventilator with PEEP of 16, FiO2 of 50%. She had an episode of emesis last ni ght, NG tube was advanced. She continues on IV zosyn for suspected aspiration pneumonia. Enteral feedings were held and she was started on IVP reglan, which she is having 2 to 3 BMs per shift. She is now started back on enteral feedings at a slower rate. Abdominal xray completed this morning shows possible 5 mm calcification let mid abdomen, likely renal calculus, overall nonobstructive bowel gas pattern. No significant stool burden. Patient continues on fentanyl gtt, propofol, IV zosyn. Off Cleviprex and levophed. She remains afebrile, heart rate 80s, blood pressure 136/62. Labs reviewed today are essentially stable, sodium 137, potassium 3.7, chloride 108, BUN 22, creatinine 0.54, blood glucose 110s, calcium 8.6. She has spontaneous eye opening. 12/29/2021 Patient evaluated today in intensive care unit, continues on mechanical ventilator with FiO2 of 50%, plans for extubation today. She will be started on precedex gtt. She continues to have 2-3 loose BMs per shift, and reporting no residuals with enteral nutrition which was resumed last night at trickle feeds however patient did vomit twice. She continues on reglan. urine output adequate at 20 to 30 cc per hour. Plan to wean off fentanyl post extubation and once patient is tolerating oral intake plans to resume oral methadone. Psychiatry will be consulted for evaluation and patient will be 1:1 sitter until further recommendations from psychiatry. Patient had brain CT last night which is negative for intracranial abnormality. Chest xray showing persistent left greater than right bibasilar acute infiltrate and or atelectasis. Stable from previous. Labs reviewed today showing white count 11.1, sodium 140, potassium 3.5, chloride 111, calcium 8.6. She remains afebrile, heart rate 80s, blood pressure 145/82, 98% oxygen saturation. Unable to completely review of system as patient is intubated PHYSICAL EXAMINATION: GENERAL: The patient is intubated she is spontaneously opening her eyes. HEENT: Pupils are round and equally reacting to light. EOMI. No scleral icterus. No conjunctival pallor. Normocephalic, atraumatic. No pharyngeal erythema. No thyromegaly. CARDIOVASCULAR: S1 and S2 present. No murmurs, rubs, or gallops. PULMONARY: Chest is clear to auscultation, no wheezing or crackles. ABDOMEN: Soft, nontender, nondistended, normoactive bowel sounds. No palpable organomegaly. MUSCULOSKELETAL: No joint swelling or deformity. EXTREMITIES: No cyanosis, clubbing, or pedal edema. NEUROLOGICAL: Patient is intubated and sedated. SKIN: No rashes. Assessment and Plan Assessment Acute hypoxic respiratory failure secondary to overdose patient is continued on mechanical ventilator with FiO2 of 50% Toxic metabolic encephalopathy Aspiration pneumonia and continues IV Zosyn Gastroparesis on reglan Mild septic shock with hypotension secondary to hypovolemia, resolved off Levophed History of depression and suicidal ideations History of heroin abuse History of chronic hepatitis C History of questionable seizure activity Obesity with BMI of 31.6 GI prophylaxis DVT prophylaxis Full code Plan Continue with close monitoring in the intensive care unit on mechanical ventilator with FiO2 50% Possible extubation today Continue on IV zosyn She has been weaned off levophed, cleviprex gtt is off Continues on IV fentanyl which we will hold methadone and can resume methadone once extubated and tolerating oral intake Discontinue normal saline, IV steroids discontinued Psychiatry has been consulted and begin 1:1 suicide precautions Prognosis remains guarded. The impression and plan of care has been dictated by Ricarda Pedroza, Nurse Practitioner as directed. Dr. Carlyn MD I have performed a history and physical examination and medical decision making of this patient, discussed the same with the dictator, and agree with the dictators assessment and plan as written, documented as a scribe. Based on total visit time, I have performed more than 50% of this visit. Objective - Vital Signs Vital signs: Vital Signs Temp 98.5 F 12/29/21 08:00 Pulse 101 H 12/29/21 11:56 Resp 22 12/29/21 11:00 BP 134/76 12/29/21 11:00 Pulse Ox 92 L 12/29/21 12:06 FiO2 50 12/29/21 11:01 Intake & Output 12/28/21 12/29/21 12/29/21 18:59 06:59 18:59 Intake Total 1029 1222.437 596.662 Output Total 595 645 285 Balance 434 577.437 311.662 Weight 92.5 kg Intake: IV 579 583 441 Piperacillin-Tazobactam 3 100 100 .375 gm In Sodium Chloride 0.9% 100 ml @ 25 mls/hr IVPB Q8HR [facility] Rx# :[id number] Potassium Chloride 10 meq 200 In Water For Injection 1 100ml.bag @ 100 mls/hr IVPB Q1HR [facility] Rx#: [id number] Pressure Bag 39 33 21 Sodium Chloride 0.9% 1, 440 550 120 000 ml @ 20 mls/hr IV . Q24H [facility] Rx#:[id number] Intake, IV Titration 400 584.437 150.662 Amount Clevidipine Butyrate 25 0.533 mg In Empty Bag 1 bag @ 1 MG/HR 2 mls/hr IV .Q24H [facility] Rx#:[id number] Dexmedetomidine/0.9% NaCl 26.287 (Pmx) 400 mcg In Empty Bag 1 bag @ 0.2 MCG/KG/HR 4.625 mls/hr IV .[id number] [facility] Rx#:[id number] Potassium Chloride 10 meq 200 In Water For Injection 1 100ml.bag @ 100 mls/hr IVPB Q1H [facility] Rx#: [id number] fentaNYL (PF) 2,500 mcg 250 In Sodium Chloride 0.9% 200 ml @ 2 MCG/KG/HR 18.5 mls/hr IV .[id number] [facility] Rx#:[id number] propofoL 1,000 mg In 200 334.437 123.842 Empty Bag 1 bag @ 5 MCG/ KG/MIN 2.649 mls/hr IV . Q24H [facility] Rx#:[id number] Tube Feeding 50 55 5 Output: Urine 595 645 285 Other: Voiding Method Indwelling Catheter Indwelling Catheter Indwelling Catheter ABP, PAP, CO, CI - Last Documented Arterial Blood Pressure 144/71 - Labs CBC & Chem 7: 12/29/21 05:55 12/29/21 05:55 Labs: Abnormal Lab Results - Last 24 Hours (Table) 12/29/21 12/29/21 12/29/21 Range/Units 05:37 05:55 05:55 WBC 11.1 H (3.8-10.6) k/uL Neutrophils # 8.6 H (1.3-7.7) k/uL ABG O2 Saturation 97.8 H (94-97) % Chloride 111 H (98-107) mmol/L BUN 20 H (7-17) mg/dL Glucose 111 H (74-99) mg/dL Assessment and Plan Time with Patient: Less than 30
[2021-12-29 14:32] LABS: Allen Test Performed? no
--- NOTE | 2021-12-29 15:13 | P.PN ---
Subjective Progress Note Date: 12/29/21 The patient is seen at bedside and per the nurse she is being slowly on sedation to assess her condition. Currently is on IV Propofol 35cg/kg/min. Fentanyl 1mcg/kg/hr. Objective - Vital Signs Vital signs: Vital Signs Temp 98.5 F 12/29/21 08:00 Pulse 101 H 12/29/21 11:56 Resp 22 12/29/21 11:00 BP 134/76 12/29/21 11:00 Pulse Ox 92 L 12/29/21 12:06 FiO2 50 12/29/21 11:01 Intake & Output 12/28/21 12/29/21 12/29/21 18:59 06:59 18:59 Intake Total 1029 1222.437 596.662 Output Total 595 645 285 Balance 434 577.437 311.662 Weight 92.5 kg Intake: IV 579 583 441 Piperacillin-Tazobactam 3 100 100 .375 gm In Sodium Chloride 0.9% 100 ml @ 25 mls/hr IVPB Q8HR [facility] Rx# :[id number] Potassium Chloride 10 meq 200 In Water For Injection 1 100ml.bag @ 100 mls/hr IVPB Q1HR [facility] Rx#: [id number] Pressure Bag 39 33 21 Sodium Chloride 0.9% 1, 440 550 120 000 ml @ 20 mls/hr IV . Q24H [facility] Rx#:[id number] Intake, IV Titration 400 584.437 150.662 Amount Clevidipine Butyrate 25 0.533 mg In Empty Bag 1 bag @ 1 MG/HR 2 mls/hr IV .Q24H [facility] Rx#:[id number] Dexmedetomidine/0.9% NaCl 26.287 (Pmx) 400 mcg In Empty Bag 1 bag @ 0.2 MCG/KG/HR 4.625 mls/hr IV .[id number] [facility] Rx#:[id number] Potassium Chloride 10 meq 200 In Water For Injection 1 100ml.bag @ 100 mls/hr IVPB Q1H [facility] Rx#: [id number] fentaNYL (PF) 2,500 mcg 250 In Sodium Chloride 0.9% 200 ml @ 2 MCG/KG/HR 18.5 mls/hr IV .[id number] [facility] Rx#:[id number] propofoL 1,000 mg In 200 334.437 123.842 Empty Bag 1 bag @ 5 MCG/ KG/MIN 2.649 mls/hr IV . Q24H [facility] Rx#:[id number] Tube Feeding 50 55 5 Output: Urine 595 645 285 Other: Voiding Method Indwelling Catheter Indwelling Catheter Indwelling Catheter ABP, PAP, CO, CI - Last Documented Arterial Blood Pressure 144/71 - Exam Physical exam is limited. General: Does not appear in acute distress. Lung: Intubated on vent Neurological exam: Is on IV Propofol 35mcg/kg/min. Fentanyl 1mcg/kg/hr. Higher mental function: Drowsy and has her eyes open. She follow minimal commands. She closed her eye and wiggling her toes. Cranial Nerves: Primary gaze is midline. Pupils are round, reactive to light and symmetrically. No facial weakness. Is breathing over vent. Motor: Strength: Wiggled her toes symmetrically. - Labs CBC & Chem 7: 12/29/21 05:55 12/29/21 05:55 Labs: Abnormal Lab Results - Last 24 Hours (Table) 12/29/21 12/29/21 12/29/21 Range/Units 05:37 05:55 05:55 WBC 11.1 H (3.8-10.6) k/uL Neutrophils # 8.6 H (1.3-7.7) k/uL ABG O2 Saturation 97.8 H (94-97) % Chloride 111 H (98-107) mmol/L BUN 20 H (7-17) mg/dL Glucose 111 H (74-99) mg/dL 12/29/21 Range/Units 11:17 WBC (3.8-10.6) k/uL Neutrophils # (1.3-7.7) k/uL ABG O2 Saturation 97.8 H (94-97) % Chloride (98-107) mmol/L BUN (7-17) mg/dL Glucose (74-99) mg/dL Assessment and Plan Assessment: * Altered mental status, likely due to drug overdose. Patient has ingested 2 tablets of Soma. Also on high dose methadone 170 mg daily. Uncertain if she has taken anything else. * Toxic metabolic encephalopathy due to above, much improved. And medication effect: IV Propofol and IV Fentanyl. * History of overdose in the past * Ventilator-dependent respiratory failure, on mechanical ventilation * Possible aspiration pneumonia * History of depression and suicidal ideations * Previous history of heroin abuse * History of hepatitis C * Hypotension---resolved Plan: * With sedation holdiay is improving and following direction but still slow. Currently is on IV Propofol and Fentanyl. * EEG 12/23/2021 revealed background slowing of severe degree, with intermittent periods of generalized suppression. This suggestive of generalized cerebral dysfunction as can be seen with toxic metabolic encephalopathy, or due to diffuse structural brain abnormality, or medication effect. Clinical christel elation is recommended. Follow-up EEG recommended if clinically indicated. No epileptiform activity was seen. * 2-D echo revealed normal left ventricle size and systolic function. EF is 55- 60%. * Repeat CT head on 12/28/2021: No acute intracranial abnormality. I personally reviewed the CT head and I agree with the report. * Hold off on antiepileptic medication, as EEG did not reveal any epileptiform activity. * Medical management as per critical care/IM. The plan is discussed with the patient's nurse. Will follow-up with patient sporadically. Juan José Casey M.D. Neuro-Hospitalist. Time with Patient: Less than 30
[2021-12-30] MEDS: PIPERACILLIN-TAZOBACTAM 3.375 GM in SODIUM CHLORIDE 0.9% 100 ML IVPB SCH ×4 (00:19→23:14)
[2021-12-30 00:30] LABS: Glucose,Whole Blood 96 mg/dL (70-110)
[2021-12-30] MEDS: INSULIN ASPART (NovoLOG) 100 UNIT/ML VIAL SQ SCH ×5 (00:59→23:10)
[2021-12-30] MEDS: IPRATROPIUM-ALBUTEROL 3 ML NEB INHALATION SCH ×5 (03:07→19:42)
[2021-12-30 06:19] LABS: Glucose,Whole Blood 104 mg/dL (70-110)
[2021-12-30] MEDS: DEXMEDETOMIDINE/0.9% NACL(PMX) 400 MCG in EMPTY BAG 1 BAG IV SCH (06:34)
--- NOTE | 2021-12-30 07:25 | XR ---
EXAMINATION TYPE: XR chest 1V portable DATE OF EXAM: 12/30/2021 5:26 AM COMPARISON: Chest radiographs from 12/29/2021 TECHNIQUE: XR chest 1V portable Portable AP radiograph of the chest. CLINICAL INDICATION:Female, 46 years old with history of pneumonia; FINDINGS: Lungs/Pleura: There is no evidence of pleural effusion, or pneumothorax. Persistent opacities within the left lung base. Pulmonary vascularity: Unremarkable. Heart/mediastinum: Cardiomediastinal silhouette is unremarkable. Musculoskeletal: No acute osseous pathology. Lines/Tubes: Interval removal of support tubes. IMPRESSION: Interval removal of support tubes with minimal left basilar airspace opacities.
[2021-12-30 07:38] LABS: Basophils % (A) 0 %; Eosinophils # (A) 0.2 k/uL (0-0.7); Eosinophils % (A) 3 %; HCT 34.1 % (34.0-46.0); HGB 11.7 gm/dL (11.4-16.0); Lymphocytes # (A) 1.5 k/uL (1.0-4.8); Lymphocytes % (A) 17 %; MCH 30.2 pg (25.0-35.0); MCHC 34.2 g/dL (31.0-37.0); MCV 88.3 fL (80.0-100.0); Mean Platelet Volume 7.7; Monocytes # (A) 0.5 k/uL (0-1.0); Monocytes % (A) 5 %; Neutrophils # (A) 6.5 k/uL (1.3-7.7); Neutrophils % (A) 74 %; Platelet Count 177 k/uL (150-450); RBC 3.86 m/uL (3.80-5.40); RDW 13.6 % (11.5-15.5); WBC 8.7 k/uL (3.8-10.6)
[2021-12-30 07:43] LABS: ALT 59 U/L (4-34); AST 65 U/L (14-36); African American GFR (CKD) >90 (>60 ml/min/1.73 sqM); Albumin 3.4 g/dL (3.5-5.0); Alkaline Phosphatase 71 U/L (38-126); Anion Gap 7 mmol/L; Blood Urea Nitrogen 18 mg/dL (7-17); Calcium 8.4 mg/dL (8.4-10.2); Carbon Dioxide 20 mmol/L (22-30); Chloride 110 mmol/L (98-107); Glucose 109 mg/dL (74-99); Non-African American GFR(CKD) >90 (>60 ml/min/1.73 sqM); Potassium 3.5 mmol/L (3.5-5.1); Sodium 137 mmol/L (137-145); Total Bilirubin 0.9 mg/dL (0.2-1.3); Total Protein 6.5 g/dL (6.3-8.2)
[2021-12-30] MEDS: HEPARIN SODIUM,PORCINE/PF 5,000 UNIT/0.5 ML SYRINGE SQ SCH ×2 (08:34→21:46)
[2021-12-30] MEDS: FAMOTIDINE 20 MG/2 ML VIAL IV SCH ×2 (08:34→21:46)
--- NOTE | 2021-12-30 11:04 | P.PN ---
Subjective Progress Note Date: 12/30/21 Principal diagnosis: Overdose. Reevaluated today on 12/23/21, patient remains in the ICU, intubated and mechanically ventilated. She is on assist control rate of 22, volume 400 FiO2 50% PEEP of 10 ABG showed a pO2 of 80 pCO2 42 pH of 7.39 hence the patient was kept on the same vent settings chest x-ray is showing slight improvement in her bilateral infiltrates/ARDS/pneumonia patient remains on propofol at 55 mcg/kg/m and her IV fluid at 25 mL per hour cut it down to 75, and the patient will receive 40 mg of Lasix IV push, urine output is roughly about 50 mL per hour. Patient remains on vital HP at 22 mL per hour. WBC count is 11.8 hemoglobin is 9.6 electrolytes are normal renal profile is normal Reevaluated today on 12/24/21, patient remains in the ICU, intubated and mechanically ventilated. Her ventilator settings are assist-control rate 22 tidal volume 400 FiO2 60% and PEEP of 10, ABG showed a pO2 of 70 pCO2 40 pH of 7.42. Patient remains on propofol at 55 mcg/kg/m, she is also on vital HP at 22 mL per hour. Not requiring any pressors or any inotropes. Her sputum cultures are positive for Serratia marcescens and for E. coli. Both are sensitive to Zosyn and the patient has been on Zosyn all along. Chest x-ray continues to show bilateral infiltrates, ration did have witnessed aspiration pneumonia, and she may have developed ARDS. Nonetheless I will go ahead and recommended dose of Lasix to be given today 40 mg IV push 1, her urine output seems to be reasonable all along, but the patient received significant amount of fluids upon her initial presentation with hypotension. Today the patient is awake, she gets extremely agitated on lower dose of propofol, she is not quite ready to be weaned, but she is getting close. Again she still requiring high PEEP and high FiO2. Plan to titrate her FiO2 down to 50% likely today. And maintain O2 sats above 92%. Her mental status is improving, patient is following instructions once she is on a lower dose of propofol, however she gets extremely agitated, and restlessness. Patient is back on her methadone CBC showed evidence of 8.7 hemoglobin 9.9 last lites are normal renal profile is normal Progress note dated 12/25/2021. 46-year-old female admitted on December 21, and intubated on the same day, for an overdose of SOMA. The patient remains on the mechanical ventilator. She is on volume assist control, rate 22, tidal volume 400, FiO2 60%, PEEP of 14. Blood gases show pO2 of 96, pCO2 42, and a pH is 7.42. These blood gases were done on 80%. She remains on propofol at 65 mcg/kg/m, saline at 20 mL an hour, and vital high protein at 22 mL an hour. Her sputum sample so both Serratia an Escherichia coli. For that, she is on Zosyn. White count 10.2, hemoglobin 10.3, hematocrit 32.2, and platelet count 233,000. Sodium 137 potassium 4.3 chlorides 105, CO2 27, BUN 24, creatinine 0.7. Albumin is 3.4. Chest x-ray shows patchy bibasilar airspace disease, improved on the right and slightly worse on the left. Progress note dated 12/26/2021. 46-year-old female admitted on December 21, and intubated on the same day, respiratory failure, secondary to an overdose of SOMA. The patient remains on mechanical ventilator, and is not yet ready for weaning. She is on volume assist control, rate 22, tidal volume 400, FiO2 60%, and PEEP of 14. Arterial blood gases show pO2 of 86, pCO2 42, and a pH of 7.45. The patient is on saline at 20 mL an hour, propofol at 75 mcg/kg/m, fentanyl at 2 mcg/kg/h, and vital AF at 10 mL an hour. The patient has both Serratia an Escherichia coli in the sputum, and his on Zosyn for that. The patient can get either labetalol IV when necessary, or Cleveprex, for blood pressure control. The FiO2 was reduced to 50%. White count 8.5, hemoglobin 10.7, hematocrit 32.7, platelet count 230,000. Sodium, potassium, chloride, CO2, are all normal. BUN 26 with a creatinine of 0.67. Anion gap is normal. Calcium 8.1. Chest x-ray shows the NG tube tip to be in the thoracic esophagus. There is some mild interstitial edema present. Progress note dated 12/27/2021. 46-year-old female admitted on December 21, and intubated on the same day, respiratory failure, secondary to an overdose of SOMA. The patient remains on mechanical ventilator, and unfortunately, has not made much progress. The patient is on the volume assist control, rate 22, tidal volume 400, FiO2 40%, and PEEP of 14. Blood gases show by mouth 270, pCO2 42, and a pH is 7.42. The patient is currently going to be started on Reglan at 10 mg IV push every 6 hours, for gastroparesis, and also receive Zofran for nausea and vomiting. The patient is currently on fentanyl at 1 mcg/kg/h, propofol at 75 mcg/kg/m, and saline at 30 mL an hour. Tube feedings on hold because of high residuals. The patient is off Cleveprex. Blood pressure is been very labile. White count 10.3, hemoglobin 11.1, hematocrit 33.4, with a normal platelet count. Sodium 136, potassium 3.9, chlorides 106, CO2 26, BUN 20, with a creatinine of 0.58. Sputum is showing evidence of both Serratia an Escherichia coli. For that she is on Zosyn. Chest x-ray shows increasing left lower lobe opacity. Progress note dated 12/28/2021. 46-year-old female admitted on December 21, and intubated on the same day, for re spiratory failure secondary to an overdose of SOMA. The patient remains on the mechanical ventilator, and is not really making much progress. She still on 50% FiO2, and a PEEP of 14. I had a long conversation with the patient's yesterday. The patient's on fentanyl drip at 2 mcg/kg/h, propofol at 75 mcg/kg/m, saline at 20 mL an hour,, and vomiting. She remains on volume assist control, rate 22, tidal volume 400, FiO2 50%, and PEEP of 14. Blood gases show pO2 104, pCO2 39, and a pH is 7.40. I've asked the nurses to resume the tube feeds at 5 mL an hour. In addition, I've asked for a flat plate of the abdomen. The tube feeding should not be increased. White count 9.2, hemoglobin 11.3, hematocrit 34.7, and platelet count 240,000. Sodium 137, potassium 3.7, chlorides 108, CO2 22, BUN 22, with a creatinine of 0.54. The sputum sample show evidence of both Serratia an Escherichia coli. She is on antibiotics for that. Flat plate of the abdomen shows patchy retrocardiac atelectasis versus infiltrate, an NG tube that is short, with the tip at the GE junction, and a nonobstructive bowel gas pattern. Progress note dated 12/29/2021. 46-year-old female admitted on December 21, and intubated on the same day, for respiratory failure, secondary to an overdose of SOMA. The patient remains on mechanical ventilator. He is on volume assist control, rate 22, tidal volume 400, FiO2 50%, and a PEEP of 14, which is reduced down to 10. Arterial blood gases show pO2 108, pCO2 37, and a pH is 7.4. Currently, she is on fentanyl at 2 mcg/kg/h, propofol at 75 mcg/kg/m, saline at 50 mL an hour, and tube feedings are currently on hold, for recurrent emesis. Today, we will do a daily interruption of sedation. The patient remains on Zosyn. Labs include a white count 11.9, hemoglobin 11.8, hematocrit 35.9, and a normal platelet count. Sodium 140, potassium 3.5, chlorides 1, CO2 22, BUN 20, creatinine 0.52. Glucose 111. Calcium is 8.6. Sputum from December 21, was positive for Serratia and Escherichia coli. Brain CAT scan, does not show anything acute. Chest x- ray shows persistent left greater than right basilar infiltrates or atelectasis. Chest x-ray is unchanged. Progress note dated 12/30/2021. 46-year-old female admitted on December 21. She was intubated on the same day for respiratory failure secondary to an overdose of SOMA. The patient was extubated successfully yesterday, December 29. She's currently on 4 L nasal cannula. She still getting dexmedetomidine at 0.1 mcg/kg/h, and saline at 10 mL an hour. Today's labs include a completely normal CBC, sodium 137, potassium 3.5, chlorides 110, CO2 20, BUN 18, creatinine 0.55. AST was 65 with an ALT of 59. Sputum from December 21 shows evidence of both Serratia and Escherichia coli. Chest x-ray shows extubation, bilateral infiltrates, which are improved. Objective - Vital Signs Vital signs: Vital Signs Temp 98.3 F 08/06/22 08:00 Pulse 71 12/30/21 10:00 Resp 14 12/30/21 10:00 BP 141/83 12/30/21 10:00 Pulse Ox 98 12/30/21 10:00 FiO2 50 12/29/21 11:01 Intake & Output 12/29/21 12/30/21 12/30/21 18:59 06:59 18:59 Intake Total 972.441 360.678 189.944 Output Total 495 555 245 Balance 477.441 -194.322 -55.056 Weight 92.5 kg 92.5 kg Intake: IV 553 240 180 Piperacillin-Tazobactam 3 100 100 .375 gm In Sodium Chloride 0.9% 100 ml @ 25 mls/hr IVPB Q8HR [facility] Rx# :[id number] Potassium Chloride 10 meq 200 In Water For Injection 1 100ml.bag @ 100 mls/hr IVPB Q1HR [facility] Rx#: [id number] Pressure Bag 33 Sodium Chloride 0.9% 1, 220 240 80 000 ml @ 20 mls/hr IV . Q24H [facility] Rx#:[id number] Intake, IV Titration 414.441 120.678 9.944 Amount Clevidipine Butyrate 25 0.533 mg In Empty Bag 1 bag @ 1 MG/HR 2 mls/hr IV .Q24H [facility] Rx#:[id number] Dexmedetomidine/0.9% NaCl 51.108 120.678 9.944 (Pmx) 400 mcg In Empty Bag 1 bag @ 0.2 MCG/KG/HR 4.625 mls/hr IV .[id number] [facility] Rx#:[id number] fentaNYL (PF) 2,500 mcg 238.958 In Sodium Chloride 0.9% 200 ml @ 2 MCG/KG/HR 18.5 mls/hr IV .[id number] [facility] Rx#:[id number] propofoL 1,000 mg In 123.842 Empty Bag 1 bag @ 5 MCG/ KG/MIN 2.649 mls/hr IV . Q24H [facility] Rx#:[id number] Tube Feeding 5 Output: Urine 495 555 245 Other: Voiding Method Indwelling Catheter Indwelling Catheter Indwelling Catheter # Bowel Movements 1 ABP, PAP, CO, CI - Last Documented Arterial Blood Pressure 103/78 - Exam No acute distress, extubated, currently on nasal O2. HEENT examination is grossly unremarkable. Neck supple. Full range of motion. No adenopathy thyromegaly or neck vein distention. Cardiovascular examination reveals regular rhythm rate. S1-S2 normal. No S3 or S4. No discernible murmur noted. Heart rate 71 bpm. Lungs reveal scattered bilateral rhonchi. No crackles or wheezes. Saturations are 98% on 4 L. Abdomen soft, without masses. Bowel sounds are noted. Extremities are intact. No cyanosis clubbing or edema. Skin is without rash or lesion. Neurologic examination is brief but nonfocal. - Labs CBC & Chem 7: 12/30/21 07:21 12/30/21 07:21 Labs: Abnormal Lab Results - Last 24 Hours (Table) 12/29/21 12/30/21 Range/Units 11:17 07:21 ABG O2 Saturation 97.8 H (94-97) % Chloride 110 H (98-107) mmol/L Carbon Dioxide 20 L (22-30) mmol/L BUN 18 H (7-17) mg/dL Glucose 109 H (74-99) mg/dL AST 65 H (14-36) U/L ALT 59 H (4-34) U/L Albumin 3.4 L (3.5-5.0) g/dL Assessment and Plan Assessment: Acute hypoxemic respiratory failure secondary to overdose of SOMA, status post intubation and mechanical ventilation on December 21, with failure to wean from mechanical ventilation. Successful extubation 12/29/2021 Aspiration pneumonia. Acute respiratory distress syndrome, moderate in severity. History of depression and suicidal ideations. Obesity, with a BMI of 32. History of heroin abuse. History of chronic hepatitis C. History of possible seizures. Hypotension, secondary to hypovolemia and possible septic shock, resolved. Plan: Plan dated 12/25/2021. The patient remains on mechanical ventilation, and still on 14 cm water PEEP. The patient will continue with GI and DVT prophylaxis. The patient continues on Zosyn, for sputum showing evidence of both Serratia and Escherichia coli. Labs, x-rays, medications are all reviewed. The patient remains on tube feedings at goal. Overall prognosis remains guarded. We will continue to follow and make recommendations where appropriate. Plan dated 12/26/2021. The patient remains on mechanical ventilator, is likely not yet ready to wean as she is currently on a PEEP of 14. The FiO2 is reduced down to 50%. The patient remains on Zosyn for both Serratia, and Escherichia coli in the sputum. I told the nurse that she could use either IV labetalol, or Cleveprex, to control the elevated blood pressure. Labs, x-rays, and medications are reviewed. Overall prognosis remains very guarded. We will continue to follow the patient make recommendations along the way. Plan dated 12/27/2021. The patient remains on mechanical ventilator. Vent settings are unchanged. The patient really has not made much in the way of progress. She remains on propofol and fentanyl. Tube feedings on hold because of high residuals. We added Reglan 10 mg IV push every 6 hours. She is also getting Zofran as necessary. Labs, x-rays, and medications are reviewed. Prognosis is very g uarded. Today, I did speak to the for about 15 minutes. I gave him an update. His name is Mir. I told Mir that she was critically ill but stable. She's not getting any worse, but not progressing either. Plan dated 12/28/2021. The patient remains on mechanical ventilator. The patient is both on fentanyl and propofol. 2 feedings on hold because of high residuals and recurrent vo miting. The patient is on Reglan 10 mg every 6 hours IV push. We will resume tube feedings at 5 mL an hour. The patient will have a flat plate of the abdomen. Labs, x-rays, and medications are reviewed. Prognosis is guarded. I did have a long conversation with the Mir yesterday. I explained to him that his is very critically ill. Overall prognosis remains very guarded. Plan dated 12/29/2021. The patient remains on the mechanical ventilator. Today, we reduced the PEEP fr om 14, down to 10. The patient remains on Zosyn for her current lung infection. The patient will have a daily interruption of sedation. She might be ready for extubation. I did talk to the a couple days ago. Labs, x-rays, medications are reviewed. Prognosis is guarded. She remains critically ill. Medications are reviewed. Plan dated 12/30/2021. The patient will need psychiatric evaluation. She remains on dexmedetomidine, but I've asked the nurse when it off. The primary service, and psychiatry can be responsible for her pain medications, and her psychotropic medications. L abs, x-rays, and medications are reviewed. Clinically she is doing very well. Her oxygen has been weaned down to 2 L. We will continue to follow make recommendations. Time with Patient: Less than 30
[2021-12-30 11:40] LABS: Glucose,Whole Blood 100 mg/dL (70-110)
[2021-12-30] MEDS: POTASSIUM CHLORIDE 20 MEQ in WATER FOR INJECTION 1 100ML.BAG IVPB SCH ×2 (13:06→15:26)
[2021-12-30] MEDS: METHADONE 10 MG TAB PO SCH (15:26)
[2021-12-30 17:57] LABS: Glucose,Whole Blood 91 mg/dL (70-110)
--- NOTE | 2021-12-30 19:15 | P.CN ---
Psychiatric Consult - . Consult date: 12/30/21 Consult:: IDENTIFYING DATA: This patient is a 46 year old female with history of chronic hepatitis C and IV drug abuse, who was admitted to the ICU due to respiratory failure following overdose on muscle relaxant. REASON FOR REFERRAL: Psychiatry was consulted for suicide attempt, patient now extubated. HISTORY OF PRESENT ILLNESS: Patient was admitted to the ICU due to respiratory failure following overdose on muscle relaxant, (Soma) that reportedly didn't belong to her. She required intubation on day of arrival followed by mechanical ventilation. She was successfully extubated on 12/29/21. I evaluated patient today and she was found laying in bed with sitter at bedside. Patient is awake, alert however is slow to respond to questions or follow commands. She appears avoidant with poor eye contact, repeatedly fiddles with the sheets and her pillow. She admits she intentionally took "a bunch of pills", but denies this was a suicide attempt. She is easily confused but also appears to utilize defense mechanisms of denial and minimization. She is not able to quantify how many pills she took when asked, and continues to look around the room. When asked what type of pills she took, she states "not sure", but eventually admits that they were Soma and states that her doesn't like her taking them. When asked about her mood, she states "I don't know" and looks around the room. She appears confused, states today is (it is Saturday), quickly states the year is 2021, but does not know the month. She appears easily confused and and delirious, with difficulty sustaining focus and concern for perceptual disturbances. When asked about the month and season it is outside, she states "I'll take it cold.... no I don't like it cold. I keep thinking about what I want to drink." She denies drinking alcohol recently. She denies auditory or visual hallucinations. She denies suicidal or homicidal ideations. Her nurse reports patient was agitated earlier today and was demanding to be discharged. Psychiatry was contacted and patient was evaluated by psychiatry staff who completed a petition. I called her Mir Carranza ([phone]) who denies patient has made any suicidal statements, but he does believe patient has been depressed and not taking care of herself. He states that tomorrow is the one year anniversary of her father dying and patient has been depressed over the past year due to his . PAST PSYCHIATRIC HISTORY: Patient is an unreliable historian currently. From previous assessment on 10/22/21: Patient has a a history of heroin dependence and is currently on methadone. Previously took Prozac and Celexa, but also tends to minimize her past psychiatric history. Patient denies any previous psychiatric hospitalizations. Patient denies any psychiatric outpatient follow-up. Patient denies any history of suicide attempts in the past. PAST MEDICAL HISTORY: Past Medical History: No Reported History Additional Past Medical History / Comment(s): heroin use, uti, used to have seizures when younger History of Any Multi-Drug Resistant Organisms: None Reported Past Surgical History: Section, Cholecystectomy Additional Past Surgical History / Comment(s): 2 sections Past Anesthesia/Blood Transfusion Reactions: No Reported Reaction Past Psychological History: No Psychological Hx Reported Smoking Status: Vaper Past Alcohol Use History: None Reported Past Drug Use History: Heroin, IV Drug Use ALLERGIES: as per EMR. CHEMICAL DEPENDENCY HISTORY: Per 10/22/21 assessment: History of heroin dependence, currently on methadone. She denies alcohol use. She vapes. She denies any other drug use. She abuses Soma. FAMILY PSYCHIATRIC/SUBSTANCE USE HISTORY: None known SOCIAL HISTORY: Per 10/22/21 assessment: Patient was born and raised in [place]. She her in July 2021 after being together for 10 years. She has 2 kids (21-year-old and 19-year-old). 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 She feels safe at home. MENTAL STATUS EXAM: General Appearance: Patient appears to be stated age, is disheveled. Behavior: Patient appears easily confused, poor eye contact, looking around the room, repeatedly moving her bed sheets and pillow. Speech: Patient's speech is fluent and nonpressured. Mood/Affect: Patient reports their mood is "I don't know", affect is constricted Suicidality/Homicidality: Patient denies having any suicidal or homicidal ideation intent or plan, however she admits to intentional overdose on Soma Perceptions: Patient denies any visual hallucinations and denies any auditory hallucinations, but appears to be attending to internal stimuli Thought process: Poverty of thought, slow to respond Though content: Irrelevant, easily confused Memory and concentration: Impaired, does not know the month, is oriented to person and year. Judgment and insight: Very poor IMPRESSIONS: Delirium, multifactorial (s/p acute hypoxic respiratory failure secondary to Soma overdose, sedatives, aspiration penumonia) Unspecified depressive disorder, rule out MDD Opioid use disorder, severe, on methadone Sedative/hypnotic/anxiolytic (Soma) use disorder PLAN: -Please do not discharge patient without speaking with psychiatry since she DOES require inpatient psychiatric admission once medically stable and delirium resolves. -Patient DOES NOT have decision making capacity at this time and is unable to reason through and communicate/appreciate the risks, benefits and alternatives to treatment. -Delirium precautions recommended with patient including - avoiding use of narcotics (except methadone) and BOX ANNEALER sedatives, limit anticholinergic medications when possible, frequent re-orientation, minimize use of restraints, open window shades during the day and close them at night. -Would recommend the following medication changes/additions: Haldol 5 mg po Q6H PRN or Haldol 2 mg IV Q6H PRN for agitation. -Continue 1:1 sitter for safety. -Cannot leave AMA at this time. Patient will need a petition and certification if attempting to leave AMA. -When medically stable, patient is eligible for transfer to a psych bed when available. -Communicated plan to patient's nurse -Psychiatry will sign off at this time -Please contact with any questions. 12/30/21 12:54 12/30/21 18:42
[2021-12-30 21:52] LABS: Glucose,Whole Blood 109 mg/dL (70-110)
[2021-12-30] MEDS ORDERED: haloperidoL 5 MG TAB PO PRN (22:00)
[2021-12-31] MEDS: IPRATROPIUM-ALBUTEROL 3 ML NEB INHALATION SCH ×3 (03:45→08:33)
--- NOTE | 2021-12-31 06:37 | P.PN ---
Subjective Progress Note Date: 12/30/21 Subjective Progress Note Date: 12/29/21 This 46 year female who was admitted for altered mental status and overdose was suspected taking 2 Soma in addition to her daily methadone and was intubated on 12/21/2021. Patient continues to be monitored in the intensive care unit on mechanical ventilator with an FiO2 of 50%. Chest x-ray today shows mild right lower lobe infiltrate with advancement of NG tube. She continues cleviprex gtt which was titrated as patient was tachycardic 130s today. She is also continued on fentanyl gtt which we will hold methadone for now. She continues on enteral tube feedings. Sputum culture positive for serratia and E.Coli. She is on propofol for sedation and continues on IV Zosyn, IV steroids. She is afebrile, heart rate 112, blood pressure 130/63, oxygenation 94%. Labs today showing white count 8.5, hemoglobin 10.7, sodium 137, potassium 3.7, BUN 26, creatinine 0.67, blood glucose in the 140s. 12/27/2021 Patient evaluated in the intensive care unit continues on mechanical ventilator with PEEP of 15, FiO2 50%. She remains on fentanyl gtt, propofol, IV steroids. She is off cleviprex infusion and heart rate has improved now in the 70s. She does open eyes and tracks during assessment. Repeat chest xray today showing increasing left lower lung opacity and similar patchy right basilar opacity. Tube feedings are currently on hold and she is started on reglan. Sodium today 136, potassium 3.9, glucose 117, calcium 8.4, white count 10.3, hgb 11.1. Continues on IV Zosyn for sputum culture. Neuro is also following patient closely. 12/28/2021 Patient is evaluated today continues in the intensive care unit on mechanical ventilator with PEEP of 16, FiO2 of 50%. She had an episode of emesis last night, NG tube was advanced. She continues on IV zosyn for suspected aspiration pneumonia. Enteral feedings were held and she was started on IVP reglan, which she is having 2 to 3 BMs per shift. She is now started back on enteral feedings at a slower rate. Abdominal xray completed this morning shows possible 5 mm calcification let mid abdomen, likely renal calculus, overall nonobstructive bowel gas pattern. No significant stool burden. Patient continues on fentanyl gtt, propofol, IV zosyn. Off Cleviprex and levophed. She remains afebrile, heart rate 80s, blood pressure 136/62. Labs reviewed today are essentially stable, sodium 137, potassium 3.7, chloride 108, BUN 22, creatinine 0.54, blood glucose 110s, calcium 8.6. She has spontaneous eye opening. 12/29/2021 Patient evaluated today in intensive care unit, continues on mechanical ventilator with FiO2 of 50%, plans for extubation today. She will be started on precedex gtt. She continues to have 2-3 loose BMs per shift, and reporting no residuals with enteral nutrition which was resumed last night at trickle feeds however patient did vomit twice. She continues on reglan. urine output adequate at 20 to 30 cc per hour. Plan to wean off fentanyl post extubation and once patient is tolerating oral intake plans to resume oral methadone. Psychiatry will be consulted for evaluation and patient will be 1:1 sitter until further recommendations from psychiatry. Patient had brain CT last night which is negative for intracranial abnormality. Chest xray showing persistent left greater than right bibasilar acute infiltrate and or atelectasis. Stable from pr evious. Labs reviewed today showing white count 11.1, sodium 140, potassium 3.5, chloride 111, calcium 8.6. She remains afebrile, heart rate 80s, blood pressure 145/82, 98% oxygen saturation. 12/30/2021 Patient is evaluated today and continues to be in the ICU and is a downgrade and awaiting a bed. Psychiatry evaluating and patient has been petitioned and will need psych inpatient once medically stable. Patient does have sitter at the bedside and is not to leave ama. Family members at the bedside and questions and concerns were answered. Patient is continued on 4L via NC and continues to remov e 02 tubing. Continue IV zosyn and recommend repeat xray and labs in the am. Swallow eval passed and will start diet and resume methadone. Patient is afebrile and denies chest pain or palpitations. Patient is anxious to leave and continues to be somewhat confused. Unable to completely review of system as patient is confused PHYSICAL EXAMINATION: GENERAL: The patient is alert and oriented x2. confused at times maintained on 4L via NC HEENT: Pupils are round and equally reacting to light. EOMI. No scleral icterus. No conjunctival pallor. Normocephalic, atraumatic. No pharyngeal erythema. No thyromegaly. CARDIOVASCULAR: S1 and S2 present. No murmurs, rubs, or gallops. PULMONARY: Chest is clear to auscultation, no wheezing or crackles. ABDOMEN: Soft, nontender, nondistended, normoactive bowel sounds. No palpable organomegaly. MUSCULOSKELETAL: No joint swelling or deformity. EXTREMITIES: No cyanosis, clubbing, or pedal edema. NEUROLOGICAL: Patient is confused SKIN: No rashes. Assessment and Plan Assessment Acute hypoxic respiratory failure secondary to overdose patient is continued on mechanical ventilator with FiO2 of 50% Toxic metabolic encephalopathy Aspiration pneumonia and continues IV Zosyn Gastroparesis on reglan Mild septic shock with hypotension secondary to hypovolemia, resolved off Levophed History of depression and suicidal ideations History of heroin abuse History of chronic hepatitis C History of questionable seizure activity Obesity with BMI of 31.6 GI prophylaxis DVT prophylaxis Full code Plan: Continue with close monitoring in the intensive care unit while awaiting med surg bed and medical clearance for psych. Patient has been petitioned. Patient was extubated on 12/29 and continued on 4L via NC and weaning FI02 as tolerated Continue on IV zosyn Swallow eval passed and recommend diet and resuming methadone Psychiatry has evaluated the patient and has been petitioned and recommend to continue 1:1 suicide precautions Patient has made mention that she will be leaving and needs redirection Prognosis remains guarded. The impression and plan of care has been dictated by Marge Renteria, Nurse Practitioner as directed. Dr. Carlyn MD I have performed a history and examination and MDM of this patient, discussed the same with the dictator, and agree with the dictator's assessment and plan as written ,documented as a scribe. Based on total visit time, I have performed more than 50% of the visit. Objective - Vital Signs Vital signs: Vital Signs Temp 98 F 12/30/21 05:00 Pulse 103 H 12/30/21 07:00 Resp 26 H 12/30/21 07:00 BP 123/65 12/30/21 07:00 Pulse Ox 90 L 12/30/21 07:00 FiO2 50 12/29/21 11:01 Intake & Output 12/29/21 12/30/21 12/30/21 18:59 06:59 18:59 Intake Total 972.441 360.678 29.944 Output Total 495 555 45 Balance 477.441 -194.322 -15.056 Weight 92.5 kg 92.5 kg Intake: IV 553 240 20 Piperacillin-Tazobactam 3 100 .375 gm In Sodium Chloride 0.9% 100 ml @ 25 mls/hr IVPB Q8HR [facility] Rx# :[id number] Potassium Chloride 10 meq 200 In Water For Injection 1 100ml.bag @ 100 mls/hr IVPB Q1HR [facility] Rx#: [id number] Pressure Bag 33 Sodium Chloride 0.9% 1, 220 240 20 000 ml @ 20 mls/hr IV . Q24H [facility] Rx#:[id number] Intake, IV Titration 414.441 120.678 9.944 Amount Clevidipine Butyrate 25 0.533 mg In Empty Bag 1 bag @ 1 MG/HR 2 mls/hr IV .Q24H [facility] Rx#:[id number] Dexmedetomidine/0.9% NaCl 51.108 120.678 9.944 (Pmx) 400 mcg In Empty Bag 1 bag @ 0.2 MCG/KG/HR 4.625 mls/hr IV .[id number] [facility] Rx#:[id number] fentaNYL (PF) 2,500 mcg 238.958 In Sodium Chloride 0.9% 200 ml @ 2 MCG/KG/HR 18.5 mls/hr IV .[id number] [facility] Rx#:[id number] propofoL 1,000 mg In 123.842 Empty Bag 1 bag @ 5 MCG/ KG/MIN 2.649 mls/hr IV . Q24H [facility] Rx#:[id number] Tube Feeding 5 Output: Urine 495 555 45 Other: Voiding Method Indwelling Catheter Indwelling Catheter ABP, PAP, CO, CI - Last Documented Arterial Blood Pressure 103/78 - Labs CBC & Chem 7: 12/30/21 07:21 12/30/21 07:21 Labs: Abnormal Lab Results - Last 24 Hours (Table) 12/29/21 12/30/21 Range/Units 11:17 07:21 ABG O2 Saturation 97.8 H (94-97) % Chloride 110 H (98-107) mmol/L Carbon Dioxide 20 L (22-30) mmol/L BUN 18 H (7-17) mg/dL Glucose 109 H (74-99) mg/dL AST 65 H (14-36) U/L ALT 59 H (4-34) U/L Albumin 3.4 L (3.5-5.0) g/dL
--- NOTE | 2021-12-31 07:09 | XR ---
EXAMINATION TYPE: XR chest 1V portable DATE OF EXAM: 12/31/2021 5:37 AM COMPARISON: Chest radiograph from one day prior. TECHNIQUE: XR chest 1V portable Portable AP radiograph of the chest. CLINICAL INDICATION:Female, 46 years old with history of pneumonia; FINDINGS: Lungs/Pleura: Low lung volumes are present. There is no evidence of pleural effusion, focal consolida tion, or pneumothorax. Pulmonary vascularity: Unremarkable. Heart/mediastinum: Cardiomediastinal silhouette is unremarkable. Musculoskeletal: No acute osseous pathology. IMPRESSION: Low lung volumes with a generalized hazy appearance which could represent atelectasis versus pulmonar y edema correlate with serum BNP.
[2021-12-31] MEDS: INSULIN ASPART (NovoLOG) 100 UNIT/ML VIAL SQ SCH (07:35)
[2021-12-31 07:36] LABS: Glucose,Whole Blood 116 mg/dL (70-110)
[2021-12-31 07:41] LABS: Basophils % (A) 0 %; Eosinophils # (A) 0.2 k/uL (0-0.7); Eosinophils % (A) 2 %; HCT 32.5 % (34.0-46.0); Lymphocytes # (A) 1.8 k/uL (1.0-4.8); Lymphocytes % (A) 20 %; MCH 29.9 pg (25.0-35.0); MCHC 33.9 g/dL (31.0-37.0); MCV 88.2 fL (80.0-100.0); Mean Platelet Volume 8.6; Monocytes # (A) 0.6 k/uL (0-1.0); Monocytes % (A) 7 %; Neutrophils # (A) 6.3 k/uL (1.3-7.7); Neutrophils % (A) 71 %; Platelet Count 112 k/uL (150-450); RBC 3.68 m/uL (3.80-5.40); RDW 13.6 % (11.5-15.5)
[2021-12-31 07:52] LABS: ALT 101 U/L (4-34); AST 92 U/L (14-36); African American GFR (CKD) >90 (>60 ml/min/1.73 sqM); Albumin 3.5 g/dL (3.5-5.0); Alkaline Phosphatase 80 U/L (38-126); Anion Gap 8 mmol/L; Blood Urea Nitrogen 13 mg/dL (7-17); Calcium 8.6 mg/dL (8.4-10.2); Carbon Dioxide 21 mmol/L (22-30); Chloride 108 mmol/L (98-107); Glucose 115 mg/dL (74-99); Non-African American GFR(CKD) >90 (>60 ml/min/1.73 sqM); Potassium 3.4 mmol/L (3.5-5.1); Sodium 137 mmol/L (137-145); Total Bilirubin 0.9 mg/dL (0.2-1.3); Total Protein 6.6 g/dL (6.3-8.2)
[2021-12-31] MEDS: PIPERACILLIN-TAZOBACTAM 3.375 GM in SODIUM CHLORIDE 0.9% 100 ML IVPB SCH (08:11)
[2021-12-31] MEDS: FAMOTIDINE 20 MG/2 ML VIAL IV SCH (08:12)
[2021-12-31] MEDS: METHADONE 10 MG TAB PO SCH (08:12)
[2021-12-31] MEDS: HEPARIN SODIUM,PORCINE/PF 5,000 UNIT/0.5 ML SYRINGE SQ SCH (08:12)
--- NOTE | 2021-12-31 08:16 | P.PN ---
Subjective Progress Note Date: 12/31/21 Principal diagnosis: Overdose. Reevaluated today on 12/23/21, patient remains in the ICU, intubated and mechanically ventilated. She is on assist control rate of 22, volume 400 FiO2 50% PEEP of 10 ABG showed a pO2 of 80 pCO2 42 pH of 7.39 hence the patient was kept on the same vent settings chest x-ray is showing slight improvement in her bilateral infiltrates/ARDS/pneumonia patient remains on propofol at 55 mcg/kg/m and her IV fluid at 25 mL per hour cut it down to 75, and the patient will receive 40 mg of Lasix IV push, urine output is roughly about 50 mL per hour. Patient remains on vital HP at 22 mL per hour. WBC count is 11.8 hemoglobin is 9.6 electrolytes are normal renal profile is normal Reevaluated today on 12/24/21, patient remains in the ICU, intubated and mechanically ventilated. Her ventilator settings are assist-control rate 22 tidal volume 400 FiO2 60% and PEEP of 10, ABG showed a pO2 of 70 pCO2 40 pH of 7.42. Patient remains on propofol at 55 mcg/kg/m, she is also on vital HP at 22 mL per hour. Not requiring any pressors or any inotropes. Her sputum cultures are positive for Serratia marcescens and for E. coli. Both are sensitive to Zosyn and the patient has been on Zosyn all along. Chest x-ray continues to show bilateral infiltrates, ration did have witnessed aspiration pneumonia, and she may have developed ARDS. Nonetheless I will go ahead and recommended dose of Lasix to be given today 40 mg IV push 1, her urine output seems to be reasonable all along, but the patient received significant amount of fluids upon her initial presentation with hypotension. Today the patient is awake, she gets extremely agitated on lower dose of propofol, she is not quite ready to be weaned, but she is getting close. Again she still requiring high PEEP and high FiO2. Plan to titrate her FiO2 down to 50% likely today. And maintain O2 sats above 92%. Her mental status is improving, patient is following instructions once she is on a lower dose of propofol, however she gets extremely agitated, and restlessness. Patient is back on her methadone CBC showed evidence of 8.7 hemoglobin 9.9 last lites are normal renal profile is normal Progress note dated 12/25/2021. 46-year-old female admitted on December 21, and intubated on the same day, for an overdose of SOMA. The patient remains on the mechanical ventilator. She is on volume assist control, rate 22, tidal volume 400, FiO2 60%, PEEP of 14. Blood gases show pO2 of 96, pCO2 42, and a pH is 7.42. These blood gases were done on 80%. She remains on propofol at 65 mcg/kg/m, saline at 20 mL an hour, and vital high protein at 22 mL an hour. Her sputum sample so both Serratia an Escherichia coli. For that, she is on Zosyn. White count 10.2, hemoglobin 10.3, hematocrit 32.2, and platelet count 233,000. Sodium 137 potassium 4.3 chlorides 105, CO2 27, BUN 24, creatinine 0.7. Albumin is 3.4. Chest x-ray shows patchy bibasilar airspace disease, improved on the right and slightly worse on the left. Progress note dated 12/26/2021. 46-year-old female admitted on December 21, and intubated on the same day, respiratory failure, secondary to an overdose of SOMA. The patient remains on mechanical ventilator, and is not yet ready for weaning. She is on volume assist control, rate 22, tidal volume 400, FiO2 60%, and PEEP of 14. Arterial blood gases show pO2 of 86, pCO2 42, and a pH of 7.45. The patient is on saline at 20 mL an hour, propofol at 75 mcg/kg/m, fentanyl at 2 mcg/kg/h, and vital AF at 10 mL an hour. The patient has both Serratia an Escherichia coli in the sputum, and his on Zosyn for that. The patient can get either labetalol IV when necessary, or Cleveprex, for blood pressure control. The FiO2 was reduced to 50%. White count 8.5, hemoglobin 10.7, hematocrit 32.7, platelet count 230,000. Sodium, potassium, chloride, CO2, are all normal. BUN 26 with a creatinine of 0.67. Anion gap is normal. Calcium 8.1. Chest x-ray shows the NG tube tip to be in the thoracic esophagus. There is some mild interstitial edema present. Progress note dated 12/27/2021. 46-year-old female admitted on December 21, and intubated on the same day, respiratory failure, secondary to an overdose of SOMA. The patient remains on mechanical ventilator, and unfortunately, has not made much progress. The patient is on the volume assist control, rate 22, tidal volume 400, FiO2 40%, and PEEP of 14. Blood gases show by mouth 270, pCO2 42, and a pH is 7.42. The patient is currently going to be started on Reglan at 10 mg IV push every 6 hours, for gastroparesis, and also receive Zofran for nausea and vomiting. The patient is currently on fentanyl at 1 mcg/kg/h, propofol at 75 mcg/kg/m, and saline at 30 mL an hour. Tube feedings on hold because of high residuals. The patient is off Cleveprex. Blood pressure is been very labile. White count 10.3, hemoglobin 11.1, hematocrit 33.4, with a normal platelet count. Sodium 136, potassium 3.9, chlorides 106, CO2 26, BUN 20, with a creatinine of 0.58. Sputum is showing evidence of both Serratia an Escherichia coli. For that she is on Zosyn. Chest x-ray shows increasing left lower lobe opacity. Progress note dated 12/28/2021. 46-year-old female admitted on December 21, and intubated on the same day, for re spiratory failure secondary to an overdose of SOMA. The patient remains on the mechanical ventilator, and is not really making much progress. She still on 50% FiO2, and a PEEP of 14. I had a long conversation with the patient's yesterday. The patient's on fentanyl drip at 2 mcg/kg/h, propofol at 75 mcg/kg/m, saline at 20 mL an hour,, and vomiting. She remains on volume assist control, rate 22, tidal volume 400, FiO2 50%, and PEEP of 14. Blood gases show pO2 104, pCO2 39, and a pH is 7.40. I've asked the nurses to resume the tube feeds at 5 mL an hour. In addition, I've asked for a flat plate of the abdomen. The tube feeding should not be increased. White count 9.2, hemoglobin 11.3, hematocrit 34.7, and platelet count 240,000. Sodium 137, potassium 3.7, chlorides 108, CO2 22, BUN 22, with a creatinine of 0.54. The sputum sample show evidence of both Serratia an Escherichia coli. She is on antibiotics for that. Flat plate of the abdomen shows patchy retrocardiac atelectasis versus infiltrate, an NG tube that is short, with the tip at the GE junction, and a nonobstructive bowel gas pattern. Progress note dated 12/29/2021. 46-year-old female admitted on December 21, and intubated on the same day, for respiratory failure, secondary to an overdose of SOMA. The patient remains on mechanical ventilator. He is on volume assist control, rate 22, tidal volume 400, FiO2 50%, and a PEEP of 14, which is reduced down to 10. Arterial blood gases show pO2 108, pCO2 37, and a pH is 7.4. Currently, she is on fentanyl at 2 mcg/kg/h, propofol at 75 mcg/kg/m, saline at 50 mL an hour, and tube feedings are currently on hold, for recurrent emesis. Today, we will do a daily interruption of sedation. The patient remains on Zosyn. Labs include a white count 11.9, hemoglobin 11.8, hematocrit 35.9, and a normal platelet count. Sodium 140, potassium 3.5, chlorides 1, CO2 22, BUN 20, creatinine 0.52. Glucose 111. Calcium is 8.6. Sputum from December 21, was positive for Serratia and Escherichia coli. Brain CAT scan, does not show anything acute. Chest x- ray shows persistent left greater than right basilar infiltrates or atelectasis. Chest x-ray is unchanged. Progress note dated 12/30/2021. 46-year-old female admitted on December 21. She was intubated on the same day for respiratory failure secondary to an overdose of SOMA. The patient was extubated successfully yesterday, December 29. She's currently on 4 L nasal cannula. She still getting dexmedetomidine at 0.1 mcg/kg/h, and saline at 10 mL an hour. Today's labs include a completely normal CBC, sodium 137, potassium 3.5, chlorides 110, CO2 20, BUN 18, creatinine 0.55. AST was 65 with an ALT of 59. Sputum from December 21 shows evidence of both Serratia and Escherichia coli. Chest x-ray shows extubation, bilateral infiltrates, which are improved. Progress note dated 12/31/2001. 46-year-old white female admitted on December 21, status post intubation on the same day, for respiratory failure secondary to an overdose of SOMA. The patient was successfully extubated on December 29. She remains on room air. She's getting saline at 30 mL an hour. We will discontinue the IV. We will advance her diet. From my perspective, she is medically cleared for psychiatric inpatient evaluation. White count 9, hemoglobin 11, hematocrit 32.5, platelet count 112,000. Sodium 137, potassium 3.4, chlorides 108, CO2 21, BUN 13, creatinine 0.59. AST is 92 with an ALT of 101. Sputum from November 2017 showed evidence of Serratia marcescens and Escherichia coli. Antibiotics, will be discontinued. Chest x-ray shows low lung volumes, with atelectasis and/or mild fluid overload. Objective - Vital Signs Vital signs: Vital Signs Temp 98.9 F 12/31/21 02:00 Pulse 77 12/31/21 02:00 Resp 20 12/31/21 02:00 BP 137/81 12/31/21 02:00 Pulse Ox 93 L 12/31/21 02:00 FiO2 50 12/29/21 11:01 Intake & Output 12/30/21 12/31/21 12/31/21 18:59 06:59 18:59 Intake Total 357.615 360 Output Total 455 300 Balance -97.385 60 Weight 87.3 kg Intake: IV 340 360 Piperacillin-Tazobactam 3 100 .375 gm In Sodium Chloride 0.9% 100 ml @ 25 mls/hr IVPB Q8HR [facility] Rx# :[id number] Sodium Chloride 0.9% 1, 240 360 000 ml @ 20 mls/hr IV . Q24H [facility] Rx#:[id number] Intake, IV Titration 17.615 Amount Dexmedetomidine/0.9% NaCl 17.615 (Pmx) 400 mcg In Empty Bag 1 bag @ 0.2 MCG/KG/HR 4.625 mls/hr IV .[id number] [facility] Rx#:[id number] Output: Urine 455 300 Other: Voiding Method Indwelling Catheter Indwelling Catheter # Voids 1 1 # Bowel Movements 1 1 ABP, PAP, CO, CI - Last Documented Arterial Blood Pressure 103/78 - Exam No acute distress, extubated, currently on room air. HEENT examination is grossly unremarkable. Neck supple. Full range of motion. No adenopathy thyromegaly or neck vein distention. Cardiovascular examination reveals regular rhythm rate. S1-S2 normal. No S3 or S4. No discernible murmur noted. Heart rate 77 bpm. Lungs reveal scattered bilateral rhonchi. No crackles or wheezes. Saturations are 93-95% on room air Abdomen soft, without masses. Bowel sounds are noted. Extremities are intact. No cyanosis clubbing or edema. Skin is without rash or lesion. Neurologic examination is brief but nonfocal. - Labs CBC & Chem 7: 12/31/21 07:02 12/31/21 07:02 Labs: Abnormal Lab Results - Last 24 Hours (Table) 12/31/21 12/31/21 12/31/21 Range/Units 07:02 07:02 07:34 RBC 3.68 L (3.80-5.40) m/uL Hgb 11.0 L (11.4-16.0) gm/dL Hct 32.5 L (34.0-46.0) % Plt Count 112 L (150-450) k/uL Potassium 3.4 L (3.5-5.1) mmol/L Chloride 108 H (98-107) mmol/L Carbon Dioxide 21 L (22-30) mmol/L Glucose 115 H (74-99) mg/dL POC Glucose (mg/dL) 116 H (70-110) mg/dL AST 92 H (14-36) U/L ALT 101 H (4-34) U/L Assessment and Plan Assessment: Acute hypoxemic respiratory failure secondary to overdose of SOMA, status post intubation and mechanical ventilation on December 21, with failure to wean from mechanical ventilation. Successful extubation 12/29/2021 Aspiration pneumonia, sputum positive for both Escherichia coli and Serratia, treated with Zosyn. Acute respiratory distress syndrome, moderate in severity. History of depression and suicidal ideations. Obesity, with a BMI of 32. History of heroin abuse. History of chronic hepatitis C. History of possible seizures. Hypotension, secondary to hypovolemia and possible septic shock, resolved. Plan: Plan dated 12/25/2021. The patient remains on mechanical ventilation, and still on 14 cm water PEEP. The patient will continue with GI and DVT prophylaxis. The patient continues on Zosyn, for sputum showing evidence of both Serratia and Escherichia coli. Labs, x-rays, medications are all reviewed. The patient remains on tube feedings at goal. Overall prognosis remains guarded. We will continue to follow and make recommendations where appropriate. Plan dated 12/26/2021. The patient remains on mechanical ventilator, is likely not yet ready to wean as she is currently on a PEEP of 14. The FiO2 is reduced down to 50%. The patient remains on Zosyn for both Serratia, and Escherichia coli in the sputum. I told the nurse that she could use either IV labetalol, or Cleveprex, to control the elevated blood pressure. Labs, x-rays, and medications are reviewed. Overall prognosis remains very guarded. We will continue to follow the patient make recommendations along the way. Plan dated 12/27/2021. The patient remains on mechanical ventilator. Vent settings are unchanged. The patient really has not made much in the way of progress. She remains on propofol and fentanyl. Tube feedings on hold because of high residuals. We added Reglan 10 mg IV push every 6 hours. She is also getting Zofran as necessary. Labs, x-rays, and medications are reviewed. Prognosis is very guarded. Today, I did speak to the for about 15 minutes. I gave him an update. His name is Mir. I told Mir that she was critically ill but stable. She's not getting any worse, but not progressing either. Plan dated 12/28/2021. The patient remains on mechanical ventilator. The patient is both on fentanyl and propofol. 2 feedings on hold because of high residuals and recurrent vomiting. The patient is on Reglan 10 mg every 6 hours IV push. We will resume tube feedings at 5 mL an hour. The patient will have a flat plate of the abdomen. Labs, x-rays, and medications are reviewed. Prognosis is guarded. I did have a long conversation with the Mir yesterday. I explained to him that his is very critically ill. Overall prognosis remains very guarded. Plan dated 12/29/2021. The patient remains on the mechanical ventilator. Today, we reduced the PEEP from 14, down to 10. The patient remains on Zosyn for her current lung infection. The patient will have a daily interruption of sedation. She might be ready for extubation. I did talk to the a couple days ago. Labs, x- rays, medications are reviewed. Prognosis is guarded. She remains critically ill. Medications are reviewed. Plan dated 12/30/2021. The patient will need psychiatric evaluation. She remains on dexmedetomidine, but I've asked the nurse when it off. The primary service, and psychiatry can be responsible for her pain medications, and her psychotropic medications. Labs, x-rays, and medications are reviewed. Clinically she is doing very well. Her oxygen has been weaned down to 2 L. We will continue to follow make recommendations. Plan dated 12/31/2021. The patient has been weaned off of dexmedetomidine. The patient's on room air. She's getting saline at 30 mL an hour. I told the nurse to discontinue the IV, and advance the diet. From my perspective, she is medically cleared to go to the psychiatric floor. I will discontinue the Zosyn as his been going since December 21. Labs, x-rays, and medications are reviewed. Daily chest x-rays can be discontinued. Prognosis is guarded. Time with Patient: Less than 30
[2021-12-31] MEDS ORDERED: POTASSIUM CHLORIDE ER 20 MEQ TAB.ER PO STA (08:43)
[2021-12-31 09:43] VITALS: BP 147/69; PULSE 87; RESP 14; TEMP 98.8
[2021-12-31 11:57] LABS: Glucose,Whole Blood 126 mg/dL (70-110)
--- NOTE | 2021-12-31 12:35 | P.DS ---
Providers Date of admission: 12/21/21 03:26 Expected date of discharge: 12/31/21 Attending physician: Katiana Owen Consults: 12/21/21 03:26 Consult Physician Routine Consulting Provider: Keturah Sales Consult Reason/Comments: Overdose. Intubated patient Do you want consulting provider notified?: Yes 12/22/21 09:03 Consult Physician Routine Consulting Provider: Juan José Casey Consult Reason/Comments: possible seizure Do you want consulting provider notified?: Yes 12/29/21 13:41 Consult Physician Routine Consulting Provider: Ajay Martin Consult Reason/Comments: Overdose, hx suicidal ideations, plans for extubation today Do you want consulting provider notified?: Yes 12/30/21 11:40 Consult Physician Routine Consulting Provider: Ajay Martin Consult Reason/Comments: psych consult - Pt extubated Do you want consulting provider notified?: Already Contacted Primary care physician: Archie Kinney [facility] Course: Final diagnosis Acute hypoxic respiratory failure secondary to overdose patient is continued on mechanical ventilator with FiO2 of 50% Toxic metabolic encephalopathy Aspiration pneumonia sputum culture positive for Serratia and E. coli and was treated adequately with IV Zosyn and will not require antibiotics on discharge Gastroparesis on reglan Mild septic shock with hypotension secondary to hypovolemia, resolved History of depression and suicidal ideations History of heroin abuse History of chronic hepatitis C History of questionable seizure activity Obesity with BMI of 31.6 GI prophylaxis DVT prophylaxis Full code Discharge disposition Patient is being transferred in a stable condition with guarded prognosis to [facility] psychiatric unit for further evaluation as patient was petitioned. Patient will follow-up with Dr. Almanza in the outpatient setting upon discharge. Patient's methadone has been resumed. Total time taken is greater than 35 minutes. Hospital course This is a 46-year-old female who was recently admitted with altered mental status and overdose with suspected somas along with taking her methadone requiring mechanical ventilation and ICU monitoring. Patient did have a right lower lobe infiltrate maintaining drips and maintained on sedation with sputum cultures being positive for Serratia and E. coli and has been treated adequately with IV Zosyn and will not require antibiotics on discharge. Patient is cur rently on room air and denies shortness of breath. Patient was petitioned and psychiatry evaluating recommending inpatient psychiatric unit for further psychiatric care and treatment. Family is agreeable with this as well. Today's potassium was 3.4 and will be given a dose of potassium and recommend follow-up labs in the next 2-3 days. Currently no reports of chest pain, shortness of breath, or palpitations. Patient is afebrile. No reports of nausea or vomiting and patient is tolerating diet. Patient will be transferred to [facility] psychiatric unit today once a bed becomes available. Physical exam: Gen: This is a 46-year-old female awake, alert and oriented 3, anxious, well- developed, well-nourished HEENT: Head is atraumatic, normocephalic. Pupils equal, round. Sclerae is anicteric. NECK: Supple. No JVD. No lymphadenopathy. No thyromegaly. LUNGS: Clear to auscultation. No wheezes or rhonchi. No intercostal retractions. HEART: Regular rate and rhythm. No murmur. ABDOMEN: Soft. Bowel sounds are present. No masses. No tenderness. EXTREMITIES: No pedal edema. No calf tenderness. NEUROLOGICAL: Patient is awake, alert and oriented x3. Cranial nerves 2 through 12 are grossly intact. Please refer to medication reconciliation sheet for a list of medications. The impression and plan of care has been dictated by Marge Renteria, Nurse Practitioner as directed. Dr. Carlyn MD I have performed a history and examination and MDM of this patient, discussed the same with the dictator, and agree with the dictator's assessment and plan as written ,documented as a scribe. Based on total visit time, I have performed more than 50% of the visit. Patient Condition at Discharge: Stable Plan - Discharge Summary Discharge Rx Participant: No New Discharge Prescriptions: No Action Methadone HCl [Methadone Intensol] 170 mg PO DAILY Discharge Medication List Methadone HCl [Methadone Intensol] 170 mg PO DAILY 09/08/16 [History] Follow up Appointment(s)/Referral(s): Gregoria Almanza MD [Primary Care Provider] - 1-2 days Activity/Diet/Wound Care/Special Instructions: Patient is medically clear and stable for transfer to [address] [place] [address] psychiatric unit for further evaluation Patient has been petitioned Patient has had adequate antibiotic coverage will not require antibiotics on discharge Discharge Disposition: TRANSFER TO PSYCH HOSP/UNIT
== END 2021-12-31 13:54 | disposition still patient (30) | DRG 917 ==
LOC: EC 00:22 → 2SICU 03:26
PROVIDERS: ADMIT Hospitalist; ATTEND Hospitalist
PROC: 5A1955Z Respiratory Ventilation, Greater than 96 Consecutive Hours (ICD-10-PCS; principal; 2021-12-21)
PROC: 0BH18EZ Insertion of Endotracheal Airway into Trachea, Via Natural or Artificial Opening Endoscopic (ICD-10-PCS; 2021-12-21)
PROC: 06HY33Z Insertion of Infusion Device into Lower Vein, Percutaneous Approach (ICD-10-PCS; 2021-12-21)
PROC: 0D9670Z Drainage of Stomach with Drainage Device, Via Natural or Artificial Opening (ICD-10-PCS; 2021-12-21)
PROC: 03HY32Z Insertion of Monitoring Device into Upper Artery, Percutaneous Approach (ICD-10-PCS; 2021-12-22)
PROC: 4A133B1 Monitoring of Arterial Pressure, Peripheral, Percutaneous Approach (ICD-10-PCS; 2021-12-22)
PROC: 4A133J1 Monitoring of Arterial Pulse, Peripheral, Percutaneous Approach (ICD-10-PCS; 2021-12-22)
PROC: 3E033XZ Introduction of Vasopressor into Peripheral Vein, Percutaneous Approach (ICD-10-PCS; 2021-12-22)
PROC: 3E0G76Z Introduction of Nutritional Substance into Upper GI, Via Natural or Artificial Opening (ICD-10-PCS; 2021-12-22)
DX: T42.8X2A Poisoning by antiparkinsonism drugs and other central muscle-tone depressants, intentional self-harm, initial encounter (principal); A41.51 Sepsis due to Escherichia coli [E. coli]; J80 Acute respiratory distress syndrome; R65.21 Severe sepsis with septic shock; G92.8 Other toxic encephalopathy; J69.0 Pneumonitis due to inhalation of food and vomit; A41.53 Sepsis due to Serratia; R45.851 Suicidal ideations; Z99.11 Dependence on respirator [ventilator] status; F11.20 Opioid dependence, uncomplicated; J98.11 Atelectasis; I15.8 Other secondary hypertension; Z68.36 Body mass index [BMI] 36.0-36.9, adult; B19.20 Unspecified viral hepatitis C without hepatic coma; E66.9 Obesity, unspecified; F32.A Depression, unspecified; B18.2 Chronic viral hepatitis C; T42.8X1A Poisoning by antiparkinsonism drugs and other central muscle-tone depressants, accidental (unintentional), initial encounter; I49.3 Ventricular premature depolarization; E86.1 Hypovolemia; T40.3X1A Poisoning by methadone, accidental (unintentional), initial encounter; E87.6 Hypokalemia; K31.84 Gastroparesis; R00.0 Tachycardia, unspecified; Z90.49 Acquired absence of other specified parts of digestive tract; Z98.890 Other specified postprocedural states; Z86.69 Personal history of other diseases of the nervous system and sense organs; Z87.01 Personal history of pneumonia (recurrent); Z91.51 Personal history of suicidal behavior
CPT/HCPCS: 31500; 36415; 36600; 70450; 71045; 71275; 74018; 80048; 80053; 80143; 80179; 80306; 80320; 81001; 81025; 82805; 83036; 83605; 83735; 83880; 84100; 84132; 84145; 84484; 84703; 85025; 87070; 87077; 87186; 87205; 87635; 93306; 94002; 94003; 94640; 95822; 96361; 96374; 96376; 99291

== ENCOUNTER 2021-12-31 14:23 | Inpatient (IN) | payer MEDICAID ==
[2021-12-31] MEDS ORDERED: HALOPERIDOL LACTATE 5 MG/ML 1 ML VIAL IM PRN (14:42)
[2021-12-31] MEDS ORDERED: LORazepam 1 MG TAB PO PRN (14:42)
[2021-12-31] MEDS ORDERED: ACETAMINOPHEN TAB 325 MG TAB PO PRN (14:42)
[2021-12-31] MEDS ORDERED: MAGNESIUM HYDROXIDE 2,400 MG/10 ML CUP PO PRN (14:42)
[2021-12-31] MEDS ORDERED: MAG HYDROX/AL HYDROX/SIMETH 30 ML CUP PO PRN (14:42)
[2021-12-31] MEDS ORDERED: LORazepam 2 MG/ML INJ IM PRN (14:47)
[2021-12-31] MEDS ORDERED: haloperidoL 5 MG TAB PO PRN (14:47)
[2022-01-01] MEDS: METHADONE 10 MG TAB PO SCH (08:56)
[2022-01-01] MEDS ORDERED: NICOTINE 14MG/24HR PATCH TRANSDERM SCH (09:00)
--- NOTE | 2022-01-01 11:37 | P.HPIM ---
History of Present Illness H&P Date: 01/01/22 This is a 46-year-old female with medical history significant for IV drug use with heroin states last used 5 years ago, currently on methadone which she receives from [employer]. Additional history includes csection x 2, tonsillectomy, cholecystectomy, appendectomy. Denies history of heart disease, diabetes, thyroid issues, hypertension. Patient was discharged from the medical floor yesterday and was transferered to [facility] for inpatient mental health treatment. Patient was admitted to hospital for altered mental status secondary to overdose from taking soma along with prescribed methadone which required mechanical ventilation and ICU monitoring. Patient was treated for positive sputum culture with IV antibiotics while inpatient. Patient was extubated on 12/29/21 and was then evaluated by psychiatry. She was monitored on the medical floor post extubation and was cleared medically to transfer to [facility] yesterday 12/31/21. Patient doesn't comment about what happened, only shrugged shoulders. Her mood appears depressed. Currently denies suicidal ideations. Her main complaint today is that she is tired. Denies chest pain, denies shortness of breath. Denies nausea, vomiting. She is currently pending evaluation by psychiatry. REVIEW OF SYSTEMS: CONSTITUTIONAL: No fever, no malaise, no fatigue. HEENT: No recent visual problems or hearing problems. Denied any sore throat. CARDIOVASCULAR: No chest pain, orthopnea, PND, no palpitations, no syncope. PULMONARY: No shortness of breath, no cough, no hemoptysis. GASTROINTESTINAL: No diarrhea, no nausea, no vomiting, no abdominal pain. NEUROLOGICAL: No headaches, no weakness, no numbness. HEMATOLOGICAL: Denies any bleeding or petechiae. GENITOURINARY: Denies any burning micturition, frequency, or urgency. MUSCULOSKELETAL/RHEUMATOLOGICAL: Denies any joint pain, swelling, or any muscle pain. ENDOCRINE: Denies any polyuria or polydipsia. The rest of the 14-point review of systems is negative. PHYSICAL EXAMINATION: GENERAL: The patient is alert and oriented x3, not in any acute distress. Well developed, well nourished. HEENT: Pupils are round and equally reacting to light. EOMI. No scleral icterus. No conjunctival pallor. Normocephalic, atraumatic. No pharyngeal erythema. No thyromegaly. CARDIOVASCULAR: S1 and S2 present. No murmurs, rubs, or gallops. PULMONARY: Chest is clear to auscultation, no wheezing or crackles. ABDOMEN: Soft, nontender, nondistended, normoactive bowel sounds. No palpable organomegaly. MUSCULOSKELETAL: No joint swelling or deformity. EXTREMITIES: No cyanosis, clubbing, or pedal edema. NEUROLOGICAL: Gross neurological examination did not reveal any focal deficits. SKIN: No rashes. Assessment and plan Assessment Overdose with Soma and methadone requiring mechanical ventilation post extubation Aspiration pneumonia with positive sputum culture adequately treated with IV Zosyn Post discharge from intensive care unit for septic shock History of depression and suicidal ideations History of heroin abuse last used 5 years ago History of chronic hepatitis C History of questionable seizure activity Obesity with BMI of 31.6 GI Prophylaxis Full Code Plan Pending psychiatric evaluation Plan for repeat sodium level in 2 to 3 days Continue home dose of methadone Thank you for this consultation The impression and plan of care has been dictated by Ricarda Pedroza Nurse Practitioner as directed. Dr. Carlyn MD I have performed a history and physical examination and medical decision making of this patient, discussed the same with the dictator, and agree with the dictators assessment and plan as written, documented as a scribe. Based on total visit time, I have performed more than 50% of this visit. Past Medical History Past Medical History: No Reported History Additional Past Medical History / Comment(s): heroin use, uti, used to have seizures when younger History of Any Multi-Drug Resistant Organisms: None Reported Past Surgical History: Section, Cholecystectomy Additional Past Surgical History / Comment(s): 2 sections Past Anesthesia/Blood Transfusion Reactions: No Reported Reaction Past Psychological History: No Psychological Hx Reported Smoking Status: Vaper Past Alcohol Use History: None Reported Past Drug Use History: Heroin, IV Drug Use Additional Drug Use History / Comment(s): last time used 12-19-2013 Medications and Allergies Home Medications Medication Instructions Recorded Confirmed Type Methadone HCl [Methadone Intensol] 170 mg PO DAILY 09/08/16 01/01/22 History Allergies Allergy/AdvReac Type Severity Reaction Status Date / Time No Known Allergies Allergy Verified 12/21/21 00:32 Physical Exam Vitals: Vital Signs Temp Pulse Resp BP Pulse Ox 01/01/22 06:54 97.6 F 97 18 128/80 99 12/31/21 16:41 98.1 F 91 16 151/93 95 Intake and Output 12/31/21 01/01/22 01/01/22 22:59 06:59 14:59 Other: Weight 83.461 kg Assessment and Plan Time with Patient: Less than 30
--- NOTE | 2022-01-01 14:31 | P.HP ---
Psychiatric H&P - . H&P Date: 01/01/22 History & Physical: Allergies Allergy/AdvReac Type Severity Reaction Status Date / Time No Known Allergies Allergy Verified 12/21/21 00:32 Vital Signs Temp 97.6 F 01/01/22 06:54 Pulse 97 01/01/22 06:54 Resp 18 01/01/22 06:54 BP 128/80 01/01/22 06:54 Pulse Ox 99 01/01/22 06:54 FiO2 Intake & Output 12/31/21 01/01/22 01/01/22 18:59 06:59 18:59 Weight 83.461 kg 83.461 kg 01/01/22 14:13 IDENTIFYING DATA: This patient is a 46 year old female with history of chronic hepatitis C and IV drug abuse, who was admitted to the ICU due to respiratory failure following overdose on muscle relaxant. HISTORY OF PRESENT ILLNESS: As per Dr Sommers consult evaluation, Patient was initially brought into the hospital and admitted to the ICU due to respiratory failure following overdose on muscle relaxant, (Soma) that reportedly didn't belong to her. She required intubation on day of arrival followed by mechanical ventilation. She was successfully extubated on 12/29/21. I evaluated patient today and she was found laying in bed with sitter at bedside. Patient is awake, alert however is slow to respond to questions or follow commands. She appears avoidant with poor eye contact, repeatedly fiddles with the sheets and her pillow. She admits she intentionally took "a bunch of pills", but denies this was a suicide attempt. She is easily confused but also appears to utilize defense mechanisms of denial and minimization. She is not able to quantify how many pills she took when asked, and continues to look around the room. When asked what type of pills she took, she states "not sure", but eventually admits that they were Soma and states that her doesn't like her taking them. When asked about her mood, she states "I don't know" and looks around the room. She appears confused, states today is (it is Saturday), quickly states the year is 2021, but does not know the month. She appears easily confused and and delirious, with difficulty sustaining focus and concern for perceptual disturbances. When asked about the month and season it is outside, she states "I'll take it cold.... no I don't like it cold. I keep thinking about what I want to drink." She denies drinking alcohol recently. She denies auditory or visual hallucinations. She denies suicidal or homicidal ideations at that time. Patient was seen today in group and reluctant to speak with com writer. Patient appears to be fairly guarded/evasive and uncooperative during the interview. She also appeared to be distracted and uninterested with this issue. She minimized her suicide attempt and states that "there was no intention". She claims that she overdosed on a bottle of soma. She was alert and oriented 3 today. Patient has a history of intravenous drug abuse her residence over 5 years and receiving methadone r [facility]. PAST PSYCHIATRIC HISTORY: Patient is an unreliable historian currently. From previous assessment on 10/22/21: Patient has a a history of heroin dependence and is currently on methadone. Previously took Prozac and Celexa, but also tends to minimize her past psychiatric history. Patient denies any previous psychiatric hospitalizations. Patient denies any psychiatric outpatient follow-up. Patient denies any history of suicide attempts in the past. PAST MEDICAL HISTORY: Past Medical History: No Reported History Additional Past Medical History / Comment(s): heroin use, uti, used to have seizures when younger History of Any Multi-Drug Resistant Organisms: None Reported Past Surgical History: Section, Cholecystectomy Additional Past Surgical History / Comment(s): 2 sections Past Anesthesia/Blood Transfusion Reactions: No Reported Reaction Past Psychological History: No Psychological Hx Reported Smoking Status: Vaper Past Alcohol Use History: None Reported Past Drug Use History: Heroin, IV Drug Use ALLERGIES: as per EMR. CHEMICAL DEPENDENCY HISTORY: Per 10/22/21 assessment: History of heroin dependence, currently on methadone. She denies alcohol use. She vapes. She denies any other drug use. She abuses Soma. FAMILY PSYCHIATRIC/SUBSTANCE USE HISTORY: None known SOCIAL HISTORY: Per 10/22/21 assessment: Patient was born and raised in [place]. She her in July 2021 after being together for 10 years. She has 2 kids (21-year-old and 19-year-old). 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 She feels safe at home. MENTAL STATUS EXAM: General Appearance: Patient appears to be stated age, is disinterested, uncooperative. Guarded/evasive Behavior: Patient appears easily confused, poor eye contact, looking around the room Speech: Patient's speech is fluent and nonpressured. [place] and monotone. Mood/Affect: Patient reports their mood is "I don't know", affect is constricted Suicidality/Homicidality: Patient denies having any suicidal or homicidal ideation intent or plan, however she admits to intentional overdose on Soma Perceptions: Patient denies any visual hallucinations and denies any auditory hallucinations, but appears to be attending to internal stimuli Thought process: Poverty of thought, slow to respond Though content: Irrelevant Memory and concentration: She knows the date, her own name and location. Easily distracted, poor attention span. Judgment and insight: Very poor IMPRESSIONS: Unspecified depressive disorder Opioid use disorder, severe, on agonist therapy Sedative/hypnotic/anxiolytic (Soma) use disorder STRENGTHS/WEAKNESSES: strength is that patient is resilient. Weakness is that patient has poor judgment and is impulsive INTELLECT: average PLAN: -Patient is admitted under voluntary status to MHU for stabilization of psychiatric symptoms and safety. Patient has not signed medication consent and is placed in patient's chart. -Medications : Will start patient on Cymbalta 30 mg daily for mood/anxiety, Zyprexa 5 mg daily at bedtime for mood adjunct/psychosis -Ativan and Haldol PRN for agitation/aggression -Patient was counselled on substance abuse and desired to cut back on use -Patient was informed of the risks, benefits and side effects of the medication and patient verbally consented to taking the medications. Patient signed med consent form and was placed in chart. -Internal Medicine consult to perform medical evaluation and physical. -NRT - not needed as patient does not smoke -SW on board for discharge planning. Encourage patient to participate in groups to work on coping skills. 01/01/22 14:20 01/01/22 14:25
[2022-01-01] MEDS: DULoxetine HCL 30 MG CAPSULE.DR PO SCH (17:22)
[2022-01-01] MEDS: OLANZapine 5 MG TAB PO SCH (22:12)
[2022-01-02] MEDS: DULoxetine HCL 30 MG CAPSULE.DR PO SCH (09:22)
[2022-01-02] MEDS: METHADONE 10 MG TAB PO SCH (10:36)
--- NOTE | 2022-01-02 11:53 | P.PN ---
Progress Note - Text Progress Note Date: 01/02/22 Interval History: Patient was seen lying in her bed today and was seen in her room. Patient was agreeable to speak to data analyst report writer today. She again appears to be fairly disinterested in the conversation. She made very poor eye contact with data analyst report writer. She continues to minimize her need for hospitalization and also her symptoms. She claims that she is not feeling depressed today and does not report anxiety. She claims that she was able to sleep last night. She continues to be fairly vague and evasive and guarded about what had occurred. Continues to demonstrate poor insight and judgment about her overdose. She was concrete in her thought process. At this time patient denies any suicidal or homical ideations, intent or plan. Patient denies any auditory, visual hallucinations and denies any paranoia or delusions. Patient denies any side effects from the medications and has been compliant with meds. Mental Status Exam: General Appearance: Patient appears to be stated age, is disinterested, uncooperative. Guarded/evasive, mildly improving Behavior: Patient appears disinterested, poor eye contact Speech: Patient's speech is fluent and nonpressured. [place] and monotone. Mood/Affect: Patient reports their mood is "ok i think", affect is constricted Suicidality/Homicidality: Patient denies having any suicidal or homicidal ideation intent or plan Perceptions: Patient denies any visual hallucinations and denies any auditory hallucinations Thought process/content: Poverty of thought, slow to respond, no delusions or paranoia. Memory and concentration: AO x 3, improving attention span. Judgment and insight: Very poor, improving midlly IMPRESSIONS: Unspecified depressive disorder Opioid use disorder, severe, on agonist therapy Sedative/hypnotic/anxiolytic (Soma) use disorder Plan: -Patient continues to meet criteria for inpatient psychiatric admission for symptom stabilization and safety. Patient has not signed adult voluntary form and medication consent and was placed in patient's chart. -Medications: Cymbalta 30 mg daily for mood/anxiety, Zyprexa 5 mg daily at be dtime for mood adjunct/psychosis -When necessary Ativan and Haldol for agitation/aggression. -NRT - not needed as patient does not smoke -SW on board for discharge planning. Encouraged the patient to participate in milieu.
[2022-01-02 15:25] VITALS: RESP 16; TEMP 98
[2022-01-02] MEDS: OLANZapine 5 MG TAB PO SCH (21:07)
[2022-01-03] MEDS: DULoxetine HCL 30 MG CAPSULE.DR PO SCH (08:34)
[2022-01-03] MEDS: METHADONE 10 MG TAB PO SCH (08:35)
--- NOTE | 2022-01-03 09:53 | P.PN ---
Progress Note - Text Progress Note Date: 01/03/22 Interval History: Patient was seen sitting by her bed today and was seen in her room. Patient was agreeable to speak to marine underwriter today. She appears to be more directable today to speak with marine underwriter. SHe states that she is doing "fine". She offers no overnight complaints. He continues to make poor eye contact. She continues to demonstrate fairly superficial insight. She claims that she is sleeping better with the medication at nighttime. She appears to be mildly more interactive with marine underwriter. She claims that her appetite has been improving. She was concrete in her thought process. At this time patient denies any suicidal or homical ideations, intent or plan. Patient denies any auditory, visual hallucinations and denies any paranoia or delusions. Patient denies any side effects from the medications and has been compliant with meds. Mental Status Exam: General Appearance: Patient appears to be stated age, is directable, or cooperative today. less Guarded/evasive Behavior: Patient appears disinterested, poor eye contact, improving mildly Speech: Patient's speech is fluent and nonpressured. [place] and monotone. Mood/Affect: Patient reports their mood is "ok", affect is constricted Suicidality/Homicidality: Patient denies having any suicidal or homicidal ideation intent or plan Perceptions: Patient denies any visual hallucinations and denies any auditory hallucinations Thought process/content: Poverty of thought, slow to respond, no delusions or paranoia. Memory and concentration: AO x 3, improving attention span. Judgment and insight: poor, improving midlly IMPRESSIONS: Unspecified depressive disorder Opioid use disorder, severe, on agonist therapy Sedative/hypnotic/anxiolytic (Soma) use disorder Plan: -Patient continues to meet criteria for inpatient psychiatric admission for symptom stabilization and safety. Patient has not signed adult voluntary form and medication consent and was placed in patient's chart. -Medications: Cymbalta 30 mg daily for mood/anxiety, Zyprexa 5 mg daily at bedtime for mood adjunct/psychosis -When necessary Ativan and Haldol for agitation/aggression -NRT - not needed as patient does not smoke -SW on board for discharge planning. Encouraged the patient to participate in milieu. likely discharge tomorrow.
[2022-01-03] MEDS: OLANZapine 5 MG TAB PO SCH (20:59)
[2022-01-04] MEDS: METHADONE 10 MG TAB PO SCH (09:10)
[2022-01-04] MEDS: DULoxetine HCL 30 MG CAPSULE.DR PO SCH (09:11)
[2022-01-04 09:15] VITALS: BP 109/69; PULSE 110
--- NOTE | 2022-01-04 10:23 | P.DS ---
Providers Date of admission: 12/31/21 14:23 Expected date of discharge: 01/04/22 Attending physician: Ajay Martin MD Consults: 12/31/21 14:42 Consult Physician Routine Consulting Provider: Katiana Owen Consult Reason/Comments: medical management Do you want consulting provider notified?: Already Contacted Primary care physician: Archie Kinney - Discharge Diagnosis(es) (1) Depressive disorder Current Visit: Yes Status: Acute Priority: High (2) Opioid use disorder Current Visit: Yes Status: Acute Priority: Medium (3) Sedative, hypnotic or anxiolytic abuse Current Visit: Yes Status: Acute Priority: High (4) Overdose of medication Current Visit: Yes Status: Acute Priority: High Hospital Course: Admission HPI: Admission note was completed by senior mortgage underwriter "This patient is a 46 year old female with history of chronic hepatitis C and IV drug abuse, who was admitted to the ICU due to respiratory failure following overdose on muscle relaxant. As per Dr Sommers consult evaluation, Patient was initially brought into the hospital and admitted to the ICU due to respiratory failure following overdose on muscle relaxant, (Soma) that reportedly didn't belong to her. She required intubation on day of arrival followed by mechanical ventilation. She was successfully extubated on 12/29/21. I evaluated patient today and she was found laying in bed with sitter at bedside. Patient is awake, alert however is slow to respond to questions or follow commands. She appears avoidant with poor eye contact, repeatedly fiddles with the sheets and her pillow. She admits she intentionally took "a bunch of pills", but denies this was a suicide attempt. She is easily confused but also appears to utilize defense mechanisms of denial and minimization. She is not able to quantify how many pills she took when asked, and continues to look around the room. When asked what type of pills she took, she states "not sure", but eventually admits that they were Soma and states that her doesn't like her taking them. When asked about her mood, she states "I don't know" and looks around the room. She appears confused, states today is (it is Saturday), quickly states the year is 2021, but does not know the month. She appears easily confused and and delirious, with difficulty sustaining focus and concern for perceptual disturbances. When asked about the month and season it is outside, she states "I'll take it cold.... no I don't like it cold. I keep thinking about what I want to drink." She denies drinking alcohol recently. She denies auditory or visual hallucinations. She denies suicidal or homicidal ideations at that time. Patient was seen today in group and reluctant to speak with senior mortgage underwriter. Patient appears to be fairly guarded/evasive and uncooperative during the interview. She also appeared to be distracted and uninterested with this issue. She minimized her suicide attempt and states that "there was no intention". She claims that she overdosed on a bottle of soma. She was alert and oriented 3 today. Patient has a history of intravenous drug abuse her residence over 5 years and receiving methadone replacement [facility]." Hospital course: Upon admission to the unit patient was directable and agreeable to commence treatment and signed adult voluntary form . Patient got along well with other patients on the unit and followed unit protocol. Patient was fairly vaugue, evasive and nonchalant about her overdose and reason for coming into the hospital. Patient was compliant with the medications and denied any side effects throughout hospital course. Patient was started on her home dose of methadone which was verified by pharmacy. Patient was also started on Cymbalta 30 mg daily for mood/anxiety and also Zyprexa 5 mg daily at bedtime for mood adjunct/insomnia. Patient spoke of her stressors and engaged in therapy some group therapy and individual therapyt aswell. Patient was also seen by medical team for history and physical exam. Throughout the course of the hospitalization patient gradually improved with regards to mood, anxiety, sleep and returned back to their baseline level of functioning. On the day of discharge patient denied any suicidal or homicidal ideations intent or plan denied any auditory or visual hallucinations. Patient endorsed wanting to live for her daughters and her life. The patient denied any access to guns or weapo ns. Patient denied any paranoia and did not endorse any delusions. Patient does have a significant history of substance abuse and was counseled on abstaining from all substances including alcohol and marijuana. Patient was offered however declined inpatient substance-abuse rehab. Patient was also counseled on the medications and need for regular compliance and was encouraged to follow-up with their outpatient appointment for mental health and also for primary care. Prior to discharge a family meeting will be arranged by director social welfare to answer any questions and ensure safety upon discharge including medication safety to prevent patient from accessing large amount of her medications (keeping them safely locked away and alsoguns and weapons to be removed). Patient Accounts Coordinator spoke with patients husbandover the phone Mir who relayed hisconcerns about her getting the soma pills off the street and overdosing in the past. He stattes that there are no guns and weapons in the house and he willkeep the meds locked away and help her with them. Mental status exam: General Appearance: Patient appears to be stated age is alert, pleasant, and cooperative. Patient is in no acute distress and has improved hygiene and grooming Behavior: Patient is calmly seated without any agitated behavior. Speech: Patient's speech is fluent and nonpressured. Mood/Affect: Patient reports their mood is "ok", affect is congruent and constricted Suicidality/Homicidality: Patient denies having any suicidal or homicidal ideation intent or plan. Perceptions: Patient denies any auditory or visual hallucinations. Though content/process: There is no evidence of any delusional thought content and thought process is linear and goal-directed. concrete Memory and concentration: AOX3, grossly intact for the purposes of this session. Can spell "WORLD" backwards correctly. Judgment and insight: chronically poor/superficial, however has improved with guarded prognosis Impression: Depressive disorder unspecified Opioid use disorder Sedative, hypnotic or anxiolytic abuse Overdose of medications Plan: -Continue with discharge today as patient has improved and stabilized psychiatrically and is not currently an imminent threat to herself and/or others. Patient will remain at chronically elevated risk for harm to self and/or others due to her impulsivity and history of overdoses -Continue medications: Patient will only be given a 14 day supply of her medications to reduce the risk of potential overdose. Cymbalta 30 mg daily for mood/anxiety, Zyprexa 5 mg daily at bedtime for mood adjunct/insomnia. Patient will continue with her daily dosing of methadone with [facility]. -Patient was counseled on the need for medication compliance and appropriate follow-up at mental health and also primary care for medical issues. Patient verbalized understanding and agreed. -Social work to arrange for and conduct family meeting to ensure safety upon discharge and answer any questions/concerns. Social work also to arrange for patients follow up appointments for psychiatric care along with follow up with primary care provider. -Patient counseled on abstaining from recreational drugs and marijuana and alcohol. Was informed/educated on the adverse effects on their physical and mental health. Patient verbally agreed and understood. Patient was offered substance abuse treatment however declined at this time. -Patient was instructed to return to the hospital or seek immediate medical care if their psychiatric or medical symptoms do worsen or reoccur. Allergies Allergy/AdvReac Type Severity Reaction Status Date / Time No Known Allergies Allergy Verified 12/21/21 00:32 Laboratory Results Coronavirus (PCR) Not Detected (Not Detectd) 01/03/22 07:57 Vital Signs Temp 98.0 F 01/04/22 09:13 Pulse 110 H 01/04/22 09:13 Resp 16 01/04/22 09:13 BP 109/69 01/04/22 09:13 Pulse Ox 96 01/04/22 09:13 FiO2 Patient Condition at Discharge: Stable Plan - Discharge Summary Discharge Rx Participant: No New Discharge Prescriptions: New OLANZapine [ZyPREXA] 5 mg PO HS 14 Days tab DULoxetine HCL [Cymbalta] 30 mg PO DAILY 14 Days cap Continue Methadone HCl [Methadone Intensol] 170 mg PO DAILY Discharge Medication List Methadone HCl [Methadone Intensol] 170 mg PO DAILY 09/08/16 [History] DULoxetine HCL [Cymbalta] 30 mg PO DAILY 14 Days cap 01/04/22 [Rx] OLANZapine [ZyPREXA] 5 mg PO HS 14 Days tab 01/04/22 [Rx] Follow up Appointment(s)/Referral(s): [facility] [NON-STAFF] - 1 Week Patient Instructions/Handouts: How to Stop Smoking (DC), Depression (DC), Opioid Use Disorder (DC), COVID-19: Slow the Coronavirus Spread (DC), Face Coverings (Masks) and COVID-19 (DC) Activity/Diet/Wound Care/Special Instructions: Avoid the use of street drugs and alcohol. Take all prescriptions as prescribed. When you are in need of refills on your medications, please contact your medical provider and/or outpatient psychiatrist to have this done. Please go to scheduled outpatient appointment for aftercare treatment. If symptoms return or become worse, call the crisis line at and/or go to the nearest emergency room for evaluation. Discharge Disposition: HOME SELF-CARE
== END 2022-01-04 11:59 | disposition home or self-care (01) | DRG 881 ==
LOC: 3MHU 14:23
PROVIDERS: ADMIT Psychiatry & Neurology Psychiatry; ATTEND Psychiatry & Neurology Psychiatry
DX: F32.A Depression, unspecified (principal); E66.9 Obesity, unspecified; B18.2 Chronic viral hepatitis C; F13.10 Sedative, hypnotic or anxiolytic abuse, uncomplicated; F17.290 Nicotine dependence, other tobacco product, uncomplicated; Z68.31 Body mass index [BMI] 31.0-31.9, adult; F41.9 Anxiety disorder, unspecified; G47.00 Insomnia, unspecified; Z79.899 Other long term (current) drug therapy
CPT/HCPCS: 87635

== ENCOUNTER 2022-05-31 15:38 | Observation (INO) | payer OTHER ==
[2022-05-31] MEDS ORDERED: LACTATED RINGERS 1,000 ML IV ONE (16:16)
[2022-05-31] MEDS ORDERED: ONDANSETRON 4 MG/2 ML VIAL ONE (16:24)
[2022-05-31] MEDS ORDERED: DEXAMETHASONE SOD PHOSPHATE 4 MG/ML 1 ML VIAL IVP ONE (16:44)
[2022-05-31] MEDS ORDERED: fentaNYL (PF) 50 MCG/1 ML VIAL IVP ONE (16:45)
[2022-05-31] MEDS ORDERED: MIDAZOLAM 2 MG/2 ML VIAL IVP ONE (16:45)
[2022-05-31] MEDS ORDERED: hydrOXYzine pamoate 25 MG CAP PO PRN (18:19)
[2022-05-31] MEDS ORDERED: ONDANSETRON 4 MG/2 ML VIAL IVP PRN (18:19)
[2022-05-31] MEDS ORDERED: SENNOSIDES-DOCUSATE SODIUM 1 EACH TAB PO PRN (18:19)
--- NOTE | 2022-05-31 19:05 | P.ANPRN ---
Procedure Note - Anesthesia - Nerve Block Performed Right Popliteal Single Time Out Performed: Yes (1804) Date of Procedure: 05/31/22 Procedure Start Time: 16:45 Procedure Stop Time: 16:50 Location of Patient: PreOp Indication: Acute Post-Operative Pain, Requested by Surgeon Sedation Type: Sedate with meaningful contact maintained Preparation: Sterile Prep Position: Left Lateral Catheter: None Needle Types: Pajunk Needle Gauge: 21 Ultrasound used to visualize needle placement: Yes Ultrasound used to observe medication spread: Yes Injectate: 0.5% Ropivacaine (see comment for volume) (15CC + 5CC NACL PF) Blood Aspirated: No Pain Paresthesia on Injection Noted: No Resistance on Injection: Normal Image Stored and Saved: Yes Events: Uneventful and Well Tolerated
--- NOTE | 2022-05-31 19:06 | P.ANPRN ---
Procedure Note - Anesthesia - Nerve Block Performed Right Adductor Canal Single Time Out Performed: Yes (5321) Date of Procedure: 05/31/22 Procedure Start Time: 16:51 Procedure Stop Time: 16:55 Location of Patient: PreOp Indication: Acute Post-Operative Pain, Requested by Surgeon Specifically requested for management of pain by DrNorma: Hugo Rolon Sedation Type: Sedate with meaningful contact maintained Preparation: Sterile Prep Position: Supine Catheter: None Needle Types: Pajunk Needle Gauge: 21 Ultrasound used to visualize needle placement: Yes Ultrasound used to observe medication spread: Yes Injectate: 0.5% Ropivacaine (see comment for volume) (15CC + 5CC NACL PF) Blood Aspirated: No Pain Paresthesia on Injection Noted: No Resistance on Injection: Normal Image Stored and Saved: Yes Events: Uneventful and Well Tolerated
[2022-05-31] MEDS: LACTATED RINGERS 1,000 ML IV SCH (21:41)
[2022-05-31] MEDS: oxyCODONE-APAP 10-325MG 1 EACH TAB PO PRN (22:46)
[2022-06-01] MEDS: LACTATED RINGERS 1,000 ML IV SCH ×2 (07:18→16:37)
[2022-06-01] MEDS ORDERED: IV FLUID CONTINUATION 1,000 ML IV ONE (11:33)
[2022-06-01] MEDS ORDERED: MIDAZOLAM 2 MG/2 ML VIAL IVP ONE (12:02)
[2022-06-01] MEDS ORDERED: fentaNYL (PF) 50 MCG/1 ML VIAL IVP ONE (12:04)
[2022-06-01] MEDS ORDERED: ONDANSETRON 4 MG/2 ML VIAL IVP ONE (12:19)
[2022-06-01] MEDS ORDERED: DEXAMETHASONE SOD PHOSPHATE 4 MG/ML 1 ML VIAL IVP ONE (12:20)
--- NOTE | 2022-06-01 12:44 | P.ANPRN ---
Procedure Note - Anesthesia - Nerve Block Performed Right Adductor Canal Time Out Performed: Yes Date of Procedure: 06/01/22 Procedure Start Time: 12:02 Procedure Stop Time: 12:06 Location of Patient: PreOp Indication: Acute Post-Operative Pain, Requested by Surgeon (Dr Rolon) Sedation Type: Sedate with meaningful contact maintained Preparation: Sterile Prep Position: Supine Catheter: None Needle Types: Pajunk Needle Gauge: 21 Ultrasound used to visualize needle placement: Yes Ultrasound used to observe medication spread: Yes Injectate: 0.5% Ropivacaine (see comment for volume) (15cc +5cc PF Normal saline. Decadron 4mg) Blood Aspirated: No Pain Paresthesia on Injection Noted: No Resistance on Injection: Normal Image Stored and Saved: Yes Events: Uneventful and Well Tolerated
--- NOTE | 2022-06-01 12:45 | P.ANPRN ---
Procedure Note - Anesthesia - Nerve Block Performed Right Popliteal Time Out Performed: Yes Date of Procedure: 06/01/22 Procedure Start Time: 12:07 Procedure Stop Time: 12:11 Location of Patient: PreOp Indication: Requested by Surgeon (Dr Rolon) Sedation Type: Sedate with meaningful contact maintained Preparation: Sterile Prep Position: Left Lateral Catheter: None Needle Types: Pajunk Needle Gauge: 21 Ultrasound used to visualize needle placement: Yes Ultrasound used to observe medication spread: Yes Injectate: 0.5% Ropivacaine (see comment for volume) (15cc +5cc PF Normal saline. Decadron 4mg) Blood Aspirated: No Pain Paresthesia on Injection Noted: No Resistance on Injection: Normal Image Stored and Saved: Yes Events: Uneventful and Well Tolerated
[2022-06-01] MEDS ORDERED: PROPOFOL 10 MG/ML 20 ML VIAL IV ONE (13:14)
[2022-06-01] MEDS ORDERED: MIDAZOLAM 2 MG/2 ML VIAL ONE (13:14)
[2022-06-01] MEDS ORDERED: LIDOCAINE 2% INJ 20 MG/ML (2 ML VIAL) ONE (13:14)
[2022-06-01] MEDS ORDERED: HYDROmorphone (PF) 1 MG/ML ONE (13:14)
[2022-06-01] MEDS ORDERED: DEXAMETHASONE SOD PHOSPHATE 4 MG/ML 1 ML VIAL ONE (13:14)
[2022-06-01] MEDS ORDERED: NEOSTIGMINE 1 MG/ML 10 ML VIAL ONE (13:14)
[2022-06-01] MEDS ORDERED: ePHEDrine 50 MG/ML 1 ML VIAL ONE (13:14)
[2022-06-01] MEDS ORDERED: ROCURONIUM 10 MG/ML (5 ML VIAL) IV ONE (13:14)
[2022-06-01] MEDS ORDERED: ROPIVACAINE 5 MG/ML 30 ML VIAL ONE (13:14)
[2022-06-01] MEDS ORDERED: fentaNYL (PF) 50 MCG/ML 2 ML AMP ONE (13:14)
[2022-06-01] MEDS ORDERED: SUCCINYLCHOLINE CHLORIDE 200 MG/10 ML VIAL IV ONE (13:14)
[2022-06-01] MEDS ORDERED: GLYCOPYRROLATE 0.2 MG/ML 2 ML VIAL ONE (13:14)
[2022-06-01] MEDS ORDERED: SODIUM CHLORIDE 0.9% (PF) 10 ML VIAL ONE (13:14)
--- NOTE | 2022-06-01 15:38 | XR ---
Intraoperative/procedural fluoroscopic services were provided for ORIF right ankle. There is distal f ibular and tubular fixation plates with screws traversing comminuted left distal tibia fracture and d istal fibular fracture. Hardware appears intact with appropriate alignment. Total fluoroscopy time is 2 minutes 57 seconds with a total of 15 submitted images to PACS. Please see the operative note for further details.
[2022-06-01] MEDS ORDERED: HYDROmorphone 0.5 MG/0.5 ML SYRINGE IVP PRN ×2 (15:47)
[2022-06-01] MEDS ORDERED: HYDROmorphone 0.5 MG/0.5 ML SYRINGE IVP ONE ×4 (15:51→16:12)
--- NOTE | 2022-06-01 15:58 | P.OP ---
Date of Procedure: 06/01/22 Preoperative Diagnosis: 1. Displaced right distal third tibia fracture with extension to the medial malleolus 2. Displaced lateral malleolus fracture, right ankle 3. Nondisplaced right posterior malleolus fracture, less than 25% of the joint Postoperative Diagnosis: Same Procedure(s) Performed: 1. Open reduction internal fixation right distal third tibia fracture 2. Open reduction internal fixation right ankle lateral malleolus 3. Nonoperative treatment posterior malleolus fracture, right ankle Anesthesia: GETA, regional Surgeon: Hugo Rolon Automatic Dry Starch Operator #1: Billy Win Estimated Blood Loss (ml): 50 IV fluids (ml): 1,200 Pathology: none sent Condition: stable Disposition: PACU Indications for Procedure: The patient is a very pleasant 47-year-old female with multiple medical issues including a history of prior narcotic dependence presently on methadone who sustained an isolated injury to her right ankle when she tripped and fell over a hose injuring her right ankle. She was initially seen at [facility]. She ultimately came to our office and was transferred to [place] for definitive care. I met with the patient and her mom to discuss treatment. She had a displaced intra-articular distal third tibia fracture and a displaced lateral malleolus fracture as well as a small minimally displaced posterior malleolus fracture. My recommendation was to stabilize the distal third tibia fracture with a medial plate given the extension into the medial malleolus and fix the lateral malleolus with a plate. We also discussed the possibility of syndesmotic fixation. Given the size of the posterior malleolus if the ankle was stable we discussed nonoperative treatment. A long discussion on the potential risks and complications of surgery including but certainly not limited to risks from anesthesia, superficial infection, deep infection, delayed wound healing, damage to local blood vessels or nerves, nonunion, malunion, malreduction, symptomatically hardware, DVT, PE, posttraumatic arthritis, inability to regain preinjury level of function, need for further surgery, chronic pain, other medical issues, and possibly loss of life or limb. The patient will return understanding these potential complications also acknowledging that other less common complications are possible. She provided her consent to go forward with surgery. Description of Procedure: The patient was identified in preoperative holding and the correct right ankle was marked with my initials. I reviewed the consent form with the patient and all of her questions were answered. Her splint was taken down and there was wrinkling of the skin with no blistering. A block was given by anesthesia. The patient was then brought back to the operating room. She was positioned on the OR table where a general anesthetic and preoperative antibiotics were given. A tourniquet was applied to the proximal aspect of the right leg. The left leg was secured to the table with foam and tape. A bump was placed under the buttock internally rotating the leg to neutral. A ramp was placed under the right leg to facilitate imaging. Nonsterile drapes were applied followed by a presurgical scrub with a chlorhexidine scrub brush. The patient's right leg was then prepped and draped in the standard sterile fashion. Prior to starting surgery timeout was performed identifying the correct patient, operative extremity, and procedure. The patient's leg was then elevated, exsanguinated with an Esmarch bandage, the tourniquet was inflated to 250 mmHg. I began by performing a provisional reduction of the tibia fracture by pulling longitudinal traction and internal rotation. Fluoroscopy was brought in to verify that the fracture could be reduced and pulled out to length. Stab incisions were then made and a large [id number]-rn-[id number] reduction clamp was placed with 1 victor hugo proximal and 1 victor hugo distal to the fracture generating compression across the fracture site. A 3.5 mm lag screw was then placed through a percutaneous incision across the fracture site. A longitudinal incision was then made over the medial malleolus. Dissection was carried down and the periosteum was incised in line with the skin incision. A Castro elevator was used to create a path along the medial tibia for a distal tibia plate. The plate was then slid from distal to proximal across the fracture and its position was verified with fluoroscopy. 3 nonlocking 3.5 mm screws were placed percutaneously proximal to the fracture. Nonlocking screws were also placed distally to the fracture. Fluoroscopic images were taken verifying the reduction and placement of hardware. Attention was then turned the lateral malleolus. A longitudinal incision was made over the distal fibula. Skin incision was made with a scalpel and diss ection was carried down carefully through subcu tissue. The periosteum over the distal fibula was incised. The fracture site was identified and carefully debrided of hematoma and early callus. The fracture was provisionally reduced with longitudinal traction and the reduction was held with a [id number] reduction clamp. I then contoured a one third tubular plate as an anti-glide device over the posterior lateral aspect of the fibula. 2 nonlocking 3.5 mm screws were placed proximal to the fracture. A nonlocking 3.5 mm screws placed through the most distal hole of the plate. A 2.7 mm lag screw was placed through the plate across the fracture generating excellent compression. Final fluoroscopic images were taken. The ankle mortise appeared anatomically reduced. An external rotation stress x-ray was performed and there was no widening of the medial clear space or incisura. I interpreted this as a stable syndesmosis. On the true lateral view the hardware appeared in appropriate position and the talus was centered on the tibial plafond. Both wounds were then thoroughly irrigated and closed in layers. All stab incisions were closed with nylon sutures. I verified that all instrument, sponge, and sharp counts were correct. Sterile dressings were applied followed by a well-padded bulky Braden splint with the ankle neutral. The patient was then awoken from her anesthetic transferred from the OR table to the [facility] and brought to recovery well. Plan: The patient is going to be admitted overnight for pain control. She is to be strictly nonweightbearing on her operative extremity. She'll discharge home when pain is controlled. Aspirin for DVT prophylaxis. Follow-up in the office in 2 weeks for splint removal and nonweightbearing x-rays of the ankle.
[2022-06-01] MEDS: LORazepam 2 MG/ML INJ IV ONE ×2 (16:18→16:36)
[2022-06-01] MEDS ORDERED: KETOROLAC 15 MG/ML 1 ML VIAL IVP ONE (17:02)
[2022-06-01] MEDS: HYDROmorphone 1 MG/ML 1 ML SYRINGE IVP PRN ×2 (17:43→23:38)
[2022-06-01] MEDS: oxyCODONE-APAP 10-325MG 1 EACH TAB PO PRN (20:12)
--- NOTE | 2022-06-01 20:22 | P.CONS ---
History of Present Illness - Reason for Consult Consult date: 06/01/22 Medical management - Chief Complaint Right ankle fracture - History of Present Illness 47-year-old female patient who was evaluated by orthopedic surgery status post twisting injury of right leg and ankle on 05/19/2022; patient was initially evaluated in ER at [facility]. X-rays and CT scan was done and patient was placed in a short-leg splint with recommendations to be nonweigh tbearing in the splint using crutches; patient was reevaluated by orthopedic surgery on 05/25/2022 at which time patient complained of ongoing pain at the level of 10 out of 10 with swelling and numbness and tingling and weakness; patient was recommended open reduction internal fixation of right distal tibia and open reduction internal fixation of right lateral malleolus Patient is admitted to the hospital to proceed with surgical repair of right ankle fracture Review of Systems REVIEW OF SYSTEMS: CONSTITUTIONAL: No fever, no malaise, no fatigue. HEENT: No recent visual problems or hearing problems. Denied any sore throat. CARDIOVASCULAR: No chest pain, orthopnea, PND, no palpitations, no syncope. PULMONARY: No shortness of breath, no cough, no hemoptysis. GASTROINTESTINAL: No diarrhea, no nausea, no vomiting, no abdominal pain. NEUROLOGICAL: No headaches, no weakness, no numbness. HEMATOLOGICAL: Denies any bleeding or petechiae. GENITOURINARY: Denies any burning micturition, frequency, or urgency. MUSCULOSKELETAL/RHEUMATOLOGICAL: Denies any joint pain, swelling, or any muscle pain. ENDOCRINE: Denies any polyuria or polydipsia. The rest of the 14-point review of systems is negative. Past Medical History Past Medical History: No Reported History Additional Past Medical History / Comment(s): heroin use, uti, used to have seizures when younger last one 21 years ago. History of Any Multi-Drug Resistant Organisms: None Reported Past Surgical History: Section, Cholecystectomy Additional Past Surgical History / Comment(s): 2 sections Past Anesthesia/Blood Transfusion Reactions: No Reported Reaction Past Psychological History: Anxiety, Depression Smoking Status: Vaper Past Alcohol Use History: None Reported Past Drug Use History: Heroin, IV Drug Use Additional Drug Use History / Comment(s): last time used 12-19-2013 Medications and Allergies Home Medications Medication Instructions Recorded Confirmed Type Methadone HCl [Methadone Intensol] 170 mg PO DAILY 09/08/16 05/31/22 History Ibuprofen [Motrin] 600 mg PO Q6HR PRN 05/31/22 05/31/22 History oxyCODONE-APAP 10-325MG [Percocet 1 tab PO Q6H 05/31/22 05/31/22 History 10-325 mg] Aspirin 81 mg PO BID 30 Days #60 tab 06/01/22 Rx Docusate [Colace] 100 mg PO BID #60 capsule 06/01/22 Rx Allergies Allergy/AdvReac Type Severity Reaction Status Date / Time No Known Allergies Allergy Verified 05/31/22 15:47 Physical Exam Vitals: Vital Signs Temp Pulse Resp BP Pulse Ox 06/01/22 12:22 66 16 105/73 99 06/01/22 11:37 97.7 F 66 16 113/56 96 06/01/22 06:47 98.0 F 58 L 18 96/58 98 06/01/22 02:00 97.8 F 80 17 101/57 96 05/31/22 21:19 16 05/31/22 19:15 89 16 120/71 97 05/31/22 16:55 94 16 139/73 99 05/31/22 15:58 98.2 F 108 H 16 135/85 97 Intake and Output 05/31/22 06/01/22 06/01/22 22:59 06:59 14:59 Intake Total 600 300 Balance 600 300 Intake: IV 600 300 Other: Voiding Method Bedside Commode # Voids 3 Weight 86.6 kg PHYSICAL EXAMINATION: GENERAL: The patient is alert and oriented x3, not in any acute distress. Well developed, well nourished. HEENT: Pupils are round and equally reacting to light. EOMI. No scleral icterus. No conjunctival pallor. Normocephalic, atraumatic. No pharyngeal erythema. No thyromegaly. CARDIOVASCULAR: S1 and S2 present. No murmurs, rubs, or gallops. PULMONARY: Chest is clear to auscultation, no wheezing or crackles. ABDOMEN: Soft, nontender, nondistended, normoactive bowel sounds. No palpable organomegaly. MUSCULOSKELETAL: No joint swelling or deformity. EXTREMITIES: No cyanosis, clubbing, or pedal edema. NEUROLOGICAL: Gross neurological examination did not reveal any focal deficits. SKIN: No rashes. Assessment and Plan Assessment: 1. Displaced right distal tibial fracture with extension to the lateral malleolus - Patient to undergo open reduction internal fixation of right distal tibia and open reduction internal fixation of right lateral malleolus - Your management 2. Chronic pain; patient takes daily 3. Constipation; Senokot 2 tablets by mouth daily at bedtime when necessary DVT prophylaxis; SCDs CODE STATUS; full code
[2022-06-02] MEDS: HYDROmorphone 1 MG/ML 1 ML SYRINGE IVP PRN ×3 (02:46→08:44)
[2022-06-02] MEDS: oxyCODONE-APAP 10-325MG 1 EACH TAB PO PRN ×2 (05:25→15:56)
[2022-06-02] MEDS ORDERED: diazePAM 5 MG TAB PO PRN (10:07)
[2022-06-02] MEDS ORDERED: oxyCODONE ER 20 MG TAB.ER.12H PO SCH (10:15)
--- NOTE | 2022-06-02 10:18 | P.PN ---
Subjective Progress Note Date: 06/02/22 Principal diagnosis: S/P ORIF right cassandra ankle fracture Patient is seen at bedside this morning. She is postop day #1 from ORIF or right cassandra ankle fracture. She is struggling with pain control at the surgical site. She denies new or other complaints. She denies numbness, tingling or calf pain. Review of systems is negative for fever, chills, chest pain, shortness of breath or other Objective - Vital Signs Vital signs: Vital Signs Temp 97.6 F 06/02/22 07:08 Pulse 72 06/02/22 07:08 Resp 18 06/02/22 07:08 BP 128/70 06/02/22 07:08 Pulse Ox 98 06/02/22 07:08 FiO2 Intake & Output 06/01/22 06/02/22 06/02/22 18:59 06:59 18:59 Intake Total 800 Output Total 750 Balance 800 -750 Intake: IV 800 Output: Urine 750 Other: Voiding Method Bedside Commode Bedside Commode Urinal Urinal # Voids 0 - Exam Inspection reveals well padded splint in place. There is no active bleeding or drainage. Neurovascular status is intact distally with motor, sensation, cap refill in all toes. - Constitutional General appearance: Present: no acute distress Assessment and Plan (1) Ankle fracture, bimalleolar, closed Narrative/Plan: She will continue with routine postop orthopedic protocol including pain management where OXY ER was added alond with valium and toradol, wound care, DVT prophylaxis and medical management. Expect D/C in next few days Current Visit: Yes Status: Acute Priority: Medium Code(s): S82.843A - DISPLACED BIMALLEOLAR FRACTURE OF UNSP LOWER LEG, INIT SNOMED Code(s): 16872634 Time with Patient: Less than 30
[2022-06-02] MEDS ORDERED: NALOXONE 0.4 MG/ML 1 ML VIAL IV PRN (10:19)
[2022-06-02] MEDS: KETOROLAC 15 MG/ML 1 ML VIAL IVP SCH ×2 (10:27→17:10)
[2022-06-02] MEDS ORDERED: IBUPROFEN 600 MG TAB PO PRN (16:10)
--- NOTE | 2022-06-02 16:16 | P.PN ---
Subjective Progress Note Date: 06/02/22 Principal diagnosis: Displaced right distal tibial fracture with extension to the lateral malleolus Chronic pain 47-year-old female patient who was evaluated by orthopedic surgery status post twisting injury of right leg and ankle on 05/19/2022; patient was initially evaluated in ER at [facility]. X-rays and CT scan was done and patient was placed in a short-leg splint with recommendations to be nonweightbearing in the splint using crutches; patient was reevaluated by orthopedic surgery on 05/25/2022 at which time patient complained of ongoing pain at the level of 10 out of 10 with swelling and numbness and tingling and weakness; patient was recommended open reduction internal fixation of right distal tibia and open reduction internal fixation of right lateral malleolus Patient is admitted to the hospital to proceed with surgical repair of right ankle fracture Patient status post right ankle fracture repair; continues to complain of uncontrolled pain despite oxycodone and Dilaudid; patient reports she takes methadone for chronic pain control - We will reorder home dose of methadone and also start patient on ibuprofen Objective - Vital Signs Vital signs: Vital Signs Temp 97.6 F 06/02/22 07:08 Pulse 72 06/02/22 07:08 Resp 18 06/02/22 07:08 BP 128/70 06/02/22 07:08 Pulse Ox 98 06/02/22 07:08 FiO2 Intake & Output 06/01/22 06/02/22 06/02/22 18:59 06:59 18:59 Intake Total 800 Output Total 750 Balance 800 -750 Intake: IV 800 Output: Urine 750 Other: Voiding Method Bedside Commode Bedside Commode Urinal Urinal # Voids 0 - Exam GENERAL: The patient is alert and oriented x3, not in any acute distress. Well developed, well nourished. HEENT: Pupils are round and equally reacting to light. EOMI. No scleral icterus. No conjunctival pallor. Normocephalic, atraumatic. No pharyngeal erythema. No thyromegaly. CARDIOVASCULAR: S1 and S2 present. No murmurs, rubs, or gallops. PULMONARY: Chest is clear to auscultation, no wheezing or crackles. ABDOMEN: Soft, nontender, nondistended, normoactive bowel sounds. No palpable organomegaly. MUSCULOSKELETAL: No joint swelling or deformity. EXTREMITIES: No cyanosis, clubbing, or pedal edema. NEUROLOGICAL: Gross neurological examination did not reveal any focal deficits. SKIN: No rashes. Assessment and Plan Assessment: 1. Displaced right distal tibial fracture with extension to the lateral malleolus - Patient to undergo open reduction internal fixation of right distal tibia and open reduction internal fixation of right lateral malleolus - Your management 2. Chronic pain; patient takes daily 3. Constipation; Senokot 2 tablets by mouth daily at bedtime when necessary DVT prophylaxis; SCDs CODE STATUS; full code
[2022-06-02] MEDS: METHADONE 10 MG TAB PO SCH (17:04)
[2022-06-03] MEDS: KETOROLAC 15 MG/ML 1 ML VIAL IVP SCH ×3 (00:04→11:44)
[2022-06-03] MEDS: LACTATED RINGERS 1,000 ML IV SCH ×2 (00:05→06:15)
[2022-06-03 10:18] LABS: Anion Gap 11.7 mmol/L (10.00-18.00); BUN/Creat Ratio 12.05 Ratio (12.00-20.00); Blood Urea Nitrogen 10.6 mg/dL (9.0-27.0); Calcium 8.9 mg/dL (8.7-10.3); Carbon Dioxide 25.1 mmol/L (20.0-27.5); Non-African American GFR(CKD) 79.4 (60.0-200.0); Potassium 3.7 mmol/L (3.5-5.5)
[2022-06-03 10:37] LABS: HCT 30.5 % (37.2-46.3); HGB 9.6 g/dL (12.0-15.0); MCH 28.9 pg (27.0-32.0); MCHC 31.5 g/dL (32.0-37.0); MCV 91.9 fL (80.0-97.0); Mean Platelet Volume 10.7 fL (9.5-12.2); NRBC Per 100 WBC 0 /100 WBCS (0.0-0.0); Platelet Count 274 X 10*3/uL (140-440); RBC 3.32 X 10*6/uL (4.10-5.20); RDW 13.7 % (11.5-14.5); WBC 7.94 X 10*3/uL (4.50-10.00)
[2022-06-03] MEDS: METHADONE 10 MG TAB PO SCH (10:41)
--- NOTE | 2022-06-03 12:31 | P.PN ---
Subjective Progress Note Date: 06/03/22 Principal diagnosis: S/P ORIF right cassandra ankle fracture Patient is seen at bedside this morning. She is postop day #2 from ORIF or right cassandra ankle fracture. Her pain and overall status is improved today. She denies new complaints. She denies numbness, tingling or calf pain. Review of systems is negative for fever, chills, chest pain, shortness of breath or other Objective - Vital Signs Vital signs: Vital Signs Temp 98.1 F 06/03/22 08:09 Pulse 65 06/03/22 08:09 Resp 20 06/03/22 08:09 BP 123/77 06/03/22 08:09 Pulse Ox 97 06/03/22 08:09 FiO2 Intake & Output 06/02/22 06/03/22 06/03/22 18:59 06:59 18:59 Intake Total 480 Output Total 200 Balance -200 480 Intake: Oral 480 Output: Urine 200 Other: Voiding Method Bedside Commode Bedside Commode Bedside Commode Urinal # Voids 3 4 - Exam Inspection reveals well padded splint in place. There is no active bleeding or drainage. Neurovascular status is intact distally with motor, sensation, cap refill in all toes. - Constitutional General appearance: Present: no acute distress - Labs CBC & Chem 7: 06/03/22 05:41 06/03/22 05:41 Labs: Abnormal Lab Results - Last 24 Hours (Table) 06/03/22 Range/Units 05:41 RBC 3.32 L (4.10-5.20) X 10*6/uL Hgb 9.6 L (12.0-15.0) g/dL Hct 30.5 L (37.2-46.3) % MCHC 31.5 L (32.0-37.0) g/dL Assessment and Plan (1) Ankle fracture, bimalleolar, closed Narrative/Plan: She will continue with routine postop orthopedic protocol including pain management, wound care, DVT prophylaxis and medical management. Expect D/C to home tomorrow Current Visit: Yes Status: Acute Priority: Medium Code(s): S82.843A - DISPLACED BIMALLEOLAR FRACTURE OF UNSP LOWER LEG, INIT SNOMED Code(s): 33707871 Time with Patient: Less than 30
[2022-06-03] MEDS: ASPIRIN 325 MG TAB PO SCH ×2 (13:24→20:39)
--- NOTE | 2022-06-03 16:31 | P.PN ---
Subjective Progress Note Date: 06/03/22 Principal diagnosis: Displaced right distal tibial fracture with extension to the lateral malleolus Chronic pain 47-year-old female patient who was evaluated by orthopedic surgery status post twisting injury of right leg and ankle on 05/19/2022; patient was initially evaluated in ER at [facility]. X-rays and CT scan was done and patient was placed in a short-leg splint with recommendations to be nonweightbearing in the splint using crutches; patient was reevaluated by orthopedic surgery on 05/25/2022 at which time patient complained of ongoing pain at the level of 10 out of 10 with swelling and numbness and tingling and weakness; patient was recommended open reduction internal fixation of right distal tibia and open reduction internal fixation of right lateral malleolus Patient is admitted to the hospital to proceed with surgical repair of right ankle fracture Patient status post right ankle fracture repair; continues to complain of uncontrolled pain despite oxycodone and Dilaudid; patient reports she takes methadone for chronic pain control - We will reorder home dose of methadone and also start patient on ibuprofen 24 hour interval change 06/03/2022 Patient is seen and evaluated resting comfortably in bed; reports improved pain control with home dose of methadone Vital signs are reviewed and remained stable Lab review shows to be dizzy 7.9, hemoglobin of 9.6 and platelet count of 274, sodium 139, potassium 3.7, BUN/creatinine of 10.6/0.9 Patient remains on home dose of methadone 175 mg daily along with oral Toradol for pain control - PT/OT to evaluate patient and make recommendations Objective - Vital Signs Vital signs: Vital Signs Temp 98.1 F 06/03/22 08:09 Pulse 65 06/03/22 08:09 Resp 20 06/03/22 08:09 BP 123/77 06/03/22 08:09 Pulse Ox 97 06/03/22 08:09 FiO2 Intake & Output 06/02/22 06/03/22 06/03/22 18:59 06:59 18:59 Intake Total 480 Output Total 200 Balance -200 480 Intake: Oral 480 Output: Urine 200 Other: Voiding Method Bedside Commode Bedside Commode Bedside Commode Urinal # Voids 3 4 - Exam GENERAL: The patient is alert and oriented x3, not in any acute distress. Well developed, well nourished. HEENT: Pupils are round and equally reacting to light. EOMI. No scleral icterus. No conjunctival pallor. Normocephalic, atraumatic. No pharyngeal erythema. No thyromegaly. CARDIOVASCULAR: S1 and S2 present. No murmurs, rubs, or gallops. PULMONARY: Chest is clear to auscultation, no wheezing or crackles. ABDOMEN: Soft, nontender, nondistended, normoactive bowel sounds. No palpable organomegaly. MUSCULOSKELETAL: No joint swelling or deformity. EXTREMITIES: No cyanosis, clubbing, or pedal edema. NEUROLOGICAL: Gross neurological examination did not reveal any focal deficits. SKIN: No rashes. - Labs CBC & Chem 7: 06/03/22 05:41 06/03/22 05:41 Labs: Abnormal Lab Results - Last 24 Hours (Table) 06/03/22 Range/Units 05:41 RBC 3.32 L (4.10-5.20) X 10*6/uL Hgb 9.6 L (12.0-15.0) g/dL Hct 30.5 L (37.2-46.3) % MCHC 31.5 L (32.0-37.0) g/dL Assessment and Plan Assessment: 1. Displaced right distal tibial fracture with extension to the lateral malleolus - Patient to undergo open reduction internal fixation of right distal tibia and open reduction internal fixation of right lateral malleolus - Your management 2. Chronic pain; patient takes daily 3. Constipation; Senokot 2 tablets by mouth daily at bedtime when necessary DVT prophylaxis; SCDs CODE STATUS; full code
[2022-06-03] MEDS: FAMOTIDINE 20 MG TAB PO SCH (20:39)
[2022-06-03] MEDS ORDERED: FAMOTIDINE 20 MG/2 ML VIAL IV SCH (21:00)
[2022-06-04] MEDS: KETOROLAC 15 MG/ML 1 ML VIAL IVP PRN ×2 (02:25→08:49)
[2022-06-04 07:28] VITALS: TEMP 98.1
[2022-06-04 09:23] LABS: Basophils # (A) 0.1 k/uL (0-0.2); Basophils % (A) 1 %; Eosinophils # (A) 0.3 k/uL (0-0.7); Eosinophils % (A) 5 %; HGB 11.2 gm/dL (11.4-16.0); Lymphocytes # (A) 2.3 k/uL (1.0-4.8); Lymphocytes % (A) 34 %; MCH 30.3 pg (25.0-35.0); MCHC 34.9 g/dL (31.0-37.0); MCV 86.8 fL (80.0-100.0); Mean Platelet Volume 7.7; Monocytes # (A) 0.3 k/uL (0-1.0); Monocytes % (A) 4 %; Neutrophils # (A) 3.7 k/uL (1.3-7.7); Neutrophils % (A) 56 %; Platelet Count 301 k/uL (150-450); RBC 3.68 m/uL (3.80-5.40); RDW 13.5 % (11.5-15.5); WBC 6.7 k/uL (3.8-10.6)
[2022-06-04 09:31] LABS: African American GFR (CKD) >90 (>60 ml/min/1.73 sqM); Non-African American GFR(CKD) >90 (>60 ml/min/1.73 sqM)
[2022-06-04] MEDS: METHADONE 10 MG TAB PO SCH (09:42)
[2022-06-04] MEDS: ASPIRIN 325 MG TAB PO SCH (09:43)
[2022-06-04] MEDS: FAMOTIDINE 20 MG TAB PO SCH (09:43)
[2022-06-04] MEDS ORDERED: ACETAMINOPHEN TAB 325 MG TAB PO PRN (11:59)
--- NOTE | 2022-06-04 12:05 | P.PN ---
Subjective 47-year-old female patient who was evaluated by orthopedic surgery status post twisting injury of right leg and ankle on 05/19/2022; patient was initially evaluated in ER at [facility]. X-rays and CT scan was done and patient was placed in a short-leg splint with recommendations to be nonweightbearing in the splint using crutches; patient was reevaluated by orthopedic surgery on 05/25/2022 at which time patient complained of ongoing pain at the level of 10 out of 10 with swelling and numbness and tingling and weakness; patient was recommended open reduction internal fixation of right distal tibia and open reduction internal fixation of right lateral malleolus Patient is admitted to the hospital to proceed with surgical repair of right ankle fracture Patient status post right ankle fracture repair; continues to complain of uncontrolled pain despite oxycodone and Dilaudid; patient reports she takes methadone for chronic pain control - We will reorder home dose of methadone and also start patient on ibuprofen 24 hour interval change 06/03/2022 Patient is seen and evaluated resting comfortably in bed; reports improved pain control with home dose of methadone Vital signs are reviewed and remained stable Lab review shows to be dizzy 7.9, hemoglobin of 9.6 and platelet count of 274, sodium 139, potassium 3.7, BUN/creatinine of 10.6/0.9 Patient remains on home dose of methadone 175 mg daily along with oral Toradol for pain control - PT/OT to evaluate patient and make recommendations Resume the care of the patient on 06/04/22 This is a pleasant 47 years old female was admitted initially for right ankle fracture, status post open reduction internal fixation. Today is postoperative day #3. Patient complains from mild pain in her left ankle area She denies any other new symptoms, she denies chest pain or dyspnea. No bowel movement with passing gas. No abdominal pain or vomiting. No urinary complaints. No headache dizziness weakness or numbness She is hemodynamically stable and she is AfebrileHemoglobin 9.6, today improved to 11.2. Creatinine checked yesterday and today and it is within normal limits. And is on methadone at home which is restarted Also patient on aspirin 325 twice a day for DVT prophylaxis and this will help also with pain. Patient also on when necessary Toradol, We added Tylenol when necessary I talked to the patient is better to control the pain with Tylenol on the top of her aspirin and methadone and she is agreeable We recommend judicious use of NSAIDs, risks and benefits are explained for the patient including but not limited to risk of GI ulceration, nephrotoxicity, patient verbalized understanding and acceptance Patient currently stable Objective - Vital Signs Vital signs: Vital Signs Temp 98.1 F 06/04/22 07:01 Pulse 73 06/04/22 07:01 Resp 16 06/04/22 07:01 BP 117/71 06/04/22 07:01 Pulse Ox 94 L 06/04/22 07:01 FiO2 Intake & Output 06/03/22 06/04/22 06/04/22 18:59 06:59 18:59 Other: Voiding Method Bedside Commode Bedside Commode # Voids 4 4 # Bowel Movements 1 - Exam GENERAL: The patient is alert and oriented x3, not in any acute distress. Well developed, well nourished. HEENT: Pupils are round and equally reacting to light. EOMI. No scleral icterus. No conjunctival pallor. Normocephalic, atraumatic. No pharyngeal erythema. No thyromegaly. CARDIOVASCULAR: S1 and S2 present. No murmurs, rubs, or gallops. PULMONARY: Chest is clear to auscultation, no wheezing or crackles. ABDOMEN: Soft, nontender, nondistended, normoactive bowel sounds. No palpable organomegaly. MUSCULOSKELETAL: No joint swelling or deformity. -EXTREMITIES: No cyanosis, clubbing, or pedal edema. Right ankle N heart splint, rest of exam is deferred to surgery team NEUROLOGICAL: Gross neurological examination did not reveal any focal deficits. SKIN: No rashes. no petechiae. - Labs CBC & Chem 7: 06/04/22 08:51 06/04/22 08:51 Labs: Abnormal Lab Results - Last 24 Hours (Table) 06/04/22 Range/Units 08:51 RBC 3.68 L (3.80-5.40) m/uL Hgb 11.2 L (11.4-16.0) gm/dL Hct 32.0 L (34.0-46.0) % Assessment and Plan Assessment: 1. Displaced right distal tibial fracture with extension to the lateral malleolus . On 06/01 - Status post open reduction internal fixation of right distal tibia and open reduction internal fixation of right lateral malleolus - Pain management and DVT prophylaxis as per surgery primary team - Hemoglobin and creatinine stable. And improving. Recommend to limit NSAIDs to decrease possible side effects, explained for the patient and she is agreeable 2. Chronic pain; patient takes methadone daily 3. Constipation; Senokot 2 tablets by mouth daily at bedtime when necessary DVT prophylaxis; SCDs CODE STATUS; full cod We recommend patient follow up with PCP Dr. Almanza 1 week after discharge and pat ient was instructed with the same and she agrees
--- NOTE | 2022-06-04 12:57 | P.DS ---
Providers Date of admission: 06/04/22 10:01 Expected date of discharge: 06/04/22 Attending physician: Hugo Rolon Consults: 05/31/22 18:05 Consult Physician Routine Consulting Provider: Katiana Owen Consult Reason/Comments: medical management Do you want consulting provider notified?: Yes Primary care physician: Archie Quintanilla [facility] Course: This patient is a 47-year-old female who sustained a fall resulting in a right distal tibia, right lateral malleolus fracture, right posterior malleolus fracture. Patient underwent ORIF of right distal third tibia fracture and right ankle lateral malleolus with non-operative management of posterior malleolus on 06/01/[address] Rolon. The procedure was performed without complication or sequelae. The patient is doing fairly well postoperatively. Vital signs and labs are stable on postoperative day #3. Patient was examined bedside today. Patient states she is doing well and has no specific complaints. Pain has been well-controlled on home dose of Methadone. She is ambulating with crutches and remaining non-weight bearing on the right lower extremity. She is tolerating her diet well and voiding without issue. No new complaints or concerns on the day of discharge. On examination, the patient is sitting up in bed. She is alert and oriented 3. On inspection of the right lower extremity, there is a clean, dry, intact bulky Braden splint in place. The visible portion of the toes are warm and well perfused. She is able to wiggle toes appropriately. No pain with passive range of motion of the toes. Patient is discharged to rehab today in good condition, pending medical clearance. Patient will follow-up with Dr. Rolon in the office in 2 weeks. Please see med rec for accurate list of discharge medication. Plan - Discharge Summary Discharge Rx Participant: No New Discharge Prescriptions: New Aspirin 81 mg PO BID 30 Days #60 tab Docusate [Colace] 100 mg PO BID #60 capsule No Action Methadone HCl [Methadone Intensol] 170 mg PO DAILY oxyCODONE-APAP 10-325MG [Percocet 10-325 mg] 1 tab PO Q6H Ibuprofen [Motrin] 600 mg PO Q6HR PRN PRN Reason: Pain Discharge Medication List Methadone HCl [Methadone Intensol] 170 mg PO DAILY 09/08/16 [History] Ibuprofen [Motrin] 600 mg PO Q6HR PRN 05/31/22 [History] oxyCODONE-APAP 10-325MG [Percocet 10-325 mg] 1 tab PO Q6H 05/31/22 [History] Aspirin 81 mg PO BID 30 Days #60 tab 06/01/22 [Rx] Docusate [Colace] 100 mg PO BID #60 capsule 06/01/22 [Rx] Follow up Appointment(s)/Referral(s): Hugo Rolon MD [Medical Doctor] - 2 Weeks Activity/Diet/Wound Care/Special Instructions: Non-weight bearing operative extremity. Use crutches, walker, knee scooter for ambulation. Keep splint clean, dry, intact until follow-up appointment in the office. Do not remove splint. Keep operative extremity elevated for swelling and pain control. Take aspirin 81mg BID x 4 weeks for blood clot prevention. Follow-up in the office in two weeks at [facility]. Call the office with any questions or concerns,
[2022-06-04 14:23] VITALS: BP 111/70; PULSE 81; RESP 17
== END 2022-06-04 16:45 | disposition home or self-care (01) ==
LOC: OR 15:38 → 4SSUR 19:02 → OR 06-04 10:01
PROVIDERS: ADMIT Orthopaedic Surgery; ATTEND Orthopaedic Surgery
DX: S82.841A Displaced bimalleolar fracture of right lower leg, initial encounter for closed fracture (principal); W19.XXXA Unspecified fall, initial encounter; G89.18 Other acute postprocedural pain; K59.00 Constipation, unspecified; F32.A Depression, unspecified; F41.9 Anxiety disorder, unspecified; Z79.82 Long term (current) use of aspirin; Z79.899 Other long term (current) drug therapy
CPT/HCPCS: 96361; 96374; 96375; 64447; 81025; 64445; 76942; 82565; 85025; 73600; 27827; 27792; G0378; C1713; J2250 ×2; J0330; J2060; J1100 ×2; J2710; J0690 ×2; J2405 ×2; J3010 ×3; S0109 ×3; J1170 ×4; J2795; J1885 ×4; J2704; J2001

== ENCOUNTER 2022-10-08 09:57 | Day surgery (SDC) | payer OTHER ==
--- NOTE | 2022-10-08 10:01 | P.GSHP ---
History of Present Illness H&P Date: 10/08/22 47 yo female who was in [facility] 10/07/2022 with an 8mm lt upj stone. I saw her in consult. Treatment options were discussed. She comes for shockwave lithotripsy left. Risks and complications alternatives have been discussed. - Constitutional Constitutional: Denies chills, Denies fever - EENT Eyes: denies blurred vision, denies pain Ears, nose, mouth and throat: Denies headache, Denies sore throat - Cardiovascular Cardiovascular: Denies chest pain, Denies shortness of breath - Respiratory Respiratory: Denies cough, Denies 7 - Gastrointestinal Gastrointestinal: Denies abdominal pain, Denies diarrhea, Denies nausea, Denies vomiting - Genitourinary (Female) Genitourinary: Denies dysuria, Denies hematuria - Genitourinary (Male) Genitourinary: Denies dysuria, Denies hematuria - Musculoskeletal Musculoskeletal: Denies myalgias - Integumentary Integumentary: Denies pruritus, Denies rash - Neurological Neurological: Denies numbness, Denies weakness - Psychiatric Psychiatric: Denies anxiety, Denies depression - Endocrine Endocrine: Denies fatigue, Denies weight change Past Medical History Past Medical History: No Reported History Additional Past Medical History / Comment(s): heroin use, uti, used to have seizures when younger last one 21 years ago. History of Any Multi-Drug Resistant Organisms: None Reported Past Surgical History: Section, Cholecystectomy Additional Past Surgical History / Comment(s): 2 sections Past Anesthesia/Blood Transfusion Reactions: No Reported Reaction Past Psychological History: Anxiety, Depression Smoking Status: Vaper Past Alcohol Use History: None Reported Past Drug Use History: Heroin, IV Drug Use Additional Drug Use History / Comment(s): last time used 12-19-2013 Medications and Allergies Home Medications Medication Instructions Recorded Confirmed Type Methadone HCl [Methadone Intensol] 170 mg PO DAILY 09/08/16 06/02/22 History Ibuprofen [Motrin] 600 mg PO Q6HR PRN 05/31/22 05/31/22 History oxyCODONE-APAP 10-325MG [Percocet 1 tab PO Q6H 05/31/22 05/31/22 History 10-325 mg] Aspirin 81 mg PO BID 30 Days #60 tab 06/01/22 Rx Docusate [Colace] 100 mg PO BID #60 capsule 06/01/22 Rx Allergies Allergy/AdvReac Type Severity Reaction Status Date / Time No Known Allergies Allergy Verified 05/31/22 15:47 Surgical - Exam - General well developed, well nourished, no distress - Eyes normal ocular movement, no icteric - ENT no hearing loss, no congestion - Neck no masses, trachea midline - Respiratory normal respiratory effort, clear to auscultation - Abdomen Abdomen: soft, non tender, no guarding, no rigid, no rebound - Integumentary no rash, no abnormal pigmentation - Neurologic no disoriented, no combative - Psychiatric oriented to time, oriented to person, oriented to place, speech is normal, memory intact Results - Imaging CT scan - abdomen: report reviewed, image reviewed CT scan - pelvis: report reviewed, image reviewed Assessment and Plan Assessment: Impression: Left UPJ stone with colic. Recommendations: Extracorporeal shockwave lithotripsy left
[2022-10-08] MEDS ORDERED: LACTATED RINGERS 1,000 ML IV ONE (10:53)
--- NOTE | 2022-10-08 10:56 | XR ---
EXAMINATION TYPE: XR KUB DATE OF EXAM: 10/08/2022 COMPARISON: 12/28/2021 HISTORY: Lithotripsy TECHNIQUE: One view abdominal series FINDINGS: The osseous structures are intact. The bowel gas pattern is nonspecific. Right kidney: No definite suspicious calcifications. Left kidney: There is a 2 mm lower pole left renal calculus and a 6.6 mm left renal pelvic calcificat ion. No suspicious calcifications within the pelvis. Postcholecystectomy clips right upper quadrant. IMPRESSION: 1. Left-sided nephrolithiasis.
[2022-10-08] MEDS ORDERED: ONDANSETRON 4 MG/2 ML VIAL ONE (11:14)
[2022-10-08] MEDS ORDERED: ONDANSETRON 4 MG/2 ML VIAL IVP ONE (11:15)
[2022-10-08] MEDS ORDERED: FUROSEMIDE 10 MG/ML 2 ML VIAL ONE (11:16)
[2022-10-08] MEDS ORDERED: PROPOFOL 10 MG/ML 20 ML VIAL IV ONE (11:16)
[2022-10-08] MEDS ORDERED: MIDAZOLAM 2 MG/2 ML VIAL ONE (11:16)
[2022-10-08] MEDS ORDERED: fentaNYL (PF) 50 MCG/ML 2 ML AMP ONE (11:16)
--- NOTE | 2022-10-08 11:55 | P.OP ---
Date of Procedure: 10/08/22 Preoperative Diagnosis: Left UPJ calculus Postoperative Diagnosis: Same Procedure(s) Performed: Extracorporeal shockwave lithotripsy left, 2400 shocks at energy level IV Anesthesia: GETA Surgeon: Neftaly Lyons Pathology: none sent Condition: stable Disposition: PACU Indications for Procedure: The patient is 47. She was in [facility] yesterday with an 8 mm left UPJ stone. We discussed treatment options and she set up for shockwave lithotripsy left. Description of Procedure: Patient is brought to the operating suite. On the lithotripsy table she's given a general LMA anesthetic. The left UPJ stone was seen in 2 views of fluoroscopy with the compact delta2 lithotripter. 2500 shocks at energy levels 4R administered to the left UPJ stone. The stone fractures nicely. 10 mg of Lasix is administered. At the end of the procedure the patient was awakened and returned recovery room in good condition. She tolerated the procedure well be discharged home upon recovery and found the office in one week with a KUB.
[2022-10-08 12:18] VITALS: TEMP 98
[2022-10-08 12:59] VITALS: PULSE 91; RESP 20
[2022-10-08 13:15] VITALS: BP 108/68
== END 2022-10-08 13:39 | disposition home or self-care (01) ==
LOC: ORWHC2ENDO 09:57
PROVIDERS: ATTEND Urology
DX: N20.1 Calculus of ureter (principal); F41.8 Other specified anxiety disorders; G40.909 Epilepsy, unspecified, not intractable, without status epilepticus; F17.290 Nicotine dependence, other tobacco product, uncomplicated; Z87.440 Personal history of urinary (tract) infections; Z90.49 Acquired absence of other specified parts of digestive tract; Z98.891 History of uterine scar from previous surgery; Z79.82 Long term (current) use of aspirin; Z79.899 Other long term (current) drug therapy
CPT/HCPCS: 81025; 74018; 50590; J2250; J1940; J2405; J3010; J2704

== ENCOUNTER → 2022-10-15 | Outpatient (CLI) | payer OTHER ==
--- NOTE | 2022-10-15 10:17 | XR ---
EXAMINATION TYPE: XR KUB DATE OF EXAM: 10/15/2022 HISTORY: Pain Comparison: 10/08/2022 Single KUB is submitted for interpretation. Findings: Right renal calculi: None Visualized. Right ureteral calculi: None Visualized. Left renal calculi: Several sub-3 mm calculi overlying the lower pole of the left kidney. Left ureteral calculi: 6.2 mm calculus left renal pelvis is essentially unchanged. Pelvic calcifications: None Visualized. Bowel gas pattern is unremarkable. No free air. No mass effects. IMPRESSION: 1. As above
== END | disposition home or self-care (01) ==
LOC: RADXRMAIN 09:54
PROVIDERS: ATTEND Urology
DX: N20.1 Calculus of ureter (principal); M61.9 Calcification and ossification of muscle, unspecified
CPT/HCPCS: 74018

== ENCOUNTER → 2023-01-11 | Outpatient (CLI) | payer OTHER ==
--- NOTE | 2023-01-11 16:17 | CT ---
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 Previous fusion performed CT DLP: 346 mGycm Automated exposure control for dose reduction was used. Contrast: None Technique: Axial images 2 mm thick sections. Reconstructed images in the coronal and sagittal planes. FINDINGS: There is an oblique fracture through the distal metadiaphyseal tibia with open reduction internal fix ation. 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 There is open reduction internal fixation of the distal fibula. There is 3-D reconstructive images through the ankle. IMPRESSION: 1. 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 THERE HAS BEEN PRIOR OPEN REDUCTION INTERNAL FIXATION. .
== END | disposition home or self-care (01) ==
LOC: RADCTMAIN 12:40
PROVIDERS: ATTEND Orthopaedic Surgery
DX: S82.51 Displaced fracture of medial malleolus of right tibia (principal)
CPT/HCPCS: 82306